=== PATIENT | male | born 1955 | race Caucasian/White ===

== ENCOUNTER 2021-12-20 18:06 | Emergency (ER) | payer MEDICARE, MEDICAID, SELFPAY ==
[2021-12-20 18:20] VITALS: BP 140/93; PULSE 88; RESP 18; TEMP 36.6; O2SAT 94; BMI 23.1
--- NOTE | 2021-12-20 18:34 | ED_ITS ---
HPI - General Adult General Time Seen by Provider: 18:42 Date Seen: 12/20/21 Chief complaint: Unspecified Complaint, Adult Stated complaint: Mental health Time Seen by Provider: 12/20/21 18:21 Source: patient History of Present Illness HPI narrative: Scooby is a 66-year-old male past medical history includes manic depression currently on electroconvulsive therapy since 06/2016, bipolar disorder on Depakote and Seroquel, anxiety on Lexapro and clonazepam, COPD presents emerged department by EMS with behavior concern. Per [facility] where he resides, resident has been decompensating from mental health symptoms. The patient has not been sleeping very irritable raising voices and having delusional thoughts. He was seen by his primary care provider and they decreased his Depakote on 11/29 from 1500 mg to 12 50 mg. The started him on Seroquel from 200 mg yesterday. Due to his behavior, patient's brother brought him to his home and was trying to get him to go to [facility], during that time he sustained abrasions to his right forearm on a brick wall. No other injuries noted. EMS brought patient here for further evaluation, patient is not currently suicidal or homicidal, he denies any visual or auditory hallucinations, no alcohol or drug use, he smokes 7 cigarettes a day. Sees Dr[facility]. Patient has a history of aspiration, had a recent swallowing study done. Patient feels anxious at this time and does not want to return to [place]. Patient has minimal pain at this time. Related Data Home Medications Medication Instructions Recorded Confirmed clonazepam 0.5 mg tablet mg 12/20/21 divalproex 250 mg tablet,extended mg PO 12/20/21 release 24 hr divalproex 500 mg tablet,extended mg PO 12/20/21 release 24 hr escitalopram oxalate 5 mg tablet mg 12/20/21 haloperidol decanoate 50 mg/mL mg IM 12/20/21 intramuscular solution levothyroxine 150 mcg tablet mcg 12/20/21 propranolol 20 mg tablet mg 12/20/21 quetiapine 100 mg tablet mg 12/20/21 tamsulosin 0.4 mg capsule mg PO 12/20/21 Allergies Allergy/AdvReac Type Severity Reaction Status Date / Time haloperidol AdvReac Unknown Verified 12/20/21 18:25 clozapine AdvReac Verified 12/20/21 18:25 Review of Systems Status of ROS: Reports: 10 or more systems reviewed and unremarkable except as noted in History and below Exam Narrative: Exam Narrative: General: Anxious in appearance, upper extremity tremors HEENT: Tympanic membranes within normal limits bilaterally. Poor dentition throughout with dental caries, pupils equal round reactive to light, extraocular muscles intact Neck: Supple, full range of motion Lungs: Diminished breath sounds throughout, mild expiratory wheezes throughout Heart: Normal sinus rhythm, S1-S2 Abdomen: Bowel sounds present, soft, tender Extremities: Superficial abrasions to the right lateral forearm and elbow, full range of motion Neuro: Alert awake and oriented x3 Psych: No suicidal ideations, mood and affect normal, anxious in appearance Const: Vital Signs, click to edit/add: Vital Signs - 24 hr 12/20/21 18:20 Temperature 97.8 F Pulse Rate [Left P ulse Oximeter] 88 Respiratory Rate 18 Blood Pressure [Le ft Upper Arm] 140/93 H Pulse Oximetry 94 Oxygen Delivery Me thod Room Air Course Course Hospital Course: 6:30 PM: AIDET performed. Workup will include oral Klonopin 0.5 mg to be given, will have him see [facility] for further recommendations, will obtain labs including CBC, TSH, CMP, ETOH, acetaminophen salicylate levels, urinalysis and urine drug screen. Patient is cooperative at this time. 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 Reevaluation(s) Reevaluation #1: Spoke with [facility] assessment, her recommendations for discharge, patient does not meet criteria for inpatient admission to a psychiatric hospital at this time. Patient was updated on his lab results, plan would be to discharge back to [place], patient is in agreement. He will follow up with Dr. Connor over the next 5-7 days and his scheduled general surgery placement in 2 weeks time.. Time: 20:14 Vital Signs Vital signs: Initial Vital Signs Temperature 97.8 F 12/20/21 18:20 Temperature Source Temporal Artery Scan 12/20/21 18:20 Pulse Rate 88 12/20/21 18:20 Pulse Rhythm 12/20/21 18:20 Respiratory Rate 18 12/20/21 18:20 Blood Pressure 140/93 H 12/20/21 18:20 Blood Pressure Mean 108 12/20/21 18:20 Blood Pressure Position Supine 12/20/21 18:20 Pulse Oximetry 94 12/20/21 18:20 Oxygen Delivery Method 12/20/21 18:20 Vital Signs Temperature 97.8 F 12/20/21 18:20 Pulse Rate 88 12/20/21 18:20 Respiratory Rate 18 12/20/21 18:20 Blood Pressure 140/93 H 12/20/21 18:20 Pulse Oximetry 94 12/20/21 18:20 Oxygen Delivery Method 12/20/21 18:20 Temperature 97.8 F 12/20/21 18:20 Pulse Rate 88 12/20/21 18:20 Respiratory Rate 18 12/20/21 18:20 Blood Pressure 140/93 H 12/20/21 18:20 Pulse Oximetry 94 12/20/21 18:20 Oxygen Delivery Method 12/20/21 18:20 Medical Decision Making Lab Data Labs: Lab Results 12/20/21 12/20/21 12/20/21 Range/Units 18:55 18:55 18:55 WBC 6.86 (4.50-11.00) K/uL RBC 4.07 L (4.30-5.90) m/uL Hgb 11.6 L (13.5-17.5) gm/dL Hct 35.7 L (37.0-53.0) % MCV 88 (80-100) fL MCH 29 (26-34) pg MCHC 33 (32-36) gm/dL RDW Coeff of Cecil 13.1 (11.5-15.5) % Plt Count 218 (140-440) K/uL Neut % (Auto) 72.1 H (42.0-72.0) % Lymph % (Auto) 17.8 L (20-44) % Woodford % (Auto) 8.2 (0.0-11.0) % Eos % (Auto) 1.5 (0.0-7.0) % Baso % (Auto) 0.3 (0.0-3.0) % Neut # (Auto) 4.90 (1.7-7.0) K/uL Lymph # (Auto) 1.20 (0.90-2.90) K/uL Woodford # (Auto) 0.60 (0.00-0.90) K/UL Eos # (Auto) 0.10 (0.00-0.50) K/uL Baso # (Auto) 0.02 (0.00-0.30) K/uL Abs Immat Gran (auto) 0.01 (0.00-0.30) K/uL Sodium 136 (135-149) mmol/L Potassium 4.3 (3.6-5.1) mmol/L Chloride 105 (96-114) mmol/L Carbon Dioxide 24 (20-32) mmol/L BUN 21 (7-30) mg/dL Creatinine 1.0 (0.5-1.5) mg/dL Estimated Creat Clear 77.28 Estimated GFR 83 ml/min Glucose 102 (60-115) mg/dL Calcium 9.2 (8.4-10.6) mg/dL Total Bilirubin 0.1 (0.1-1.5) mg/dL AST 30 (12-35) U/L ALT 24 (4-50) U/L Alkaline Phosphatase 93 (40-150) U/L Total Protein 6.9 (6.0-8.3) g/dL Albumin 3.9 (3.3-5.0) g/dL TSH 0.653 (0.270-4.20) uIU/mL Urine Color (Yellow) Urine Appearance (Clear) Urine pH (5.0-8.5) Ur Specific Douglas (1.000-1.030) Urine Protein (Negative) Urine Glucose (UA) (Negative) Urine Ketones (Negative) Urine Blood (Negative) Urine Nitrite (Negative) Urine Bilirubin (Negative) Urine Urobilinogen (0.2-1.0) Ur Leukocyte Esterase (Negative) Salicylates < 1.0 L (1.0-10) mg/dL Acetaminophen < 10.0 L (10.0-30.0) ug/mL Ethyl Alcohol < 0.01 L (0.01-0.03) % 12/20/21 Range/Units 20:06 WBC (4.50-11.00) K/uL RBC (4.30-5.90) m/uL Hgb (13.5-17.5) gm/dL Hct (37.0-53.0) % MCV (80-100) fL MCH (26-34) pg MCHC (32-36) gm/dL RDW Coeff of Cecil (11.5-15.5) % Plt Count (140-440) K/uL Neut % (Auto) (42.0-72.0) % Lymph % (Auto) (20-44) % Woodford % (Auto) (0.0-11.0) % Eos % (Auto) (0.0-7.0) % Baso % (Auto) (0.0-3.0) % Neut # (Auto) (1.7-7.0) K/uL Lymph # (Auto) (0.90-2.90) K/uL Woodford # (Auto) (0.00-0.90) K/UL Eos # (Auto) (0.00-0.50) K/uL Baso # (Auto) (0.00-0.30) K/uL Abs Immat Gran (auto) (0.00-0.30) K/uL Sodium (135-149) mmol/L Potassium (3.6-5.1) mmol/L Chloride (96-114) mmol/L Carbon Dioxide (20-32) mmol/L BUN (7-30) mg/dL Creatinine (0.5-1.5) mg/dL Estimated Creat Clear Estimated GFR ml/min Glucose (60-115) mg/dL Calcium (8.4-10.6) mg/dL Total Bilirubin (0.1-1.5) mg/dL AST (12-35) U/L ALT (4-50) U/L Alkaline Phosphatase (40-150) U/L Total Protein (6.0-8.3) g/dL Albumin (3.3-5.0) g/dL TSH (0.270-4.20) uIU/mL Urine Color Yellow (Yellow) Urine Appearance Clear (Clear) Urine pH 6.5 (5.0-8.5) Ur Specific Douglas 1.015 (1.000-1.030) Urine Protein Negative (Negative) Urine Glucose (UA) Negative (Negative) Urine Ketones Negative (Negative) Urine Blood Negative (Negative) Urine Nitrite Negative (Negative) Urine Bilirubin Negative (Negative) Urine Urobilinogen 0.2 (0.2-1.0) Ur Leukocyte Esterase Negative (Negative) Salicylates (1.0-10) mg/dL Acetaminophen (10.0-30.0) ug/mL Ethyl Alcohol (0.01-0.03) % Discharge Plan Discharge Clinical Impression: Behavior concern Patient Disposition: Home, Self-Care Condition: Improved Additional Instructions: To follow up with Dr. Connor in the next 5-7 days for ED follow up and recheck. To follow up with General surgery as scheduled in the next 2 weeks. To return if worsening symptoms. Activity Level: Activity as Tolerated Prescriptions: No Action clonazepam 0.5 mg tablet divalproex 500 mg tablet extended release 24 hr PO divalproex 250 mg tablet extended release 24 hr PO quetiapine 100 mg tablet tamsulosin 0.4 mg capsule PO levothyroxine 150 mcg tablet haloperidol decanoate 50 mg/mL solution IM propranolol 20 mg tablet escitalopram oxalate 5 mg tablet Follow Up/Referrals: Rex Connor MD [Primary Care Provider] - Stand Alone Forms: [employer] Info Instructions
[2021-12-20 19:04] LABS: Basophils Absolute Auto 0.02 K/uL (0.00-0.30); Basophils Percent Auto 0.3 % (0.0-3.0); Eosinophils Percent Auto 1.5 % (0.0-7.0); Hematocrit 35.7 % (37.0-53.0); Hemoglobin* 11.6 gm/dL (13.5-17.5); Immature Granulocytes Abs Auto 0.01 K/uL (0.00-0.30); Lymphocytes Percent Auto 17.8 % (20-44); Mean Corpuscular HGB Conc 33 gm/dL (32-36); Mean Corpuscular Hemoglobin 29 pg (26-34); Mean Corpuscular Volume 88 fL (80-100); Monocytes Percent Auto 8.2 % (0.0-11.0); Neutrophils Percent Auto 72.1 % (42.0-72.0); Platelet Count* 218 K/uL (140-440); RDW Coefficient of Variation % 13.1 % (11.5-15.5); Red Blood Count 4.07 m/uL (4.30-5.90); White Blood Count* 6.86 K/uL (4.50-11.00)
[2021-12-20] MEDS: clonazePAM 0.5 MG TABLET PO (19:15)
[2021-12-20 19:16] LABS: Slide Review Reflex No
[2021-12-20 19:18] LABS: Albumin* 3.9 g/dL (3.3-5.0); Chloride* 105 mmol/L (96-114)
[2021-12-20 19:19] LABS: Potassium* 4.3 mmol/L (3.6-5.1); Sodium* 136 mmol/L (135-149)
[2021-12-20 19:20] LABS: Est. Creatinine Clearance* 77.28; Estimated Glomerular Filt Rate 83 ml/min
[2021-12-20 19:21] LABS: Alanine Aminotransferase* 24 U/L (4-50); Alkaline Phosphatase* 93 U/L (40-150); Aspartate Amino Transferase* 30 U/L (12-35); Bilirubin Total* 0.1 mg/dL (0.1-1.5); Blood Urea Nitrogen* 21 mg/dL (7-30); Carbon Dioxide* 24 mmol/L (20-32); Glucose* 102 mg/dL (60-115); Total Protein* 6.9 g/dL (6.0-8.3)
[2021-12-20 19:22] LABS: Calcium* 9.2 mg/dL (8.4-10.6)
[2021-12-20 19:28] LABS: Acetaminophen* < 10.0 ug/mL (10.0-30.0); Ethanol* < 0.01 % (0.01-0.03); Salicylate* < 1.0 mg/dL (1.0-10)
[2021-12-20 20:03] LABS: Thyroid Stimulating Hormone* 0.653 uIU/mL (0.270-4.20)
[2021-12-20 20:10] LABS: Appearance Urine Clear (Clear); Bilirubin Urine Negative (Negative); Blood Urine Negative (Negative); Color Urine Yellow (Yellow); Glucose Urine Negative (Negative); Ketones Urine Negative (Negative); Leukocyte Esterase Urine Negative (Negative); Nitrite Urine Negative (Negative); Protein Urine Negative (Negative); Specific Gravity Urine 1.015 (1.000-1.030); Urobilinogen Urine 0.2 (0.2-1.0); pH Urine 6.5 (5.0-8.5)
--- NOTE | 2021-12-20 20:35 | ED.NURSE ---
call to [facility], awaiting call back from nurse inhalation therapist.
[2021-12-22 13:26] LABS: Amphetamine Screen Urine Negative (Negative); Barbiturate Screen Urine Negative (Negative); Benzodiazepines Screen Urine Negative (Negative); Cannabinoid Screen Urine Negative (Negative); Cocaine Screen Urine Negative (Negative); Methadone Screen Urine Negative (Negative); Methamphetamines Screen Urine Negative (Negative); Opiate Screen Urine Negative (Negative); Oxycodone Screen Urine Negative (Negative); Phencyclidine Screen Urine Negative (Negative); Tricyclic Antidepressant Urine Negative (Negative)
== END 2021-12-20 21:12 | disposition home or self-care (01) ==
PROVIDERS: Emergency Provider Student in an Organized Health Care Education/Training Program; PCP Family Medicine
DX: F91.8 Other conduct disorders (principal)
CPT/HCPCS: 36415; 80053; 80143; 80179; 80306; 81003; 82077; 84443; 85025; 99283; 99284; A9270

== ENCOUNTER 2021-12-21 18:37 | Outpatient (CLI) | payer MEDICARE, MEDICAID, SELFPAY | END 2021-12-21 18:38 | disposition home or self-care (01) | LOC: AMB 01-02 09:08 | PROVIDERS: PCP Family Medicine; Visit Provider Family Medicine | DX: R19.7 Diarrhea, unspecified (principal); R53.1 Weakness; Z20.822 Contact with and (suspected) exposure to COVID-19 | CPT/HCPCS: A0425; A0428; A0429 ==

== ENCOUNTER 2021-12-21 19:02 | Emergency (ER) | payer MEDICARE, MEDICAID, SELFPAY ==
[2021-12-21 19:07] VITALS: BP 146/85; PULSE 80; RESP 18; TEMP 37.2; O2SAT 98; BMI 23.0
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
--- NOTE | 2021-12-21 22:27 | ED.NURSE ---
While preparing pt's medication, pt asked if he could go outside to smoke, explained that this is a non smoking facility. Pt then proceeded to walk out of the room. SUNNY Holloway followed pt and Dr Rooney was called. Pt walked to entrance and was stopped by security. Pt went outside and smoked a cigarette and was surrounded by staff
[2021-12-21 22:34] LABS: SARS PCR* Negative SARS-CoV-2 (Negative)
[2021-12-21] MEDS: LORazepam 2 MG/ML inj IM (22:39)
[2021-12-21] MEDS: diphenhydrAMINE 50 MG/ML inj 25 MG IM (22:40)
--- NOTE | 2021-12-21 22:50 | ED.NURSE ---
PT refusing to po meds. Meds wasted.
--- NOTE | 2021-12-21 23:15 | ED.NURSE ---
Spoke with Talat at [facility] and update given that pt will be returning back to [facility]. 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 Will attempt to call a taxi
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
== END 2021-12-21 23:50 | disposition other institution (70) ==
PROVIDERS: Emergency Provider Family Medicine; PCP Family Medicine
DX: S50.819A Abrasion of unspecified forearm, initial encounter (principal); Z20.822 Contact with and (suspected) exposure to COVID-19; F98.9 Unspecified behavioral and emotional disorders with onset usually occurring in childhood and adolescence
CPT/HCPCS: 87635; 96372; 99283; A9270; J1200; J2060

== ENCOUNTER 2021-12-21 23:47 | Outpatient (CLI) | payer MEDICARE, MEDICAID, SELFPAY | END 2021-12-21 23:48 | disposition home or self-care (01) | LOC: AMB 01-04 14:46 | PROVIDERS: PCP Family Medicine; Visit Provider Family Medicine | DX: F91.9 Conduct disorder, unspecified (principal) | CPT/HCPCS: A0425; A0428 ==

== ENCOUNTER 2022-08-21 03:44 | Outpatient (CLI) | payer MEDICARE, MEDICAID, SELFPAY | END 2022-08-21 03:45 | disposition home or self-care (01) | LOC: AMB 08-26 04:32 | PROVIDERS: PCP Family Medicine; Visit Provider Family Medicine | DX: S29.9XXA Unspecified injury of thorax, initial encounter (principal); W18.11XA Fall from or off toilet without subsequent striking against object, initial encounter; Y92.031 Bathroom in apartment as the place of occurrence of the external cause | CPT/HCPCS: A0425; A0427 ==

== ENCOUNTER 2022-08-21 04:17 | Emergency (ER) | payer MEDICARE, MEDICAID, SELFPAY ==
[2022-08-21] VITALS (20 sets, daily range): BP systolic 125–168; BP diastolic 76–110; PULSE 88–103; RESP 16; TEMP 36.9; O2SAT 93–105
--- NOTE | 2022-08-21 04:22 | ED_ITS ---
HPI - General Adult General Time Seen by Provider: 04:22 Date Seen: 08/21/22 Chief complaint: Fall/Minor Trauma Stated complaint: fall Time Seen by Provider: 08/21/22 04:24 History of Present Illness HPI narrative: Scooby is a 66-year-old male past medical history includes manic depression currently on electroconvulsive therapy since 06/2016, bipolar disorder on Depakote and Seroquel, anxiety on Lexapro and clonazepam, COPD presents emerged department by EMS with?complaints of right rib pain. Jn Almodovar states that he was going to go outside to smoke but on his way to the bathroom he fell. He initially denied hitting his head and has no complaints of headache or neck pain. However here in the emergency room he thinks he did hit his head. He is also unsure if he had loss of consciousness. At this time his major complaint i s right lower rib pain that is coming and going. It is been present for number of weeks. He does state that he falls frequently. He denies any recent fever chills. He does note that he has been constipated for approximately 6 days. He has not had fever or chills nor any vomiting. He denies fever or chills. While Frank responses are somewhat delayed slow and measured they are appropriate to the question and appears to be baseline for him as I read past notes. Nursing staff at [facility] also notes that he is at baseline mentally. He is requesting Coke and is agreeable to some ibuprofen. Related Data Home Medications Medication Instructions Recorded Confirmed clonazepam 0.5 mg tablet mg 12/20/21 divalproex 250 mg tablet,extended mg PO 12/20/21 release 24 hr divalproex 500 mg tablet,extended mg PO 12/20/21 release 24 hr escitalopram oxalate 5 mg tablet mg 12/20/21 haloperidol decanoate 50 mg/mL mg IM 12/20/21 intramuscular solution levothyroxine 150 mcg tablet mcg 12/20/21 propranolol 20 mg tablet mg 12/20/21 quetiapine 100 mg tablet mg 12/20/21 tamsulosin 0.4 mg capsule mg PO 12/20/21 aspirin 325 mg tablet PO 08/21/22 benztropine 0.5 mg tablet 0.5 mg PO BID 08/21/22 08/21/22 budesonide-formoterol HFA 80 inhalation 08/21/22 mcg-4.5 mcg/actuation aerosol inhaler (Symbicort) carbidopa 25 mg-levodopa 100 mg 1 tab PO 3XD 08/21/22 08/21/22 tablet escitalopram oxalate 10 mg tablet 10 mg PO DAILY 08/21/22 08/21/22 haloperidol 5 mg tablet PO 08/21/22 haloperidol decanoate 100 mg/mL mg IM 08/21/22 intramuscular solution nicotine (polacrilex) 2 mg buccal 0 mg PO 08/21/22 lozenge nicotine 14 mg/24 hr daily 1 patch topical DAILY 08/21/22 08/21/22 transdermal patch polyethylene glycol 3350 17 g PO 08/21/22 gram/dose oral powder (Gavilax) quetiapine 200 mg tablet 200 mg PO QPM 08/21/22 08/21/22 Allergies Allergy/AdvReac Type Severity Reaction Status Date / Time haloperidol AdvReac Unknown Verified 08/21/22 06:52 clozapine AdvReac Verified 08/21/22 06:52 Review of Systems Status of ROS: Reports: 10 or more systems reviewed and unremarkable except as noted in History and below Const: Denies: fever or chills Eyes: Denies: blurry vision ENMT: Denies: neck pain or throat swelling Cardio: Reports: lightheadedness (Chronic when he is walking); Denies: chest pain, palpitations, swelling of feet/ankles or shortness of breath with exertion Resp: Reports: wheezing; Denies: shortness of breath or cough GI: Reports: constipation; Denies: abdominal pain, nausea or vomiting : Denies: painful urination Musculo: Denies: back pain, neck pain or extremity pain Neuro: Reports: lack of coordination; Denies: headache or numbness in extremities Allergy/Immuno: Reports: wheezing; Denies: throat swelling PFSH PFS Medical History CAD (coronary artery disease) ?I25.10 - Atherosclerotic heart disease of [place] coronary artery without angina pectoris (ICD-10) History of alcohol abuse ?F10.11 - Alcohol abuse, in remission (ICD-10) Manic depression ?F31.9 - Bipolar disorder, unspecified (ICD-10) Psychotic disorder ?F29 - Unspecified psychosis not due to a substance or known physiological condition (ICD-10) Schizoaffective disorder, bipolar type ?F25.0 - Schizoaffective disorder, bipolar type (ICD-10) Social History Smoking Status: Current every day smoker What tobacco products do you use: cigarettes Do you use any of these nicotine containing products: None How often do you have a drink containing alcohol: never How many standard drinks containing alcohol do you have on a typical day: 1 or 2 How often do you have six or more drinks on one occasion: Never AUDIT-C Alcohol total score: 0 Non-prescribed substance use: denies use Exam Narrative: Exam Narrative: Scooby is is supine on the gurney in room 5. He is able to answer my questions and has a GCS of 15. Patient has tremors in the upper extremities right greater than left at rest. Tremor extinguishes with movement. Answers to questions somewhat delayed but appropriate. His eyes are clear and EOM is full. Head is atraumatic normocephalic. Dentition very poor. Mucous membranes are somewhat dry. He is a mouth breather. Neck is supple. No midline tenderness. Heart with regular rate and rhythm Lungs show expiratory wheeze very subtle. Otherwise no crackles. Palpation over ribcage shows slight tenderness but this is occasionally not reproducible. There is no ecchymosis or erythema in this area. Abdomen is soft and nontender. Lower extremities without edema. Palpation down thoracic and lumbar spine without pain. No ecchymosis or areas of injury on the back. He is able to sit himself up in bed. Const: Vital Signs, click to edit/add: Vital Signs - 24 hr 08/21/22 04:25 08/21/22 06:54 08/21/22 07:00 Temperature 98.5 F Pulse Rate 103 H 102 H Respiratory Rate 16 Blood Pressure Blood Pressure [Ri ght Upper Arm] 150/110 H Pulse Oximetry 105 H 95 94 Oxygen Delivery Me thod Room Air 08/21/22 07:02 08/21/22 07:03 08/21/22 07:16 Temperature Pulse Rate 98 96 103 H Respiratory Rate Blood Pressure 168/93 H Blood Pressure [Ri ght Upper Arm] Pulse Oximetry 94 93 95 Oxygen Delivery Me thod 08/21/22 07:17 Temperature Pulse Rate 100 Respiratory Rate Blood Pressure 152/96 H Blood Pressure [Ri ght Upper Arm] Pulse Oximetry 95 Oxygen Delivery Me thod Documenting provider has reviewed patient's vital signs: yes Course Course Hospital Course: At this time patient is alert and oriented with no complaints of headache. His main complaint is his rib pain that has been going on for many weeks. I do not see any significant external signs of trauma but Scooby is somewhat frail and perhaps not the best historian. I would want to make sure he has no underlying head injury and therefore will order head CT, rib x-rays and a PA of the chest as well as blood work to include a CBC, comprehensive panel and urinalysis. He is requesting assistance to use the bathroom and so will have nursing collect a urinalysis. Reevaluation(s) Reevaluation #1: Scooby was sleeping soundly. I did wake him up to discuss the results of his chest x-ray which do show a mass in the right lower lung field. Able to a CT for further evaluation of this. He is informed that his head CT and laboratory values are reassuring at this time. Vital Signs Vital signs: Initial Vital Signs Temperature 98.5 F 08/21/22 04:25 Temperature Source Temporal Artery Scan 08/21/22 04:25 Respiratory Rate 16 08/21/22 04:25 Blood Pressure 150/110 H 08/21/22 04:25 Blood Pressure Mean 123 08/21/22 04:25 Pulse Oximetry 105 H 08/21/22 04:25 Oxygen Delivery Method Room Air 08/21/22 04:25 Vital Signs Temperature 98.5 F 08/21/22 04:25 Respiratory Rate 16 08/21/22 04:25 Blood Pressure 150/110 H 08/21/22 04:25 Pulse Oximetry 105 H 08/21/22 04:25 Oxygen Delivery Method Room Air 08/21/22 04:25 Temperature 98.5 F 08/21/22 04:25 Pulse Rate 100 08/21/22 07:17 Respiratory Rate 16 08/21/22 04:25 Blood Pressure 152/96 H 08/21/22 07:17 Pulse Oximetry 95 08/21/22 07:17 Oxygen Delivery Method Room Air 08/21/22 04:25 Medical Decision Making MDM Narrative Medical decision making narrative: 1. Fall-patient has no obvious external signs of trauma. In fact, he states he did not get hurt from the fall but came in because he has been experiencing right rib pain for a few weeks. Note that CT does show possible nondisplaced sternal fracture but this also could be artifact. Patient has no pain at this site. 2. Rib pain -secondary to spiculated middle low mass on the right. While there are some signs which could indicate infection patient has been afebrile, has had this pain for many weeks, and has reassuring lab values. We will start patient on Augmentin 875 mg p.o. b.i.d., his 1st dose given in the ED. we will try to coordinate with [facility] nurses to ensure patient continues this medication. Attempting at this time to coordinate outpatient appointment with Interventional Radiology for tissue sampling of this area. I did speak with our radiologist who feels that patient needs to be seen by IR at [facility] and that this is a procedure that should not be done at [facility]. I was able to speak with Dr. Connor, [facility] who will coordinate follow-up appointm ent for Scooby at the clinic, and IR appointment at [facility] and who will also speak with Frank peters. I did try to call Frank peters and both phone numbers went immediately to voicemail. 3. Disposition-home to [facility] at this time. Continue Augmentin 875 mg p.o. b.i.d. for 7 days. Expect phone call from Jose for follow-up appointment in the next 48 hours. Return to the emergency room for fever, worsening symptoms and as needed. Medical Records Medical records reviewed: Yes I reviewed the patient's medical records Lab Data Lab results reviewed: Yes I reviewed the patient's lab results Labs: Lab Results 08/21/22 08/21/22 Range/Units 04:30 04:45 WBC 9.50 (4.50-11.00) K/uL RBC 3.97 L (4.30-5.90) m/uL Hgb 11.6 L (13.5-17.5) gm/dL Hct 35.8 L (37.0-53.0) % MCV 90 (80-100) fL MCH 29 (26-34) pg MCHC 32 (32-36) gm/dL RDW Coeff of [place] 14.2 (11.5-15.5) % Plt Count 236 (140-440) K/uL Neut % (Auto) 72.7 H (42.0-72.0) % Lymph % (Auto) 10.5 L (20-44) % [place] % (Auto) 12.3 H (0.0-11.0) % Eos % (Auto) 2.6 (0.0-7.0) % Baso % (Auto) 0.1 (0.0-3.0) % Neut # (Auto) 6.90 (1.7-7.0) K/uL Lymph # (Auto) 1.00 (0.90-2.90) K/uL [place] # (Auto) 1.20 H (0.00-0.90) K/UL Eos # (Auto) 0.25 (0.00-0.50) K/uL Baso # (Auto) 0.01 (0.00-0.30) K/uL Sodium 141 (135-149) mmol/L Potassium 3.7 (3.6-5.1) mmol/L Chloride 109 (96-114) mmol/L Carbon Dioxide 25 (20-32) mmol/L BUN 18 (7-30) mg/dL Creatinine 1.0 (0.5-1.5) mg/dL Estimated GFR 83 ml/min Glucose 99 (60-115) mg/dL Calcium 10.0 (8.4-10.6) mg/dL Total Bilirubin 0.4 (0.1-1.5) mg/dL AST 23 (12-35) U/L ALT 12 (4-50) U/L Alkaline Phosphatase 80 (40-150) U/L Total Protein 7.6 (6.0-8.3) g/dL Albumin 3.9 (3.3-5.0) g/dL Lipase 60 (23-300) U/L Urine Color Yellow (Yellow) Urine Appearance Clear (Clear) Urine pH 6.5 (5.0-8.5) Ur Specific [place] 1.010 (1.000-1.030) Urine Protein 1+ A (Negative) Urine Glucose (UA) Negative (Negative) Urine Ketones Negative (Negative) Urine Blood Trace-intact A (Negative) Urine Nitrite Negative (Negative) Urine Bilirubin Negative (Negative) Urine Urobilinogen 0.2 (0.2-1.0) Ur Leukocyte Esterase Negative (Negative) Urine RBC 2-5 A (0-2) Urine WBC 0-2 (0-5) Ur Squamous Epith Cells Few (None-Few) Urine Bacteria None (None) Imaging Data Chest x-ray: Attestation: I have reviewed the pertinent imaging results. My impression: Noted is increased perihilar appearance but a new mass in the right lower lung field. Currently awaiting radiological over-read. Radiologist's impression: ardiovascular and mediastinum:? Heart size and vasculature are normal in caliber and appearance.? Mediastinum is within normal limits.? Lungs and pleural spaces:? The in there is multifocal opacities in the infrahilar right lung, including a rounded masslike opacity measuring 4 centimeters. The left lung is clear. No pleural effusion or pneumothorax is detected. Bones and soft tissues:? Detailed oblique images of the right ribs demonstrate no fractures or bone lesions. ? IMPRESSION: 1. No rib fracture or focal rib abnormality detected. 2. Multifocal opacity at the right lung base, including a rounded 4 centimeter masslike opacity. Recommend further assessment with chest CT. CT scan - head: Attestation: I have reviewed the pertinent imaging results. My impression: No skull fracture or intracranial bleed by my read Radiologist's impression: There is no intracranial hemorrhage. There is no territorial infarction. There are mild microangiopathic changes. There is diffuse parenchymal volume loss. There is no mass effect or midline shift. The calvarium is unremarkable. The orbits are unremarkable. The paranasal sinuses are unremarkable. The mastoid air cells are unremarkable. The soft tissues are unremarkable. IMPRESSION: 1. No intracranial hemorrhage or territorial infarction. 2. Mild microangiopathic changes and diffuse parenchymal volume loss. CT scan - chest: Attestation: I have reviewed the pertinent imaging results. My impression: Large mass right middle lobe. I do not note any mediastinal lymphadenopathy. Radiologist's impression: Lungs and pleura: 4.5 x 3.1 centimeter ovoid but slightly spiculated low-density cavitary masslike consolidation in the right middle lobe. Additional branching tree-in-bud in small consolidative opacities at the inferior aspect of the middle lobe. No pleural effusions, pleural thickening, or pneumothorax. Heart and vasculature: Heart size is normal. Thoracic aorta and pulmonary artery are normal in caliber. Lymph nodes/mediastinum: No mediastinal, hilar, or axillary adenopathy. Chest wall: No masses. Upper abdomen: Normal. Bones: Possible nondisplaced fracture of the lower sternum (versus artifact). IMPRESSION: 1. 4.5 centimeter cavitary masslike consolidation in the middle lobe. There are surrounding finding suggestive of infection and this may reflect an infectious process/developing lung abscess. However neoplastic process cannot be excluded. Please correlate clinically and recommend either tissue sampling or short-term imaging follow-up. 2. Possible nondisplaced fracture of the lower sternum. This may reflect a CT artifact. Please correlate for focal tenderness at this location. Discharge Plan Discharge Prescriptions: No Action clonazepam 0.5 mg tablet divalproex 500 mg tablet extended release 24 hr PO divalproex 250 mg tablet extended release 24 hr PO quetiapine 100 mg tablet tamsulosin 0.4 mg capsule PO levothyroxine 150 mcg tablet haloperidol decanoate 50 mg/mL solution IM propranolol 20 mg tablet escitalopram oxalate 5 mg tablet benztropine 0.5 mg tablet 0.5 mg PO BID nicotine 14 mg/24 hr patch 24 hour 1 patch topical DAILY haloperidol 5 mg tablet PO aspirin 325 mg tablet PO haloperidol decanoate 100 mg/mL solution IM quetiapine 200 mg tablet 200 mg PO QPM polyethylene glycol 3350 [Gavilax] 17 gram/dose powder PO carbidopa-levodopa 25-100 mg tablet 1 tab PO 3XD escitalopram oxalate 10 mg tablet 10 mg PO DAILY nicotine (polacrilex) 2 mg lozenge 0 mg PO budesonide-formoterol [Symbicort] 80-4.5 mcg/actuation HFA aerosol inhaler inhalation Follow Up/Referrals: Rex Connor MD [Primary Care Provider] -
--- NOTE | 2022-08-21 04:34 | CRLHL7_ITS ---
For Patients: As a result of the Century Cures Act, medical imaging exams and procedure reports are released immediately into your electronic medical record. You may view this report before your referring provider. If you have questions, please contact your health care provider. CT HEAD DATE: 08/21/2022 CLINICAL HISTORY: Patient with fall. TECHNIQUE: Standard CT scanning of the head was performed. COMPARISON: 12/29/2019. FINDINGS: There is no intracranial hemorrhage. There is no territorial infarction. There are mild microangiopathic changes. There is diffuse parenchymal volume loss. There is no mass effect or midline shift. The calvarium is unremarkable. The orbits are unremarkable. The paranasal sinuses are unremarkable. The mastoid air cells are unremarkable. The soft tissues are unremarkable. IMPRESSION: 1. No intracranial hemorrhage or territorial infarction. 2. Mild microangiopathic changes and diffuse parenchymal volume loss. Please note that all CT scans at this facility use dose modulation, iterative reconstruction, and/or weight-based dosing when appropriate to reduce radiation dose to as low as reasonably achievable. Dictated by: Patrica Reynolds MD @ 08/21/2022 05:14:01 (Electronically Signed)
--- NOTE | 2022-08-21 04:34 | CRLHL7_ITS ---
For Patients: As a result of the Century Cures Act, medical imaging exams and procedure reports are released immediately into your electronic medical record. You may view this report before your referring provider. If you have questions, please contact your health care provider. INDICATION: Injury and pain. TECHNIQUE: Chest and right ribs 2 views. COMPARISON: None. FINDINGS: Cardiovascular and mediastinum: Heart size and vasculature are normal in caliber and appearance. Mediastinum is within normal limits. Lungs and pleural spaces: The in there is multifocal opacities in the infrahilar right lung, including a rounded masslike opacity measuring 4 centimeters. The left lung is clear. No pleural effusion or pneumothorax is detected. Bones and soft tissues: Detailed oblique images of the right ribs demonstrate no fractures or bone lesions. IMPRESSION: 1. No rib fracture or focal rib abnormality detected. 2. Multifocal opacity at the right lung base, including a rounded 4 centimeter masslike opacity. Recommend further assessment with chest CT. Dictated by Luiz Tiwari MD @ 08/21/2022 5:55:46 AM (Electronically Signed)
[2022-08-21 04:53] LABS: Appearance Urine Clear (Clear); Bilirubin Urine Negative (Negative); Blood Urine Trace-intact (Negative); Color Urine Yellow (Yellow); Glucose Urine Negative (Negative); Ketones Urine Negative (Negative); Leukocyte Esterase Urine Negative (Negative); Nitrite Urine Negative (Negative); Protein Urine 1+ (Negative); Urobilinogen Urine 0.2 (0.2-1.0); pH Urine 6.5 (5.0-8.5)
[2022-08-21 04:55] LABS: Basophils Absolute Auto 0.01 K/uL (0.00-0.30); Basophils Percent Auto 0.1 % (0.0-3.0); Eosinophils Absolute Auto 0.25 K/uL (0.00-0.50); Eosinophils Percent Auto 2.6 % (0.0-7.0); Hematocrit 35.8 % (37.0-53.0); Hemoglobin* 11.6 gm/dL (13.5-17.5); Immature Granulocytes Abs Auto 0.17 K/uL (0.00-0.30); Immature Granulocytes Pct Auto 1.8 %; Lymphocytes Percent Auto 10.5 % (20-44); Mean Corpuscular HGB Conc 32 gm/dL (32-36); Mean Corpuscular Hemoglobin 29 pg (26-34); Mean Corpuscular Volume 90 fL (80-100); Monocytes Percent Auto 12.3 % (0.0-11.0); Neutrophils Percent Auto 72.7 % (42.0-72.0); Platelet Count* 236 K/uL (140-440); RDW Coefficient of Variation % 14.2 % (11.5-15.5); Red Blood Count 3.97 m/uL (4.30-5.90)
[2022-08-21 04:56] LABS: Slide Review Reflex No
[2022-08-21 04:59] LABS: Squamous Epithelial Cell Urine Few (None-Few); WBC Urine 0-2 (0-5)
[2022-08-21 05:05] LABS: Albumin* 3.9 g/dL (3.3-5.0); Chloride* 109 mmol/L (96-114); Potassium* 3.7 mmol/L (3.6-5.1); Sodium* 141 mmol/L (135-149)
[2022-08-21 05:07] LABS: Estimated Glomerular Filt Rate 83 ml/min
[2022-08-21 05:08] LABS: Alanine Aminotransferase* 12 U/L (4-50); Alkaline Phosphatase* 80 U/L (40-150); Aspartate Amino Transferase* 23 U/L (12-35); Bilirubin Total* 0.4 mg/dL (0.1-1.5); Blood Urea Nitrogen* 18 mg/dL (7-30); Carbon Dioxide* 25 mmol/L (20-32); Glucose* 99 mg/dL (60-115); Lipase* 60 U/L (23-300); Total Protein* 7.6 g/dL (6.0-8.3)
[2022-08-21] MEDS: IBUPROFEN 200 MG TABLET 600 MG PO (05:25)
--- NOTE | 2022-08-21 06:01 | CRLHL7_ITS ---
For Patients: As a result of the Century Cures Act, medical imaging exams and procedure reports are released immediately into your electronic medical record. You may view this report before your referring provider. If you have questions, please contact your health care provider. INDICATION: Right lung mass. TECHNIQUE: CT chest was acquired with 100 cc Omnipaque 370 IV contrast. COMPARISON: Rib radiographs 08/21/2022. FINDINGS: Lungs and pleura: 4.5 x 3.1 centimeter ovoid but slightly spiculated low-density cavitary masslike consolidation in the right middle lobe. Additional branching tree-in-bud in small consolidative opacities at the inferior aspect of the middle lobe. No pleural effusions, pleural thickening, or pneumothorax. Heart and vasculature: Heart size is normal. Thoracic aorta and pulmonary artery are normal in caliber. Lymph nodes/mediastinum: No mediastinal, hilar, or axillary adenopathy. Chest wall: No masses. Upper abdomen: Normal. Bones: Possible nondisplaced fracture of the lower sternum (versus artifact). IMPRESSION: 1. 4.5 centimeter cavitary masslike consolidation in the middle lobe. There are surrounding finding suggestive of infection and this may reflect an infectious process/developing lung abscess. However neoplastic process cannot be excluded. Please correlate clinically and recommend either tissue sampling or short-term imaging follow-up. 2. Possible nondisplaced fracture of the lower sternum. This may reflect a CT artifact. Please correlate for focal tenderness at this location. Please note that all CT scans at this facility use dose modulation, iterative reconstruction, and/or weight-based dosing when appropriate to reduce radiation dose to as low as reasonably achievable. Dictated by Luiz Tiwari MD @ 08/21/2022 7:46:38 AM (Electronically Signed)
--- NOTE | 2022-08-21 07:21 | ED.NURSE ---
was able to stand with assistance and urinated 250 ml of straw colored. did have a 1/2 saturated attends. wanted to sleep. is able to converse but is slower to respond.
[2022-08-21] MEDS: AMOXICILLIN/CLAVULANATE 875 mg/125 mg TABLET PO (09:19)
--- NOTE | 2022-08-21 09:49 | ED.NURSE ---
did call ramya aranda rn and aware of discharge planning and need to start augmentin bid. did have initial dose. did stand to void with additional 250 ml of more dilute urine.
== END 2022-08-21 09:56 | disposition home or self-care (01) ==
PROVIDERS: Emergency Provider Family Medicine; PCP Family Medicine
DX: R07.81 Pleurodynia (principal); R91.8 Other nonspecific abnormal finding of lung field
CPT/HCPCS: 36415; 70450; 71101; 71260; 80053; 81001; 83690; 85025; 86308; 99284; 99285; A9270; Q9967

== ENCOUNTER 2022-09-01 17:15 | Outpatient (CLI) | payer MEDICARE, MEDICAID, SELFPAY | END 2022-09-01 17:16 | disposition home or self-care (01) | LOC: AMB 09-03 14:31 | PROVIDERS: PCP Family Medicine; Visit Provider Family Medicine | DX: R41.82 Altered mental status, unspecified (principal); Z91.81 History of falling | CPT/HCPCS: A0425; A0427 ==

== ENCOUNTER 2022-09-01 17:33 | Emergency (ER) | payer MEDICARE, MEDICAID, SELFPAY ==
[2022-09-01] VITALS (23 sets, daily range): BP systolic 101–162; BP diastolic 65–131; PULSE 67–85; TEMP 36.1; O2SAT 93–100; BMI 23.2
--- NOTE | 2022-09-01 17:49 | ED_ITS ---
HPI - General Adult General Date Seen: 09/01/22 Chief complaint: Unspecified Complaint, Adult Stated complaint: Several Falls Time Seen by Provider: 09/01/22 17:37 Source: patient, EMS and RN notes reviewed Mode of arrival: EMS Limitations: other History of Present Illness HPI narrative: Patient is a 66-year-old male brought in by EMS because of concerns of altered mental status. Reportedly, [facility] staff were not able to wake him up. 911 was called, paramedics reported doing a brief sternal rub at which time he woke up and said that he was simply napping. He had no complaints. He is brought in for further evaluation. Staff do report several falls in the past week, also note that falls are normal for him. He reports no trauma. He did have a recent visit here at which time he was found to have a mass in his right lung. This was biopsied last Saturday. He denies any problems since then with breathing or chest pain. No reported fevers. He does smoke cigarettes, denies any alcohol or other drug use. Other medical history is reviewed. Related Data Home Medications Medication Instructions Recorded Confirmed clonazepam 0.5 mg tablet mg 12/20/21 divalproex 250 mg tablet,extended mg PO 12/20/21 release 24 hr divalproex 500 mg tablet,extended mg PO 12/20/21 release 24 hr escitalopram oxalate 5 mg tablet mg 12/20/21 haloperidol decanoate 50 mg/mL mg IM 12/20/21 intramuscular solution levothyroxine 150 mcg tablet mcg 12/20/21 propranolol 20 mg tablet mg 12/20/21 quetiapine 100 mg tablet mg 12/20/21 tamsulosin 0.4 mg capsule mg PO 12/20/21 aspirin 325 mg tablet PO 08/21/22 benztropine 0.5 mg tablet 0.5 mg PO BID 08/21/22 08/21/22 budesonide-formoterol HFA 80 inhalation 08/21/22 mcg-4.5 mcg/actuation aerosol inhaler (Symbicort) carbidopa 25 mg-levodopa 100 mg 1 tab PO 3XD 08/21/22 08/21/22 tablet escitalopram oxalate 10 mg tablet 10 mg PO DAILY 08/21/22 08/21/22 haloperidol 5 mg tablet PO 08/21/22 haloperidol decanoate 100 mg/mL mg IM 08/21/22 intramuscular solution nicotine (polacrilex) 2 mg buccal 0 mg PO 08/21/22 lozenge nicotine 14 mg/24 hr daily 1 patch topical DAILY 08/21/22 08/21/22 transdermal patch polyethylene glycol 3350 17 g PO 08/21/22 gram/dose oral powder (Gavilax) quetiapine 200 mg tablet 200 mg PO QPM 08/21/22 08/21/22 Allergies Allergy/AdvReac Type Severity Reaction Status Date / Time haloperidol AdvReac Unknown Verified 08/21/22 06:52 clozapine AdvReac Verified 08/21/22 06:52 Review of Systems Status of ROS: Reports: 6 or more systems reviewed and unremarkable except as noted in History and below PFSH PFS Medical History CAD (coronary artery disease) ?I25.10 - Atherosclerotic heart disease of [place] coronary artery without angina pectoris (ICD-10) History of alcohol abuse ?F10.11 - Alcohol abuse, in remission (ICD-10) Manic depression ?F31.9 - Bipolar disorder, unspecified (ICD-10) Psychotic disorder ?F29 - Unspecified psychosis not due to a substance or known physiological condition (ICD-10) Schizoaffective disorder, bipolar type ?F25.0 - Schizoaffective disorder, bipolar type (ICD-10) Social History Smoking Status: Current every day smoker What tobacco products do you use: cigarettes Do you use any of these nicotine containing products: None How often do you have a drink containing alcohol: never How many standard drinks containing alcohol do you have on a typical day: 1 or 2 How often do you have six or more drinks on one occasion: Never AUDIT-C Alcohol total score: 0 Non-prescribed substance use: denies use service: No Exam Narrative: Exam Narrative: Vital signs as noted above. In general, an alert, nontoxic male. Somewhat pale-appearing, slightly disheveled. Head: Normocephalic, atraumatic. Eyes: Pupils are equal reactive. Does not cooperate with examination of extraocular movements. Conjunctivae are normal. ENT: Mucous membranes are moist. Throat is normal. Dentition poor. Neck: Supple without lymphadenopathy. Nontender in the midline. Heart: Regular rate and rhythm. No murmur or rub. Lungs: Occasional scattered wheeze, no increased work of breathing, breath sounds equal bilaterally. Abdomen: Soft and nontender. No organomegaly. Extremities: Well perfused. No edema. No calf tenderness. Pulses intact. Neurologic: Patient is alert, seated on the bed. He has a resting tremor, right greater than left. His answers to questions are often delayed, speech is somewhat slow and measured, but is fluent. No dysarthria. He moves all extremities. Generally follows commands, although very detailed requests he seems to struggle with. Answers questions reasonably appropriately albeit slowly. In review of his records, this seems to be in line with previous exams. Face is symmetric. Affect: Normal. Skin: Warm and dry. Const: Vital Signs, click to edit/add: Vital Signs - 24 hr 09/01/22 17:46 Temperature 96.9 F L Pulse Rate [Pulse Oximeter] 85 Blood Pressure [Ri ght Upper Arm] 154/131 H Pulse Oximetry 98 Oxygen Delivery Me thod Room Air Documenting provider has reviewed patient's vital signs: yes Course Course Hospital Course: Initially, I did a fairly basic workup given that he seemed to be at his baseline from a mental status standpoint and did not have specific complaints. He had a CBC which showed a mildly elevated white blood cell count of 14.5, this was up from around 8000 last week. His hemoglobin was down about a g at 10.6. Normal platelets. His metabolic panel was entirely normal, blood sugar was 98, BUN 17, creatinine 1.1 and normal electrolytes. He had a UA which was unremarkable, urine drug screen was negative. I had gone back in to re-evaluate him, recheck vital signs and make a determination about discharge, and at that time he seemed more somnolent. He would wake up if he said his name, but essentially fell back asleep before I could even ask him a question. This is not his baseline according to [facility], they note that he is slow to respond but typically alert. They give him his medications, there have not been any significant changes recently per their report. At this point I expanded his evaluation to rule out a traumatic head injury, infectious process, metabolic derangement, or other ingestion related reason for his altered mental status. He had a CT of his head given recent falls, by my review this was negative for any acute findings. Final radiology read was likewise negative. I added on a venous gas, this was normal, pCO2 was 40. A lactate was normal at 0.6. A blood alcohol was negative. I also did a chest x-ray. He has the previously seen mass in the right lower lung but then also had a new rectangular type density seen in the right lung. Radiology reads this as follows:FINDINGS: Heart, mediastinum, and pulmonary vessels are stable and within normal limits. Stable masslike area in the lower right lung,, about 4-5 cm. With a new indeterminate masslike area projecting just superior to this region over the right chest. Pleural-based mass or fluid collection not excludable, clinical correlation recommended. CT chest would be helpful to further define the apparently new area of density projecting superior to the previously described lung mass. The new area is about 11 cm craniocaudad and 5 cm transverse. He did go on to have a CT scan of the chest which is read as follows:IMPRESSION: Previously seen lung abscess in the anterior-lateral aspect of the right middle lobe has become nearly completely filled with fluid with an overall slight decrease in size. However, multiple new small loculated pleural effusions have developed throughout the right chest, worrisome for multiple small pleural empyemas. He remains somnolent but rousable. I do have concerns about more significant systemic infection given his sleepiness, but he remains afebrile. He had blood cultures done and I gave him Zofran 3.375 g IV. He has been hemodynamically stable. I have talked with the hospitalist at [facility] as I think he will be best served at a larger facility where CT-guided procedures can be done if needed and pulmonary is available for consultation. They fortunately have beds available and are amenable to transfer. Vital Signs Vital signs: Initial Vital Signs Temperature 96.9 F L 09/01/22 17:46 Temperature Source Temporal Artery Scan 09/01/22 17:46 Pulse Rate 85 09/01/22 17:46 Blood Pressure 154/131 H 09/01/22 17:46 Blood Pressure Mean 138 09/01/22 17:46 Blood Pressure Position Sitting 09/01/22 17:46 Pulse Oximetry 98 09/01/22 17:46 Oxygen Delivery Method Room Air 09/01/22 17:46 Vital Signs Temperature 96.9 F L 09/01/22 17:46 Pulse Rate 85 09/01/22 17:46 Blood Pressure 154/131 H 09/01/22 17:46 Pulse Oximetry 98 09/01/22 17:46 Oxygen Delivery Method Room Air 09/01/22 17:46 Temperature 96.9 F L 09/01/22 17:46 Pulse Rate 85 09/01/22 17:46 Blood Pressure 154/131 H 09/01/22 17:46 Pulse Oximetry 98 09/01/22 17:46 Oxygen Delivery Method Room Air 09/01/22 17:46 Medical Decision Making Lab Data Labs: Lab Results 09/01/22 09/01/22 09/01/22 Range/Units 17:40 18:03 19:33 WBC 14.49 H (4.50-11.00) K/uL RBC 3.64 L (4.30-5.90) m/uL Hgb 10.6 L (13.5-17.5) gm/dL Hct 33.3 L (37.0-53.0) % MCV 92 (80-100) fL MCH 29 (26-34) pg MCHC 32 (32-36) gm/dL RDW Coeff of [place] 15.3 (11.5-15.5) % Plt Count 277 (140-440) K/uL Neut % (Auto) 80.1 H (42.0-72.0) % Lymph % (Auto) 8.4 L (20-44) % [place] % (Auto) 9.0 (0.0-11.0) % Eos % (Auto) 2.1 (0.0-7.0) % Baso % (Auto) 0.1 (0.0-3.0) % Neut # (Auto) 11.60 H (1.7-7.0) K/uL Lymph # (Auto) 1.20 (0.90-2.90) K/uL [place] # (Auto) 1.30 H (0.00-0.90) K/UL Eos # (Auto) 0.30 (0.00-0.50) K/uL Baso # (Auto) 0.00 (0.00-0.30) K/uL VBG pH 7.402 (7.32-7.43) VBG pCO2 40 (40-50) mmHG VBG pO2 46.9 (25-47) mmHG VBG HCO3 25 (21-28) mmol/L Sodium 142 (135-149) mmol/L Potassium 4.3 (3.6-5.1) mmol/L Chloride 110 (96-114) mmol/L Carbon Dioxide 24 (20-32) mmol/L BUN 17 (7-30) mg/dL Creatinine 1.1 (0.5-1.5) mg/dL Estimated Creat Clear 70.35 Estimated GFR 74 ml/min Glucose 98 (60-115) mg/dL Lactate 0.6 (0.5-1.9) mmol/L Calcium 10.3 (8.4-10.6) mg/dL Total Bilirubin 0.3 (0.1-1.5) mg/dL Direct Bilirubin 0.2 (0.0-0.5) mg/dL AST 20 (12-35) U/L ALT 11 (4-50) U/L Alkaline Phosphatase 76 (40-150) U/L Total Protein 7.5 (6.0-8.3) g/dL Albumin 3.7 (3.3-5.0) g/dL Urine Color Yellow (Yellow) Urine Appearance Clear (Clear) Urine pH 6.5 (5.0-8.5) Ur Specific [place] 1.015 (1.000-1.030) Urine Protein Negative (Negative) Urine Glucose (UA) Negative (Negative) Urine Ketones Negative (Negative) Urine Blood Negative (Negative) Urine Nitrite Negative (Negative) Urine Bilirubin Negative (Negative) Urine Urobilinogen 0.2 (0.2-1.0) Ur Leukocyte Esterase Negative (Negative) Urine RBC 0-2 (0-2) Urine WBC 0-2 (0-5) Ur Squamous Epith Cells Few (None-Few) Urine Bacteria None (None) Urine Opiates Screen Negative (Negative) Ur Oxycodone Screen Negative (Negative) Urine Methadone Screen Negative (Negative) Ur Propoxyphene Screen Negative (Negative) Ur Barbiturates Screen Negative (Negative) U Tricyclic Antidepress POSITIVE A* (Negative) Ur Phencyclidine Scrn Negative (Negative) Ur Amphetamines Screen Negative (Negative) U Methamphetamines Scrn Negative (Negative) U Benzodiazepines Scrn Negative (Negative) Urine Cocaine Screen Negative (Negative) U Marijuana (THC) Screen Negative (Negative) Ur Drug Screen Comment See Note Ethyl Alcohol < 0.01 L (0.01-0.03) % Discharge Plan Discharge Clinical Impression: Abscess of lung Patient Disposition: [facility] Condition: Stable Prescriptions: No Action clonazepam 0.5 mg tablet divalproex 500 mg tablet extended release 24 hr PO divalproex 250 mg tablet extended release 24 hr PO quetiapine 100 mg tablet tamsulosin 0.4 mg capsule PO levothyroxine 150 mcg tablet haloperidol decanoate 50 mg/mL solution IM propranolol 20 mg tablet escitalopram oxalate 5 mg tablet benztropine 0.5 mg tablet 0.5 mg PO BID nicotine 14 mg/24 hr patch 24 hour 1 patch topical DAILY haloperidol 5 mg tablet PO aspirin 325 mg tablet PO haloperidol decanoate 100 mg/mL solution IM quetiapine 200 mg tablet 200 mg PO QPM polyethylene glycol 3350 [Gavilax] 17 gram/dose powder PO carbidopa-levodopa 25-100 mg tablet 1 tab PO 3XD escitalopram oxalate 10 mg tablet 10 mg PO DAILY nicotine (polacrilex) 2 mg lozenge 0 mg PO budesonide-formoterol [Symbicort] 80-4.5 mcg/actuation HFA aerosol inhaler inhalation Stand Alone Forms: [facility] Info Instructions
[2022-09-01 17:56] LABS: Appearance Urine Clear (Clear); Bilirubin Urine Negative (Negative); Blood Urine Negative (Negative); Color Urine Yellow (Yellow); Glucose Urine Negative (Negative); Ketones Urine Negative (Negative); Leukocyte Esterase Urine Negative (Negative); Nitrite Urine Negative (Negative); Protein Urine Negative (Negative); Specific Gravity Urine 1.015 (1.000-1.030); Urobilinogen Urine 0.2 (0.2-1.0); pH Urine 6.5 (5.0-8.5)
[2022-09-01 17:57] LABS: RBC Urine 0-2 (0-2); WBC Urine 0-2 (0-5)
[2022-09-01 17:58] LABS: Squamous Epithelial Cell Urine Few (None-Few)
[2022-09-01 18:03] LABS: Amphetamine Screen Urine Negative (Negative); Barbiturate Screen Urine Negative (Negative); Benzodiazepines Screen Urine Negative (Negative); Cannabinoid Screen Urine Negative (Negative); Cocaine Screen Urine Negative (Negative); Methadone Screen Urine Negative (Negative); Methamphetamines Screen Urine Negative (Negative); Opiate Screen Urine Negative (Negative); Oxycodone Screen Urine Negative (Negative); Phencyclidine Screen Urine Negative (Negative)
[2022-09-01 18:14] LABS: Tricyclic Antidepressant Urine POSITIVE (Negative)
[2022-09-01 18:31] LABS: Albumin* 3.7 g/dL (3.3-5.0); Chloride* 110 mmol/L (96-114)
[2022-09-01 18:32] LABS: Potassium* 4.3 mmol/L (3.6-5.1); Sodium* 142 mmol/L (135-149)
[2022-09-01 18:34] LABS: Carbon Dioxide* 24 mmol/L (20-32); Creatinine* 1.1 mg/dL (0.5-1.5); Est. Creatinine Clearance* 70.35; Estimated Glomerular Filt Rate 74 ml/min; Total Protein* 7.5 g/dL (6.0-8.3)
[2022-09-01 18:35] LABS: Alanine Aminotransferase* 11 U/L (4-50); Alkaline Phosphatase* 76 U/L (40-150); Aspartate Amino Transferase* 20 U/L (12-35); Bilirubin Direct* 0.2 mg/dL (0.0-0.5); Bilirubin Total* 0.3 mg/dL (0.1-1.5); Blood Urea Nitrogen* 17 mg/dL (7-30); Calcium* 10.3 mg/dL (8.4-10.6); Glucose* 98 mg/dL (60-115)
[2022-09-01 19:03] LABS: Basophils Percent Auto 0.1 % (0.0-3.0); Eosinophils Percent Auto 2.1 % (0.0-7.0); Hematocrit 33.3 % (37.0-53.0); Hemoglobin* 10.6 gm/dL (13.5-17.5); Immature Granulocytes Pct Auto 0.3 %; Lymphocytes Percent Auto 8.4 % (20-44); Mean Corpuscular HGB Conc 32 gm/dL (32-36); Mean Corpuscular Hemoglobin 29 pg (26-34); Mean Corpuscular Volume 92 fL (80-100); Neutrophils Percent Auto 80.1 % (42.0-72.0); Platelet Count* 277 K/uL (140-440); RDW Coefficient of Variation % 15.3 % (11.5-15.5); Red Blood Count 3.64 m/uL (4.30-5.90); White Blood Count* 14.49 K/uL (4.50-11.00)
[2022-09-01 19:05] LABS: Slide Review Reflex No
--- NOTE | 2022-09-01 19:24 | CRLHL7_ITS ---
For Patients: As a result of the Century Cures Act, medical imaging exams and procedure reports are released immediately into your electronic medical record. You may view this report before your referring provider. If you have questions, please contact your health care provider. INDICATION: Decreased level consciousness. COMPARISON: August 2022. TECHNIQUE: Noncontrast CT head. FINDINGS: Stable mild generalized volume loss. Patchy low-attenuation change within the white matter consistent with chronic deep white matter small ischemic changes. No acute intracranial hemorrhage, acute infarct, mass effect, or fracture. No midline shift. No abnormal ventricular dilatation. Stable arachnoid cyst adjacent to the anterior right temporal lobe. Normal calvarium and skull base. Visualized paranasal sinuses and mastoid air cells are clear. Normal orbits bilaterally. IMPRESSION: 1. No interval change. 2. No acute intracranial abnormality. 3. Mild generalized volume loss. Chronic deep white matter small vessel ischemic changes Please note that all CT scans at this facility use dose modulation, iterative reconstruction, and/or weight-based dosing when appropriate to reduce radiation dose to as low as reasonably achievable. Dictated by Yvan Maher MD @ 09/01/2022 8:18:19 PM (Electronically Signed)
--- NOTE | 2022-09-01 19:40 | CRLHL7_ITS ---
For Patients: As a result of the Century Cures Act, medical imaging exams and procedure reports are released immediately into your electronic medical record. You may view this report before your referring provider. If you have questions, please contact your health care provider. INDICATION: Lung mass. Technique: Single-view. COMPARISON: August 21, 2022. FINDINGS: Heart, mediastinum, and pulmonary vessels are stable and within normal limits. Stable masslike area in the lower right lung,, about 4-5 cm. With a new indeterminate masslike area projecting just superior to this region over the right chest. Pleural-based mass or fluid collection not excludable, clinical correlation recommended. CT chest would be helpful to further define the apparently new area of density projecting superior to the previously described lung mass. The new area is about 11 cm craniocaudad and 5 cm transverse. Left lung remains clear. Metallic surgical clips gastroesophageal junction rated a 5. Dictated by Arley Tran MD @ 09/01/2022 9:12:46 PM (Electronically Signed)
[2022-09-01 19:42] LABS: HCO3 VBG 25 mmol/L (21-28); Lactate* 0.6 mmol/L (0.5-1.9); PCO2 VBG 40 mmHG (40-50); PO2 VBG 46.9 mmHG (25-47); pH VBG 7.402 (7.32-7.43)
[2022-09-01 20:19] LABS: Ethanol* < 0.01 % (0.01-0.03)
--- NOTE | 2022-09-01 21:39 | CT_ITS ---
Patient: BRADFORD MERINO Facility:?[facility] Patient ID:?[id number] Site Patient ID:?[id number]. Site :?[id number] Study:?CT-Chest WITH 75CC ISOVUE 370-09/01/2022 10:49:19 PM Ordering Physician:Sasha Agudelo Final Report: INDICATION: Chest mass. Fluid retention. COMPARISON: CT of the chest with contrast from 08/21/2022. TECHNIQUE: : CT examination of the chest was performed with the uneventful intravenous administration of 75 cc of Isovue 370 while 3 mm thick axial sections were obtained from above the apices of the lungs to the lung bases. Please note that all CT scans at this facility use dose modulation, iterative reconstruction, and/or weight-based dosing when appropriate to reduce radiation dose to as low as reasonably achievable. FINDINGS: : In the chest, there is excellent enhancement of the pulmonary arteries with no sign of pulmonary embolism. The previously seen cavitary mass or infiltrate in the anterior-lateral aspect of the right middle lobe has become largely filled with fluid, except for a very tiny droplet of gas. The fluid filled region measures 2.5 x 2.7 x 3.3 centimeters. A soft tissue region anterior to the cystic portion is again seen extending to the pleural surface. I believe the findings are that of accumulation of additional fluid within a lung abscess. There all size of the abscess and surrounding inflammatory reaction is decreased, now measuring 4.0 x 2.6 by 6.1 centimeters, previously 4.4 x 3.3 by 6.6 centimeters. There are multiple new small loculated pleural effusions throughout the right chest. The largest is located posterior to the superior segment of the right lower lobe. The rapid development of multiple loculated pleural effusions with a lung abscess extending to the pleural surface is worrisome for development of multiple small pleural empyemas. The right lung itself is otherwise clear. The left lung in the left pleural space is clear. There is no sign of mediastinal or hilar mass or adenopathy. The heart is normal in appearance for the patient`s age. There is age appropriate appearance of the thoracic aorta and ascending great vessels. There is no sign of supraclavicular or axillary mass or adenopathy. The visualized superior liver, spleen, pancreas, kidneys, and adrenals are normal in appearance. Several surgical clips are again seen in the GE junction region, suggesting previous hiatal hernia surgery. The osseous structures are normal in appearance for the patient`s age. IMPRESSION: Previously seen lung abscess in the anterior-lateral aspect of the right middle lobe has become nearly completely filled with fluid with an overall slight decrease in size. However, multiple new small loculated pleural effusions have developed throughout the right chest, worrisome for multiple small pleural empyemas. Please note that all CT scans at this facility use dose modulation, iterative reconstruction, and/or weight-based dosing when appropriate to reduce radiation dose to as low as reasonably achievable. Dictated by Solitario Henao MD @ 09/01/2022 11:42:36 PM Signed by:?Solitario Henao MD @09/01/2022 11:42:36 PM (Electronic Signature)
[2022-09-02] VITALS (11 sets, daily range): BP systolic 115–152; BP diastolic 66–95; PULSE 71–78; O2SAT 93–96
[2022-09-02] MEDS: PIPERACILLIN/TAZOBACTAM 3.375 GM in 0.9 % SODIUM CHLORIDE Mini-bag 100 ML IVPB (00:56)
--- NOTE | 2022-09-02 02:03 | ED.NURSE ---
Report given to EMS. Patient assisted by specifications writer to the side of the bed to use the urinal. Patient had 375 of urine output. Patient assist of 2. Patient changed into clean gown. Belongings sent with patient to [facility].
--- NOTE | 2022-09-02 11:08 | ED.NURSE ---
Call from [facility]. They inquired about pt dispo. Informed them that pt transferred to [facility] in [place] for further care.
== END 2022-09-02 02:08 | disposition home or self-care (01) ==
PROVIDERS: Emergency Provider Emergency Medicine; PCP Family Medicine
DX: J85.2 Abscess of lung without pneumonia (principal)
CPT/HCPCS: 36415; 70450; 71045; 71260; 80048; 80076; 80306; 81001; 82077; 82803; 83605; 85025; 87040; 96365; 99285; J2543; Q9967

== ENCOUNTER 2022-09-02 02:00 | Outpatient (CLI) | payer MEDICARE, MEDICAID, SELFPAY | END 2022-09-02 02:01 | disposition home or self-care (01) | LOC: AMB 09-03 15:01 | PROVIDERS: PCP Family Medicine; Visit Provider Family Medicine | DX: R41.82 Altered mental status, unspecified (principal); R53.1 Weakness | CPT/HCPCS: A0425; A0428 ==

== ENCOUNTER 2024-09-30 11:15 | Outpatient (RCR) | payer MEDICARE, MEDICAID, SELFPAY | END 2025-01-28 23:59 | disposition home or self-care (01) | PROVIDERS: PCP Family Medicine; Visit Provider Family Medicine | DX: G20.A1 Parkinson's disease without dyskinesia, without mention of fluctuations (principal); Z51.89 Encounter for other specified aftercare | CPT/HCPCS: 97110; 97112; 97116; 97162 ==

== ENCOUNTER 2025-01-04 21:09 | Outpatient (CLI) | payer MEDICARE, MEDICAID, SELFPAY | END 2025-01-04 21:10 | disposition home or self-care (01) | LOC: AMB 01-05 11:59 | PROVIDERS: PCP Family Medicine; Visit Provider Family Medicine | DX: R53.1 Weakness (principal); R07.89 Other chest pain | CPT/HCPCS: A0425; A0429 ==

== ENCOUNTER 2025-01-04 21:39 | Emergency (ER) | payer MEDICARE, MEDICAID, SELFPAY ==
[2025-01-04 21:41] VITALS: BP 147/93; PULSE 88; RESP 18; TEMP 36.6; O2SAT 97; BMI 26.1
--- OUTSIDE RECORDS SUMMARY | 2025-01-04 21:41 | XMS_ITS | Clinical Summary ---
Author Organization [facility] Address [address] , [address] [place] [address] Phone Care Team Providers Care Torpedo Specialist Name Role Phone Sharon Bowman LPN [phone] Conditions or Problems Problem Name Problem Code Onset Date Status Entry Date Provider Comment Standard Description Annotate Parkinsonism , unspecified 08072464 (SNOMED CT) 05/20 Active 05/20 Aleta Restrepo Parkinsonism Schizoaffect dani disorder with depression 92719988 (SNOMED CT) 07/29 Active 07/29 Contreras Vargas MD Schizoaffective disorder Memory deficit 748288005 (SNOMED CT) 07/29 Active 07/29 Contreras Vargas MD Memory impairment Tremor, rest 47818873 (SNOMED CT) 07/29 Active 07/29 Contreras Vargas MD Resting tremor Parkinsonism 26880575 (SNOMED CT) 05/20 Inactive 05/20 Jose Eduardo Corcoran MD Parkinsonism Medications Medication Instructions Start Date Stop Date Generic Name [facility] Provider FAMOTIDINE 20 MG TABS Take 1 tablet by mouth once a day famotidine 59973177717 Contreras Vargas MD MELATONIN 3 MG TABS Take 1 tablet by mouth every night melatonin 59695499834 Contreras Vargas MD QUETIAPINE FUMARATE 200 MG TABS Take 200 mg by mouth every night quetiapine 18828847859 Contreras Vargas MD ESCITALOPRAM OXALATE 10 MG TABS Take 10 mg by mouth once a day escitalopram oxalate 23962618369 Contreras Vargas MD ALBUTEROL SULFATE (2.5 MG/3ML) 0.083% NEBU Inhale 1 ampul by mouth twice a day albuterol sulfate 61053078242 Contreras Vargas MD Multivits,Ca,Cawood als-Iron-FA (High Potency Multivit, w-iron Take 1 tablet by mouth once a day High Potency Multivit, w-iron Contreras Vargas MD IBUPROFEN (IBUPROFEN) 600 MG TABS Take 1 tablet by mouth every eight hours as needed IBUPROFEN Contreras Vargas MD TAMSULOSIN HCL 0.4 MG CAPS Take 1 capsule by mouth once a day tamsulosin 68141002180 Contreras Vargas MD AMLODIPINE BESYLATE 10 MG TABS 07/29 amlodipine 57532783416 Contreras Vargas MD SENNOSIDES-DOCUSAT E SODIUM 8.6-50 MG TABS Take 1 tablet by mouth twice a day 07/29 sennosidepat-docu sate sodium 10909545177 Contreras Vargas MD fluticasone propion-salmeteroL (Advair Diskus) 250-50 mcg/Do Inhale 1 puff by mouth twice a day Advair Diskus Contreras Vargas MD GAVILAX 17 GM/SCOOP POWD 07/29 polyethylene glycol 3350 65757519893 Contreras Vargas MD PEG 3350 17 GM/SCOOP POWD Take 1 by mouth once a day as needed polyethylene glycol 3350 58205774656 Contreras Vargas MD PROPRANOLOL HCL 20 MG TABS Take 1 tablet by mouth three times a day propranolol 75412782200 Contreras Vargas MD HALOPERIDOL 5 MG TABS Take 5 mg by mouth every four hours as needed haloperidol 42356882079 Contreras Vargas MD cholecalciferol (VITAMIN D3) 1,000 unit tablet Take 1 tablet by mouth once a day VITAMIN D3 Contreras Vargas MD Nebulizer Inhale 07/29 Nebulizer Contreras Vargas MD QUETIAPINE FUMARATE 300 MG TABS 07/29 quetiapine 29540435748 Contreras Vargas MD CARBIDOPA-LEVODOPA 25-100 MG TABS Take 1 tablet by mouth three times a day carbidopa-levod opa 39419126484 Contreras Vargas MD NICOTINE POLACRILEX [address] 1 by mouth every hour as needed nicotine (polacrilex) 83250510702 Contreras Vargas MD BENZTROPINE MESYLATE 0.5 MG TABS Take 0.5 mg by mouth twice a day benztropine 47166948219 Contreras Vargas MD DEEP SEA NASAL SPRAY 0.65 % SOLN Administer 2 spray into both nostrils every six hours sodium chloride 65129990560 Contreras Vargas MD NICOTINE 7 MG/24HR PT24 07/29 nicotine 38432724628 Contreras Vargas MD PROPRANOLOL HCL 20 MG TABS 07/29 propranolol 64147720176 Contreras Vargas MD SENEXON-S 8.6-50 MG TABS 07/29 sennosides-docu sate sodium 18767232223 Contreras Vargas MD LEVOTHYROXINE SODIUM 150 MCG TABS Take 1 tablet by mouth every morning levothyroxine 99018877683 Contreras Vargas MD CLONAZEPAM 0.5 MG TABS Take 1 tablet by mouth once a day as needed clonazepam 16054765889 Contreras Vargas MD ASPIRIN LOW DOSE 81 MG TBEC 07/29 aspirin 36823364787 Contreras Vargas MD haloperidol decanoate (HALDOL DECANOATE) 100 mg/mL intramusc Inject 75 mg intramuscularly every two weeks HALDOL DECANOATE Contreras Vargas MD TAMSULOSIN HCL 0.4 MG CAPS TAKE 1 CAPSULE BY MOUTH DAILY 30 MINUTES AFTER THE SAME MEAL EACH DAY *SWALLOW WHOLE* 07/29 tamsulosin 39509556349 QIEUSER QIEUSER DEEP SEA NASAL SPRAY 0.65 % SOLN ADMINISTER 2 SPRAYS IN AFFECTED NOSTRIL(S) EVERY 6 HOURS 07/29 sodium chloride 48211288485 QIEUSER QIEUSER SENNOSIDES-DOCUSAT E SODIUM 8.6-50 MG TABS TAKE 1 TABLET BY MOUTH TWICE DAILY 07/29 sennosides-docu sate sodium 49473026278 QIEUSER QIEUSER QUETIAPINE FUMARATE 200 MG TABS Take 200 mg by mouth at bedtime. 07/29 quetiapine 92139995344 QIEUSER QIEUSER PEG 3350 17 GM/SCOOP POWD Take 1 scoop (17 g) by mouth or nasogastric tube once daily if needed for Constipation. 07/29 polyethylene glycol 3350 16300852995 QIEUSER QIEUSER NICOTINE POLACRILEX [address] 1 Lozenge (2 mg) in mouth, between cheek & gum every hour while awake as needed for Nicotine Craving. 11/27 nicotine (polacrilex) 05453747383 QIEUSER QIEUSER Nebulizer Nebulizer, disposable neb kit x 4, reuseable neb kit x 1, mask x 1, filters x 1. Frequency of use: daily; Medication: albuterol Length of need: 99 months 07/29 Nebulizer QIEUSER QIEUSER Multivits,Ca,Cawood als-Iron-FA (High Potency Multivit, w-iron Take 1 Tablet by mouth once daily. 07/29 High Potency Multivit, w-iron QIEUSER QIEUSER MELATONIN 3 MG TABS Take 1 Tablet (3 mg) by mouth at bedtime. 07/29 melatonin 04384321177 QIEUSER QIEUSER IBUPROFEN (IBUPROFEN) 600 MG TABS TAKE 1 TABLET BY MOUTH EVERY 8 HOURS NEEDED FOR PAIN OR TEMP >101.5F (38.6C) 07/29 IBUPROFEN QIEUSER QIEUSER haloperidol decanoate (HALDOL DECANOATE) 100 mg/mL intramusc Inject 75 mg intramuscular every 2 weeks. 07/29 HALDOL DECANOATE QIEUSER QIEUSER HALOPERIDOL 5 MG TABS Take 5 mg by mouth every 4 hours if needed for Agitation. 07/29 haloperidol 21979430726 QIEUSER QIEUSER fluticasone propion-salmeteroL (Advair Diskus) 250-50 mcg/Do INHALE 1 PUFF BY MOUTH TWICE DAILY --RINSE MOUTH AFTER USE-- 07/29 Advair Diskus QIEUSER QIEUSER FAMOTIDINE 20 MG TABS Take 1 Tablet (20 mg) by mouth once daily. 07/29 famotidine 44831061872 QIEUSER QIEUSER ESCITALOPRAM OXALATE 10 MG TABS Take 10 mg by mouth once daily. 07/29 escitalopram oxalate 79332827211 QIEUSER QIEUSER cholecalciferol (VITAMIN D3) 1,000 unit tablet Take 1 Tablet (1,000 units) by mouth once daily. 07/29 VITAMIN D3 QIEUSER QIEUSER CARBIDOPA-LEVODOPA 25-100 MG TABS Take 1 Tablet by mouth three times daily. 11/27 carbidopa-levod opa 30617836858 QIEUSER QIEUSER BENZTROPINE MESYLATE 0.5 MG TABS Take 0.5 mg by mouth two times daily. 07/29 benztropine 33047412633 QIEUSER QIEUSER ALBUTEROL SULFATE (2.5 MG/3ML) 0.083% NEBU INHALE 1 AMPULE BY MOUTH VIA NEBULIZER TWICE DAILY 07/29 albuterol sulfate 56155974179 QIEUSER QIEUSER ACETAMINOPHEN 500 MG TABS Take 2 Tablets (1,000 mg) by mouth every 6 hours if needed for Pain. Max acetaminophen dose: 4000mg in 24 hrs. acetaminophen 17127836106 QIEUSER QIEUSER PROPRANOLOL HCL 20 MG TABS Take 1 Tablet (20 mg) by mouth 2 times daily. AM and at bedtime. 11/27 propranolol 81000541998 QIEUSER QIEUSER LEVOTHYROXINE SODIUM 150 MCG TABS Take 1 Tablet (150 mcg) by mouth before breakfast. 07/29 levothyroxine 56105248418 QIEUSER QIEUSER DIVALPROEX SODIUM ER 500 MG [id number] Take 2 Tablets (1,000 mg) by mouth at bedtime. divalproex 40126328196 QIEUSER QIEUSER CLONAZEPAM 0.5 MG TABS Take 1 Tablet (0.5 mg) by mouth once daily if needed for Anxiety. 11/27 clonazepam 77387517230 QIEUSER QIEUSER TAMSULOSIN HCL 0.4 MG CAPS tamsulosin 23774724464 Jose Eduardo Corcoran MD NICOTINE 7 MG/24HR PT24 07/29 nicotine 58627639517 Jose Eduardo Corcoran MD ASPIRIN EC 81 MG TBEC 10/23 aspirin 13997487782 Jose Eduardo Corcoran MD PROPRANOLOL HCL 20 MG TABS 11/27 propranolol 68340279484 Jose Eduardo Corcoran MD CLONAZEPAM 0.5 MG TABS clonazepam 44964772013 Jose Eduardo Corcoran MD ACETAMINOPHEN 325 MG TABS acetaminophen 66424023617 Jose Eduardo Corcoran MD ALBUTEROL SULFATE HFA 108 (90 Base) MCG/ACT AERS albuterol sulfate 36960513186 Jose Eduardo Corcoran MD DIVALPROEX SODIUM ER 500 MG [id number] divalproex 33886701348 Jose Eduardo Corcoran MD AMLODIPINE BESYLATE 10 MG TABS 11/27 amlodipine 38249806363 Jose Eduardo Corcoran MD QUETIAPINE FUMARATE 300 MG TABS 07/29 quetiapine 58053689457 Jose Eduardo Corcoran MD SENEXON-S 8.6-50 MG TABS 07/29 sennosides-docu sate sodium 45579720595 Jose Eduardo Corcoran MD GAVILAX 17 GM/SCOOP POWD 07/29 polyethylene glycol 3350 48048350617 Jose Eduardo Corcoran MD SYMBICORT 80-4.5 MCG/ACT AERO budesonide-form oterol 78225753580 Jose Eduardo Corcoran MD HALOPERIDOL DECANOATE 50 MG/ML SOLN haloperidol decanoate 17565353647 Jose Eduardo Corcoran MD MAGNESIUM CITRATE 1.745 GM/30ML SOLN magnesium citrate 29352250407 Jose Eduardo Corcoran MD LEVOTHYROXINE SODIUM 150 MCG TABS levothyroxine 63420489419 Jose Eduardo Corcoran MD Medications Administered No information available. Allergies, Adverse Reactions, Alerts Allergy Name Reaction Description Start Date Severity Statu s Provider CLOZAPINE Moderate Active Jose Eduardo Corcoran MD HALDOL Moderate Active Jose Eduardo Corcoran MD Results Date Name Value Unit Range Flag Description Lab Report: 05/04/20 - EGFR NOT AFA >60 mL/min/1.7 3m2 Glomerular filtration rate/1.73 sq M.predicted among non-blacks [Volume Rate/Area] in Serum, Plasma or Blood by Creatinine-based formula (MDRD) CA 9.3 mg/dL Calcium [Mass/volume] in Serum or Plasma ABSOLUTE BAS normal 10*3/uL Basophil s [#/volume] in Blood GFR >60 mL/min Glomerular filtration rate/1.73 sq M.predicted among non-blacks [Volume Rate/Area] in Serum, Plasma or Blood by Creatinine-based formula (MDRD) NON-HDL CHOL 135 mg/dL choleste rol, non-HDL, total CHOL/HDL 4.38 cholesterol/ HDL ratio, serum CO2 TOTAL 24 mmol/L carbon diox torrie, serum, total GLUCOSE SER 72 mg/dL Glucose [Mass/volume] in Serum or Plasma TRIGLYC TOT 76 mg/dL Triglycer torrie [Mass/volume] in Serum or Plasma - mg/dL BUN/CREAT 13 Urea nitrogen/Creatinine [Mass Ratio] in Serum or Plasma MCV 98 fL MCV [Entitic volume] by Automated count VALPROIC ACD 77.9 ug/mL Valproat e [Mass/volume] in Serum or Plasma ANION GAP 10 Anion gap 4 in Serum or Plasma SODIUM 139 mmol/L Sodium [Moles/volume] in Serum or Plasma HGB 11.4 g/dL Hemoglobin [Mass/volume] in Blood PSA 0.48 ng/mL Prostate spec ific Ag [Mass/volume] in Serum or Plasma POTASSIUM 4.4 mmol/L Potassium [Moles/volume] in Serum or Plasma LDL 120 mg/dL Cholesterol i n LDL [Mass/volume] in Serum or Plasma - mg/dL TSH 1.63 u[iU]/mL Thyrotropin [Units/volume] in Serum or Plasma HGBA1C 5.3 % Hemoglobin A1c/Hemoglobin, total in Blood - % HDL 40 mg/dL Cholesterol i n HDL [Mass/volume] in Serum or Plasma - mg/dL CREATININE 1.05 mg/dL Creatinine [Mass/volume] in Serum or Plasma CHOLESTEROL 175 mg/dL Cholester ol [Mass/volume] in Serum or Plasma - mg/dL CHLORIDE 105 mmol/L Chloride [Moles/volume] in Serum or Plasma BUN 14 mg/dL Urea nitrogen [Mass/volume] in Serum or Plasma Office Visit: [facility] 03/20 13:27- 03/20/21 13:27 REFERRING PHYSICIAN ... SMOK STATUS current every day smoker Tobacco smoking status Internal Other: Verbal Autho rization/Emergency Contact - OBS VERBAL_EMER DONE Verbal authorization and emergency contact Internal Other: Authorizatio n - OBS RAHUL-DAVE-pank Yes GE use only - for [employer] import when terms are not otherwise specified Office Visit: Office Visit Luis medley'pat unsure of imaging recs in.[facility] MEDS REVIEW Done Documenta tion of current medications (procedure) Internal Other: Authorizatio n AUTHBENEFIT Yes Authoriza tion: Assignment of Benefits and Payment Agreement [email or web address] Yes Authorizat ion: Authorization for [facility] to leave messages, voicemail, send text messages, send emails AUTHRELHCARE Yes Authoriz ation: Release/Retrieval of Information to/from Healthcare Facilities, Pharmacy Benefit Payers and Providers ROIAUTHOTHER Yes Authoriz ation: Release of Information - Authorize Others/Insurance - Payment and Healthcare Operations [email or web address] Yes Authoriza tion: Release of Information - Authorize [facility] - Payment and Healthcare Operations AUTHPRIVPRAC Yes Authoriz ation: Notice of privacy practices HIECONSENT Yes Consent To Release information to the Health Information Exchange (HIE) Plan of Care Type Date Detail Appointment 11:30 AM Fauzia thomsonl DNP,CONTROL SYSTEMS ENGINEER,FEATHERER, [address] [place] [address], [place] [address], [place], [phone], Pending order Follow up with N eurologist or RISSA Pending order Follow up with N eurologist or [facility] Pending order SHAWN Scan Pending order SHAWN Scan Pending order Follow up RISSA af ter testing Pending Order exclud ed from report: Pending order Follow up RISSA af ter testing Pending order Follow up RISSA af ter testing Pending order Other Radiology Pending order Other Radiology Pending order Other Radiology Pending Order exclud ed from report: Procedures Code Procedure Name Date Entry Date [facility]-[id number] Documentation of current medicatio ns ORDERS Follow up RISSA after testing [id number] Other Radiology Vital Signs Date Name Value Unit Description Heart Rate 66 /min pulse rate Height 70 [in_us] height E&M BMI (Body Mass Index) 23.76 kg/m2 Bod y Mass Index (Ratio) Weight Measured 75 kg weight in kilograms E&M Weight Measured 165 [lb_av] weight E& M Weight Measured 165 [lb_av] weight E& M BP Diastolic 82 mm[Hg] blood pressu re, diastolic BP Systolic 124 mm[Hg] blood pressur e, systolic Respiratory Rate 20 /min respirat ory rate E&M Immunizations No information available. Advance Directives No information available.
--- OUTSIDE RECORDS SUMMARY | 2025-01-04 21:41 | XMS_ITS | Clinical Summary ---
Author Organization [facility] Address [address] [place] [address] Care Team Providers Care Video Editing Intern Name Role Phone Rex Connor MD Primary Care Provider Allergies Active Allergy Reactions Criticality Noted Date Comments Clozapine Other - Describe In Comment Field MYOCARDITIS Medications haloperidoL (HALDOL) 5 mg tablet Take 5 mg by mouth every 4 hours if needed for Agitation. 0 12/07/19 20 Active QUEtiapine (SEROQUEL) 200 mg tablet Take 200 mg by mouth at bedtime. 0 01/28/20 21 Active propranoloL (INDERAL) 20 mg tabletIndications: Anxiety Take 1 Tablet (20 mg) by mouth 2 times daily. AM and at bedtime. 60 Tablet 01/31/20 21 Active NebulizerIndicatio ns:Bronchiectasis without complication (HC) Nebulizer, disposable neb kit x 4, reuseable neb kit x 1, mask x 1, filters x 1. Frequency of use: daily; Medication: albuterol Length of need: 99 months 1 Each 09/06/19 22 Active benztropine (COGENTIN) 0.5 mg tablet Take 0.5 mg by mouth two times daily. Active escitalopram oxalate (LEXAPRO) 10 mg tablet Take 10 mg by mouth once daily. Active haloperidol decanoate (HALDOL DECANOATE) 100 mg/mL intramuscular injection Inject 75 mg intramuscular every 2 weeks. Active acetaminophen (TYLENOL EXTRA STRGTH) 500 mg tabletIndications: Abscess of middle lobe of right lung without pneumonia (HC) Take 2 Tablets (1,000 mg) by mouth every 6 hours if needed for Pain. Max acetaminophen dose: 4000mg in 24 hrs. 09/13/19 23 Active clonazePAM (KLONOPIN) 0.5 mg tabletIndications: Schizoaffective disorder, bipolar type (HC) Take 1 Tablet (0.5 mg) by mouth once daily if needed for Anxiety. 10 Tablet 09/13/19 23 Active polyethylene glycoL (MIRALAX) 17 gram/scoop powderIndications: Drug-induced constipation Take 1 scoop (17 g) by mouth or nasogastric tube once daily if needed for Constipation. 507 g 06/10/19 24 Active Multivits,Ca,[place] als-Iron-FA (High Potency Multivit, w-iron,) 9 mg iron-400 mcg tabletIndications: Nutritional deficiency Take 1 Tablet by mouth once daily. 28 Tablet 2 06/01/19 25 Active divalproex (DEPAKOTE ER) 500 mg Extended-Release tabletIndications: Schizoaffective disorder, bipolar type (HC) Take 2 Tablets (1,000 mg) by mouth at bedtime. 06/11/19 25 Active carbidopa-levodopa , 25-100 mg, (SINEMET 25-100) 25-100 mg tabletIndications: Parkinson's disease, unspecified whether dyskinesia present, unspecified whether manifestations fluctuate (HC) Take 1 Tablet by mouth three times daily. 84 Tablet 06/11/19 25 Active cholecalciferol (VITAMIN D3) 1,000 unit tabletIndications: Vitamin D deficiency Take 1 Tablet (1,000 units) by mouth once daily. 28 Tablet 06/11/19 25 Active famotidine (PEPCID) 20 mg tabletIndications: Gastroesophageal reflux disease, unspecified whether esophagitis present Take 1 Tablet (20 mg) by mouth once daily. 28 Tablet 06/11/19 25 Active fluticasone propion-salmeteroL (Advair Diskus) 250-50 mcg/Dose diskus inhalerIndications :Mild persistent asthma with exacerbation (HC) INHALE 1 PUFF BY MOUTH TWICE DAILY --RINSE MOUTH AFTER USE-- 60 Each 06/11/19 25 Active levothyroxine (SYNTHROID) 150 mcg tabletIndications: Other specified hypothyroidism Take 1 Tablet (150 mcg) by mouth before breakfast. 28 Tablet 11 06/11/19 25 Active melatonin 3 mg tabletIndications: Insomnia, idiopathic Take 1 Tablet (3 mg) by mouth at bedtime. 90 Tablet 3 06/11/19 25 Active tamsulosin 0.4 mg capsuleIndications :BPH without urinary obstruction TAKE 1 CAPSULE BY MOUTH DAILY 30 MINUTES AFTER THE SAME MEAL EACH DAY *SWALLOW WHOLE* 28 Capsule 06/11/19 25 Active ibuprofen (ADVIL; MOTRIN) 600 mg tabletIndications: Pain TAKE 1 TABLET BY MOUTH EVERY 8 HOURS NEEDED FOR PAIN OR TEMP >101.5F (38.6C) 100 Tablet 07/14/19 25 Active zvhehrjn-qmh-djcp fum-folic ac (Thera-M) 19 mg iron- 400 mcg tabIndications:Nut ritional deficiency TAKE 1 TABLET BY MOUTH DAILY 90 Tablet 2 08/21/19 25 Active albuterol 0.083% (2.5 mg/3 mL) neb solutionIndication s:Bronchiectasis without complication (HC) Inhale 3 mL (2.5 mg) via a nebulizer two times daily. 90 mL 12 08/25/19 25 Active nicotine 2 mg lozengeIndications :Tobacco abuse Place 1 Lozenge (2 mg) in mouth, between cheek & gum every hour while awake as needed for Nicotine Craving. 200 Lozenge 10/07/19 25 Active sennosides-docusat e (Stimulant Laxative Plus) (8.6-50 mg) tabletIndications: Chronic constipation TAKE 1 TABLET BY MOUTH TWICE DAILY 180 Tablet 1 10/15/19 25 Active sodium chloride (Deep Sea Nasal [place]) 0.65 % nasal solutionIndication s:Epistaxis,Nasal crusting ADMINISTER 2 SPRAYS IN AFFECTED NOSTRIL(S) EVERY 6 HOURS 44 mL 10/18/19 25 Active Prevail UnderwearIndicatio ns:Urinary incontinence, unspecified type USE DIRECTED 144 Each 10 10/21/19 25 Active Active Problems Problem Noted Date Diagnosed Date Lung nodules 06/18/2024 Overview (06/19/2024): 06/18/24- Lung CT- Lung RAD 4A with a new 6mm nodule in the MARIFER and a new 4mm nodule in the RLL. Pt was referred to [facility] lung nodule clinic Need for dental care 09/04/2022 Lung abscess 09/02/2022 Infection due to species of Streptococcus [place] i group 09/02/2022 Secondary parkinsonism, unsp ecified secondary Parkinsonism type 06/22/2021 COPD (chronic obstructive pulmonary disease) Myopia of both eyes with astigmatism and presbyo sandra 08/14/2017 Bilateral sensorineural hearing loss 02/19/2014 Esophageal reflux 05/28/2012 Benign essential HTN 02/08/2011 Hypothyroid 11/29/2008 Schizoaffective disorder, bipolar type Overview (05/01/2017): Scooby has had over 15 mental health hospitalizations and was committed to [facility] in 2009. 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 Therapeutic depakote trial not effective. -Doing outpatient ECT @ [facility] -You you seeing Manny Katz in therapy at [facility] . His phone number is [phone]. [facility] at [facility] from 09/10-11/10/11 and received ECT during this hospitalization. Hospitalized at [facility] in May, for worsening depression and suicidal thoughts - feeling hopeless and having abnormal dreams. ECT being done every 6 weeks prior to hospitalization and pt seemed to decompensate from this. At his intake on 08/06/12, pt reported the following med trials: -Risperdal injections were ineffective -Clozaril - caused cardiac myositis -Prolixin injections - ineffective -Briny Breezes - caused kidney function issues. *More details in telephone encounter dated 07/14/2015. Cymbalta - helpful but caused sexual side effects Effexor - helpful but caused sexual side effects - however, effexor was better than cymbalta Pristiq - helpful for mood and much fewer sexual side effects ECT: January 2014 - ECT was decreased to every 5 weeks. Before the change even occurred, pt's therapist called with concerns. Patient had increase paranoia and delusional thinking and was unable to determine what was real and not real. ECT was then increased back to every 4 weeks. October 2014 - ECT was switched from bilateral to unilateral and continued to be every 4 weeks. 2014 - patient had an increase in paranoia about the Germans and was ruminating about things he wished were different. He had a decrease in motivation and energy and was not tending to things. ECT was increased to every 2 weeks and still unilateral. Later in January 2015 - patient's brother & sister in law called with concerns. They reported that patient was lying, and had talked about how he was thinking about drinking, he had an increase in paranoia - he would see a [employer] vehicle and he would think WWIII was going to start, he was not sleeping or going to work. ECT was increased as follows: ECT twice a week for 2 weeks. Weekly x 3. Every 2 weeks x 2 and then back to every 4 weeks. July 2015 - ECT provider called with concerns about patient's increase in paranoia and depression. Pt reported feeling more paranoid and feeling like a lot of conicidences pertained to him. ECT was increased as follows: ECT twice a week for 2 weeks. Weekly x 3 and then every 2 weeks. Patient has done better since this has occurred. Prediabetes Resolved Problems Problem Noted Date Diagnosed Date Resolved Date Need for dental care 10/24/2022 024 Altered mental status 09/02/20222023 CKD (chronic kidney disease) stage 3, GFR 30-59 ml/min 10/14/2018 12/20/2022 Suicidal ideation 05/22/2016 05/15/2017 Personal history of alcoholism 08/06/2012 01/03/2021 Tobacco use disorder 12/10/2008 024 Schizoaffective disorder Schizoaffective disorder 10/2018 Schizoaffective disorder Encounters Date Type Department Care Team Description 12/22/2024 Telephone [facility] [address] [place] [address] Dejah Landa, [place] HEARING AIDS DROPPED OFF 10/26/2024 Telephone [facility] [address] [place] [address] Lalita Heck PA Appointment Reminder 10/19/2024 Refill [facility] [address] [place] [address] Rex Connor MD Refill Request (Prevail Underwear) 10/16/2024 Refill [facility] [address] [place] [address] Rex Connor MD Refill Request (Deep Sea Nasal [place]) 10/13/2024 Refill [facility] [address] [place] [address] Rex Connor MD Refill Request (Stimulant Laxative Plus) 10/13/2024 Telephone [facility] [address] [place] [address] Christopher Clark, Reagan hearing aids dropped off 10/05/2024 Refill [facility] [address] [place] [address] Rex Connor MD Refill Request (Nicotine) from Last 3 Months Immunizations Immunization Administration Dates Next Due AMB Influenza, IIV4 PF (=>6 mos Flulaval,Fluzone Fluarix)(Flu Clinic Only) 02/03/2018,02/22/2017 COVID-19 vaccine (Moderna 100mcg/0.5mL) PF, MDV 06/30/2020,06/02/2020 COVID-19 vaccine (Pfizer-Bio NTech 30mcg/0.3mL) 12YO+ TANYA-SUCROSE PF, MDV 08/30/2021 Influenza A (H1N1), Inactivated 09/09/2009 Influenza A (H1N1), Inactiva nomi (Age >=3 Years) 07/19/2009 Influenza RIV4 (Age 18+ Year s) PRESERV FREE 03/27/2021 Influenza Virus, Unspecified 03/04/2019,03/11/20 09 Influenza, High-dose Inactivated 02/25/2024 Influenza, High-dose Quadriv alent Inactivated 03/04/2023,02/27/2022 Influenza, IIV3 (Age >=3 years) 02/19/20 13,02/15/2012,02/08/2011,03/10,04/04/2006 Influenza, IIV4 02/19/2020, 6,01/26/2015,02/24 Influenza, IIV4 (=>6mos) MDV 03/04/2019 Pneumococcal Conj 20-valent (Prevnar 20) 08/30/2021 Pneumococcal Poly,23-Valent (Pneumovax) 03/10/2009 Pneumococcal conj 13-Valent (Prevnar 13) 05/31/2017 RSV, Recombinant ADJ Reconst ituted (Arexvy 120MCG/0.5mL) 08/06/2023 Tdap 04/20/2011 Zoster (Shingrix-RZV, recombinant) 01/13/2022 Zoster (Zostavax-ZVL, live) 01/26/2015 Family History Medical History Relation Name Comments Heart Disease Brother 2 Rishi Heart Disease Father Psychiatric illness Mother depressi on/ had 3 ECT tx Cancer-colon No Family History Cancer-prostate No Family History Relation Name Status Comments Brother 1 Brother 2 Rishi Father Mother Social History Tobacco Use Types Packs/Day Years Used Date Smoking Tobacco: Former Cigarettes 1 30 Smokeless Tobacco: Never Tobacco Cessation:Counseling Given: Not Answered Comments:TIP 09/04/22 Alcohol Use Standard Drinks/Week Comments Not Currently 0 (1 standard drink = 0.6 oz pur e alcohol) previous history of ETOH PHQ-2 Answer Date Recorded PHQ-2 TOTAL SCORE 2 06/10/2023 Social Connections Answer Date Recorded Do you often feel lonely or isolated from those around you? 0 06/11/2024 Financial Resource Strain Answer Date R ecorded Difficulty of Paying Living Expenses 2 06/11/2024 Difficulty of Paying Living Expenses 1 06/11/2024 Food Insecurity Answer Date Recorded Do you worry your food will run out before you are able to buy more? 1 06/11/2024 Transportation Needs Answer Date Record ed Does lack of transportation keep you from medica l appointments? 2 06/11/2024 Does lack of transportation keep you from work, meetings or getting things that you need? 2 06/11/2024 Housing Stability Answer Date Recorded What is your housing situation today? 1 06/11/2024 Utilities Answer Date Recorded Do you have trouble paying f or utilities (for example, heat, electricity, water, phone)? 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 Gender Identity Male 08/04/2024 11:14 AM CDT Sexual Orientation Not on file Occupation Industry Job Start Date Job End Date PROACT Not on file Not on file Not on file Not on file Not on file Not on file Not on file Obstetrics History Last Filed Vital Signs Vital Sign Reading Time Taken Comments Blood Pressure 150/72 08/04/2024 11:08 AM CDT Pulse 58 08/04/2024 11:08 AM CDT Temperature 36.2 C (97.2 F) 08/04/2024 11:08 AM CDT Respiratory Rate 16 08/04/2024 11:08 AM CDT Oxygen Saturation 95% 08/04/2024 11:08 AM CDT Inhaled Oxygen Concentration - - Weight 86.8 kg (191 lb 6.4 oz) 08/04/2024 11:08 AM CDT Height 180.3 cm (5' 11) 08/04/2024 11:08 AM CDT Body Mass Index 26.69 08/04/2024 11:08 AM CDT Plan of Treatment Health Maintenance Due Date Last Done Comments Depression screening for age 12+ 1967 Tetanus booster 04/20/2021 04/20/2011 Zoster (shingles) series for age 50+ (3 of 3) 03/10/2022 01/13/2022, 01/26/2015 Fecal testing non-DNA (FIT,FOBT,iFOBT) for age 45-75 07/05/2022 07/05/2021 Medicare Wellness for age 65+ 06/10/2024 06/10/2023, 08/27/2018, 05/31/2017 COVID-19 vaccine series ( season) 2024 02/25/2024, 08/29/2023, 03/04/2023, Additional history exists Influenza Vaccine (#1) 2025 , 03/27/2021, 02/19/2020, Additional history exists Low Dose CT (for lung CA) age 50-80 06/18/2025 06/18/2024, 11/19/2022, 06/28/2021 BMI (ht and wt on same day) for age 18+ 08/04/2025 08/04/2024, 06/11/2024, 02/20/2022, Additional history exists Lipids for age 45-75 08/30/2027 08/29/2022, 01/10/2021, 12/09/2019, Additional history exists Hepatitis C screening for age 18-79 Completed 06/25/2019 AAA screening age 65-74 Completed 06/28/2021, 02/13 Pneumococcal series for age 50+ Completed 08/30/2021, 05/31/2017, 03/10/2009 RSV vaccine for adults or Completed 08/06/2023 Hepatitis B series for 19+ Aged Out N o longer eligible based on patient's age to complete this topic Procedures Procedure Name Priority Date/Time Associated Diagnosis Comments CT CHEST SCREENING LOW DOSE WO CONTRAST Routine 06/18/2024 2:03 PM HOBBING PRESS OPERATOR Personal history of nicotine dependence LIPID PANEL W REFLEX MEASURED LDL Routine 08/29/2022 10:05 AM CDT High risk medication use OCCULT BLOOD IFOBT STOOL Routine 07/05/2021 12:00 PM HOBBING PRESS OPERATOR Screening for colon cancer CT CHEST ABDOMEN PELVIS W Routine 06/28/2021 12:22 PM HOBBING PRESS OPERATOR Weight loss ANTI HCV Routine 06/25/2019 8:36 AM HOBBING PRESS OPERATOR Need for hepatitis C screening test from Last 3 Months or Most Recently Relevant to Health Maintenance Results * CT CHEST SCREENING LOW DOSE WO CONTRAST [[id number]] -- Criteria: must meet ALL: Age 50-80, current smoker or quit within the last 15 years, AND 20+ pack-year history (06/18/2024 2:03 PM HOBBING PRESS OPERATOR) Anatomical Region Laterality Modality Computed Tomogra phy Impressions 06/19/2024 12:04 PM HOBBING PRESS OPERATOR New 6 millimeter left upper lobe pulmonary nodule and new 4 millimeter right lower lobe pulmonary nodule. LUNG-RADS CATEGORY 4A: Suspicious. RADIOLOGIST RECOMMENDATION: Low-dose CT chest in 3 months. Please note that all CT scans at this facility use dose modulation, iterative reconstruction and/or weight-based dosing when appropriate to reduce radiation dose to as low as reasonably achievable. Dictated by: Terry Dyer MD @06/18/2024 4:28:09 PM/giovanni Narrative 06/19/2024 12:04 PM HOBBING PRESS OPERATOR For Patients: As a result of the 21st Century Cures Act, medical imaging exams and procedure reports are released immediately into your electronic medical record. You may view this report before your referring provider. If you have questions, please contact your health care provider. CT CHEST SCREENING LOW-DOSE WITHOUT CONTRAST, 06/18/2024 INDICATION: Lung cancer screening. History of smoking. High risk patient with greater than 20 pack-year smoking history. TECHNIQUE: Low-dose lung cancer screening non-contrast CT chest. Dose reduction techniques were used. COMPARISON: 11/19/2022. FINDINGS: NODULES: There is a new nodule within the left upper lobe which measures 6 millimeters, series 5, image 55. Stable 2 millimeter perifissural nodule left upper lobe, 5/38. Continued decreased size of nodular density within the right middle lobe with residual linear scarring present. Stable 2 millimeter nodule right lower lobe, 5/72. Additional new nodule within the right lower lobe measures 4 millimeters, 5/79. LUNGS AND PLEURA: Stable scarring in both lung apices and within the lingula. MEDIASTINUM: Calcified left hilar lymph nodes. Atherosclerotic changes. CORONARY ARTERY CALCIFICATION: None. LIMITED UPPER ABDOMEN: Postop changes to the GE junction. MUSCULOSKELETAL: Normal. us Rex Connor MD CT Final Result * (ABNORMAL) LIPID PANEL W REFLEX MEASURED LDL (08/29/2022 10:05 AM CDT) CHOLESTEROL,TOTAL 176 mg/dL 023 10:49 AM T [facility] Comment: Cholesterol, Total Reference Ranges Desirable <200 mg/dL Borderline 200-239 mg/dL High >=240 mg/dL TRIGLYCERIDES 78 <150 mg/dL 08/29/2022 10:49 AM CDT [facility] HDL CHOLESTEROL 37(L) >40 mg/dL 3 10:49 AM CDT [facility] [employer] NON-HDL CHOLESTEROL 139 <145 mg/dl 08/29/2022 10:49 AM CDT [facility] CHOL/HDL RATIO 4.76(H) <4.50 08/29/2022 10:49 AM CDT [facility] LDL CHOLESTEROL 123 <=130 mg/dL 08/29/2022 10:49 AM CDT [facility] VLDL CHOLESTEROL 16(L) >30 mg/dL 08/30/19 10:49 AM CDT [facility] PROVIDER ORDERED STATUS RANDOM 08/29/2022 10:49 AM CDT [facility] Blood BLOOD SPECIMEN / Unknown Venipuncture / Unknown 08/29/2022 10:05 AM CDT 08/29/2022 10:16 AM CDT us Rex Connor MD CHEMISTRY Final Result [facility] [address] [place] [address], * OCCULT BLOOD IFOBT STOOL (07/05/2021 12:00 PM HOBBING PRESS OPERATOR) STOOL BLOOD ,IFOBT Negative Negative 07/14/2021 9:15 AM HOBBING PRESS OPERATOR [facility] Stool STOOL SPECIMEN / Unknown Non-Blood / Unknown 07/05/2021 12:00 PM HOBBING PRESS OPERATOR 07/12/2021 2:52 PM HOBBING PRESS OPERATOR us Rex Connor MD LABORATORY Final Result [facility] [address] [place] [address], [place] [phone] * CT CHEST ABDOMEN PELVIS W (06/28/2021 12:22 PM HOBBING PRESS OPERATOR) Anatomical Region Laterality Modality Abdomen, Pelvis, AORTA, LIVER, SPLEEN Computed Tomography 06/28/2021 9:38 PM HOBBING PRESS OPERATOR Impressions 06/28/2021 9:38 PM HOBBING PRESS OPERATOR Esophagus appears patulous and there are secretions seen within the trachea and extending into the distal small airways concerning for aspiration risk. There are changes of chronic aspiration or bronchitis or combination of the 2. The lungs show numerous areas of small airway occlusion with distal bronchiectasis and bronchiolitis. Tiny tree-in-bud opacities are seen within the right middle lobe. There is also scattered nodularity as detailed above, some of which is pleural- based some of which are not. Findings likely represent nonspecific infectious or inflammatory process. Consider short-term chest CT follow-up in 6 months to exclude malignancy given nodules. Postsurgical changes of reported bilroth 2 procedure. Apparent circumferential colonic wall thickening near the cecum, this could represent peristalsis but is not completely evaluated on CT. Please ensure patient is up-to-date on colon cancer screening. Possible area soft tissue fullness just posterior to the sternocleidomastoid muscle within the right neck measuring 1.8 centimeters long transverse axis, image 6 of series 2, correlate with physical exam. Please note that all CT scans at this facility use dose modulation, iterative reconstruction, and/or weight-based dosing when appropriate to reduce radiation dose to as low as reasonably achievable. Dictated by Marley Van MD @ Jun 28 2021 9:38PM (Electronically Signed) Narrative 06/28/2021 9:38 PM HOBBING PRESS OPERATOR For Patients: As a result of the Cures Act, medical imaging exams and procedure reports are released immediately into your electronic medical record. You may view this report before your referring provider. If you have questions, please contact your health care provider. INDICATION: Weight loss TECHNIQUE: CT chest, abdomen and pelvis acquired with IV contrast. COMPARISON: CT abdomen and pelvis 02/13/2018 FINDINGS: Chest: Cardiovascular structures: Heart size is normal. Thoracic aorta and main pulmonary artery are normal in caliber. Neck, mediastinum and landy: Possible area soft tissue fullness just posterior to the sternocleidomastoid muscle within the right neck measuring 1.8 centimeters long transverse axis, image 6 of series 2, correlate with physical exam. No mass or adenopathy. Lungs: Secretions are seen within the trachea. Secretions within the bilateral proximal bronchi and distal small airways. Bronchial wall thickening. There are few subcentimeter patchy opacities versus pulmonary nodules within the left upper lobe on image 65 of series 3 with part of this consolidation extending to the pleura and some suggestion of scarring and possible slight traction bronchiectasis. There also numerous other subtle areas of probable small airway occlusion and bronchiolitis. Probable tiny tree-in-bud opacities within the right middle lobe. Scattered areas of mild distal bronchiectasis. Several focal pleural-based consolidations predominantly within the right lung, for example, within the posterior right lung base as seen on image 32 series 401 which measures 1.6 centimeters. Pleura and pericardium: No effusions. Chest wall and axilla: No mass or adenopathy. Bones: Unremarkable for age. Abdomen and Pelvis: Liver: Unremarkable. Spleen: Unremarkable. Pancreas: Atrophic Gallbladder and bile ducts: Gallbladder is unremarkable. There is mild central intrahepatic and extrahepatic biliary dilatation, likely not significantly changed from the prior exam. Kidneys: Bilateral renal cysts. Adrenal glands: Unremarkable. GI tract: Patulous esophagus. Postsurgical changes of reported bilroth 2 procedure. Anastomotic sites appear unremarkable. Apparent colonic wall thickening near the cecum, this could represent peristalsis and is not completely evaluated on CT. Please ensure patient is up-to-date on colon cancer screening. Vascular structures: Mass hair calcifications, atherosclerotic Lymph nodes: Unremarkable. Miscellaneous: Unremarkable. No free air or significant free fluid. Pelvic Organs: Prostatomegaly Bones: Bones are osteopenic. Mild chronic compression deformity of L1 vertebral body Procedure Note Marley Van MD - 06/28/2021 For Patients: As a result of the Century Cures Act, medical imagingexams and procedure reports are released immediately into your electronicmedical record. You may view this report before your referring provider.If you have questions, please contact your health care provider. INDICATION: Weight loss TECHNIQUE: CT chest, abdomen and pelvis acquired with IV contrast. COMPARISON: CT abdomen and pelvis 02/13/2018 FINDINGS: Chest: Cardiovascular structures: Heart size is normal. Thoracic aorta and mainpulmonary artery are normal in caliber. Neck, mediastinum and landy: Possible area soft tissue fullness justposterior to the sternocleidomastoid muscle within the right neckmeasuring 1.8 centimeters long transverse axis, image 6 of series 2,correlate with physical exam. No mass or adenopathy. Lungs: Secretions are seen within the trachea. Secretions within thebilateral proximal bronchi and distal small airways. Bronchial wallthickening. There are few subcentimeter patchy opacities versus pulmonarynodules within the left upper lobe on image 65 of series 3 with part ofthis consolidation extending to the pleura and some suggestion of scarringand possible slight traction bronchiectasis. There also numerous othersubtle areas of probable small airway occlusion and bronchiolitis.Probable tiny tree-in-bud opacities within the right middle lobe.Scattered areas of mild distal bronchiectasis. Several focal pleural-basedconsolidations predominantly within the right lung, for example, withinthe posterior right lung base as seen on image 32 series 401 whichmeasures 1.6 centimeters. Pleura and pericardium: No effusions. Chest wall and axilla: No mass or adenopathy. Bones: Unremarkable for age. Abdomen and Pelvis: Liver: Unremarkable. Spleen: Unremarkable. Pancreas: Atrophic Gallbladder and bile ducts: Gallbladder is unremarkable. There is mildcentral intrahepatic and extrahepatic biliary dilatation, likely notsignificantly changed from the prior exam. Kidneys: Bilateral renal cysts. Adrenal glands: Unremarkable. GI tract: Patulous esophagus. Postsurgical changes of reported bilroth 2procedure. Anastomotic sites appear unremarkable. Apparent colonic wallthickening near the cecum, this could represent peristalsis and is notcompletely evaluated on CT. Please ensure patient is up-to-date on coloncancer screening. Vascular structures: Mass hair calcifications, atherosclerotic Lymph nodes: Unremarkable. Miscellaneous: Unremarkable. No free air or significant free fluid. Pelvic Organs: Prostatomegaly Bones: Bones are osteopenic. Mild chronic compression deformity of [id number] body IMPRESSION: Esophagus appears patulous and there are secretions seen within thetrachea and extending into the distal small airways concerning foraspiration risk. There are changes of chronic aspiration or bronchitis orcombination of the 2. The lungs show numerous areas of small airwayocclusion with distal bronchiectasis and bronchiolitis. Tiny [id number] are seen within the right middle lobe. There is also scatterednodularity as detailed above, some of which is pleural-based some of whichare not. Findings likely represent nonspecific infectious or inflammatoryprocess. Consider short-term chest CT follow-up in 6 months to excludemalignancy given nodules. Postsurgical changes of reported bilroth 2 procedure. Apparent circumferential colonic wall thickening near the cecum, thiscould represent peristalsis but is not completely evaluated on CT. Pleaseensure patient is up-to-date on colon cancer screening. Possible area soft tissue fullness just posterior to thesternocleidomastoid muscle within the right neck measuring 1.8 centimeterslong transverse axis, image 6 of series 2, correlate with physical exam. Please note that all CT scans at this facility use dose modulation,iterative reconstruction, and/or weight-based dosing when appropriate toreduce radiation dose to as low as reasonably achievable. Dictated by Marley Van MD @ Jun 28 2021 9:38PM (Electronically Signed) us Rex Connor MD CT Final Result * ANTI HCV (06/25/2019 8:36 AM HOBBING PRESS OPERATOR) HEPATITIS C ANTIBODY Non-React dani Non-React dani 06/25/2019 2:37 PM HOBBING PRESS OPERATOR [facility] Comment:Antibodies to HCV no t detected; does not exclude the possibility of exposure to HCV. Blood BLOOD SPECIMEN / Unknown Venipuncture / Unknown 06/25/2019 8:36 AM HOBBING PRESS OPERATOR 06/25/2019 8:36 AM HOBBING PRESS OPERATOR us Rex Connor MD SEND OUTS Final Result [facility] [address] [place] [address], [place] from Last 3 Months or Most Recently Relevant to Health Maintenance Insurance MEDICAID MEDICARE [place] ONLY MEDICARE PART B HB ONLY MEDICARE PART A HB ONLY C/O [address] [address] MEDIC CHOICE [facility] MEDICARE PART B HB ONLY MEDICARE PART A HB ONLY * Guarantor: JUSTIN WOLF Account Type Relation to Patient Date of Phone Billing Address [place] [employer]/[place] 1979 [place] [id number] ATTN A/P [address] [address] [place] [address] Advance Directives Documents on File Type Date Recorded Patient Armed Security Guard Expl anation Healthcare Directive 04/27/2016 7:01 AM Healthcare Directive 04/27/2016 12:00 AM Healthcare Directive 07/21/20090 4 * Full Code (Latest Code Status on File) Date Activated Date Inactivated Comments 09/02/2022 3:14 AM 09/13/2022 8:42 AM Question Answer Comments Code Status Discussion: Reviewed Preferences * Full Code Date Activated Date Inactivated Comments 06/26/2019 7:41 AM 06/27/2019 2:20 AM Question Answer Comments Code Status Discussion: Discussed * Full Code Date Activated Date Inactivated Comments 06/05/2019 8:26 AM 06/06/2019 2:24 AM Question Answer Comments Code Status Discussion: Discussed * Full Code Date Activated Date Inactivated Comments 05/01/2019 8:35 AM 05/02/2019 2:27 AM Question Answer Comments Code Status Discussion: Discussed * Full Code Date Activated Date Inactivated Comments 04/17/2019 7:15 AM 04/18/2019 2:20 AM Question Answer Comments Code Status Discussion: Discussed Care Teams Video Editing Intern Relationship Specialty Start Date End Date Rex Connor MD [address] [place] [address] PCP - General Family Practice 10/14/18
--- OUTSIDE RECORDS SUMMARY | 2025-01-04 21:41 | XMS_ITS | Patient Health Record ---
Author Organization [facility] Address [address] [place] [address] Care Team Providers Care Laboratory Inspector Name Role Phone Rex Connor Primary Care Provider Unavailab JOE Mitchell Unavailable [phone] None, None Unavailable Unavailable Allergies Allergen (clinical drug ingredient) Drug/Non Drug Allergy documented on EMR Reaction Allergy Type Onset Date Status clozapine Clozapine Unknown Drug Allergy Active haloperidol Haloperidol Unknown Drug Allergy Act dani Reason For Referral No Information Medications Medication SIG (Take, Route, Frequency, Duration) Notes Start Date End Date Status Propranolol HCl 20 MG Tablet Oral; Duration: 28 Active Levothyroxine Sodium 150 MCG Tablet Oral; Duration: 28 Active Divalproex Sodium ER 500 MG Tablet Extended Release 24 Hour Oral; Duration: 28 Active Symbicort 80-4.5 MCG/ACT Aerosol Inhalation; Duration: 30 Act dani QUEtiapine Fumarate 400 MG Tablet Oral; Duration: 28 Active amLODIPine Besylate 10 MG Tablet Oral; Duration: 28 Active Albuterol Sulfate HFA 108 (90 Base) MCG/ACT Aerosol Solution Inhalation; Duration: 16 Act dani Haloperidol 5 MG Tablet Oral; Duration: 28 Active Pulmicort Flexhaler 180 MCG/ACT Aerosol Powder Breath Activated Inhalation; Duration: 30 Active Aspirin Low Dose 81 MG Tablet Delayed Release Oral; Duration: 10 Active Haloperidol Decanoate 50 MG/ML Solution Intramuscular; Duration: 28 Active Senexon-S 8.6-50 MG Tablet Oral; Duration: 28 Active Tamsulosin HCl 0.4 MG Capsule Oral; Duration: 28 Active ALPRAZolam 0.5 MG Tablet Oral; Duration: 30 Active Social History Tobacco Use: Social History Observation Description Date Details (start date - stop date) Current Smoker NA - NA Social History Alcohol Use: Social Info Question Answer Notes Recreational drugs Recreational Drug Use: No Alcohol Screen Did you have a drink containing alcohol in the past year? No Points 0 Interpretation Negative Tobacco Use: Social Info Question Answer Notes Tobacco use/smoking Are you a current smoker How often do you smoke cigarettes? every day How many cigarettes a day do you smoke? 5 or less Are you interested in quitting? Ready to quit Problems Problem Type SNOMED Code ICD Code Onset Dates Problem Status W/U Status Risk Notes Problem Schizoaffective disorder, bipolar type (45445948) Schizoaffective disorder, bipolar type (F25.0) Active confirmed Problem Epistaxis (322213885) Epistaxis (R04.0) Active confirmed Problem HTN (hypertensio n) (I10) Active confirmed Plan Of Treatment No Information Insurance Providers Payer Name Payer Address Payer Phone Subscriber Number Group Number Insured Name Patient Relationship to Insured Coverage Start Date Coverage End Date MEDICARE [address] [place] [address] [id number] Scooby Greer Self - patient is the insured [employer] [address] [address] [place] [address] [phone] [id number] Scooby Greer Self - patient is the insured Medical (General) History Medical History History ICD Code Heart disease Psychotic disorder Schizoaffective disorder bipolar type CV19 Vaccine 05/2020 Surgical History Surgery Date(Month/Year) Hernia Stomach for ulcers
--- OUTSIDE RECORDS SUMMARY | 2025-01-04 21:42 | XMS_ITS | Clinical Summary ---
Author Organization [facility] Address [address] [place] [address] Care Team Providers Care Computer Systems Software Engineer Name Role Phone Rex Connor Mary Jo Primary Care Provider Allergies Active Allergy Reactions Criticality Noted Date Comments Clozapine Other (See Comments) 05/05/2016 myocarditis Haloperidol Other (See Comments) 05/05/2016 Mouth/jaw spasms Medications budesonide-formo terol (SYMBICORT) 80-4.5 MCG/ACT Inhaler Inhale 1 puff into the lungs 2 times daily 6 Active divalproex (DEPAKOTE ER) 500 MG 24 hr tablet Take 2,000 mg by mouth At Bedtime 7 Active levothyroxine (SYNTHROID/LEVOT HROID) 150 MCG tablet Take 150 mcg by mouth every morning (before breakfast) 6 Active tamsulosin (FLOMAX) 0.4 MG capsule Take 0.4 mg by mouth daily 7 Active albuterol (PROAIR HFA/PROVENTIL HFA/VENTOLIN HFA) 108 (90 BASE) MCG/ACT Inhaler Inhale 1-2 puffs into the lungs every 4 hours as needed 7 Active senna-docusate (SENOKOT-S/PERIC OLACE) 8.6-50 MG tablet Take 1 tablet by mouth 2 times daily Active haloperidol decanoate (HALDOL DECANOATE) 50 MG/ML SOLN injection Inject 50 mg into the muscle every 14 days Active propranolol (INDERAL) 20 MG tablet Take 20 mg by mouth 2 times daily Active QUEtiapine (SEROQUEL) 400 MG tablet Take 400 mg by mouth At Bedtime Active multivitamin, therapeutic (THERA-VIT) TABS tablet Take 1 tablet by mouth daily Active clonazePAM (KLONOPIN) 0.5 MG tabletIndication s:Schizoaffectiv e disorder, bipolar type (H) Take 1 tablet (0.5 mg) by mouth 2 times daily as needed for anxiety 10 tablet 1 Active amLODIPine (NORVASC) 10 MG tabletIndication s:Hypertensive urgency Take 1 tablet (10 mg) by mouth daily 30 tablet 3 1 Active acetaminophen (TYLENOL) 325 MG tabletIndication s:Epistaxis Take 2 tablets (650 mg) by mouth every 4 hours as needed for mild pain or other (and adjunct with moderate or severe pain or per patient request) 0 1 Active Active Problems Problem Noted Date Diagnosed Date Benign essential hypertension 12/30/2020 Acute blood loss anemia 12/30/2020 Chest pain 12/30/2020 Hypertensive urgency 12/30/2020 COPD (chronic obstructive pulmonary disease) Schizoaffective disorder, bipolar type 1 Epistaxis -- S/P Embolization 12/30/20 12/29/2020 Social History Tobacco Use Types Packs/Day Years Used Date Smoking Tobacco: Every Day Smokeless Tobacco: Never Tobacco Cessation:Ready to Q uit: Yes; Counseling Given: Yes Alcohol Use Standard Drinks/Week Comments Not Asked 0 (1 standard drink = 0.6 oz pur e alcohol) Adolescent Education Answer Date Record ed Getting School Help Needed Not on file 02/08 Sex and Gender Information Value Date Recorded Sex Assigned at Not on file Legal Sex Male 12:58 PM AUTHOR'S AGENT Gender Identity Not on file Sexual Orientation Not on file Last Filed Vital Signs Vital Sign Reading Time Taken Comments Blood Pressure 105/57 12/30/2020 11:32 AM CDT Pulse 78 12/30/2020 11:32 AM CDT Temperature 37.3 C (99.1 F) 12/30/2020 11:32 AM CDT Respiratory Rate 16 12/30/2020 11:32 AM CDT Oxygen Saturation 96% 12/30/2020 11:32 AM CDT Inhaled Oxygen Concentration - - Weight 75.8 kg (167 lb) 12/29/2020 12:57 AM CDT Height 180.3 cm (5' 11) 12/28/2020 9:12 PM CDT Body Mass Index 23.29 12/28/2020 9:12 PM CDT Plan of Treatment Not on file Medical Devices Implanted Type Area Forensic Chemist Device Identifier Shelf Expiration Date Model / Serial / Lot Embolic Substance/Device- 12/29/2020 Implanted:Qty: 1 on 12/29/2020 by Elton Pond MD Embolic Substance/D evice Nose [employer] 11/02/2021 / / [id number] Description:Nose bleed emobo lization Embolic Substance/Device- 12/29/2020 Implanted:Qty: 1 on 12/29/2020 by Elton Pond MD Embolic Substance/D evice Nose [employer] 04/07/2024 / / [id number] Description:Nose bleed emobo lization Insurance MEDICARE MEDICAID [place] Advance Directives For more information, please contact: [phone] * Full Code (Latest Code Status on File) Date Activated Date Inactivated Comments 12/29/2020 11:12 AM 12/30/2020 3:08 PM All basic a nd advanced life-sustaining interventions are performed as appropriate Question Answer Comments Code status determined by: Discussion with humberto nt/ legal decision maker Care Teams Computer Systems Software Engineer Relationship Specialty Start Date End Date Rex Connor [address] [facility] [address] PCP - General Family Medicine 12/28/20
--- NOTE | 2025-01-04 22:08 | CRLHL7_ITS ---
For Patients: As a result of the Century Cures Act, medical imaging exams and procedure reports are released immediately into your electronic medical record. You may view this report before your referring provider. If you have questions, please contact your health care provider. INDICATION: Head injury from Fall, Parkinson`s disease TECHNIQUE: CT Head without i.v. contrast. Coronal and sagittal reformats were obtained. COMPARISON: 09/01/2022 FINDINGS: CSF space: Unremarkable for age. Brain: No evidence of mass, acute infarction or hemorrhage is seen. No mass-effect or midline shift is seen. Mild diffuse cortical atrophy is noted. There is a stable arachnoid cyst over the right temporal pole measuring 3 x 1.8 cm. Calvarium: The visualized paranasal sinuses are well aerated. The mastoid air cells are clear. The visualized orbits are grossly unremarkable. The calvarium is unremarkable in appearance with no fractures identified. IMPRESSION: 1. No evidence of acute infarction, intracranial hemorrhage, or mass-effect seen. Dictated by Nolan Cortez MD @ 01/04/2025 10:56:34 PM Please note that all CT scans at this facility use dose modulation, iterative reconstruction, and/or weight-based dosing when appropriate to reduce radiation dose to as low as reasonably achievable. Dictated by: Nolan Cortez MD @ 01/04/2025 22:57:17 (Electronically Signed)
--- NOTE | 2025-01-04 22:08 | CRLHL7_ITS ---
For Patients: As a result of the Century Cures Act, medical imaging exams and procedure reports are released immediately into your electronic medical record. You may view this report before your referring provider. If you have questions, please contact your health care provider. INDICATION: Cervical spine injury from Fall, Parkinson`s TECHNIQUE: CT cervical spine without i.v. contrast. Coronal and sagittal reformats were obtained. COMPARISON: None FINDINGS: Alignment: Unremarkable. Bone: There is a 7 mm sclerotic lesion in the right occipital condyle, likely due to a bone island. No acute fractures or aggressive bone lesions are identified. A small amount of calcified pannus is seen posterior to the dens. Disc: Severe disc narrowing is present at C3-4, C5-6 and C6-7. Scattered facet osteoarthritis is noted bilaterally. Soft tissue: The prevertebral soft tissues are unremarkable in appearance. The visualized lung apices and mediastinum are unremarkable. Bilateral calcified carotid plaques are noted. IMPRESSION: 1. No acute osseous injuries are identified. Dictated by Nolan Cortez MD @ 01/04/2025 11:01:20 PM Please note that all CT scans at this facility use dose modulation, iterative reconstruction, and/or weight-based dosing when appropriate to reduce radiation dose to as low as reasonably achievable. Dictated by: Nolan Cortez MD @ 01/04/2025 23:01:46 (Electronically Signed)
--- OUTSIDE RECORDS SUMMARY | 2025-01-04 22:38 | XMS_ITS | Clinical Summary ---
Author Organization [facility] Address [address] , [address] [place] [address] Phone Care Team Providers Care Platform Beater Name Role Phone Sharon Bowman LPN [phone] Conditions or Problems Problem Name Problem Code Onset Date Status Entry Date Provider Comment Standard Description Annotate Parkinsonism , unspecified 75882948 (SNOMED CT) 05/20 Active 05/20 Aleta Restrepo Parkinsonism Schizoaffect dani disorder with depression 97960484 (SNOMED CT) 07/29 Active 07/29 Contreras Vargas MD Schizoaffective disorder Memory deficit 993444467 (SNOMED CT) 07/29 Active 07/29 Contreras Vargas MD Memory impairment Tremor, rest 95053050 (SNOMED CT) 07/29 Active 07/29 Contreras Vargas MD Resting tremor Parkinsonism 71069370 (SNOMED CT) 05/20 Inactive 05/20 Jose Eduardo Corcoran MD Parkinsonism Medications Medication Instructions Start Date Stop Date Generic Name [facility] Provider FAMOTIDINE 20 MG TABS Take 1 tablet by mouth once a day famotidine 07632947086 Contreras Vargas MD MELATONIN 3 MG TABS Take 1 tablet by mouth every night melatonin 01037574082 Contreras Vargas MD QUETIAPINE FUMARATE 200 MG TABS Take 200 mg by mouth every night quetiapine 72048976074 Contreras Vargas MD ESCITALOPRAM OXALATE 10 MG TABS Take 10 mg by mouth once a day escitalopram oxalate 05677743534 Contreras Vargas MD ALBUTEROL SULFATE (2.5 MG/3ML) 0.083% NEBU Inhale 1 ampul by mouth twice a day albuterol sulfate 58244013578 Contreras Vargas MD Multivits,Ca,[place] als-Iron-FA (High Potency Multivit, w-iron Take 1 tablet by mouth once a day High Potency Multivit, w-iron Contreras Vargas MD IBUPROFEN (IBUPROFEN) 600 MG TABS Take 1 tablet by mouth every eight hours as needed IBUPROFEN Contreras Vargas MD TAMSULOSIN HCL 0.4 MG CAPS Take 1 capsule by mouth once a day tamsulosin 69573074897 Contreras Vargas MD AMLODIPINE BESYLATE 10 MG TABS 07/29 amlodipine 60163022777 Contreras Vargas MD SENNOSIDES-DOCUSAT E SODIUM 8.6-50 MG TABS Take 1 tablet by mouth twice a day 07/29 sennosidepat-docu sate sodium 99091428479 Contreras Vargas MD fluticasone propion-salmeteroL (Advair Diskus) 250-50 mcg/Do Inhale 1 puff by mouth twice a day Advair Diskus Contreras Vargas MD GAVILAX 17 GM/SCOOP POWD 07/29 polyethylene glycol 3350 99598546208 Contreras Vargas MD PEG 3350 17 GM/SCOOP POWD Take 1 by mouth once a day as needed polyethylene glycol 3350 22699001414 Contreras Vargas MD PROPRANOLOL HCL 20 MG TABS Take 1 tablet by mouth three times a day propranolol 44724720684 Contreras Vargas MD HALOPERIDOL 5 MG TABS Take 5 mg by mouth every four hours as needed haloperidol 48590030427 Contreras Vargas MD cholecalciferol (VITAMIN D3) 1,000 unit tablet Take 1 tablet by mouth once a day VITAMIN D3 Contreras Vargas MD Nebulizer Inhale 07/29 Nebulizer Contreras Vargas MD QUETIAPINE FUMARATE 300 MG TABS 07/29 quetiapine 51150298408 Contreras Vargas MD CARBIDOPA-LEVODOPA 25-100 MG TABS Take 1 tablet by mouth three times a day carbidopa-levod opa 55301950944 Contreras Vargas MD NICOTINE POLACRILEX [address] 1 by mouth every hour as needed nicotine (polacrilex) 08850523072 Contreras Vargas MD BENZTROPINE MESYLATE 0.5 MG TABS Take 0.5 mg by mouth twice a day benztropine 61110966932 Contreras Vargas MD DEEP SEA NASAL SPRAY 0.65 % SOLN Administer 2 spray into both nostrils every six hours sodium chloride 99172742402 Contreras Vargas MD NICOTINE 7 MG/24HR PT24 07/29 nicotine 97547088255 Contreras Vargas MD PROPRANOLOL HCL 20 MG TABS 07/29 propranolol 34384934091 Contreras Vargas MD SENEXON-S 8.6-50 MG TABS 07/29 sennosides-docu sate sodium 12586036470 Contreras Vargas MD LEVOTHYROXINE SODIUM 150 MCG TABS Take 1 tablet by mouth every morning levothyroxine 42521561514 Contreras Vargas MD CLONAZEPAM 0.5 MG TABS Take 1 tablet by mouth once a day as needed clonazepam 43187023726 Contreras Vargas MD ASPIRIN LOW DOSE 81 MG TBEC 07/29 aspirin 10254725930 Contreras Vargas MD haloperidol decanoate (HALDOL DECANOATE) 100 mg/mL intramusc Inject 75 mg intramuscularly every two weeks HALDOL DECANOATE Contreras Vargas MD TAMSULOSIN HCL 0.4 MG CAPS TAKE 1 CAPSULE BY MOUTH DAILY 30 MINUTES AFTER THE SAME MEAL EACH DAY *SWALLOW WHOLE* 07/29 tamsulosin 44465900056 QIEUSER QIEUSER DEEP SEA NASAL SPRAY 0.65 % SOLN ADMINISTER 2 SPRAYS IN AFFECTED NOSTRIL(S) EVERY 6 HOURS 07/29 sodium chloride 00080134418 QIEUSER QIEUSER SENNOSIDES-DOCUSAT E SODIUM 8.6-50 MG TABS TAKE 1 TABLET BY MOUTH TWICE DAILY 07/29 sennosides-docu sate sodium 00705894313 QIEUSER QIEUSER QUETIAPINE FUMARATE 200 MG TABS Take 200 mg by mouth at bedtime. 07/29 quetiapine 73648269648 QIEUSER QIEUSER PEG 3350 17 GM/SCOOP POWD Take 1 scoop (17 g) by mouth or nasogastric tube once daily if needed for Constipation. 07/29 polyethylene glycol 3350 06307053369 QIEUSER QIEUSER NICOTINE POLACRILEX [address] 1 Lozenge (2 mg) in mouth, between cheek & gum every hour while awake as needed for Nicotine Craving. 11/27 nicotine (polacrilex) 42274474355 QIEUSER QIEUSER Nebulizer Nebulizer, disposable neb kit x 4, reuseable neb kit x 1, mask x 1, filters x 1. Frequency of use: daily; Medication: albuterol Length of need: 99 months 07/29 Nebulizer QIEUSER QIEUSER Multivits,Ca,[place] als-Iron-FA (High Potency Multivit, w-iron Take 1 Tablet by mouth once daily. 07/29 High Potency Multivit, w-iron QIEUSER QIEUSER MELATONIN 3 MG TABS Take 1 Tablet (3 mg) by mouth at bedtime. 07/29 melatonin 21480139152 QIEUSER QIEUSER IBUPROFEN (IBUPROFEN) 600 MG TABS TAKE 1 TABLET BY MOUTH EVERY 8 HOURS NEEDED FOR PAIN OR TEMP >101.5F (38.6C) 07/29 IBUPROFEN QIEUSER QIEUSER haloperidol decanoate (HALDOL DECANOATE) 100 mg/mL intramusc Inject 75 mg intramuscular every 2 weeks. 07/29 HALDOL DECANOATE QIEUSER QIEUSER HALOPERIDOL 5 MG TABS Take 5 mg by mouth every 4 hours if needed for Agitation. 07/29 haloperidol 33970483738 QIEUSER QIEUSER fluticasone propion-salmeteroL (Advair Diskus) 250-50 mcg/Do INHALE 1 PUFF BY MOUTH TWICE DAILY --RINSE MOUTH AFTER USE-- 07/29 Advair Diskus QIEUSER QIEUSER FAMOTIDINE 20 MG TABS Take 1 Tablet (20 mg) by mouth once daily. 07/29 famotidine 14098730161 QIEUSER QIEUSER ESCITALOPRAM OXALATE 10 MG TABS Take 10 mg by mouth once daily. 07/29 escitalopram oxalate 91617022474 QIEUSER QIEUSER cholecalciferol (VITAMIN D3) 1,000 unit tablet Take 1 Tablet (1,000 units) by mouth once daily. 07/29 VITAMIN D3 QIEUSER QIEUSER CARBIDOPA-LEVODOPA 25-100 MG TABS Take 1 Tablet by mouth three times daily. 11/27 carbidopa-levod opa 06224430150 QIEUSER QIEUSER BENZTROPINE MESYLATE 0.5 MG TABS Take 0.5 mg by mouth two times daily. 07/29 benztropine 47925760635 QIEUSER QIEUSER ALBUTEROL SULFATE (2.5 MG/3ML) 0.083% NEBU INHALE 1 AMPULE BY MOUTH VIA NEBULIZER TWICE DAILY 07/29 albuterol sulfate 87877127861 QIEUSER QIEUSER ACETAMINOPHEN 500 MG TABS Take 2 Tablets (1,000 mg) by mouth every 6 hours if needed for Pain. Max acetaminophen dose: 4000mg in 24 hrs. acetaminophen 42980647352 QIEUSER QIEUSER PROPRANOLOL HCL 20 MG TABS Take 1 Tablet (20 mg) by mouth 2 times daily. AM and at bedtime. 11/27 propranolol 15500335441 QIEUSER QIEUSER LEVOTHYROXINE SODIUM 150 MCG TABS Take 1 Tablet (150 mcg) by mouth before breakfast. 07/29 levothyroxine 01453529859 QIEUSER QIEUSER DIVALPROEX SODIUM ER 500 MG [id number] Take 2 Tablets (1,000 mg) by mouth at bedtime. divalproex 16872265078 QIEUSER QIEUSER CLONAZEPAM 0.5 MG TABS Take 1 Tablet (0.5 mg) by mouth once daily if needed for Anxiety. 11/27 clonazepam 71987052660 QIEUSER QIEUSER TAMSULOSIN HCL 0.4 MG CAPS tamsulosin 70825112517 Jose Eduardo Corcoran MD NICOTINE 7 MG/24HR PT24 07/29 nicotine 72347093235 Jose Eduardo Corcoran MD ASPIRIN EC 81 MG TBEC 10/23 aspirin 82365772931 Jose Eduardo Corcoran MD PROPRANOLOL HCL 20 MG TABS 11/27 propranolol 33080302614 Jose Eduardo Corcoran MD CLONAZEPAM 0.5 MG TABS clonazepam 53410613943 Jose Eduardo Corcoran MD ACETAMINOPHEN 325 MG TABS acetaminophen 79735698668 Jose Eduardo Corcoran MD ALBUTEROL SULFATE HFA 108 (90 Base) MCG/ACT AERS albuterol sulfate 96570432992 Jose Eduardo Corcoran MD DIVALPROEX SODIUM ER 500 MG [id number] divalproex 87441234941 Jose Eduardo Corcoran MD AMLODIPINE BESYLATE 10 MG TABS 11/27 amlodipine 10182759964 Jose Eduardo Corcoran MD QUETIAPINE FUMARATE 300 MG TABS 07/29 quetiapine 18059657403 Jose Eduardo Corcoran MD SENEXON-S 8.6-50 MG TABS 07/29 sennosides-docu sate sodium 88211474337 Jose Eduardo Corcoran MD GAVILAX 17 GM/SCOOP POWD 07/29 polyethylene glycol 3350 83776032949 Jose Eduardo Corcoran MD SYMBICORT 80-4.5 MCG/ACT AERO budesonide-form oterol 77726450243 Jose Eduardo Corcoran MD HALOPERIDOL DECANOATE 50 MG/ML SOLN haloperidol decanoate 10049999257 Jose Eduardo Corcoran MD MAGNESIUM CITRATE 1.745 GM/30ML SOLN magnesium citrate 17993130431 Jose Eduardo Corcoran MD LEVOTHYROXINE SODIUM 150 MCG TABS levothyroxine 24466826540 Jose Eduardo Corcoran MD Medications Administered No [...] Date Detail Appointment 11:30 AM Fauzia thomsonl DNP,NUTRITION MANAGER,[employer], [address] [place] [address], [place] [address], [place], [address], Pending order Follow up with N eurologist [...] Procedures Code Procedure Name Date Entry Date [facility]-[id number] Documentation of current medicatio ns ORDERS Follow up RISSA after testing [id number] Other Radiology Vital Signs Date Name Value [...]
--- NOTE | 2025-01-04 22:57 | ED.WEAKNESS ---
HPI - Weakness General Date Seen: 01/04/25 Chief complaint: Weakness Stated complaint: generalized weakness Time Seen by Provider: 01/04/25 21:43 Source: patient Mode of arrival: EMS Limitations: no limitations History of Present Illness HPI Narrative: Patient is a 69-year-old male with history of Parkinson's and schizophrenia presenting today from his detention via EMS for weakness. States he feels weak compared to his baseline. States he has fallen a few times over the past week ever since they changed his medications. Does state he has been dealing with falls for the past year but was doing pretty well up until the past week or 2. Does states he hit his head today when he fell but he hit his head on grass. Denies any pain anywhere. Has been able to walk around without issues. Occasionally uses his cane. When I do ask him about other complaints he goes off onto tangent and does not answer questions. Eventually I am able to get him to answer questions and he denies chest pain, shortness of breath, headache, neck pain, numbness, vision changes, abdominal pain, diarrhea, constipation, dysuria. No other concerns noted Related Data Home Medications ?Medication ?Instructions ?Recorded ?Confirmed clonazepam 0.5 mg tablet mg 12/20/21 04/24/23 divalproex 250 mg tablet,extended mg PO 12/20/21 04/24/23 release 24 hr divalproex 500 mg tablet,extended mg PO 12/20/21 04/24/23 release 24 hr escitalopram oxalate 5 mg tablet mg 12/20/21 04/24/23 haloperidol decanoate 50 mg/mL mg IM 12/20/21 04/24/23 intramuscular solution levothyroxine 150 mcg tablet mcg 12/20/21 04/24/23 propranolol 20 mg tablet mg 12/20/21 04/24/23 quetiapine 100 mg tablet mg 12/20/21 04/24/23 tamsulosin 0.4 mg capsule mg PO 12/20/21 04/24/23 aspirin 325 mg tablet PO 08/21/22 04/24/23 benztropine 0.5 mg tablet 0.5 mg PO BID 08/21/22 04/24/23 budesonide-formoterol HFA 80 inhalation 08/21/22 04/24/23 mcg-4.5 mcg/actuation aerosol inhaler (Symbicort) carbidopa 25 mg-levodopa 100 mg 1 tab PO 3XD 08/21/22 04/24/23 tablet escitalopram oxalate 10 mg tablet 10 mg PO DAILY 08/21/22 04/24/23 haloperidol decanoate 100 mg/mL mg IM 08/21/22 04/24/23 intramuscular solution nicotine (polacrilex) 2 mg buccal 0 mg PO 08/21/22 04/24/23 lozenge nicotine 14 mg/24 hr daily 1 patch topical DAILY 08/21/22 04/24/23 transdermal patch polyethylene glycol 3350 17 g PO 08/21/22 04/24/23 gram/dose oral powder (Gavilax) quetiapine 200 mg tablet 200 mg PO QPM 08/21/22 04/24/23 Allergies Allergy/AdvReac Type Severity Reaction Status Date / Time haloperidol AdvReac Unknown Verified 01/04/25 21:46 clozapine AdvReac Verified 01/04/25 21:46 Review of Systems Status of ROS: Reports: 10 or more systems reviewed and unremarkable except as noted in History and below PFSH PFS Medical History History of alcohol abuse ?F10.11 - Alcohol abuse, in remission (ICD-10) Schizoaffective disorder, bipolar type ?F25.0 - Schizoaffective disorder, bipolar type (ICD-10) Psychotic disorder ?F29 - Unspecified psychosis not due to a substance or known physiological condition (ICD-10) Manic depression ?F31.9 - Bipolar disorder, unspecified (ICD-10) CAD (coronary artery disease) ?I25.10 - Atherosclerotic heart disease of habematolel coronary artery without angina pectoris (ICD-10) Social History Smoking Status: Current every day smoker What tobacco products do you use: cigarettes Do you use any of these nicotine containing products: None How often do you have a drink containing alcohol: never How many standard drinks containing alcohol do you have on a typical day: 1 or 2 How often do you have six or more drinks on one occasion: Never AUDIT-C Alcohol total score: 0 Non-prescribed substance use: denies use service: No Exam Narrative: Exam Narrative: Const: Well-nourished, Well-developed, in no distress Eyes: PERRL, no conjunctival injection, and symmetrical lids HENT: Atraumatic external nose and ears. Moist mucous membranes. Neck: Symmetric, trachea midline, No thyromegaly. CVS: RRR, No murmurs or gallops. Peripheral pulses 2+ and equal in all extremities RESP: Unlabored respiratory effort. Clear to auscultation bilaterally. GI: Nontender/Nondistended, No rebound or guarding. MSK:Extremities w/o deformity, Normal Active ROM Skin: Warm, Dry. No rashes or lesions. Neuro: Normal Muscle tone, No focal neurological deficits. Psych: Awake, Alert, & Oriented x3. Appropriate mood and affect. Const: Vital Signs, click to edit/add: Vital Signs - 24 hr 01/04/25 21:41 Temperature 98 F Pulse Rate [Right Pulse Oximeter] 88 Respiratory Rate 18 Blood Pressure [Ri ght Upper Arm] 147/93 H Pulse Oximetry 97 Oxygen Delivery Me thod Room Air Course Vital Signs Vital signs: Initial Vital Signs Temperature 98 F 01/04/25 21:41 Temperature Source Temporal Artery Scan 01/04/25 21:41 Pulse Rate 88 01/04/25 21:41 Pulse Rhythm Regular 01/04/25 21:41 Pulse Strength 3+ Normal 01/04/25 21:41 Respiratory Rate 18 01/04/25 21:41 Blood Pressure 147/93 H 01/04/25 21:41 Blood Pressure Mean 111 H 01/04/25 21:41 Blood Pressure Position Sitting 01/04/25 21:41 Pulse Oximetry 97 01/04/25 21:41 Oxygen Delivery Method Room Air 01/04/25 21:41 Vital Signs Temperature 98 F 01/04/25 21:41 Pulse Rate 88 01/04/25 21:41 Respiratory Rate 18 01/04/25 21:41 Blood Pressure 147/93 H 01/04/25 21:41 Pulse Oximetry 97 01/04/25 21:41 Oxygen Delivery Method Room Air 01/04/25 21:41 Temperature 98 F 01/04/25 21:41 Pulse Rate 88 01/04/25 21:41 Respiratory Rate 18 01/04/25 21:41 Blood Pressure 147/93 H 01/04/25 21:41 Pulse Oximetry 97 01/04/25 21:41 Oxygen Delivery Method Room Air 01/04/25 21:41 MDM - Weakness MDM Narrative Medical decision making narrative: Patient is a 69-year-old male presenting to the emergency department for weakness. The differential diagnosis of generalized weakness is broad and includes infection, electrolyte abnormalities, ACS, arrhythmia, hypoglycemia, electrolyte abnormality, respiratory failure, anemia, hypothyroidism, dehydration, medication induced etc. will order some basic lab work including a BMP, CBC, magnesium, urinalysis. Since he has fall and hit his head I will do CT scan of his head and cervical spine. CT scans reviewed by myself and the radiologist showed no acute concerning abnormalities. Lab work returned showing no acute concerning abnormalities. Patient refused to give us a urine sample. Considering he is up in able eating by himself is not appear to be a harm to himself or others I do believe he is safe to return even without the urinalysis. He is agreeable to this plan. He is adamant he wants to head back home as soon as possible Lab Data Labs: Lab Results 01/04/25 Range/Units 22:35 WBC 5.35 (4.50-11.00) K/uL RBC 4.01 L (4.30-5.90) m/uL Hgb 12.3 L (13.5-17.5) gm/dL Hct 37.8 (37.0-53.0) % MCV 94 (80-100) fL MCH 31 (26-34) pg MCHC 33 (32-36) gm/dL RDW Coeff of Cecil 13.4 (11.5-15.5) % Plt Count 185 (140-440) K/uL Neut % (Auto) 65.3 (42.0-72.0) % Lymph % (Auto) 21.7 (20-44) % Braxton % (Auto) 9.0 (0.0-11.0) % Eos % (Auto) 3.6 (0.0-7.0) % Baso % (Auto) 0.2 (0.0-3.0) % Neut # (Auto) 3.50 (1.7-7.0) K/uL Lymph # (Auto) 1.16 (0.90-2.90) K/uL Braxton # (Auto) 0.50 (0.00-0.90) K/UL Eos # (Auto) 0.19 (0.00-0.50) K/uL Baso # (Auto) 0.01 (0.00-0.30) K/uL Abs Immat Gran (auto) 0.01 (0.00-0.30) K/uL Imm/Tot Granulo (auto) 0.2 % Sodium 137 (135-149) mmol/L Potassium 4.4 (3.6-5.1) mmol/L Chloride 104 (96-114) mmol/L Carbon Dioxide 27 (20-32) mmol/L Anion Gap 6 L (7-15) mEq/L BUN 24 (7-30) mg/dL Creatinine 1.1 (0.5-1.5) mg/dL Estimated Creat Clear 63.38 Estimated GFR 73 ml/min Glucose 90 (60-115) mg/dL Calcium 9.7 (8.4-10.6) mg/dL Magnesium 1.8 (1.5-2.6) mg/dL Imaging Data CT scan head: Attestation: I have reviewed the pertinent imaging results. Radiologist's impression: 1. No evidence of acute infarction, intracranial hemorrhage, or mass-effect seen. Dictated by Nolan Cortez MD @ 01/04/2025 10:56:34 PM Please note that all CT scans at this facility use dose modulation, iterative reconstruction, and/or weight-based dosing when appropriate to reduce radiation dose to as low as reasonably achievable. Dictated by: Nolan Cortez MD @ 01/04/2025 22:57:17 CT scan cervical spine: Attestation: I have reviewed the pertinent imaging results. Radiologist's impression: 1. No acute osseous injuries are identified. Dictated by Nolan Cortez MD @ 01/04/2025 11:01:20 PM Please note that all CT scans at this facility use dose modulation, iterative reconstruction, and/or weight-based dosing when appropriate to reduce radiation dose to as low as reasonably achievable. Dictated by: Nolan Cortez MD @ 01/04/2025 23:01:46 Discharge Plan Discharge Clinical Impression: Weakness Patient Disposition: Home, Self-Care Condition: Stable Instructions: Weakness (ED) Additional Instructions: Talk to your doctor about the recent med adjustments. Return to emergency department for new or worsening symptoms. Prescriptions: No Action clonazepam 0.5 mg tablet divalproex 500 mg tablet extended release 24 hr PO divalproex 250 mg tablet extended release 24 hr PO quetiapine 100 mg tablet tamsulosin 0.4 mg capsule PO levothyroxine 150 mcg tablet haloperidol decanoate 50 mg/mL solution IM propranolol 20 mg tablet escitalopram oxalate 5 mg tablet benztropine 0.5 mg tablet 0.5 mg PO BID nicotine 14 mg/24 hr patch 24 hour 1 patch topical DAILY aspirin 325 mg tablet PO haloperidol decanoate 100 mg/mL solution IM quetiapine 200 mg tablet 200 mg PO QPM polyethylene glycol 3350 [Gavilax] 17 gram/dose powder PO carbidopa-levodopa 25-100 mg tablet 1 tab PO 3XD escitalopram oxalate 10 mg tablet 10 mg PO DAILY nicotine (polacrilex) 2 mg lozenge 0 mg PO budesonide-formoterol [Symbicort] 80-4.5 mcg/actuation HFA aerosol inhaler inhalation Follow Up/Referrals: Rex Connor MD [Primary Care Provider, Family Practice] Stand Alone Forms: [facility] Info Instructions
[2025-01-04 23:01] LABS: Hematocrit* 37.8 % (37.0-53.0); Hemoglobin* 12.3 gm/dL (13.5-17.5); Immature Granulocytes Abs Auto 0.01 K/uL (0.00-0.30); Immature Granulocytes Pct Auto 0.2 %; Lymphocytes Absolute Auto 1.16 K/uL (0.90-2.90); Mean Corpuscular HGB Conc 33 gm/dL (32-36); Mean Corpuscular Hemoglobin 31 pg (26-34); Mean Corpuscular Volume 94 fL (80-100); RDW Coefficient of Variation % 13.4 % (11.5-15.5); Red Blood Count* 4.01 m/uL (4.30-5.90); White Blood Count* 5.35 K/uL (4.50-11.00)
[2025-01-04 23:04] LABS: Chloride* 104 mmol/L (96-114); Sodium* 137 mmol/L (135-149)
[2025-01-04 23:05] LABS: Potassium* 4.4 mmol/L (3.6-5.1); Slide Review Reflex No
[2025-01-04 23:07] LABS: Anion Gap 6 mEq/L (7-15); Blood Urea Nitrogen* 24 mg/dL (7-30); Carbon Dioxide* 27 mmol/L (20-32); Creatinine* 1.1 mg/dL (0.5-1.5); Est. Creatinine Clearance* 63.38; Estimated Glomerular Filt Rate 73 ml/min
[2025-01-04 23:08] LABS: Calcium* 9.7 mg/dL (8.4-10.6); Glucose* 90 mg/dL (60-115)
== END 2025-01-04 23:40 | disposition home or self-care (01) ==
PROVIDERS: Emergency Provider Student in an Organized Health Care Education/Training Program; PCP Family Medicine
DX: R53.1 Weakness (principal); G20.A1 Parkinson's disease without dyskinesia, without mention of fluctuations; F20.9 Schizophrenia, unspecified; Z91.81 History of falling
CPT/HCPCS: 36415; 70450; 72125; 80048; 81001; 83735; 85025; 99284; 99285

== ENCOUNTER 2025-01-06 22:14 | Outpatient (CLI) | payer MEDICARE, MEDICAID, SELFPAY | END 2025-01-06 22:15 | disposition home or self-care (01) | LOC: AMB 01-07 10:48 | PROVIDERS: PCP Family Medicine; Visit Provider Emergency Medicine | DX: S09.90XA Unspecified injury of head, initial encounter (principal); R41.82 Altered mental status, unspecified; W18.30XA Fall on same level, unspecified, initial encounter; Y92.038 Other place in apartment as the place of occurrence of the external cause | CPT/HCPCS: A0425; A0427 ==

== ENCOUNTER 2025-01-12 21:15 | Outpatient (CLI) | payer MEDICARE, MEDICAID, SELFPAY | END 2025-01-12 21:16 | disposition home or self-care (01) | LOC: AMB 01-14 14:10 | PROVIDERS: PCP Family Medicine; Visit Provider Family Medicine | DX: R55 Syncope and collapse (principal) | CPT/HCPCS: A0425; A0427 ==

== ENCOUNTER 2025-01-12 21:33 | Emergency (ER) | payer MEDICARE, MEDICAID, SELFPAY ==
[2025-01-12] VITALS (11 sets, daily range): BP systolic 116–145; BP diastolic 66–86; PULSE 75–87; RESP 9–18; TEMP 35.8; O2SAT 98–100
--- OUTSIDE RECORDS SUMMARY | 2025-01-12 21:34 | XMS_ITS | Clinical Summary ---
Author Organization [facility] Address [address] , [address] [place] [address] Phone Care Team Providers Care Recreational Vehicle Repairer Name Role Phone Sharon Bowman LPN [phone] Conditions or Problems Problem Name Problem Code Onset Date Status Entry Date Provider Comment Standard Description Annotate Parkinsonism , unspecified 39550645 (SNOMED CT) 05/20 Active 05/20 Aleta Restrepo Parkinsonism Schizoaffect dani disorder with depression 09165518 (SNOMED CT) 07/29 Active 07/29 Contreras Vargas MD Schizoaffective disorder Memory deficit 233016645 (SNOMED CT) 07/29 Active 07/29 Contreras Vargas MD Memory impairment Tremor, rest 93343246 (SNOMED CT) 07/29 Active 07/29 Contreras Vargas MD Resting tremor Parkinsonism 16756128 (SNOMED CT) 05/20 Inactive 05/20 Jose Eduardo Corcoran MD Parkinsonism Medications Medication Instructions Start Date Stop Date Generic Name [facility] Provider FAMOTIDINE 20 MG TABS Take 1 tablet by mouth once a day famotidine 17617943519 Contreras Vargas MD MELATONIN 3 MG TABS Take 1 tablet by mouth every night melatonin 37521908166 Contreras Vargas MD QUETIAPINE FUMARATE 200 MG TABS Take 200 mg by mouth every night quetiapine 11228215703 Contreras Vargas MD ESCITALOPRAM OXALATE 10 MG TABS Take 10 mg by mouth once a day escitalopram oxalate 37982714447 Contreras Vargas MD ALBUTEROL SULFATE (2.5 MG/3ML) 0.083% NEBU Inhale 1 ampul by mouth twice a day albuterol sulfate 83469330971 Contreras Vargas MD Multivits,Ca,Baird als-Iron-FA (High Potency Multivit, w-iron Take 1 tablet by mouth once a day High Potency Multivit, w-iron Contreras Vargas MD IBUPROFEN (IBUPROFEN) 600 MG TABS Take 1 tablet by mouth every eight hours as needed IBUPROFEN Contreras Vargas MD TAMSULOSIN HCL 0.4 MG CAPS Take 1 capsule by mouth once a day tamsulosin 05454653745 Contreras Vargas MD AMLODIPINE BESYLATE 10 MG TABS 07/29 amlodipine 96284275793 Contreras Vargas MD SENNOSIDES-DOCUSAT E SODIUM 8.6-50 MG TABS Take 1 tablet by mouth twice a day 07/29 sennosidepat-docu sate sodium 52895934660 Contreras Vargas MD fluticasone propion-salmeteroL (Advair Diskus) 250-50 mcg/Do Inhale 1 puff by mouth twice a day Advair Diskus Contreras Vargas MD GAVILAX 17 GM/SCOOP POWD 07/29 polyethylene glycol 3350 36812789104 Contreras Vargas MD PEG 3350 17 GM/SCOOP POWD Take 1 by mouth once a day as needed polyethylene glycol 3350 13493429188 Contreras Vargas MD PROPRANOLOL HCL 20 MG TABS Take 1 tablet by mouth three times a day propranolol 85767717802 Contreras Vargas MD HALOPERIDOL 5 MG TABS Take 5 mg by mouth every four hours as needed haloperidol 38327628309 Contreras Vargas MD cholecalciferol (VITAMIN D3) 1,000 unit tablet Take 1 tablet by mouth once a day VITAMIN D3 Contreras Vargas MD Nebulizer Inhale 07/29 Nebulizer Contreras Vargas MD QUETIAPINE FUMARATE 300 MG TABS 07/29 quetiapine 82067946118 Contreras Vargas MD CARBIDOPA-LEVODOPA 25-100 MG TABS Take 1 tablet by mouth three times a day carbidopa-levod opa 83714186521 Contreras Vargas MD NICOTINE POLACRILEX [address] 1 by mouth every hour as needed nicotine (polacrilex) 49391982761 Contreras Vargas MD BENZTROPINE MESYLATE 0.5 MG TABS Take 0.5 mg by mouth twice a day benztropine 64549082267 Contreras Vargas MD DEEP SEA NASAL SPRAY 0.65 % SOLN Administer 2 spray into both nostrils every six hours sodium chloride 55165736923 Contreras Vargas MD NICOTINE 7 MG/24HR PT24 07/29 nicotine 09538037186 Contreras Vargas MD PROPRANOLOL HCL 20 MG TABS 07/29 propranolol 37618804835 Contreras Vargas MD SENEXON-S 8.6-50 MG TABS 07/29 sennosides-docu sate sodium 24483930947 Contreras Vargas MD LEVOTHYROXINE SODIUM 150 MCG TABS Take 1 tablet by mouth every morning levothyroxine 97028050903 Contreras Vargas MD CLONAZEPAM 0.5 MG TABS Take 1 tablet by mouth once a day as needed clonazepam 66045053645 Contreras Vargas MD ASPIRIN LOW DOSE 81 MG TBEC 07/29 aspirin 15635888781 Contreras Vargas MD haloperidol decanoate (HALDOL DECANOATE) 100 mg/mL intramusc Inject 75 mg intramuscularly every two weeks HALDOL DECANOATE Contreras Vargas MD TAMSULOSIN HCL 0.4 MG CAPS TAKE 1 CAPSULE BY MOUTH DAILY 30 MINUTES AFTER THE SAME MEAL EACH DAY *SWALLOW WHOLE* 07/29 tamsulosin 42912940126 QIEUSER QIEUSER DEEP SEA NASAL SPRAY 0.65 % SOLN ADMINISTER 2 SPRAYS IN AFFECTED NOSTRIL(S) EVERY 6 HOURS 07/29 sodium chloride 29277465398 QIEUSER QIEUSER SENNOSIDES-DOCUSAT E SODIUM 8.6-50 MG TABS TAKE 1 TABLET BY MOUTH TWICE DAILY 07/29 sennosides-docu sate sodium 92625576983 QIEUSER QIEUSER QUETIAPINE FUMARATE 200 MG TABS Take 200 mg by mouth at bedtime. 07/29 quetiapine 53175079597 QIEUSER QIEUSER PEG 3350 17 GM/SCOOP POWD Take 1 scoop (17 g) by mouth or nasogastric tube once daily if needed for Constipation. 07/29 polyethylene glycol 3350 86154153924 QIEUSER QIEUSER NICOTINE POLACRILEX [address] 1 Lozenge (2 mg) in mouth, between cheek & gum every hour while awake as needed for Nicotine Craving. 11/27 nicotine (polacrilex) 53236024722 QIEUSER QIEUSER Nebulizer Nebulizer, disposable neb kit x 4, reuseable neb kit x 1, mask x 1, filters x 1. Frequency of use: daily; Medication: albuterol Length of need: 99 months 07/29 Nebulizer QIEUSER QIEUSER Multivits,Ca,Baird als-Iron-FA (High Potency Multivit, w-iron Take 1 Tablet by mouth once daily. 07/29 High Potency Multivit, w-iron QIEUSER QIEUSER MELATONIN 3 MG TABS Take 1 Tablet (3 mg) by mouth at bedtime. 07/29 melatonin 72988535594 QIEUSER QIEUSER IBUPROFEN (IBUPROFEN) 600 MG TABS TAKE 1 TABLET BY MOUTH EVERY 8 HOURS NEEDED FOR PAIN OR TEMP >101.5F (38.6C) 07/29 IBUPROFEN QIEUSER QIEUSER haloperidol decanoate (HALDOL DECANOATE) 100 mg/mL intramusc Inject 75 mg intramuscular every 2 weeks. 07/29 HALDOL DECANOATE QIEUSER QIEUSER HALOPERIDOL 5 MG TABS Take 5 mg by mouth every 4 hours if needed for Agitation. 07/29 haloperidol 04814020841 QIEUSER QIEUSER fluticasone propion-salmeteroL (Advair Diskus) 250-50 mcg/Do INHALE 1 PUFF BY MOUTH TWICE DAILY --RINSE MOUTH AFTER USE-- 07/29 Advair Diskus QIEUSER QIEUSER FAMOTIDINE 20 MG TABS Take 1 Tablet (20 mg) by mouth once daily. 07/29 famotidine 42186592763 QIEUSER QIEUSER ESCITALOPRAM OXALATE 10 MG TABS Take 10 mg by mouth once daily. 07/29 escitalopram oxalate 75078712140 QIEUSER QIEUSER cholecalciferol (VITAMIN D3) 1,000 unit tablet Take 1 Tablet (1,000 units) by mouth once daily. 07/29 VITAMIN D3 QIEUSER QIEUSER CARBIDOPA-LEVODOPA 25-100 MG TABS Take 1 Tablet by mouth three times daily. 11/27 carbidopa-levod opa 58765638736 QIEUSER QIEUSER BENZTROPINE MESYLATE 0.5 MG TABS Take 0.5 mg by mouth two times daily. 07/29 benztropine 45295476545 QIEUSER QIEUSER ALBUTEROL SULFATE (2.5 MG/3ML) 0.083% NEBU INHALE 1 AMPULE BY MOUTH VIA NEBULIZER TWICE DAILY 07/29 albuterol sulfate 62841238466 QIEUSER QIEUSER ACETAMINOPHEN 500 MG TABS Take 2 Tablets (1,000 mg) by mouth every 6 hours if needed for Pain. Max acetaminophen dose: 4000mg in 24 hrs. acetaminophen 14395707875 QIEUSER QIEUSER PROPRANOLOL HCL 20 MG TABS Take 1 Tablet (20 mg) by mouth 2 times daily. AM and at bedtime. 11/27 propranolol 73968673450 QIEUSER QIEUSER LEVOTHYROXINE SODIUM 150 MCG TABS Take 1 Tablet (150 mcg) by mouth before breakfast. 07/29 levothyroxine 65174388964 QIEUSER QIEUSER DIVALPROEX SODIUM ER 500 MG [id number] Take 2 Tablets (1,000 mg) by mouth at bedtime. divalproex 39961585041 QIEUSER QIEUSER CLONAZEPAM 0.5 MG TABS Take 1 Tablet (0.5 mg) by mouth once daily if needed for Anxiety. 11/27 clonazepam 11873576042 QIEUSER QIEUSER TAMSULOSIN HCL 0.4 MG CAPS tamsulosin 49944965314 Jose Eduardo Corcoran MD NICOTINE 7 MG/24HR PT24 07/29 nicotine 79597176012 Jose Eduardo Corcoran MD ASPIRIN EC 81 MG TBEC 10/23 aspirin 54155545027 Jose Eduardo Corcoran MD PROPRANOLOL HCL 20 MG TABS 11/27 propranolol 82886887379 Jose Eduardo Corcoran MD CLONAZEPAM 0.5 MG TABS clonazepam 02694028183 Jose Eduardo Corcoran MD ACETAMINOPHEN 325 MG TABS acetaminophen 74106396618 Jose Eduardo Corcoran MD ALBUTEROL SULFATE HFA 108 (90 Base) MCG/ACT AERS albuterol sulfate 62157892211 Jose Eduardo Corcoran MD DIVALPROEX SODIUM ER 500 MG [id number] divalproex 99607377629 Jose Eduardo Corcoran MD AMLODIPINE BESYLATE 10 MG TABS 11/27 amlodipine 14067980946 Jose Eduardo Corcoran MD QUETIAPINE FUMARATE 300 MG TABS 07/29 quetiapine 66940658682 Jose Eduardo Corcoran MD SENEXON-S 8.6-50 MG TABS 07/29 sennosides-docu sate sodium 49945771829 Jose Eduardo Corcoran MD GAVILAX 17 GM/SCOOP POWD 07/29 polyethylene glycol 3350 20300542109 Jose Eduardo Corcoran MD SYMBICORT 80-4.5 MCG/ACT AERO budesonide-form oterol 48849760501 Jose Eduardo Corcoran MD HALOPERIDOL DECANOATE 50 MG/ML SOLN haloperidol decanoate 11942562381 Jose Eduardo Corcoran MD MAGNESIUM CITRATE 1.745 GM/30ML SOLN magnesium citrate 33193049455 Jose Eduardo Corcoran MD LEVOTHYROXINE SODIUM 150 MCG TABS levothyroxine 34832246197 Jose Eduardo Corcoran MD Medications Administered No [...] Date Detail Appointment 11:30 AM Fauzia thomsonl DNP,[employer], [address] [place] [address], [place] [address], [place], [address], Pending order Follow up with N eurologist [...] Procedures Code Procedure Name Date Entry Date [facility]-[id number] Documentation of current medicatio ns ORDERS Follow up RISSA after testing [id number] Other Radiology Vital Signs Date Name Value [...]
--- OUTSIDE RECORDS SUMMARY | 2025-01-12 21:35 | XMS_ITS | Clinical Summary ---
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 Gender Identity Not on file Sexual Orientation [...] on file Medical Devices Implanted Type Area Tongue Trimmer Device Identifier Shelf Expiration Date Model / Serial / Lot Embolic Substance/Device- 12/29/2020 Implanted:Qty: 1 on 12/29/2020 by Elton Pond MD Embolic Substance/D evice Nose [employer] 11/02/2021 / / [id number] Description:Nose bleed emobo lization Embolic Substance/Device- 12/29/2020 Implanted:Qty: 1 on 12/29/2020 by Elton Pond MD Embolic Substance/D evice Nose [employer] 04/07/2024 / / [id number] Description:Nose bleed emobo lization Insurance MEDICARE MEDICAID [place] Advance Directives For more information, please contact: [phone] * Full Code (Latest Code Status on File) Date Activated Date Inactivated Comments 12/29/2020 11:12 AM 12/30/2020 3:08 PM All basic a nd advanced life-sustaining interventions are performed as appropriate Question Answer Comments Code status determined by: Discussion with humberto nt/ legal decision maker Care Teams Geology Teacher Relationship Specialty Start Date End Date Rex Connor [address] [facility] [address] PCP - General Family Medicine 12/28/20
--- OUTSIDE RECORDS SUMMARY | 2025-01-12 21:35 | XMS_ITS | Patient Health Record ---
Author Organization [facility] Address [address] [place] [address] Care Team Providers Care Irrigation Equipment Installer Name Role Phone Rex Connor Primary Care Provider Unavailab JOE Mitchell Unavailable [phone] None, None Unavailable Unavailable Allergies Allergen (clinical [...] Risk Notes Problem Schizoaffective disorder, bipolar type (61938922) Schizoaffective disorder, bipolar type (F25.0) Active confirmed Problem Epistaxis (986877828) Epistaxis (R04.0) Active confirmed Problem Hypertension (55764298) HTN (hypertension) (I10) Active confirmed Plan Of Treatment No Information Insurance Providers Payer Name Payer Address Payer Phone Subscriber Number Group Number Insured Name Patient Relationship to Insured Coverage Start Date Coverage End Date MEDICARE [address] [place] [address] [id number] Scooby Greer Self - patient is the insured [place] [employer] [address] [address] [place] [address] [id number] Scooby Greer Self - patient is the insured Medical (General) History Medical History History ICD Code Heart disease Psychotic disorder Schizoaffective disorder bipolar type CV19 Vaccine 05/2020 Surgical History Surgery Date(Month/Year) Hernia Stomach for ulcers
--- OUTSIDE RECORDS SUMMARY | 2025-01-12 21:35 | XMS_ITS | Clinical Summary ---
Author Organization [facility] Address [address] [place] [address] Care Team Providers Care Under Baster Name Role Phone Rex Connor MD Primary [...] for Constipation. 507 g 06/10/19 24 Active Multivits,Ca,[place] als-Iron-FA (High Potency Multivit, w-iron,) 9 mg [...] >101.5F (38.6C) 100 Tablet 07/14/19 25 Active ktsvjifr-glm-edgf fum-folic ac (Thera-M) 19 mg iron- 400 [...] 25 Active sodium chloride (Deep Sea Nasal [place]) 0.65 % nasal solutionIndication s:Epistaxis,Nasal crusting ADMINISTER [...] in the RLL. Pt was referred to [facility] lung nodule clinic Need for dental care [...] mental health hospitalizations and was committed to [facility] in 2009. 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 Therapeutic depakote trial not effective. -Doing outpatient ECT @ [facility] -You you seeing Manny Katz in therapy at [facility] . His phone number is [phone]. Hopspitalized at [facility] from 09/10-11/10/11 and received ECT during this hospitalization. Hospitalized at [facility] in May, for worsening depression and suicidal thoughts - feeling hopeless and having abnormal dreams. ECT being done every 6 weeks prior to hospitalization and pt seemed to decompensate from this. At his intake on 08/06/12, pt reported the following med trials: -Risperdal injections were ineffective -Clozaril - caused cardiac myositis -Prolixin injections - ineffective -Zebulon - caused kidney function issues. *More details [...] in paranoia - he would see a [employer] vehicle and he would think WWIII was [...] Encounters Date Type Department Care Team Description 01/04/2025 Orders Only [facility] Scanner 1 scan: (1-Ord) [facility], CT CERVICAL SPINE WO CON, 01/04/2025 01/04/2025 Orders Only [facility] Scanner 1 scan: (1-Ord) [facility], CT HEAD/BRAIN WO CON, 01/04/2025 12/22/2024 Telephone [facility] [address] [place] [address] Dejah Landa, [place] HEARING AIDS DROPPED OFF 10/26/2024 Telephone [facility] [address] [place] [address] Lalita Heck PA Appointment Reminder 10/19/2024 Refill [facility] [address] [place] [address] Rex Connor MD Refill Request (Prevail Underwear) 10/16/2024 Refill [facility] [address] [place] [address] Rex Connor MD Refill Request (Deep Sea Nasal [place]) 10/13/2024 Refill [facility] [address] [place] [address] Rex Connor MD Refill Request (Stimulant Laxative Plus) 10/13/2024 Telephone [facility] [address] [place] [address] Christopher Clark, [place] hearing aids dropped off from Last 3 Months Immunizations Immunization Administration Dates Next Due AMB Influenza, IIV4 PF (=>6 mos Flulaval,Fluzone Fluarix)(Flu Clinic Only) 02/03/2018,02/22/2017 COVID-19 vaccine (Moderna 100mcg/0.5mL) PF, MDV 06/30/2020,06/02/2020 COVID-19 vaccine (Ticket Cake-Bio NTech 30mcg/0.3mL) 12YO+ TANYA-SUCROSE PF, MDV 08/30/2021 [...] AM CDT Legal Sex Male 7:21 AM BUSINESS RISK 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 Gender Identity Male 08/04/2024 11:14 AM CDT [...] 06/10/2024 06/10/2023, 08/27/2018, 05/31/2017 COVID-19 vaccine series (2023- season) 2024 02/25/2024, 08/29/2023, 03/04/2023, Additional history [...] Procedure Name Priority Date/Time Associated Diagnosis Comments SCAN-CT INTERPRETATION 5 12:00 AM CDT SCAN-CT INTERPRETATION 5 12:[address] CHEST SCREENING LOW DOSE WO CONTRAST Routine 06/18/2024 2:03 PM BUSINESS RISK CONSULTANT Personal history of nicotine dependence LIPID PANEL W REFLEX MEASURED LDL Routine 08/29/2022 10:05 AM CDT High risk medication use OCCULT BLOOD IFOBT STOOL Routine 07/05/2021 12:00 PM BUSINESS RISK CONSULTANT Screening for colon cancer CT CHEST ABDOMEN PELVIS W Routine 06/28/2021 12:22 PM BUSINESS RISK CONSULTANT Weight loss ANTI HCV Routine 06/25/2019 8:36 AM BUSINESS RISK CONSULTANT Need for hepatitis C screening test from Last 3 Months or Most Recently Relevant to Health Maintenance Results * SCAN-CT INTERPRETATION (01/04/2025 12:00 AM CDT) Only the most recent of2 resultswithin the time period is included. Anatomical Region Laterality Modality Other us Scanner OTHER Final Result * CT CHEST SCREENING LOW DOSE WO CONTRAST [[id number]] -- Criteria: must meet ALL: Age 50-80, current smoker or quit within the last 15 years, AND 20+ pack-year history (06/18/2024 2:03 PM BUSINESS RISK CONSULTANT) Anatomical Region Laterality Modality Computed Tomogra phy Impressions 06/19/2024 12:04 PM BUSINESS RISK CONSULTANT New 6 millimeter left upper lobe pulmonary [...] Dictated by: Terry Dyer MD @06/18/2024 4:28:09 PM/jj Narrative 06/19/2024 12:04 PM BUSINESS RISK CONSULTANT For Patients: As a result of the Century Cures Act, medical imaging exams and [...] CDT) CHOLESTEROL,TOTAL 176 mg/dL 023 10:49 AM CDT [facility] Comment: Cholesterol, Total Reference Ranges Desirable <200 mg/dL Borderline 200-239 mg/dL High >=240 mg/dL TRIGLYCERIDES 78 <150 mg/dL 08/29/2022 10:49 AM CDT [facility] HDL CHOLESTEROL 37(L) >40 mg/dL 10:49 AM CDT [facility] NON-HDL CHOLESTEROL 139 <145 mg/dl 08/29/2022 10:49 AM T [facility] CHOL/HDL RATIO 4.76(H) <4.50 08/29/2022 10:49 AM CDT [facility] LDL CHOLESTEROL 123 <=130 mg/dL 08/29/2022 10:49 AM T [facility] VLDL CHOLESTEROL 16(L) >30 mg/dL 08/30/19 10:49 AM T [facility] PROVIDER ORDERED STATUS RANDOM 08/29/2022 10:49 AM T [facility] Blood BLOOD SPECIMEN / Unknown Venipuncture / Unknown 08/29/2022 10:05 AM CDT 08/29/2022 10:16 AM CDT us Rex Connor MD CHEMISTRY Final Result [facility] [address] [place] [address], [place] * OCCULT BLOOD IFOBT STOOL (07/05/2021 12:00 PM BUSINESS RISK CONSULTANT) STOOL BLOOD ,IFOBT Negative Negative 07/14/2021 9:15 AM BUSINESS RISK CONSULTANT [facility] Stool STOOL SPECIMEN / Unknown Non-Blood / Unknown 07/05/2021 12:00 PM BUSINESS RISK CONSULTANT 07/12/2021 2:52 PM BUSINESS RISK CONSULTANT us Rex Connor MD LABORATORY Final Result [facility] [address] [place] [address], [place] [phone] * CT CHEST ABDOMEN PELVIS W (06/28/2021 12:22 PM BUSINESS RISK CONSULTANT) Anatomical Region Laterality Modality Abdomen, Pelvis, AORTA, LIVER, SPLEEN Computed Tomography 06/28/2021 9:38 PM BUSINESS RISK CONSULTANT Impressions 06/28/2021 9:38 PM BUSINESS RISK CONSULTANT Esophagus appears patulous and there are secretions [...] 9:38PM (Electronically Signed) Narrative 06/28/2021 9:38 PM BUSINESS RISK CONSULTANT For Patients: As a result of the [...] of the 21st Century Cures Act, medical imagingexams and procedure [...] are osteopenic. Mild chronic compression deformity of J5krelsyblv body IMPRESSION: Esophagus appears patulous and there are secretions seen within thetrachea and extending into the distal small airways concerning foraspiration risk. There are changes of chronic aspiration or bronchitis orcombination of the 2. The lungs show numerous areas of small airwayocclusion with distal bronchiectasis and bronchiolitis. Tiny kpxa-nk-gzftyqrwmteu are seen within the right middle lobe. [...] Result * ANTI HCV (06/25/2019 8:36 AM BUSINESS RISK CONSULTANT) HEPATITIS C ANTIBODY Non-React dani Non-React dani 06/25/2019 2:37 PM BUSINESS RISK CONSULTANT [facility] Comment:Antibodies to HCV no t detected; does not exclude the possibility of exposure to HCV. Blood BLOOD SPECIMEN / Unknown Venipuncture / Unknown 06/25/2019 8:36 AM BUSINESS RISK CONSULTANT 06/25/2019 8:36 AM BUSINESS RISK CONSULTANT us Rex Connor MD SEND OUTS Final Result [facility] [address] [place] [address], [place] from Last 3 Months or Most Recently Relevant to Health Maintenance Insurance MEDICAID MEDICARE [place] ONLY MEDICARE PART B HB ONLY MEDICARE PART A HB ONLY C/O [address] [address] MEDICA CHOICE CARE MEDICARE PART B HB ONLY MEDICARE PART A HB ONLY * Guarantor: JUSTIN WOLF Account Type Relation to Patient Date of Phone Billing Address [facility] [employer] [facility] 1979 [place] [id number] ATTN A/P [address] [address] [place] [address] Advance Directives Documents on File Type Date Recorded Patient Security Agent Expl anation Healthcare Directive 04/27/2016 7:01 AM [...] Comments Code Status Discussion: Discussed Care Teams Under Baster Relationship Specialty Start Date End Date Rex Connor MD [address] [place] [address] PCP - General Family Practice 10/14/18
--- NOTE | 2025-01-12 21:38 | CT_ITS ---
Patient: BRADFORD MERINO Facility:?[facility] Patient ID:?[id number] Site Patient ID:?[id number]. Site :?[id number] Study:?CT-Neck Angio W/IV CODE STROKE-01/12/2025 9:57:23 PM Ordering Physician:Hilda Conde Final Report: DATE: 01/12/2025 CLINICAL HISTORY: Patient with slurred speech. TECHNIQUE: Standard helical CT image acquisition through the head and neck was performed after intravenous contrast bolus enhancement. 2D and 3D MIP images for post- processing were performed and interpreted on an independent workstation and 3D images were permanently archived. COMPARISON: CT same day. FINDINGS: The origins of the great vessels from the aortic arch are patent. The origin of the right vertebral artery is patent. The origin of the left vertebral artery demonstrates mild narrowing. The common carotid arteries are patent There is plaque without stenosis at the origin of the right internal carotid artery by NASCET criteria. There is a moderate (68%) stenosis at the origin of the left internal carotid artery by NASCET criteria. This is caused by non-calcified plaque with a 1.6mm residual lumen. The rest of the cervical segments of the internal carotid arteries are patent up to their intracranial segments. The intracranial segments of the internal carotid arteries are patent. The left vertebral artery is dominant. The cervical segments of the vertebral arteries are patent. The intracranial segments of the vertebral arteries are patent. 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 The middle cerebral arteries are normal without aneurysm or proximal occlusion identified. The anterior cerebral arteries are normal without aneurysm or proximal occlusion identified. The anterior communicating artery is well visualized and appears normal. The basilar artery is normal without aneurysm or occlusion. The posterior cerebral arteries are normal without aneurysm or proximal occlusion. There is normal opacification of major intracranial venous structures. The visualized lung apices are unremarkable The thyroid gland is unremarkable. The soft tissues of the neck are unremarkable. There are degenerative changes in the cervical spine. IMPRESSION: 1. Moderate (68%) stenosis at the origin of the left internal carotid artery by NASCET criteria. This is caused by non-calcified plaque with a 1.6mm residual lumen. 2. Incidental 5mm left ophthalmic ICA aneurysm. Telehealth consultation with [facility]`s Neurointerventional team for management of this aneurysm is recommended. This can be arranged by calling . Patrica Reynolds M.D. Neurointerventional Radiologist [facility] [place] Pager: Office/Appointments: [facility] Center: [email or web address] Please note that all CT scans at this facility use dose modulation, iterative reconstruction, and/or weight-based dosing when appropriate to reduce radiation dose to as low as reasonably achievable. Dictated by Patrica Reynolds MD @ 01/12/2025 10:37:42 PM Signed by:?Patrica Reynolds MD @01/12/2025 10:37:42 PM (Electronic Signature)
--- NOTE | 2025-01-12 21:39 | CRLHL7_ITS ---
For Patients: As a result of the Century Cures Act, medical imaging exams and procedure reports are released immediately into your electronic medical record. You may view this report before your referring provider. If you have questions, please contact your health care provider. INDICATION: Altered mental status, slurred speech. TECHNIQUE: CT head without contrast. COMPARISON: 01/04/2025. FINDINGS: CSF spaces: Proportionate prominence of the ventricles and sulci, reflecting mild generalized cerebral volume loss. Right middle cranial fossa arachnoid cyst, unchanged. Brain parenchyma: The cristobal-white differentiation is maintained. Patchy white matter low attenuation changes, nonspecific but likely reflecting chronic small vessel ischemic disease. No evidence of intracranial hemorrhage, extra-axial collection, or midline shift. Skull base and calvarium: Mild mucosal thickening in the anterior ethmoid air cells. Mastoid air cells are clear. The visualized orbits are grossly unremarkable. No skull fractures. IMPRESSION: No acute intracranial hemorrhage or mass effect. Findings were discussed with Dr. Mendenhall by Dr. Quezada on 01/12/2025 at 10:12 PM. Please note that all CT scans at this facility use dose modulation, iterative reconstruction, and/or weight-based dosing when appropriate to reduce radiation dose to as low as reasonably achievable. Dictated by Attila Quezada MD @ 01/12/2025 10:17:19 PM (Electronically Signed)
--- NOTE | 2025-01-12 21:39 | CT_ITS ---
Patient: BRADFORD MERINO Facility:?[facility] Patient ID:?[id number] Site Patient ID:?[id number]. Site :?[id number] Study:?CT-Neck Angio W/IV CODE STROKE-01/12/2025 9:57:23 PM Ordering Physician:Hilda Conde Final Report: DATE: 01/12/2025 CLINICAL HISTORY: Patient with slurred speech. TECHNIQUE: Standard helical CT image acquisition through the head and neck was performed after intravenous contrast bolus enhancement. 2D and 3D MIP images for post- processing were performed and interpreted on an independent workstation and 3D images were permanently archived. COMPARISON: CT same day. FINDINGS: The origins of the great vessels from the aortic arch are patent. The origin of the right vertebral artery is patent. The origin of the left vertebral artery demonstrates mild narrowing. The common carotid arteries are patent There is plaque without stenosis at the origin of the right internal carotid artery by NASCET criteria. There is a moderate (68%) stenosis at the origin of the left internal carotid artery by NASCET criteria. This is caused by non-calcified plaque with a 1.6mm residual lumen. The rest of the cervical segments of the internal carotid arteries are patent up to their intracranial segments. The intracranial segments of the internal carotid arteries are patent. The left vertebral artery is dominant. The cervical segments of the vertebral arteries are patent. The intracranial segments of the vertebral arteries are patent. 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 The middle cerebral arteries are normal without aneurysm or proximal occlusion identified. The anterior cerebral arteries are normal without aneurysm or proximal occlusion identified. The anterior communicating artery is well visualized and appears normal. The basilar artery is normal without aneurysm or occlusion. The posterior cerebral arteries are normal without aneurysm or proximal occlusion. There is normal opacification of major intracranial venous structures. The visualized lung apices are unremarkable The thyroid gland is unremarkable. The soft tissues of the neck are unremarkable. There are degenerative changes in the cervical spine. IMPRESSION: 1. Moderate (68%) stenosis at the origin of the left internal carotid artery by NASCET criteria. This is caused by non-calcified plaque with a 1.6mm residual lumen. 2. Incidental 5mm left ophthalmic ICA aneurysm. Telehealth consultation with [facility]`s Neurointerventional team for management of this aneurysm is recommended. This can be arranged by calling . Patrica Reynolds M.D. Neurointerventional Radiologist [facility] [place] Pager: Office/Appointments: [facility] [place] Center: [email or web address] Please note that all CT scans at this facility use dose modulation, iterative reconstruction, and/or weight-based dosing when appropriate to reduce radiation dose to as low as reasonably achievable. Dictated by Patrica Reynolds MD @ 01/12/2025 10:37:42 PM Signed by:?Patrica Reynolds MD @01/12/2025 10:37:42 PM (Electronic Signature)
--- NOTE | 2025-01-12 21:41 | ED.GENADULT ---
HPI - General Adult General Date Seen: 01/12/25 <Elton Mñuiz MD - Last Filed: 01/13/25 00:30> Chief complaint: Altered Mental Status <Elton Muñiz MD - Last Filed: 01/13/25 00:30> Stated complaint: hypertension <Elton Muñiz MD - Last Filed: 01/13/25 00:30> Time Seen by Provider: 01/12/25 22:11 <Elton Muñiz MD - Last Filed: 01/13/25 00:30> History of Present Illness HPI narrative: 69-year-old male brought to the ER today by EMS from his [place] [facility] at [facility]. A code stroke is activated upon arrival. History is limited because the patient is nonverbal. History from EMS is that he does have history of schizophrenia and Parkinson's. He has a history of inappropriate behavior toward women. He is a resident of [place] [facility]. He has been had multiple falls lately but no falls today. He was a apparently evaluated ?at [facility]? last week after a fall and had scans that were normal. He was last known to be normal at about 9:00 p.m. tonight and then staff came and found him unresponsive. When EMS responded his blood sugar was normal. Blood pressure was low at about 80/40. They established an IV and given 500 saline and subsequent blood pressures are improving up to the low normal range. He had no witnessed seizure. No history of seizures. It sounds like he was at his baseline earlier today. In review of his record I see that he was here in the ER on 01/04/2025. Per that record he has a history of Parkinson's and schizophrenia. He had fallen a few times the week prior to presentation apparently related to a medication change. Additional past medical history includes manic depression, coronary disease, history of alcohol abuse. Workup in the ER showed a white count of 5.3, hemoglobin 12.3, platelet count 185. Sodium 137, potassium 4.4, chloride 104, bicarb 27, BUN 24, creatinine 1.1, glucose 90, magnesium 1.8. CT scan of his head was normal. CT scan of his C-spine showed no acute osseous injuries. Patient refused to provide urinalysis. Apparently was back to his baseline and was discharged home. Per Nurse L[facility] from [facility]... has been off for a few weeks, but was back to normal today. took his evening meds and then went to his room and seemed fine. after that he came back to the desk and was talking as his normal self. He started to seem seem unstable, generalized weakness, looked pale. No witnessed seizure. he was slurring his speech, but that can be normal for him. after that he was mumbling, which is not normal. then stopped speaking all together. His guardian is Marion Greer ([facility]) [phone]. At 9:53 a.m. I discussed the case with Dr. Martinez, stroke Neurology at [facility]. She agrees with me that this potentially could be a stroke but is much more likely to be something else such as hypotension superimposed on his baseline Parkinson's causing his altered mental status. She wants us to continue to do our workup, resuscitated his blood pressure normal and see what looks like when he is normotensive. She will follow up on his imaging. For now she does not feel like he would benefit from thrombolytic. <Elton Muñiz MD - Last Filed: 01/13/25 00:30> Related Data Home medications: Home Medications ?Medication ?Instructions ?Recorded ?Confirmed clonazepam 0.5 mg tablet mg 12/20/21 04/24/23 divalproex 250 mg tablet,extended mg PO 12/20/21 04/24/23 release 24 hr divalproex 500 mg tablet,extended mg PO 12/20/21 04/24/23 release 24 hr escitalopram oxalate 5 mg tablet mg 12/20/21 04/24/23 haloperidol decanoate 50 mg/mL mg IM 12/20/21 04/24/23 intramuscular solution levothyroxine 150 mcg tablet mcg 12/20/21 04/24/23 propranolol 20 mg tablet mg 12/20/21 04/24/23 quetiapine 100 mg tablet mg 12/20/21 04/24/23 tamsulosin 0.4 mg capsule mg PO 12/20/21 04/24/23 aspirin 325 mg tablet PO 08/21/22 04/24/23 benztropine 0.5 mg tablet 0.5 mg PO BID 08/21/22 04/24/23 budesonide-formoterol HFA 80 inhalation 08/21/22 04/24/23 mcg-4.5 mcg/actuation aerosol inhaler (Symbicort) carbidopa 25 mg-levodopa 100 mg 1 tab PO 3XD 08/21/22 04/24/23 tablet escitalopram oxalate 10 mg tablet 10 mg PO DAILY 08/21/22 04/24/23 haloperidol decanoate 100 mg/mL mg IM 08/21/22 04/24/23 intramuscular solution nicotine (polacrilex) 2 mg buccal 0 mg PO 08/21/22 04/24/23 lozenge nicotine 14 mg/24 hr daily 1 patch topical DAILY 08/21/22 04/24/23 transdermal patch polyethylene glycol 3350 17 g PO 08/21/22 04/24/23 gram/dose oral powder (Gavilax) quetiapine 200 mg tablet 200 mg PO QPM 08/21/22 04/24/23 <Elton Muñiz MD - Last Filed: 01/13/25 00:30> Allergies/adverse reactions: Allergies Allergy/AdvReac Type Severity Reaction Status Date / Time haloperidol AdvReac Unknown Verified 01/04/25 21:46 clozapine AdvReac Verified 01/04/25 21:46 <Elton Muñiz MD - Last Filed: 01/13/25 00:30> [facility] Medical History: Medical History History of alcohol abuse ?F10.11 - Alcohol abuse, in remission (ICD-10) Schizoaffective disorder, bipolar type ?F25.0 - Schizoaffective disorder, bipolar type (ICD-10) Psychotic disorder ?F29 - Unspecified psychosis not due to a substance or known physiological condition (ICD-10) Manic depression ?F31.9 - Bipolar disorder, unspecified (ICD-10) CAD (coronary artery disease) ?I25.10 - Atherosclerotic heart disease of [place] coronary artery without angina pectoris (ICD-10) <Elton Muñiz MD - Last Filed: 01/13/25 00:30> Social History: Social History Smoking Status: Current every day smoker What tobacco products do you use: cigarettes Do you use any of these nicotine containing products: None How often do you have a drink containing alcohol: never How many standard drinks containing alcohol do you have on a typical day: 1 or 2 How often do you have six or more drinks on one occasion: Never AUDIT-C Alcohol total score: 0 Non-prescribed substance use: denies use service: No <Elton Muñiz MD - Last Filed: 01/13/25 00:30> Exam Narrative: Exam Narrative: Primary survey-arrives by EMS. They were taking immediately to CT scanner. He is drowsy, not really responding to questions. Transferred immediately to CT. I came back to the CT scanner just is a were finishing images and he seems more alert and conversant but does have slurred speech. (after seeking corroborating history from his guardian, it sounds like he does have some intermittent slurred speech even at baseline) He full exam performed in ER stable to Constitutional: Blood pressure has now come up to 131/76. Mental status is alert. He is conversant but does have slurred speech and is hard to understand. Appears well-developed and well-nourished. Alert. Conversant, he is able to tell me events of today, including that [place]. He also says that he had a visit with the [facility] director case last Saturday. He is apparently trying to be is own guardian. He says his brother is his guardian. They only give him 5 dollars per week. He also says that he has not seen his daughter and more than 3 years and has not seen his grandchild in 3 and half years. He has another grandchild who is apparently 2, who he has never seen. His daughter lives in [place]. HENT: Head: Atraumatic. Nose: Nose normal. Mouth/Throat: Oral mucosa is clear but tongue is quite dry. Mucous membranes are desiccated and cracked. He has little bit of dry white material on his tongue which I think is a dry pill. no trismus. Pharynx normal. Tonsils symmetric. No tonsillar enlargement, erythema, or exudate. Eyes: Conjunctivae normal. EOM normal. Pupils equal, round, and reactive to light. No scleral icterus. Neck: Normal range of motion. Neck supple. No tracheal deviation present. Cardiovascular: Normal rate, regular rhythm. No gallop. No friction rub. No murmur heard. Symmetric radial and PT artery pulses Pulmonary/Chest: Effort normal. No stridor. No respiratory distress. No wheezes. No rales. No rhonchi . No tenderness. Abdominal: Soft. Bowel sounds normal. No distension. No mass. No tenderness. No rebound. No guarding. No CVA tenderness. Musculoskeletal: RUE: Normal range of motion. No tenderness. No deformity LUE: Normal range of motion. No tenderness. No deformity RLE: Normal range of motion. No edema. No tenderness. No deformity LLE: Normal range of motion. No edema. No tenderness. No deformity Neurological: He is now alert and able to answer questions and follow commands. Speech is slurred but difficult to note that is his baseline or due to dry mouth. He may have a subtle facial droop but difficult to tell because of his dry mouth and mustache. 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 Attention normal. Alert and oriented x3. GCS 15. Memory normal. . Cognition normal. Cranial Nerves intact other than subtle facial droop I did not formally test gag or visual acuity. EOMI. Palate elevates symmetrically and tongue protrudes in the midline. Strength: 5/5 trapezius on the right and left 5/5 deltoid on the right and left 5/5 biceps on the right and left 5/5 triceps on the right and left 5/5 bread dumper on the right and left 5/5 thumb opposition on the right and left 5/5 finger abduction on the right and left 5/5 hip flexors (L3) on the right and left 5/5 quadriceps (L4) on the right and left 5/5 tibialis anterior on the right and left 5/5 EHL (L5) on the right and left 5/5 gastrocnemius (S1) on the right and left 5/5 hamstring on the right and left Sensation intact to light touch in both upper extremities (C4-T1) Sensation intact to light touch in Both lower extremities (L4-S1). Finger to nose and coordination normal. Skin: Skin is warm and dry. No rash noted. No pallor. Normal capillary refill. Psychiatric: Normal mood. Normal affect. <Elton Muñiz MD - Last Filed: 01/13/25 00:30> Const: Vital Signs, click to edit/add: Vital Signs - 24 hr 01/12/25 21:56 01/12/25 23:01 01/12/25 23:02 Temperature 96.5 F L Pulse Rate Pulse Rate [Pulse Oximeter] 87 Respiratory Rate 18 11 L 11 L Blood Pressure 132/76 Blood Pressure [Ri ght Upper Arm] 134/69 Pulse Oximetry 98 Oxygen Delivery Me od Room Air 01/12/25 23:12 01/12/25 23:15 01/12/25 23:22 Temperature Pulse Rate 87 Pulse Rate [Pulse Oximeter] Respiratory Rate 11 L 12 11 L Blood Pressure 116/66 130/71 Blood Pressure [Ri ght Upper Arm] Pulse Oximetry 98 Oxygen Delivery Me thod 01/12/25 23:30 01/12/25 23:31 01/12/25 23:41 Temperature Pulse Rate 83 83 76 Pulse Rate [Pulse Oximeter] Respiratory Rate 11 L 12 9 L Blood Pressure 140/86 H 145/84 H Blood Pressure [Ri ght Upper Arm] Pulse Oximetry 99 100 [facility] 01/12/25 23:45 01/12/25 23:51 01/13/25 00:00 Temperature Pulse Rate 75 78 74 Pulse Rate [Pulse Oximeter] Respiratory Rate 11 L 11 L 13 Blood Pressure 138/78 Blood Pressure [Ri ght Upper Arm] Pulse Oximetry 100 99 99 Oxygen Delivery Me od 01/13/25 00:01 01/13/25 00:01 01/13/25 00:01 Temperature Pulse Rate 75 75 75 Pulse Rate [Pulse Oximeter] Respiratory Rate 11 L 11 L 11 L Blood Pressure 123/68 123/68 123/68 Blood Pressure [Ri ght Upper Arm] Pulse Oximetry 99 99 99 Oxygen Delivery Me od 01/13/25 00:11 01/13/25 00:15 01/13/25 00:21 Temperature Pulse Rate 78 77 76 Pulse Rate [Pulse Oximeter] Respiratory Rate 10 L 11 L 11 L Blood Pressure 130/76 118/69 Blood Pressure [Ri ght Upper Arm] Pulse Oximetry 99 99 99 Oxygen Delivery Me od 01/13/25 00:30 01/13/25 00:31 01/13/25 00:42 Temperature Pulse Rate 74 73 Pulse Rate [Pulse Oximeter] Respiratory Rate 8 L 9 L 11 L Blood Pressure 114/65 154/96 H Blood Pressure [Ri ght Upper Arm] Pulse Oximetry 98 98 Oxygen Delivery Me thod 01/13/25 00:45 01/13/25 00:51 01/13/25 01:00 Temperature Pulse Rate 73 Pulse Rate [Pulse Oximeter] Respiratory Rate 7 L 14 12 Blood Pressure 153/80 H Blood Pressure [Ri ght Upper Arm] Pulse Oximetry 97 Oxygen Delivery Me thod 01/13/25 01:01 01/13/25 01:01 01/13/25 01:01 Temperature Pulse Rate 73 73 73 Pulse Rate [Pulse Oximeter] Respiratory Rate 12 12 12 Blood Pressure 124/66 124/66 124/66 Blood Pressure [Ri ght Upper Arm] Pulse Oximetry 96 96 96 Oxygen Delivery Me thod 01/13/25 01:11 01/13/25 01:15 01/13/25 01:21 Temperature Pulse Rate 74 73 72 Pulse Rate [Pulse Oximeter] Respiratory Rate 13 12 12 Blood Pressure 115/65 121/72 Blood Pressure [Ri ght Upper Arm] Pulse Oximetry 96 95 95 Oxygen Delivery Me thod 01/13/25 01:30 01/13/25 01:31 01/13/25 01:32 Temperature Pulse Rate 73 73 71 Pulse Rate [Pulse Oximeter] Respiratory Rate 13 12 11 L Blood Pressure 109/62 Blood Pressure [Ri ght Upper Arm] Pulse Oximetry 95 95 95 Oxygen Delivery Me thod 01/13/25 01:41 01/13/25 01:45 01/13/25 01:51 Temperature Pulse Rate 74 74 73 Pulse Rate [Pulse Oximeter] Respiratory Rate 12 12 13 Blood Pressure 107/65 115/62 Blood Pressure [Ri ght Upper Arm] Pulse Oximetry 95 95 95 Oxygen Delivery Me thod 01/13/25 02:00 01/13/25 02:02 01/13/25 02:11 Temperature Pulse Rate 83 82 85 Pulse Rate [Pulse Oximeter] Respiratory Rate 12 13 18 Blood Pressure 136/78 128/80 Blood Pressure [Ri ght Upper Arm] Pulse Oximetry 98 96 98 Oxygen Delivery Me thod 01/13/25 02:15 01/13/25 02:21 01/13/25 02:30 Temperature Pulse Rate 83 82 76 Pulse Rate [Pulse Oximeter] Respiratory Rate 6 L 19 13 Blood Pressure 135/86 Blood Pressure [Ri ght Upper Arm] Pulse Oximetry 97 97 97 Oxygen Delivery Me thod 01/13/25 02:31 01/13/25 02:41 01/13/25 02:45 Temperature Pulse Rate 74 79 81 Pulse Rate [Pulse Oximeter] Respiratory Rate 12 14 8 L Blood Pressure 121/78 119/78 Blood Pressure [Ri ght Upper Arm] Pulse Oximetry 98 98 99 Oxygen Delivery Me thod 01/13/25 02:51 01/13/25 03:00 01/13/25 03:01 Temperature Pulse Rate 74 72 73 Pulse Rate [Pulse Oximeter] Respiratory Rate 6 L 9 L 6 L Blood Pressure 135/75 118/72 Blood Pressure [Ri ght Upper Arm] Pulse Oximetry 98 97 97 Oxygen Delivery Me thod 01/13/25 03:02 01/13/25 03:11 01/13/25 03:15 Temperature Pulse Rate 73 75 76 Pulse Rate [Pulse Oximeter] Respiratory Rate 9 L 11 L 10 L Blood Pressure 107/68 Blood Pressure [Ri ght Upper Arm] Pulse Oximetry 97 96 96 Oxygen Delivery Me thod 01/13/25 03:21 01/13/25 03:30 01/13/25 03:31 Temperature Pulse Rate 77 72 71 Pulse Rate [Pulse Oximeter] Respiratory Rate 9 L 12 6 L Blood Pressure 128/84 106/63 Blood Pressure [Ri ght Upper Arm] Pulse Oximetry 98 96 96 Oxygen Delivery Me thod 01/13/25 03:32 01/13/25 03:41 01/13/25 03:45 Temperature Pulse Rate 73 75 65 Pulse Rate [Pulse Oximeter] Respiratory Rate 11 L 12 13 Blood Pressure 126/74 Blood Pressure [Ri ght Upper Arm] Pulse Oximetry 96 98 97 Oxygen Delivery Me thod 01/13/25 03:51 01/13/25 04:00 01/13/25 04:01 Temperature Pulse Rate 73 68 85 Pulse Rate [Pulse Oximeter] Respiratory Rate 12 12 20 Blood Pressure 105/64 111/64 Blood Pressure [Ri ght Upper Arm] Pulse Oximetry 96 95 96 Oxygen Delivery Me thod 01/13/25 07:29 Temperature 97.3 F L Pulse Rate Pulse Rate [Pulse Oximeter] 92 Respiratory Rate 16 Blood Pressure Blood Pressure [Ri ght Upper Arm] 152/105 H Pulse Oximetry 98 Oxygen Delivery Me thod Room Air <Elton Muñiz MD - Last Filed: 01/13/25 00:30> Vital Signs, click to edit/add: Vital Signs - 24 hr 01/12/25 21:56 01/12/25 23:01 01/12/25 23:02 Temperature 96.5 F L Pulse Rate Pulse Rate [Pulse Oximeter] 87 Respiratory Rate 18 11 L 11 L Blood Pressure 132/76 Blood Pressure [Ri ght Upper Arm] 134/69 Pulse Oximetry 98 Oxygen Delivery Me thod Room Air 01/12/25 23:12 01/12/25 23:15 01/12/25 23:22 Temperature Pulse Rate 87 Pulse Rate [Pulse Oximeter] Respiratory Rate 11 L 12 11 L Blood Pressure 116/66 130/71 Blood Pressure [Ri ght Upper Arm] Pulse Oximetry 98 Oxygen Delivery Me thod 01/12/25 23:30 01/12/25 23:31 01/12/25 23:41 Temperature Pulse Rate 83 83 76 Pulse Rate [Pulse Oximeter] Respiratory Rate 11 L 12 9 L Blood Pressure 140/86 H 145/84 H Blood Pressure [Ri ght Upper Arm] Pulse Oximetry 99 100 100 Oxygen Delivery Me thod 01/12/25 23:45 01/12/25 23:51 01/13/25 00:00 Temperature Pulse Rate 75 78 74 Pulse Rate [Pulse Oximeter] Respiratory Rate 11 L 11 L 13 Blood Pressure 138/78 Blood Pressure [Ri ght Upper Arm] Pulse Oximetry 100 99 99 Oxygen Delivery Me od 01/13/25 00:01 01/13/25 00:01 01/13/25 00:01 Temperature Pulse Rate 75 75 75 Pulse Rate [Pulse Oximeter] Respiratory Rate 11 L 11 L 11 L Blood Pressure 123/68 123/68 123/68 Blood Pressure [Ri ght Upper Arm] Pulse Oximetry 99 99 99 Oxygen Delivery Me thod 01/13/25 00:11 01/13/25 00:15 01/13/25 00:21 Temperature Pulse Rate 78 77 76 Pulse Rate [Pulse Oximeter] Respiratory Rate 10 L 11 L 11 L Blood Pressure 130/76 118/69 Blood Pressure [Ri ght Upper Arm] Pulse Oximetry 99 99 99 Oxygen Delivery Me thod 01/13/25 00:30 01/13/25 00:31 01/13/25 00:42 Temperature Pulse Rate 74 73 Pulse Rate [Pulse Oximeter] Respiratory Rate 8 L 9 L 11 L Blood Pressure 114/65 154/96 H Blood Pressure [Ri ght Upper Arm] Pulse Oximetry 98 98 Oxygen Delivery Me thod 01/13/25 00:45 01/13/25 00:51 01/13/25 01:00 Temperature Pulse Rate 73 Pulse Rate [Pulse Oximeter] Respiratory Rate 7 L 14 12 Blood Pressure 153/80 H Blood Pressure [Ri ght Upper Arm] Pulse Oximetry 97 Oxygen Delivery Me thod 01/13/25 01:01 01/13/25 01:01 01/13/25 01:01 Temperature Pulse Rate 73 73 73 Pulse Rate [Pulse Oximeter] Respiratory Rate 12 12 12 Blood Pressure 124/66 124/66 124/66 Blood Pressure [Ri ght Upper Arm] Pulse Oximetry 96 96 96 Oxygen Delivery Me thod 01/13/25 01:11 01/13/25 01:15 01/13/25 01:21 Temperature Pulse Rate 74 73 72 Pulse Rate [Pulse Oximeter] Respiratory Rate 13 12 12 Blood Pressure 115/65 121/72 Blood Pressure [Ri ght Upper Arm] Pulse Oximetry 96 95 95 Oxygen Delivery Me thod 01/13/25 01:30 01/13/25 01:31 01/13/25 01:32 Temperature Pulse Rate 73 73 71 Pulse Rate [Pulse Oximeter] Respiratory Rate 13 12 11 L Blood Pressure 109/62 Blood Pressure [Ri ght Upper Arm] Pulse Oximetry 95 95 95 Oxygen Delivery Me thod 01/13/25 01:41 01/13/25 01:45 01/13/25 01:51 Temperature Pulse Rate 74 74 73 Pulse Rate [Pulse Oximeter] Respiratory Rate 12 12 13 Blood Pressure 107/65 115/62 Blood Pressure [Ri ght Upper Arm] Pulse Oximetry 95 95 95 Oxygen Delivery Me thod 01/13/25 02:00 01/13/25 02:02 01/13/25 02:11 Temperature Pulse Rate 83 82 85 Pulse Rate [Pulse Oximeter] Respiratory Rate 12 13 18 Blood Pressure 136/78 128/80 Blood Pressure [Ri ght Upper Arm] Pulse Oximetry 98 96 98 Oxygen Delivery Me thod 01/13/25 02:15 01/13/25 02:21 01/13/25 02:30 Temperature Pulse Rate 83 82 76 Pulse Rate [Pulse Oximeter] Respiratory Rate 6 L 19 13 Blood Pressure 135/86 Blood Pressure [Ri ght Upper Arm] Pulse Oximetry 97 97 97 Oxygen Delivery Me thod 01/13/25 02:31 01/13/25 02:41 01/13/25 02:45 Temperature Pulse Rate 74 79 81 Pulse Rate [Pulse Oximeter] Respiratory Rate 12 14 8 L Blood Pressure 121/78 119/78 Blood Pressure [Ri ght Upper Arm] Pulse Oximetry 98 98 99 Oxygen Delivery Me thod 01/13/25 02:51 01/13/25 03:00 01/13/25 03:01 Temperature Pulse Rate 74 72 73 Pulse Rate [Pulse Oximeter] Respiratory Rate 6 L 9 L 6 L Blood Pressure 135/75 118/72 Blood Pressure [Ri ght Upper Arm] Pulse Oximetry 98 97 97 Oxygen Delivery Me thod 01/13/25 03:02 01/13/25 03:11 01/13/25 03:15 Temperature Pulse Rate 73 75 76 Pulse Rate [Pulse Oximeter] Respiratory Rate 9 L 11 L 10 L Blood Pressure 107/68 Blood Pressure [Ri ght Upper Arm] Pulse Oximetry 97 96 96 Oxygen Delivery Me thod 01/13/25 03:21 01/13/25 03:30 01/13/25 03:31 Temperature Pulse Rate 77 72 71 Pulse Rate [Pulse Oximeter] Respiratory Rate 9 L 12 6 L Blood Pressure 128/84 106/63 Blood Pressure [Ri ght Upper Arm] Pulse Oximetry 98 96 96 Oxygen Delivery Me thod 01/13/25 03:32 01/13/25 03:41 01/13/25 03:45 Temperature Pulse Rate 73 75 65 Pulse Rate [Pulse Oximeter] Respiratory Rate 11 L 12 13 Blood Pressure 126/74 Blood Pressure [Ri ght Upper Arm] Pulse Oximetry 96 98 97 Oxygen Delivery Me thod 01/13/25 03:51 01/13/25 04:00 01/13/25 04:01 Temperature Pulse Rate 73 68 85 Pulse Rate [Pulse Oximeter] Respiratory Rate 12 12 20 Blood Pressure 105/64 111/64 Blood Pressure [Ri ght Upper Arm] Pulse Oximetry 96 95 96 Oxygen Delivery Me thod 01/13/25 07:29 Temperature 97.3 F L Pulse Rate Pulse Rate [Pulse Oximeter] 92 Respiratory Rate 16 Blood Pressure Blood Pressure [Ri ght Upper Arm] 152/105 H Pulse Oximetry 98 Oxygen Delivery Me thod Room Air <Catia Rangel MD - Last Filed: 01/13/25 07:45> Course Course ED Course: Back from CT scan patient's blood pressure is up and mental status is now much improved. He is GCS is 15. He is following commands. He has no arm or leg weakness or drift. He does have possible right facial droop and does have slurred speech. Unclear if this is an new or chronic facial droop. 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 We do not have any friends or family who know him better to see if this is a new droop or not. His speech is slightly slurred but his tongue protrudes in the midline. Tongue is very dry and is desiccated and cracked. We were able to contact his power of environmental attorney, his [id number] Marion. She says that he does have waxing and waning slurred speech so some slurred speech is not unusual for him. She also notes that he has very labile mental status and mental health. He has been at sometimes belligerent lately, including this morning. He refused dizzy CT T today. Discussed with Dr. Martinez again from Stroke Neurology. She reviewed his imaging. Head CT is negative for bleed. She does note that the CT angiogram of his head neck does not show any large vessel occlusion that would be amenable to IR intervention. However his CTA of his neck does show a very tight left carotid stenosis with an 80% blockage. It is certainly possible that during his episode of hypotension this evening he was hypo perfusing his left brain which would have caused him to become aphasic and slump over. Now that his blood pressure is normalized he is probably getting better flow through that tight carotid. This may have caused a TIA type picture. Discussed that he still has a little bit of slurred speech but unclear if this is at his baseline or not. Also subtle facial droop but also unclear if it is baseline or not. Overall, in the setting of his carotid stenosis, with an episode of hypotension that could explain his symptoms, which are now improved, she and I agree that the risk associated with IV thrombolytic would outweigh the benefit. However we do think he needs evaluation by vascular surgery to consider intervention for his carotid artery because he is at high risk for more strokes and TIAs with this tight stenosis. Dr. Martinez recommends that we do initiate dual anti-platelet therapy. Plavix loaded with 300 mg, full-dose aspirin today. After that , continue Plavix 75 mg daily and aspirin 81 mg daily. Other laboratory workup is reassuring. Normal white count and afebrile. No clear evidence for sepsis as a cause for his temporary hypotension. He denied having any chest pain and the EKG is nonischemic and troponin is undetectable. No evidence for ACS. Hemoglobin is near baseline at 10.3. He denies any recent bloody or black stools. No evidence for any active external or internal bleeding to cause his transient hypotension. Urinalysis normal. COVID negative. Venous blood gas shows a normal pH and normal pCO2 arguing against hypercarbia to explain his altered mental status. We did contact the patient's power of environmental attorney, Marion. We discussed the situation. She agrees wholeheartedly that and want him to transfer to [place] for vascular surgery consultation. She would agree that surgery to prevent future strokes would be definitely beneficial. She does not have any advanced directives for his goals of care. She would certainly agree with surgery if it causes an improvement in his quality of life. However if his heart were to stop, she would not want you him to have CPR. He would want him to peacefully rather than life-prolonging episodes. On the other hand, she certainly would want interventions and treatments to prevent a debilitating stroke. Therefore she agrees with plan to transfer to [place]. He is accepted by hospitalist, Dr. Vinson. Once at [place] he will be consult by St[facility] Neurology and by vascular surgery. <Elton Muñiz MD - Last Filed: 01/13/25 00:30> Back from CT scan patient's blood pressure is up and mental status is now much improved. He is GCS is 15. He is following commands. He has no arm or leg weakness or drift. He does have possible right facial droop and does have slurred speech. Unclear if this is an new or chronic facial droop. 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 We do not have any friends or family who know him better to see if this is a new droop or not. His speech is slightly slurred but his tongue protrudes in the midline. Tongue is very dry and is desiccated and cracked. We were able to contact his power of environmental attorney, his oqotin-ey-ijd Marion. She says that he does have waxing and waning slurred speech so some slurred speech is not unusual for him. She also notes that he has very labile mental status and mental health. He has been at sometimes belligerent lately, including this morning. He refused dizzy CT T today. Discussed with Dr. Martinez again from Stroke Neurology. She reviewed his imaging. Head CT is negative for bleed. She does note that the CT angiogram of his head neck does not show any large vessel occlusion that would be amenable to IR intervention. However his CTA of his neck does show a very tight left carotid stenosis with an 80% blockage. It is certainly possible that during his episode of hypotension this evening he was hypo perfusing his left brain which would have caused him to become aphasic and slump over. Now that his blood pressure is normalized he is probably getting better flow through that tight carotid. This may have caused a TIA type picture. Discussed that he still has a little bit of slurred speech but unclear if this is at his baseline or not. Also subtle facial droop but also unclear if it is baseline or not. Overall, in the setting of his carotid stenosis, with an episode of hypotension that could explain his symptoms, which are now improved, she and I agree that the risk associated with IV thrombolytic would outweigh the benefit. However we do think he needs evaluation by vascular surgery to consider intervention for his carotid artery because he is at high risk for more strokes and TIAs with this tight stenosis. Dr. Martinez recommends that we do initiate dual anti-platelet therapy. Plavix loaded with 300 mg, full-dose aspirin today. After that , continue Plavix 75 mg daily and aspirin 81 mg daily. Other laboratory workup is reassuring. Normal white count and afebrile. No clear evidence for sepsis as a cause for his temporary hypotension. He denied having any chest pain and the EKG is nonischemic and troponin is undetectable. No evidence for ACS. Hemoglobin is near baseline at 10.3. He denies any recent bloody or black stools. No evidence for any active external or internal bleeding to cause his transient hypotension. Urinalysis normal. COVID negative. Venous blood gas shows a normal pH and normal pCO2 arguing against hypercarbia to explain his altered mental status. We did contact the patient's power of environmental attorney, Marion. We discussed the situation. She agrees wholeheartedly that and want him to transfer to [place] for vascular surgery consultation. She would agree that surgery to prevent future strokes would be definitely beneficial. She does not have any advanced directives for his goals of care. She would certainly agree with surgery if it causes an improvement in his quality of life. However if his heart were to stop, she would not want you him to have CPR. He would want him to peacefully rather than life-prolonging episodes. On the other hand, she certainly would want interventions and treatments to prevent a debilitating stroke. Therefore she agrees with plan to transfer to [facility]. He is accepted by hospitalist, Dr. Vinson. Once at [facility] he will be consult by Stroke Neurology and by vascular surgery. <Catia Rangel MD - Last Filed: 01/13/25 07:45> Reevaluation(s) Time of Reevaluation #1: 07:44 <Catia Rangel MD - Last Filed: 01/13/25 07:45> Reevaluation #1: Dr. Rangel- I assumed care from outgoing evening provider. no major issues or worsening neurological changes overnight. Patient requested nicotine gum which was given he also requested a dose of Ativan which is given. He was allowed to eat breakfast which he did without difficulty. Anticipating ambulance transfer any minute at the time of my shift ending. No other major concerns overnight. <Catia Rangel MD - Last Filed: 01/13/25 07:45> Vital Signs Vital signs: Initial Vital Signs Temperature 96.5 F L 01/12/25 21:56 Temperature Source Temporal Artery Scan 01/12/25 21:56 Pulse Rate 87 01/12/25 21:56 Pulse Rhythm Regular 01/12/25 21:56 Respiratory Rate 18 01/12/25 21:56 Blood Pressure 134/69 01/12/25 21:56 Blood Pressure Mean 90 01/12/25 21:56 Blood Pressure Position Sitting 01/12/25 21:56 Pulse Oximetry 98 01/12/25 21:56 Oxygen Delivery Method Room Air 01/12/25 21:56 Vital Signs Temperature 96.5 F L 01/12/25 21:56 Pulse Rate 87 01/12/25 21:56 Respiratory Rate 18 01/12/25 21:56 Blood Pressure 134/69 01/12/25 21:56 Pulse Oximetry 98 01/12/25 21:56 Oxygen Delivery Method Room Air 01/12/25 21:56 Temperature 97.3 F L 01/13/25 07:29 Pulse Rate 92 01/13/25 07:29 Respiratory Rate 16 01/13/25 07:29 Blood Pressure 152/105 H 01/13/25 07:29 Pulse Oximetry 98 01/13/25 07:29 Oxygen Delivery Method Room Air 01/13/25 07:29 <Elton Muñiz MD - Last Filed: 01/13/25 00:30> Initial Vital Signs Temperature 96.5 F L 01/12/25 21:56 Temperature Source Temporal Artery Scan 01/12/25 21:56 Pulse Rate 87 01/12/25 21:56 Pulse Rhythm Regular 01/12/25 21:56 Respiratory Rate 18 01/12/25 21:56 Blood Pressure 134/69 01/12/25 21:56 Blood Pressure Mean 90 01/12/25 21:56 Blood Pressure Position Sitting 01/12/25 21:56 Pulse Oximetry 98 01/12/25 21:56 Oxygen Delivery Method Room Air 01/12/25 21:56 Vital Signs Temperature 96.5 F L 01/12/25 21:56 Pulse Rate 87 01/12/25 21:56 Respiratory Rate 18 01/12/25 21:56 Blood Pressure 134/69 01/12/25 21:56 Pulse Oximetry 98 01/12/25 21:56 Oxygen Delivery Method Room Air 01/12/25 21:56 Temperature 97.3 F L 01/13/25 07:29 Pulse Rate 92 01/13/25 07:29 Respiratory Rate 16 01/13/25 07:29 Blood Pressure 152/105 H 01/13/25 07:29 Pulse Oximetry 98 01/13/25 07:29 Oxygen Delivery Method Room Air 01/13/25 07:29 <Catia Rangel MD - Last Filed: 01/13/25 07:45> Medications Administered Medications: Generic Name Dose Route Start Last Admin Trade Name Freq PRN Reason Stop Dose Admin Nicotine Polacrilex 4 mg 01/13/25 03:24 01/13/25 03:35 Nicotine 4 Mg Gum BUCCAL 4 mg Q1H PRN Administration Discontinued Medications Generic Name Dose Route Start Last Admin Trade Name Freq PRN Reason Stop Dose Admin Aspirin 325 mg 01/12/25 22:18 01/12/25 23:32 Aspirin Ec 325 Mg Tablet PO 01/12/25 22:19 325 mg DAILY ONE Administration Clopidogrel Bisulfate 300 mg 01/12/25 22:18 01/12/25 23:24 Clopidogrel 300 Mg Tablet PO 01/12/25 22:19 300 mg ONCE ONE Administration Sodium Chloride 1,000 mls @ 1,000 mls/hr 01/12/25 21:45 01/13/25 00:20 0.9 % Sodium Chloride 1000 Ml IV 01/12/25 22:44 Infused .Q1H KVNG Infusion Lorazepam 0.5 mg 01/13/25 04:38 01/13/25 04:47 Lorazepam 0.5 Mg Tablet PO 01/13/25 04:39 0.5 mg ONCE ONE Administration <Elton Muñiz MD - Last Filed: 01/13/25 00:30> Generic Name Dose Route Start Last Admin Trade Name Freq PRN Reason Stop Dose Admin Nicotine Polacrilex 4 mg 01/13/25 03:24 01/13/25 03:35 Nicotine 4 Mg Gum BUCCAL 4 mg Q1H PRN Administration Discontinued Medications Generic Name Dose Route Start Last Admin Trade Name Freq PRN Reason Stop Dose Admin Aspirin 325 mg 01/12/25 22:18 01/12/25 23:32 Aspirin Ec 325 Mg Tablet PO 01/12/25 22:19 325 mg DAILY ONE Administration Clopidogrel Bisulfate 300 mg 01/12/25 22:18 01/12/25 23:24 Clopidogrel 300 Mg Tablet PO 01/12/25 22:19 300 mg ONCE ONE Administration Sodium Chloride 1,000 mls @ 1,000 mls/hr 01/12/25 21:45 01/13/25 00:20 0.9 % Sodium Chloride 1000 Ml IV 01/12/25 22:44 Infused .Q1H KVNG Infusion Lorazepam 0.5 mg 01/13/25 04:38 01/13/25 04:47 Lorazepam 0.5 Mg Tablet PO 01/13/25 04:39 0.5 mg ONCE ONE Administration <Catia Rangel MD - Last Filed: 01/13/25 07:45> Medical Decision Making Lab Data Labs: Lab Results 01/12/25 01/12/25 Range/Units 22:23 22:30 WBC 4.84 (4.50-11.00) K/uL RBC 3.39 L (4.30-5.90) m/uL Hgb 10.3 L (13.5-17.5) gm/dL Hct 32.3 L (37.0-53.0) % MCV 95 (80-100) fL MCH 30 (26-34) pg MCHC 32 (32-36) gm/dL RDW Coeff of Cecil 13.5 (11.5-15.5) % Plt Count 158 (140-440) K/uL Neut % (Auto) 67.1 (42.0-72.0) % Lymph % (Auto) 18.8 L (20-44) % [place] % (Auto) 11.2 H (0.0-11.0) % Eos % (Auto) 2.7 (0.0-7.0) % Baso % (Auto) 0.2 (0.0-3.0) % Neut # (Auto) 3.25 (1.7-7.0) K/uL Lymph # (Auto) 0.90 (0.90-2.90) K/uL [place] # (Auto) 0.50 (0.00-0.90) K/UL Eos # (Auto) 0.13 (0.00-0.50) K/uL Baso # (Auto) 0.01 (0.00-0.30) K/uL Abs Immat Gran (auto) 0.00 (0.00-0.30) K/uL Imm/Tot Granulo (auto) 0.0 % INR 1.06 (0.91-1.10) VBG pH 7.373 (7.32-7.43) VBG pCO2 42 (40-50) mmHG VBG pO2 66.7 H (25-47) mmHG VBG HCO3 24 (21-28) mmol/L Sodium 138 (135-149) mmol/L Potassium 4.2 (3.6-5.1) mmol/L Chloride 110 (96-114) mmol/L Carbon Dioxide 24 (20-32) mmol/L Anion Gap 4 L (7-15) mEq/L BUN 23 (7-30) mg/dL Creatinine 1.1 (0.5-1.5) mg/dL Estimated GFR 73 ml/min Glucose 78 (60-115) mg/dL Lactate 1.3 (0.5-1.9) mmol/L Calcium 8.9 (8.4-10.6) mg/dL Troponin I < 0.01 (0.01-0.04) ng/mL NT-Pro-B Natriuret Pep 142 (See Note) pg/mL Urine Color Yellow (Yellow) Urine Appearance Clear (Clear) Urine pH 7.0 (5.0-8.5) Ur Specific [place] 1.010 (1.000-1.030) Urine Protein Negative (Negative) Urine Glucose (UA) Negative (Negative) Urine Ketones Negative (Negative) Urine Blood Negative (Negative) Urine Nitrite Negative (Negative) Urine Bilirubin Negative (Negative) Urine Urobilinogen 0.2 (0.2-1.0) Ur Leukocyte Esterase Negative (Negative) Urine RBC 0-2 (0-2) Urine WBC 0-2 (0-5) Ur Squamous Epith Cells None (None-Few) Urine Bacteria None (None) SARS-CoV-2 (PCR) Negative SARS-CoV-2 (Negative) Influenza Type A (PCR) Negative PCR FLU A (Negative) Influenza Type B (PCR) Negative PCR FLU B (Negative) <Elton Muñiz MD - Last Filed: 01/13/25 00:30> Lab Results 01/12/25 01/12/25 Range/Units 22:23 22:30 WBC 4.84 (4.50-11.00) K/uL RBC 3.39 L (4.30-5.90) m/uL Hgb 10.3 L (13.5-17.5) gm/dL Hct 32.3 L (37.0-53.0) % MCV 95 (80-100) fL MCH 30 (26-34) pg MCHC 32 (32-36) gm/dL RDW Coeff of Cecil 13.5 (11.5-15.5) % Plt Count 158 (140-440) K/uL Neut % (Auto) 67.1 (42.0-72.0) % Lymph % (Auto) 18.8 L (20-44) % [place] % (Auto) 11.2 H (0.0-11.0) % Eos % (Auto) 2.7 (0.0-7.0) % Baso % (Auto) 0.2 (0.0-3.0) % Neut # (Auto) 3.25 (1.7-7.0) K/uL Lymph # (Auto) 0.90 (0.90-2.90) K/uL [place] # (Auto) 0.50 (0.00-0.90) K/UL Eos # (Auto) 0.13 (0.00-0.50) K/uL Baso # (Auto) 0.01 (0.00-0.30) K/uL Abs Immat Gran (auto) 0.00 (0.00-0.30) K/uL Imm/Tot Granulo (auto) 0.0 % INR 1.06 (0.91-1.10) VBG pH 7.373 (7.32-7.43) VBG pCO2 42 (40-50) mmHG VBG pO2 66.7 H (25-47) mmHG VBG HCO3 24 (21-28) mmol/L Sodium 138 (135-149) mmol/L Potassium 4.2 (3.6-5.1) mmol/L Chloride 110 (96-114) mmol/L Carbon Dioxide 24 (20-32) mmol/L Anion Gap 4 L (7-15) mEq/L BUN 23 (7-30) mg/dL Creatinine 1.1 (0.5-1.5) mg/dL Estimated GFR 73 ml/min Glucose 78 (60-115) mg/dL Lactate 1.3 (0.5-1.9) mmol/L Calcium 8.9 (8.4-10.6) mg/dL Troponin I < 0.01 (0.01-0.04) ng/mL NT-Pro-B Natriuret Pep 142 (See Note) pg/mL Urine Color Yellow (Yellow) Urine Appearance Clear (Clear) Urine pH 7.0 (5.0-8.5) Ur Specific [place] 1.010 (1.000-1.030) Urine Protein Negative (Negative) Urine Glucose (UA) Negative (Negative) Urine Ketones Negative (Negative) Urine Blood Negative (Negative) Urine Nitrite Negative (Negative) Urine Bilirubin Negative (Negative) Urine Urobilinogen 0.2 (0.2-1.0) Ur Leukocyte Esterase Negative (Negative) Urine RBC 0-2 (0-2) Urine WBC 0-2 (0-5) Ur Squamous Epith Cells None (None-Few) Urine Bacteria None (None) SARS-CoV-2 (PCR) Negative SARS-CoV-2 (Negative) Influenza Type A (PCR) Negative PCR FLU A (Negative) Influenza Type B (PCR) Negative PCR FLU B (Negative) <Catia Rangel MD - Last Filed: 01/13/25 07:45> ECG Data Attestation: I personally reviewed and interpreted this ECG as follows: <Elton Muñiz MD - Last Filed: 01/13/25 00:30> Interpretation: Normal sinus rhythm Rate 83 UT interval 160 Normal QRS axis. No pathologic Q-waves. No ST segment elevation or depression. Nonspecific T-wave flattening lead 3, V1, V2, lead 1 QT 370/QTC 434 <Elton Muñiz MD - Last Filed: 01/13/25 00:30> Discharge Plan Discharge Clinical Impression: Acute hypotension, Carotid artery stenosis, Slurred speech, Brain TIA <Elton Muñiz MD - Last Filed: 01/13/25 00:30> Patient Disposition: Xfer Other <Elton Muñiz MD - Last Filed: 01/13/25 00:30> Discharge Location: [facility] <Elton Muñiz MD - Last Filed: 01/13/25 00:30> Instructions: Carotid Endarterectomy (DC) <Elton Muñiz MD - Last Filed: 01/13/25 00:30> Prescriptions: No Action clonazepam 0.5 mg tablet divalproex 500 mg tablet extended release 24 hr PO divalproex 250 mg tablet extended release 24 hr PO quetiapine 100 mg tablet tamsulosin 0.4 mg capsule PO levothyroxine 150 mcg tablet haloperidol decanoate 50 mg/mL solution IM propranolol 20 mg tablet escitalopram oxalate 5 mg tablet benztropine 0.5 mg tablet 0.5 mg PO BID nicotine 14 mg/24 hr patch 24 hour 1 patch topical DAILY aspirin 325 mg tablet PO haloperidol decanoate 100 mg/mL solution IM quetiapine 200 mg tablet 200 mg PO QPM polyethylene glycol 3350 [Gavilax] 17 gram/dose powder PO carbidopa-levodopa 25-100 mg tablet 1 tab PO 3XD escitalopram oxalate 10 mg tablet 10 mg PO DAILY nicotine (polacrilex) 2 mg lozenge 0 mg PO budesonide-formoterol [Symbicort] 80-4.5 mcg/actuation HFA aerosol inhaler inhalation <Elton Muñiz MD - Last Filed: 01/13/25 00:30> Stand Alone Forms: [facility] Info Instructions <Elton Muñiz MD - Last Filed: 01/13/25 00:30> Procedures ABG Interpretation ABG Results: 01/12/25 22:30 VBG pH 7.373 VBG pCO2 42 VBG pO2 66.7 H VBG HCO3 24 <Elton Muñiz MD - Last Filed: 01/13/25 00:30> 01/12/25 22:30 VBG pH 7.373 VBG pCO2 42 VBG pO2 66.7 H VBG HCO3 24 <Catia Rangel MD - Last Filed: 01/13/25 07:45>
[2025-01-12 22:29] LABS: Appearance Urine Clear (Clear)
[2025-01-12 22:42] LABS: HCO3 VBG 24 mmol/L (21-28); Lactate* 1.3 mmol/L (0.5-1.9); PCO2 VBG 42 mmHG (40-50); PO2 VBG 66.7 mmHG (25-47); pH VBG 7.373 (7.32-7.43)
[2025-01-12 22:53] LABS: Hematocrit 32.3 % (37.0-53.0); Hemoglobin* 10.3 gm/dL (13.5-17.5); Immature Granulocytes Abs Auto 0.00 K/uL (0.00-0.30); Immature Granulocytes Pct Auto 0.0 %; Mean Corpuscular HGB Conc 32 gm/dL (32-36); Mean Corpuscular Hemoglobin 30 pg (26-34); Mean Corpuscular Volume 95 fL (80-100); RDW Coefficient of Variation % 13.5 % (11.5-15.5); Red Blood Count 3.39 m/uL (4.30-5.90); White Blood Count* 4.84 K/uL (4.50-11.00)
[2025-01-12 22:55] LABS: Lymphocytes Absolute Auto 0.90 K/uL (0.90-2.90); Slide Review Reflex No
[2025-01-12 23:02] LABS: Chloride* 110 mmol/L (96-114); Potassium* 4.2 mmol/L (3.6-5.1); Sodium* 138 mmol/L (135-149)
[2025-01-12 23:04] LABS: Blood Urea Nitrogen* 23 mg/dL (7-30); Creatinine* 1.1 mg/dL (0.5-1.5); Estimated Glomerular Filt Rate 73 ml/min
[2025-01-12 23:05] LABS: Anion Gap 4 mEq/L (7-15); Calcium* 8.9 mg/dL (8.4-10.6); Carbon Dioxide* 24 mmol/L (20-32); Glucose* 78 mg/dL (60-115)
[2025-01-12 23:07] LABS: INR 1.06 (0.91-1.10); Prothrombin Time 14.6 Seconds
[2025-01-12 23:19] LABS: NT Pro B Type NatriureticPept* 142 pg/mL (See Note)
[2025-01-12] MEDS: CLOPIDOGREL 300 MG TABLET PO (23:24)
[2025-01-12] MEDS: ASPIRIN EC 325 MG TABLET PO (23:32)
[2025-01-12 23:35] LABS: PCR FLU A Negative PCR FLU A (Negative); PCR FLU B Negative PCR FLU B (Negative); SARS PCR* Negative SARS-CoV-2 (Negative)
[2025-01-13] VITALS (46 sets, daily range): BP systolic 105–154; BP diastolic 62–105; PULSE 65–92; RESP 6–20; TEMP 36.3; O2SAT 95–99
[2025-01-13] MEDS: NICOTINE 4 MG GUM BUCCAL (03:35)
--- NOTE | 2025-01-13 07:12 | PC.NURSE ---
Per MD, patient can have a regular diet for breakfast.
--- NOTE | 2025-01-13 08:05 | PC.NURSE ---
Report given to EMS. Patient transferred to [id number]. All belongings sent. Updated patients guardian as well.
== END 2025-01-13 08:05 | disposition other institution (70) ==
PROVIDERS: Emergency Provider Emergency Medicine; PCP Family Medicine
DX: I65.22 Occlusion and stenosis of left carotid artery (principal); I95.9 Hypotension, unspecified; R47.81 Slurred speech
CPT/HCPCS: 36415; 70450; 70496; 70498; 80048; 81001; 82803; 83605; 83880; 84484; 85025; 85610; 87040; 87631; 99285; A9270; J7030; Q9967

== ENCOUNTER 2025-01-13 07:59 | Outpatient (CLI) | payer MEDICARE, MEDICAID, SELFPAY | END 2025-01-13 08:00 | disposition home or self-care (01) | LOC: AMB 01-14 15:15 | PROVIDERS: PCP Family Medicine; Visit Provider Family Medicine | DX: G54.9 Nerve root and plexus disorder, unspecified (principal); I95.9 Hypotension, unspecified; I65.29 Occlusion and stenosis of unspecified carotid artery | CPT/HCPCS: A0425; A0427 ==

== ENCOUNTER 2025-02-15 21:36 | Outpatient (CLI) | payer MEDICARE, MEDICAID, SELFPAY | END 2025-02-15 21:37 | disposition home or self-care (01) | LOC: AMB 02-22 08:42 | PROVIDERS: PCP Family Medicine; Visit Provider Family Medicine | DX: S19.9XXA Unspecified injury of neck, initial encounter (principal); W07.XXXA Fall from chair, initial encounter; Y92.039 Unspecified place in apartment as the place of occurrence of the external cause | CPT/HCPCS: A0425; A0429 ==

== ENCOUNTER 2025-02-15 22:00 | Emergency (ER) | payer MEDICARE, MEDICAID, SELFPAY ==
--- OUTSIDE RECORDS SUMMARY | 2025-02-02 11:20 | XMS_ITS ---
Author Organization [facility] Address [address] , [address] [place] [address] Phone Care Team Providers Care Siderographer Name Role Phone Itzel GOMEZ APRN,JALEN, Fauzia Mariano Unavailable + Conditions or Problems No information available. Medications Medication Instructions Start Date Stop Date Generic Name [facility] Provider TAMSULOSIN HCL 0.4 MG CAPS 02/02 tamsulosin [id number] Fauzia Robbnis DNP, APRN,JALEN MAGNESIUM CITRATE 1.745 GM/30ML SOLN 02/02 magnesium citrate [id number] Fauzia Robbins DNP, APRN,JALEN DEEP SEA NASAL SPRAY 0.65 % SOLN Administer 2 spray into both nostrils every six hours 02/02 sodium chloride [id number] Fauzia Robbins DNP, APRN,JALEN LEVOTHYROXINE SODIUM 150 MCG TABS 02/02 levothyroxine [id number] Fauzia Robbins DNP, APRN,RESTAURANT KITCHEN MANAGER QUETIAPINE FUMARATE 200 MG TABS Take 200 mg by mouth every night 02/02 quetiapine [id number] Fauzia Robbins DNP, APRN,RESTAURANT KITCHEN MANAGER NICOTINE POLACRILEX [address] 1 by mouth every hour as needed 02/02 nicotine (polacrilex) [id number] Fauzia Robbins DNP,SUYAPA,RESTAURANT KITCHEN MANAGER haloperidol decanoate (HALDOL DECANOATE) 100 mg/mL intramusc Inject 75 mg intramuscularly every two weeks 02/02 HALDOL DECANOATE Fauzia Robbins DNP, APRN,RESTAURANT KITCHEN MANAGER DIVALPROEX SODIUM ER 500 MG [id number] Take 2 Tablets (1,000 mg) by mouth at bedtime. 02/02 divalproex [id number] Fauzia Robbins DNP,SUYAPA,RESTAURANT KITCHEN MANAGER HALOPERIDOL DECANOATE 50 MG/ML SOLN 02/02 haloperidol decanoate [id number] Fauzia Robbins DNPJUNIOR PROGRAMMER,RESTAURANT KITCHEN MANAGER BENZTROPINE MESYLATE 0.5 MG TABS Take 0.5 mg by mouth twice a day 02/02 benztropine [id number] Fauzia Robbins DNPJUNIOR PROGRAMMER,RESTAURANT KITCHEN MANAGER HALOPERIDOL 5 MG TABS Take 5 mg by mouth every four hours as needed 02/02 haloperidol [id number] Fauzia Robbins DNP,JUNIOR PROGRAMMER,RESTAURANT KITCHEN MANAGER IBUPROFEN (IBUPROFEN) 600 MG TABS Take 1 tablet by mouth every eight hours as needed 02/02 IBUPROFEN Fauzia Robbins DNPJUNIOR PROGRAMMER,RESTAURANT KITCHEN MANAGER CLONAZEPAM 0.5 MG TABS Take 1 tablet by mouth once a day as needed 02/02 clonazepam [id number] Fauzia Robbins DNP, APRN,RESTAURANT KITCHEN MANAGER CLONAZEPAM 0.5 MG TABS 02/02 clonazepam [id number] Fauzia Robbins DNP,JUNIOR PROGRAMMER,RESTAURANT KITCHEN MANAGER SYMBICORT 80-4.5 MCG/ACT AERO 02/02 budesonide-form oterol [id number] Fauzia Robbins DNP,JUNIOR PROGRAMMER,RESTAURANT KITCHEN MANAGER ACETAMINOPHEN 500 MG TABS Take 2 Tablets (1,000 mg) by mouth every 6 hours if needed for Pain. Max acetaminophen dose: 4000mg in 24 hrs. 02/02 acetaminophen [id number] Fauzia Robbins DNP,JUNIOR PROGRAMMER,RESTAURANT KITCHEN MANAGER ASPIRIN LOW DOSE 81 MG [facility] aspirin [id number] Fauzia Robbins DNP,JUNIOR PROGRAMMER,RESTAURANT KITCHEN MANAGER DEEP SEA NASAL SPRAY 0.65 % SOLN sodium chloride 52369922346 Fauzia Robbins DNP,JUNIOR PROGRAMMER,RESTAURANT KITCHEN MANAGER CLONAZEPAM 1 MG TABS clonazepam [id number] Fauzia Robbins DNP,JUNIOR PROGRAMMER,RESTAURANT KITCHEN MANAGER CLOPIDOGREL BISULFATE 75 MG TABS clopidogrel [id number] Fauzia Mariano [facility] DNP,JUNIOR PROGRAMMER,RESTAURANT KITCHEN MANAGER DIVALPROEX SODIUM ER 250 MG [id number] divalproex [id number] Fauzia Mariano [facility] DNP,JUNIOR PROGRAMMER,RESTAURANT KITCHEN MANAGER QUETIAPINE FUMARATE 150 MG TABS quetiapine [id number] Fauzia Mariano [facility],JUNIOR PROGRAMMER,RESTAURANT KITCHEN MANAGER OLANZAPINE 5 MG TABS olanzapine [id number] Fauzia Mariano [facility],JUNIOR PROGRAMMER,RESTAURANT KITCHEN MANAGER SENNA 8.6 MG TABS sennosides [id number] Fauzia Mariano [facility],JUNIOR PROGRAMMER,RESTAURANT KITCHEN MANAGER ROSUVASTATIN CALCIUM 40 MG TABS rosuvastatin [id number] Fauzia Mariano [facility],JUNIOR PROGRAMMER,RESTAURANT KITCHEN MANAGER Medications Administered No information available. Allergies, [...]
--- OUTSIDE RECORDS SUMMARY | 2025-02-15 22:02 | XMS_ITS | Clinical Summary ---
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 Gender Identity Not on file Sexual Orientation [...] on file Medical Devices Implanted Type Area Countersinker Device Identifier Shelf Expiration Date Model / Serial / Lot Embolic Substance/Device- 12/29/2020 Implanted:Qty: 1 on 12/29/2020 by Elton Pond MD Embolic Substance/D evice Nose [employer] 11/02/2021 / / [id number] Description:Nose bleed emobo lization Embolic Substance/Device- 12/29/2020 Implanted:Qty: 1 on 12/29/2020 by Elton Pond MD Embolic Substance/D evice Nose [employer] 04/07/2024 / / [id number] Description:Nose bleed emobo lization Insurance MEDICARE MEDICAID [place] Advance Directives For more information, please contact: [phone] * Full Code (Latest Code Status on File) Date Activated Date Inactivated Comments 12/29/2020 11:12 AM 12/30/2020 3:08 PM All basic a nd advanced life-sustaining interventions are performed as appropriate Question Answer Comments Code status determined by: Discussion with humberto nt/ legal decision maker Care Teams Investment Professional Relationship Specialty Start Date End Date Rex Connor [address] [facility] [address] PCP - General Family Medicine 12/28/20
--- OUTSIDE RECORDS SUMMARY | 2025-02-15 22:02 | XMS_ITS | Patient Health Record ---
Author Organization [facility] Address [address] [place] [address] Care Team Providers Care Real Estate Director Name Role Phone Rex Connor Primary Care Provider Unavailab JOE Mitchell Unavailable [phone] None, None Unavailable Unavailable Allergies Allergen (clinical [...] Risk Notes Problem Schizoaffective disorder, bipolar type (80211575) Schizoaffective disorder, bipolar type (F25.0) Active confirmed Problem Epistaxis (065594072) Epistaxis (R04.0) Active confirmed Problem Hypertension (15804377) HTN (hypertension) (I10) Active confirmed Plan Of Treatment No Information Insurance Providers Payer Name Payer Address Payer Phone Subscriber Number Group Number Insured Name Patient Relationship to Insured Coverage Start Date Coverage End Date MEDICARE [address] [place] [address] [id number] Scooby Greer Self - patient is the insured [employer] [address] [address] [place] [address] [phone] [id number] Scooby Greer Self - patient is the insured Medical (General) History Medical History History ICD Code Heart disease Psychotic disorder Schizoaffective disorder bipolar type CV19 Vaccine 05/2020 Surgical History Surgery Date(Month/Year) Hernia Stomach for ulcers
--- OUTSIDE RECORDS SUMMARY | 2025-02-15 22:02 | XMS_ITS | Clinical Summary ---
Author Organization [employer] [facility] Address [address] [place] [address] Care Team Providers Care Front Desk Assistant Name Role Phone Rex Connor MD [facility] [phone] Allergies Active Allergy Reactions Criticality Noted Date Comments Clozapine Other - Describe In Comment Field MYOCARDITIS Medications haloperidoL (HALDOL) 5 mg tablet Take 5 mg by mouth 2 times daily if needed (psychosis or agitation). 0 12/07/19 20 Active QUEtiapine 150 mg tab Take 450 mg by mouth at bedtime. 0 01/28/20 21 Active propranoloL (INDERAL) 20 mg tabletIndications :Anxiety Take 1 Tablet (20 mg) by mouth 2 times daily. AM and at bedtime. 60 Tablet 01/31/20 21 Active NebulizerIndicati ons:Bronchiectasi s without complication (HC) Nebulizer, disposable neb kit x 4, reuseable neb kit x 1, mask x 1, filters x 1. Frequency of use: daily; Medication: albuterol Length of need: 99 months 1 Each 09/06/19 22 Active escitalopram oxalate (LEXAPRO) 10 mg tablet Take 10 mg by mouth once daily. Active divalproex (DEPAKOTE ER) 500 mg Extended-Release tabletIndications :Schizoaffective disorder, bipolar type (HC) Take 1,000 mg by mouth at bedtime. Take with 250 mg for a total dose of 1,250 mg hs 23/20 25 Active carbidopa-levodop a, 25-100 mg, (SINEMET 25-100) 25-100 mg tabletIndications :Parkinson's disease, unspecified whether dyskinesia present, unspecified whether manifestations fluctuate (HC) Take 1 Tablet by mouth three times daily. 84 Tablet 06/11/19 25 Active cholecalciferol (VITAMIN D3) 1,000 unit tabletIndications :Vitamin D deficiency Take 1 Tablet (1,000 units) by mouth once daily. 28 Tablet 06/11/19 25 Active famotidine (PEPCID) 20 mg tabletIndications :Gastroesophageal reflux disease, unspecified whether esophagitis present Take 1 Tablet (20 mg) by mouth once daily. 28 Tablet 06/11/19 25 Active fluticasone propion-salmetero L (Advair Diskus) 250-50 mcg/Dose diskus inhalerIndication s:Mild persistent asthma with exacerbation (HC) INHALE 1 PUFF BY MOUTH TWICE DAILY --RINSE MOUTH AFTER USE-- 60 Each 06/11/19 25 Active levothyroxine (SYNTHROID) 150 mcg tabletIndications :Other specified hypothyroidism Take 1 Tablet (150 mcg) by mouth before breakfast. 28 Tablet 06/11/19 25 Active melatonin 3 mg tabletIndications :Insomnia, idiopathic Take 1 Tablet (3 mg) by mouth at bedtime. 90 Tablet 3 06/11/19 25 Active tamsulosin 0.4 mg capsuleIndication s:BPH without urinary obstruction TAKE 1 CAPSULE BY MOUTH DAILY 30 MINUTES AFTER THE SAME MEAL EACH DAY *SWALLOW WHOLE* 28 Capsule 06/11/19 25 Active ibuprofen (ADVIL; MOTRIN) 600 mg tabletIndications :Pain TAKE 1 TABLET BY MOUTH EVERY 8 HOURS NEEDED FOR PAIN OR TEMP >101.5F (38.6C) 100 Tablet 07/14/19 25 Active zulvqeno-lge-hpjb fum-folic ac (Thera-M) 19 mg iron- 400 mcg tabIndications:Nu tritional deficiency TAKE 1 TABLET BY MOUTH DAILY 90 Tablet 2 08/21/19 25 Active albuterol 0.083% (2.5 mg/3 mL) neb solutionIndicatio ns:Bronchiectasis without complication (HC) Inhale 3 mL (2.5 mg) via a nebulizer two times daily. 90 mL 12 08/25/19 25 Active nicotine 2 mg lozengeIndication s:Tobacco abuse Place 1 Lozenge (2 mg) in mouth, between cheek & gum every hour while awake as needed for Nicotine Craving. 200 Lozenge 10/07/19 25 Active sodium chloride (Deep Sea Nasal [place]) 0.65 % nasal solutionIndicatio ns:Epistaxis,Nasa l crusting ADMINISTER 2 SPRAYS IN AFFECTED NOSTRIL(S) EVERY 6 HOURS 44 mL 10/18/19 25 Active Prevail UnderwearIndicati ons:Urinary incontinence, unspecified type USE DIRECTED 144 Each 10/21/19 25 Active divalproex (DEPAKOTE) 250 mg Delayed-Release tablet Take 250 mg by mouth at bedtime. Take with 1,000 mg for a total dose of 1,250 mg hs Active OLANzapine (ZYPREXA) 5 mg tablet Take 5 mg by mouth at bedtime. Active acetaminophen (TYLENOL) 325 mg tablet Take 325-650 mg by mouth every 4 hours if needed for Pain. 01/20/20 25 Active clonazePAM (KLONOPIN) 1 mg tablet Take 1 mg by mouth at bedtime. 01/02/20 25 Active polyethylene glycol (Miralax) 17 g per packet packet Mix 1 Packet in liquid then take by mouth two times daily. Active clonazePAM (KLONOPIN) 0.5 mg tablet Take 0.5 mg by mouth at bedtime if needed for Sleep. Active sennosides (Senna) 8.6 mg tablet Take 8.6 mg by mouth two times daily. Active oxyCODONE (ROXICODONE) 5 mg immediate release tabletIndications :Carotid artery stenosis, symptomatic, left Take 1 Tablet (5 mg) by mouth every 6 hours if needed for Pain. 10 Tablet 5 1:49 PM CDT 01/31/20 25 Active clopidogreL (PLAVIX) 75 mg tabletIndications :Carotid artery stenosis, symptomatic, left Take 1 Tablet (75 mg) by mouth once daily in the morning. 90 Tablet 02/05/20 25 Active rosuvastatin (CRESTOR) 40 mg tabletIndications :Carotid artery stenosis, symptomatic, left Take 1 Tablet (40 mg) by mouth at bedtime. 90 Tablet 3 02/05/20 25 Active aspirin chewable 81 mg tabletIndications :Carotid artery stenosis, symptomatic, left Chew 1 Tablet (81 mg) by mouth once daily with a meal. 90 Tablet 3 02/05/20 25 Active acetaminophen (TYLENOL EXTRA STRGTH) 500 mg tabletIndications :Abscess of middle lobe of right lung without pneumonia (HC) [The details of the medication are not available because there are pending changes by a home health clinician.] 09/13/19 23 2024 Discontinued (*Medication adjustment) clonazePAM (KLONOPIN) 0.5 mg tabletIndications :Schizoaffective disorder, bipolar type (HC) Take 1 Tablet (0.5 mg) by mouth once daily if needed for Anxiety. 10 Tablet 09/13/19 23 2024 Discontinued (Pharmacist change per medication history (E-cancel not sent)) polyethylene glycoL (MIRALAX) 17 gram/scoop powderIndications :Drug-induced constipation Take 1 scoop (17 g) by mouth or nasogastric tube once daily if needed for Constipation. 507 g 11 06/10/19 24 2024 Discontinued (Pharmacist change per medication history (E-cancel not sent)) sennosides-docusa te (Stimulant Laxative Plus) (8.6-50 mg) tabletIndications :Chronic constipation TAKE 1 TABLET BY MOUTH TWICE DAILY 180 Tablet 1 10/15/19 25 2024 Discontinued (Pharmacist change per medication history (E-cancel not sent)) clonazePAM (KLONOPIN) 0.5 mg tablet Take 0.5 mg by mouth at bedtime if needed for Sleep. 2024 Discontinued (Pharmacist change per medication history (E-cancel not sent)) aspirin chewable 81 mg tabletIndications :Carotid artery stenosis, symptomatic, left Chew 1 Tablet (81 mg) by mouth once daily with a meal. 30 Tablet 01/15/20 25 2024 Discontinued (Reorder (E-cancel not sent)) clopidogreL (PLAVIX) 75 mg tabletIndications :Carotid artery stenosis, symptomatic, left Take 1 Tablet (75 mg) by mouth once daily in the morning. 30 Tablet 01/15/20 25 2024 Discontinued (Reorder (E-cancel not sent)) rosuvastatin (CRESTOR) 40 mg tabletIndications :Carotid artery stenosis, symptomatic, left Take 1 Tablet (40 mg) by mouth at bedtime. 30 Tablet 01/15/20 25 2024 Discontinued (Reorder (E-cancel not sent)) acetaminophen (TYLENOL) 325 mg tablet Take 325 mg by mouth every 6 hours if needed for Pain. Take 1 to 2 tabs every 4 to 6 hours as needed for pain. Do no exceed 4000 MG in 24 hours. 01/20/20 25 2024 Discontinued (*Patient states no longer taking) Active Problems Problem Noted Date Diagnosed Date Iron deficiency anemia 02/03/2025 TIA involving left internal carotid artery 01/29 Carotid artery stenosis, symptomatic, left: Sten t 01/30/25 01/13/2025 Lung nodules 06/18/2024 Overview (06/19/2024): 06/18/24- Lung CT- Lung RAD 4A with a new 6mm nodule in the MARIFER and a new 4mm nodule in the RLL. Pt was referred to [facility] lung nodule clinic Need for dental care 09/04/2022 Lung abscess 09/02/2022 Infection due to species of Streptococcus pickering i group 09/02/2022 Secondary parkinsonism, unsp ecified secondary Parkinsonism type 06/22/2021 COPD (chronic obstructive pulmonary disease) Myopia of both eyes with astigmatism and presbyo sandra 08/14/2017 Bilateral sensorineural hearing loss 02/19/2014 Esophageal reflux 05/28/2012 Benign essential HTN 02/08/2011 Hypothyroid 11/29/2008 Schizoaffective disorder, bipolar type Overview (05/01/2017): Scooby has had over 15 mental health hospitalizations and was committed to [facility] in 2009. 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 Therapeutic depakote trial not effective. -Doing outpatient ECT @ [facility] -You you seeing Manny Katz in therapy at [facility] . His phone number is [phone]. [facility]spitalized at [facility] from 09/10-11/10/11 and received ECT during this hospitalization. Hospitalized at [facility] in May, for worsening depression and suicidal thoughts - feeling hopeless and having abnormal dreams. ECT being done every 6 weeks prior to hospitalization and pt seemed to decompensate from this. At his intake on 08/06/12, pt reported the following med trials: -Risperdal injections were ineffective -Clozaril - caused cardiac myositis -Prolixin injections - ineffective -Kennan - caused kidney function issues. *More details [...] in paranoia - he would see a [employer] 1 vehicle and he would think WWIII was [...] Problem Noted Date Diagnosed Date Resolved Date TIA (transient ischemic attack) 01/13/2025 02/03/2025 Stenosis of left carotid artery 01/13/2025 02/03/2025 Need for dental care 10/24/2022 024 Altered mental status 09/02/20222023 CKD (chronic kidney disease) stage 3, GFR 30-59 ml/min 10/14/2018 12/20/2022 Suicidal ideation 05/22/2016 05/15/2017 Personal history of alcoholism 08/06/2012 01/03/2021 Tobacco use disorder 12/10/2008 024 Schizoaffective disorder Schizoaffective disorder 10/2018 Schizoaffective disorder Encounters Date Type Department Care Team Description 02/15/2025 Telephone [facility] [address] [place] [address] Tony Hawkins MD Colonoscopy Scheduled / Needs Meds 02/15/2025 Telephone [facility] [address] [place] [address] Rex Connor MD Colorectal Cancer Screening (Positive Cologuard) 02/12/2025 Orders Only [facility] [address] [place] [address] Rex Connor MD Lab 02/10/2025 3:15 PM CDT Home Care Visit [facility] [address] [place] [phone] Terry Cary, PT PT - HOME VISIT 02/03/2025 8:50 AM CDT Office Visit [facility] [address] [place] [address] Rex Connor MD Hospital F/U (ANW, 01/29/2025 - 01/30/2025, stent placement); Wrist Pain/problem (Left wrist pain and bruising); Constipation (2 to 3 days); Derm Problem (Irritation about left ear/Mark on bilateral ankle) 02/03/2025 Travel 02/02/2025 Refill [facility] [address] [place] [address] Rex Connor MD Refill Request (ROSUVASTATIN, CLOPIDOGREL, ASPIRIN LOW) 02/01/2025 12:30 PM CDT Home Care Visit [facility] [address] [place] [phone] Jessica Armstrong, PT PT - [facility] RESUMPTION OF CARE 02/01/2025 Telephone [facility] [address] [place] [address] Rex Connor MD Home Care (Orders/Severe Medication interactions) 02/01/2025 Patient Outreach [facility] [address] [place] [address] Hannah Roque, SUNNY Primary RN Care Management; Hospital F/U (Lace=51) 01/30/2025 Home Care Visit [facility] [address] [place] [phone] Jessica Armstrong, PT PT - OASIS TRANSFER 01/29/2025 11:19 AM CDT Anesthesia Event [facility] [address], [place] [address] Coby Frazier MD Busker, Carly J, TILE DESIGNER Student 01/29/2025 10:35 AM CDT - 01/29/2025 1:02 PM CDT Surgery [facility] [address] [place] [address] Donny Mcgee MD LEFT REVASCULARIZATION TRANS CAROTID ARTERY 01/29/2025 9:11 AM CDT - 01/30/2025 2:19 PM CDT Hospital Encounter [facility] [address] [place] [address] Donny Mcgee MD Carotid artery stenosis, symptomatic, left (Primary Dx) Discharge Disposition: Home Health 01/29/2025 Orders Only [facility] [address] [place] [address] Lexie Holguin NP <No scans attached> 01/29/2025 Travel 01/27/2025 12:00 PM CDT Home Care Visit [facility] [address] [place] [phone] Yessi Diaz, COUNSELING DIRECTOR PT - HOME VISIT 01/21/2025 2:15 PM CDT Home Care Visit [facility] [address] [place] [phone] Terry Cary, PT PT - HOME VISIT 01/19/2025 12:45 PM CDT Office Visit [facility] [address] [place] [address] Maine Abdi MD Hospital F/U (DOD 01/14/2025, [facility]) 01/19/2025 10:00 AM CDT Home Care Visit [facility] [address] [place] [address] Terry Cary, PT PT - OASIS START OF CARE 01/19/2025 Home Care Visit [facility] [address] [place] [address] Terry Cary, PT CARE COORDINATION 01/19/2025 Telephone [facility] [address] [place] [address] Terry Cary, PT Home Care 01/19/2025 Orders Only [facility] [address] [place] [address] Leyla Domingo PA <No scans attached> 01/19/2025 Travel 01/19/2025 Plan of Care Documentation [facility] [address] [place] [address] 01/19/2025 Telephone [facility] [address] [place] [address] Terry Cary, PT Home Care 01/15/2025 Telephone [facility] [address] [place] [address] Donny Mcgee MD Surgery Scheduled 01/15/2025 Patient Outreach [facility] [address] [place] [address] Christel Jean Baptiste RN Primary RN Care Management; Hospital F/U (LACE 45) 01/14/2025 Travel 01/13/2025 9:16 AM CDT - 01/14/2025 6:02 PM CDT Hospital Encounter [facility] [address] [place] [address] [facility] Of Ramon Gutierrez MD Residents, C1 Carotid artery stenosis, symptomatic, left (Primary Dx); Stenosis of left carotid artery; TIA (transient ischemic attack) Discharge Disposition: Home Health 01/12/2025 Orders Only [facility] Scanner 1 scan: (1-Ord) [facility], CT ANGIO NECK, 01/12/2025 01/12/2025 Orders Only [facility] Scanner 1 scan: (1-Ord) [facility], HEAD/BRAIN WO CON, 01/12/2025 01/12/2025 Office Visit [facility] [address] [place] [address] Ericka Mendenhall MD Telehealth ([facility] - Phone consult only / no video) 01/04/2025 Orders Only [facility] Scanner 1 scan: (1-Ord) [facility], CT CERVICAL SPINE WO CON, 01/04/2025 01/04/2025 Orders Only [facility] Scanner 1 scan: (1-Ord) [facility], CT HEAD/BRAIN WO CON, 01/04/2025 12/22/2024 Telephone [facility] [address] [place] [address] [facility] from Last 3 Months Immunizations Immunization Administration Dates Next Due AMB Influenza, IIV4 PF (=>6 mos Flulaval,Fluzone Fluarix)(Flu Clinic Only) 02/03/2018,02/22/2017 COVID-19 vaccine (Moderna 100mcg/0.5mL) PF, [facility] 06/30/2020,06/02/2020 COVID-19 vaccine (General Assembly-Bio NTech 30mcg/0.3mL) 12YO+ TANYA-SUCROSE PF, MDV 08/30/2021 [...] 30 Smokeless Tobacco: Never Tobacco Cessation:Counseling Given: No Comments:TIP 09/04/22 Alcohol Use Standard Drinks/Week Comments Not Currently 0 (1 standard drink = 0.6 oz pur e alcohol) previous history of ETOH PHQ-2 Answer Date Recorded PHQ-2 TOTAL SCORE 2 06/10/2023 Social Connections Answer Date Recorded Do you often feel lonely or isolated from those around you? 0 01/14/2025 Alcohol Use Answer Date Recorded How often do you have a drink containing alcohol ? 0 02/03/2025 Average Number of Drinks Not on file 025 Frequency of Binge Drinking Not on file 01/18 Financial Resource Strain Answer Date R ecorded Difficulty of Paying Living Expenses 2 06/11/2024 Difficulty of Paying Living Expenses 1 06/11/2024 Food Insecurity Answer Date Recorded Do you worry your food will run out before you are able to buy more? 1 01/14/2025 Transportation Needs Answer Date Record ed Does lack of transportation keep you from medica l appointments? 2 01/14/2025 Does lack of transportation keep you from work, meetings or getting things that you need? 2 01/14/2025 Housing Stability Answer Date Recorded What is your housing situation today? 1 01/14/2025 Interpersonal Safety Answer Date Record ed Are you being hit, kicked, p ushed or yelled at (see row info)? No 01/14/2025 Interpersonal Safety Abuse 12 - 18 Not on file 01/14/2025 Interpersonal Safety Ambulatory Vulnerability No t on file 01/14/2025 Utilities Answer Date Recorded Do you have trouble paying f or utilities (for example, heat, electricity, water, phone)? 1 01/14/2025 Sex and Gender Information Value Date Recorded Sex Assigned at Male 08/04/2024 11:14 AM CDT Legal Sex Male 7:21 AM SWIMMER Gender Identity Male 08/04/2024 11:14 AM CDT Sexual Orientation Not on file Occupation Industry Job Start Date Job End Date PROACT Not on file Not on file Not on file Not on file Not on file Not on file Not on file Obstetrics History Last Filed Vital Signs Vital Sign Reading Time Taken Comments Blood Pressure 120/86 02/10/2025 3:41 PM CDT Pulse 100 02/10/2025 3:41 PM CDT Temperature 36.1 C (97 F) 02/10/2025 3:41 PM CDT Respiratory Rate 18 02/10/2025 3:41 PM CDT Oxygen Saturation 96% 02/10/2025 3:41 PM CDT Inhaled Oxygen Concentration - - Weight 81.7 kg (180 lb 3.2 oz) 02/03/2025 8:54 A M CDT Height 174 cm (5' 8.5) 02/03/2025 8:54 AM CDT Body Mass Index 27 02/03/2025 8:54 AM CDT Plan of Treatment Upcoming Encounters Date Type Department Care Team (Late st Contact Info) Description 02/17/2025 3:00 AM CDT Appointment [facility] [address] [place] [address] Terry Cary, PT [address] [place] [address] 02/17/2025 9:45 AM CDT Orders Only [facility] [address] [place] [address] Lab, Farm 02/24/2025 1:10 PM CDT Hospital Encounter [facility] [address] [place] [address] Tony Hawkins MD [address] [place] [address] 02/24/2025 1:10 PM CDT - 02/24/2025 1:50 PM CDT Surgery [facility] [address] [place] [address] Tony Hawkins MD [address] [place] [address] COLONOSCOPY 03/09/2025 2:00 PM CDT Appointment [facility] [address] [place] [address] 03/09/2025 3:00 PM CDT Office Visit [facility] [address] [place] [address] Donny Mcgee MD [address] [facility] [address] [place] [address] Scheduled Procedures Name Priority Associated Diagnoses Date/Ti me COLONOSCOPY Positive colorectal cancer screening using DNA-based stool test 02/24/2025 1:10 PM CDT Health Maintenance Due Date Last Done Comments Depression screening for age 12+ 1967 Colonoscopy through age 75 07/17/201301/15 (Completed outside of [facility]) Tetanus booster 04/20/2021 04/20/2011 Zoster (shingles) series for age 50+ (3 of 3) 03/10/2022 01/13/2022, 01/26/2015 Medicare Wellness for age 65+ 06/10/2024 06/10/2023, 08/27/2018, 05/31/2017 COVID-19 vaccine series (2023- season) 2025 02/25/2024, 08/29/2023, 03/04/2023, Additional history exists Influenza Vaccine (#1) 2025 , 03/27/2021, 02/19/2020, Additional history exists Low Dose CT (for lung CA) age 50-80 06/18/2025 06/18/2024, 11/19/2022, 06/28/2021 BMI (ht and wt on same day) for age 18+ 02/03/2026 02/03/2025, 08/04/2024, 06/11/2024, Additional history exists Lipids for age 45-75 01/13/2030 01/13/2025, 08/29/2022, 01/10/2021, Additional history exists Hepatitis C screening for age 18-79 Completed 06/25/2019 AAA screening age 65-74 Completed 06/28/2021, 02/13 Pneumococcal series for age 50+ Completed 08/30/2021, 05/31/2017, 03/10/2009 RSV vaccine for adults or Completed 08/06/2023 Hepatitis B series for 19+ Aged Out N o longer eligible based on patient's age to complete this topic Goals Goal Patient Goal Type Associated Problems Recent Progress Patient-Stated? Author Autogenerat ed Goal Care Plan Autogenerated Problem No Marie Chapman Procedures Procedure Name Priority Date/Time Associated Diagnosis Comments SDNA-FIT EXTERNAL (COLOGUARD) Routine 02/08/2025 2:30 PM CDT Screening for colorectal cancer OCCULT BLOOD IFOBT STOOL Routine 02/08/2025 12:00 PM CDT Screening for colon cancer BASIC METABOLIC PANEL Early AM 01/30/2025 6:57 AM CDT CBC W PLT NO DIFF Early AM 01/30/2025 6:57 AM CDT SCAN-CARDIAC STRIP 01/30/2025 3:27 AM CDT HCHG ACTIVATED CLOTTING TM CV Timed 01/29/2025 12:20 PM CDT HCHG KIT PR5 Routine 01/29/2025 12:11 PM CDT HCHG DRSG PR5 Routine 01/29/2025 12:11 PM CDT HCHG DRSG PR1 Routine 01/29/2025 12:11 PM CDT HCHG TUBING PR20 Routine 01/29/2025 12:11 PM CDT HCHG TUBING PR1 Routine 01/29/2025 12:11 PM CDT [facility] ANES ARTERIAL CATH FOR SAMPLE MONITOR TRANS Routine 01/29/2025 12:11 PM CDT H[facility]G ANES US GUIDE FOR VASC ACCESS Routine 01/29/2025 12:11 PM CDT HCHG CATH PR5 Routine 01/29/2025 12:11 PM CDT ENDOTRACHEAL TUBE Routine 01/29/2025 11:57 AM CDT ENDOTRACHEAL TUBE Routine 01/29/2025 11:57 AM CDT REVASCULARIZATION TRANS CAROTID ARTERY (TCAR) 01/29/2025 11:03 AM CDT symptomatic left carotid artery stenosis Case Notes LEFT REVASCULARIZATION TRANS CAROTID ARTERY *YASHIRA W/[facility]* EKG 12 LEAD Preop 01/29/2025 10:34 AM CDT TYPE & SCREEN Preop 01/29/2025 10:08 AM CDT P2Y12 INHIBITION Today 01/29/2025 10:08 AM CDT CBC W PLT NO DIFF Preop 01/29/2025 10:08 AM CDT EXTRA TUBE GOLD/SST Today 01/29/2025 10:07 AM CDT BASIC METABOLIC PANEL Preop 01/29/2025 10:07 AM CDT SCAN-CARDIAC STRIP 01/29/2025 12:00 AM CDT SCAN CORRESP-EKG RESULTS 01/14/2025 12:59 PM CDT SCAN CORRESP-LABORATORY RESULTS 01/14/2025 12:59 PM CDT BEDSIDE US STUDY ARCHIVE Routine 01/14/2025 11:13 AM CDT GLUCOSE METER Timed 01/14/2025 11:07 AM CDT ECHO TTE COMPLETE W CONTRAST Routine 01/14/2025 10:41 AM CDT GLUCOSE METER Timed 01/14/2025 6:26 AM CDT SCAN-CARDIAC STRIP 01/14/2025 12:35 AM CDT MR HEAD BRAIN WO Routine 01/13/2025 9:18 PM CDT GLUCOSE METER Timed 01/13/2025 9:17 PM CDT GLUCOSE METER Timed 01/13/2025 5:02 PM CDT GLUCOSE METER Timed 01/13/2025 1:15 PM CDT SCAN-CARDIAC STRIP 01/13/2025 11:25 AM CDT BASIC METABOLIC PANEL VERONICA 01/13/2025 11:09 AM CDT HEMOGLOBIN Today 01/13/2025 11:09 AM CDT PLATELET COUNT Today 01/13/2025 11:09 AM CDT HEMOGLOBIN A1C Today 01/13/2025 11:09 AM CDT LIPID PANEL Today 01/13/2025 11:09 AM CDT SCAN-CT INTERPRETATION 5 12:00 AM CDT SCAN-CT INTERPRETATION 5 12:00 AM CDT SCAN-CT INTERPRETATION 5 12:00 AM CDT SCAN-CT INTERPRETATION 5 12:[address] CHEST SCREENING LOW DOSE WO CONTRAST Routine 06/18/2024 2:03 PM SWIMMER Personal history of nicotine dependence CT CHEST ABDOMEN PELVIS W Routine 06/28/2021 12:22 PM SWIMMER Weight loss ANTI HCV Routine 06/25/2019 8:36 AM SWIMMER Need for hepatitis C screening test from Last 3 Months or Most Recently Relevant to Health Maintenance Results * (ABNORMAL) SDNA-FIT EXTERNAL (COLOGUARD) [[id number]] (02/08/2025 2:30 PM CDT) NONINV COLON CA DNA+OCC BLD SCRN STL-IMP Positive( A) Negative 02/13/2025 4:12 AM CDT [facility] (CLIA #:[id number]) Comment: The Cologuard Plus (TM) test was performed on this specimen. POSITIVE TEST RESULT. A positive (abnormal) Cologuard Plus result means the patient has a [id number] chance of having colorectal cancer (CRC) or precancer (polyps or lesions that could become cancer). The normal value (reference range) for this assay is negative. A positive result should be followed by a colonoscopy to locate and confirm the presence of cancer or precancer. A positive Cologuard Plus result is not a cancer diagnosis. The federal government now considers the colonoscopy following a positive Cologuard Plus test result a covered preventive service. Call for more information. A clinical validation study measured the effectiveness of the Cologuard Plus test. Out of 100 patients testing positive: approximately 3 patients will have CRC; 34 patients will have advanced precancer; 33 will have a non-advanced precancer; and 30 will have no cancer or precancer. TEST DESCRIPTION: The Cologuard Plus test is a multi-target stool DNA (mt-sDNA) test that analyzes DNA and hemoglobin biomarkers in stool. It uses a proprietary algorithm to qualitatively detect CRC and advanced precancer. It is FDA-approved and indicated for use in adults 45 years or older at average risk for CRC. A positive (abnormal) result should be followed by a colonoscopy. Patients with a negative (normal) result should screen again in 3 years. False positive and false negative results may occur. The USPSTF recommends the Cologuard test as a CRC screening option. Their modeling estimates that screening with the test every 3 years from ages 45-85 could prevent up to 73% of CRC and avoid up to 85% of CRC deaths. A 18,911-patient clinical trial found the Cologuard Plus test effectively detects CRC and precancer. The study found the test was 95% sensitive for CRC, 43% sensitive for advanced precancer, and had a 91% specificity (Cologuard Plus Clinician Brochure. [employer]. [place], [place].). Visit [email or web address] for more test information, references, warnings, and precautions. Stool specimen (specimen) (Rectum) 02/08/2025 2:30 PM CDT 02/10/2025 9:51 AM CDT Rex Connor MD URINE Final Result [facility] (CLIA #:[id number]) [address] [place] [address], * OCCULT BLOOD IFOBT STOOL (02/08/2025 12:00 PM CDT) STOOL BLOOD ,IFOBT Negative Negative 02/15/2025 3:10 PM CDT [facility] Stool STOOL SPECIMEN / Unknown Non-Blood / Unknown 02/08/2025 12:00 PM CDT 02/12/2025 9:19 PM CDT us Rex Connor MD LABORATORY Final Result [facility] [address] [place] [address], * (ABNORMAL) CBC W PLT No DIFF (01/30/2025 6:57 AM CDT) Only the most recent of2 resultswithin the time period is included. WHITE BLOOD COUNT 7.0 4.5 - 11.0 thou/cu mm 01/30/2025 7:34 AM CDT [facility] RED BLOOD COUNT 3.06(L) 4.30 - 5.90 mil/cu mm 01/30/2025 7:34 AM CDT [facility] HEMOGLOBIN 9.3(L) 13.5 - 17.5 g/dL 01/30/2025 7:34 AM CDT [facility] HEMATOCRIT 29.6(L) 37.0 - 53.0 % 01/30/2025 7:34 AM CDT [facility] MCV 97 80 - 100 fL 01/30/2025 7:34 AM CDT [facility] MCH 30.4 26.0 - 34.0 pg 01/30/2025 7:34 AM CDT [facility] MCHC 31.4(L) 32.0 - 36.0 g/dL 01/30/2025 7:34 AM CDT [facility] RDW 14.1 11.5 - 15.5 % 01/30/2025 7:34 AM CDT [facility] PLATELET COUNT 160 140 - 440 thou/cu mm 01/30/2025 7:34 AM CDT [facility] MPV 9.9 6.5 - 11.0 fL 01/30/2025 7:34 AM CDT [facility] NRBC 0.0 % 01/30/2025 7:34 AM CDT [facility] ABS NRBC 0.0 thou /cu mm 01/30/2025 7:34 AM CDT [facility] Blood BLOOD SPECIMEN / Unknown Venipuncture / Unknown 01/30/2025 6:57 AM CDT 01/30/2025 7:23 AM CDT us Michael Kang MD HEMATOLOGY Final Result [facility] [address] [place] [address], * (ABNORMAL) Basic Metabolic Panel (01/30/2025 6:57 AM CDT) Only the most recent of3 resultswithin the time period is included. SODIUM 139 136 - 145 mmol/L 01/30/2025 7:50 AM CDT [facility] POTASSIUM 4.5 3.5 - 5.1 mmol/L 01/30/2025 7:50 AM CDT [facility] CHLORIDE 105 98 - 107 mmol/L 01/30/2025 7:50 AM CDT [facility] CO2,TOTAL 24 22 - 29 mmol/L 01/30/2025 7:50 AM CDT [facility] ANION GAP 10 5 - 18 01/30/2025 7:50 AM CDT [facility] GLUCOSE 96 70 - 99 mg/dL 01/30/2025 7:50 AM CDT [facility] CALCIUM 9.1 8.8 - 10.4 mg/dL 01/30/2025 7:50 AM T [facility] Comment: Reference ranges for this test were updated on 03/24/2024 to reflect our healthy population more accurately. Reference range changes are not retroactively applied to results, but previous results using the same methodology can be interpreted in the context of the new reference range. BUN 21 8 - 23 mg/dL 01/30/2025 7:50 AM CDT [facility] CREATININE 1.22(H) 0.70 - 1.20 mg/dL 01/30/2025 7:50 AM CDT [facility] BUN/CREAT RATIO 17 10 - 20 7:50 AM CDT [facility] eGFR 64(L) >90 mL/min/1. 73m2 01/30/2025 7:50 AM CDT [facility] Comment:As of 2021, eG FR is calculated by the CKD-EPI creatinine equation without race adjustment. eGFR can be influenced by muscle mass, exercise, and diet. The reported eGFR is an estimation only and is only applicable if the renal function is stable. Blood BLOOD SPECIMEN / Unknown Venipuncture / Unknown 01/30/2025 6:57 AM CDT 01/30/2025 7:22 AM CDT us Michael Kang MD CHEMISTRY Final Result Performing Organization Address [facility]/ZIP Co de Phone Number [facility] [address] [place] [id number], [place] * SCAN-CARDIAC STRIP (01/30/2025 3:27 AM CDT) us Scanner OTHER Final Result * (ABNORMAL) ACTIVATED CLOTTING TIME [id number] ACT (01/29/2025 12:20 PM CDT) [employer] Signature ACTIVATED CLOTTING TIME, POCT 292(H) 74 - 125 sec 01/29/2025 1:39 PM CDT [facility] Blood BLOOD SPECIMEN / Unknown 01/29/2025 12:20 PM CDT 01/29/2025 1:39 PM CDT us Donny Mcgee MD HEMATOLOGY Final Result [facility] [address] [place] [address], [place] * HCHG CATH PR5, HCHG ANES US GUIDE FOR VASC ACCESS, HCHG ANES ARTERIAL CATH FOR SAMPLE MONITOR TRANS, HCHG TUBING PR1, HCHG TUBING PR20, HCHG DRSG PR1, HCHG DRSG PR5, HCHG KIT PR5 (01/29/2025 12:11 PMCDT) Narrative Coby Frazier MD - 01/29/2025 12:11 PM CDT Coby Frazier MD 01/29/2025 12:12 PM Arterial Line Patient location during procedure: pre-op Indications: lab sampling and monitoring Staffing Preanesthetic Checklist Completed: patient identified, risks and benefits discussed, consent obtained and timeout performed Arterial Line Patient position: supine. Comment:. Laterality: left Site: radial Local Anesthetic: lidocaine 1%. Ultrasound guidance: ultrasound permanent image saved. Needle localization (ultrasound): no pathologic findings, selected vessel patent, anatomically normal, potential access sites evaluated and needle visualized entering selected vessel. Securement/dressing: Biopatch applied, dressing applied. Comment: Needle Catheter size: 20 G. Comment:. Catheter length: 4.5 cm. Comment: Events: no complications. Coby Frazier MD ANESTHESIA PX NOTE ORDMikel DE LA PAZ Final Result * HCHG TUBE PR1, HCHG STYLET PR1 (01/29/2025 11:57 AM CDT) Keshawn Meyer CRNA - 01/29/2025 11:57 AM CDKeshawn Beck CRNA 01/29/2025 11:57 AM Procedure: ETT Patient location during procedure: OR ETT Properties Mask Ventilation: oral airway Final Technique: direct laryngoscopy Type: straight Location: oral Tube Size: 7.5 mm Stylet: yes Laryngoscope Blade: Pickering Blade Size: 2 Cormack-Lehane Grade View: 1 Insertion Attempts: 1 Placement Verification: auscultation, end tidal CO2 and symmetrical chest wall movement Assessment: pharynx clear, atraumatic and dentition unchanged Secured at: 22 Measured From: gums Difficulty: 0 (not difficult) us Coby Frazier MD ANESTHESIA PX NOTE ZACHARY DE LA PAZ Final Result * EKG (01/29/2025 10:34 AM CDT) Interpretation Normal sinus rhythm Normal ECG When compared with ECG of 13-Sep-2018 10:47, No significant change was found BEYOND NOW Ventricular Rate 75 BPM BEYOND NOW Atrial Rate 75 BPM BEYOND NOW P-R Interval 150 ms BEYOND NOW QRS Duration 92 ms BEYOND NOW QT 374 ms BEYOND NOW QTc 417 ms BEYOND NOW P Chandler 67 degrees BEYOND NOW R Chandler 10 degrees BEYOND NOW T Chandler 55 degrees BEYOND NOW 01/29/2025 10:3 4 AM CDT 01/29/2025 8:49 PM CDT Narrative BEYOND NOW - 01/29/2025 8:49 PM CDT Test Indication: preop Vannesataylor Ferrer Patricia PA EKG ORD Fin al Result BEYOND NOW [place], [place] * (ABNORMAL) P2Y12 INHIBITION (01/29/2025 10:08 AM CDT) Pathologist [facility] PLATELET COUNT 188 140 - 440 thou/cu mm 01/29/2025 10:54 AM CDT [facility] P2Y12 REACTION UNITS 59 01/29/2025 10:54 AM CDT [facility] Comment: Reference Range: Individuals on P2Y12 inhibition therapy: <208 PRU PRU response seen in patients not on P2Y12 inhibitor medications (mean +/- 2SD): 180-376 PRU It is important to note that the reference range among cardiac patients not exposed to P2Y12 inhibitors is quite broad (180-376 PRU). Published studies suggest that achieving a value of <208 PRU for cardiology patients receiving anti-platelet therapy is associated with a lower risk of thrombotic events. There is currently no known optimal therapeutic target PRU values. PRU targets to assess drug withdrawal in pre-surgical patients have not been established. References: 1. García Burk, Leonor Mccloud, Teedward P, et al. Platelet Reactivity and Cardiovascular Outcomes after Percutaneous Coronary Intervention. Circulation. 2011;124:1132- 1137. 2. Reginald Mccloud, Tia Fraser, Clayton L, et al. Bleeding and stent thrombosis on [id number]: collaborative analysis on the role of platelet reactivity for risk stratification after percutaneous coronary intervention. Heart Journal. 2015; 36:4871-1020. 3. Reginald Mccloud, Salazar RF, Cosmo brasher A, et al. Expert position paper on the role of platelet function testing in patients undergoing percutaneous coronary intervention. Heart Journal. 2014;35(4):209-215. HEMATOCRIT 35.0(L) 37.0 - 53.0 % 01/29/2025 10:54 AM CDT [facility] Blood BLOOD SPECIMEN / Unknown Venipuncture / Unknown 01/29/2025 10:08 AM CDT 01/29/2025 10:43 AM CDT Narrative [facility] - 01/29/2025 10:54 AM CDT OBTAIN BLOOD COLLECTION TUBES FROM THE LABORATORY. Vannesa HEART SEND OUTS Fin al Result [facility] [address] [place] [address], * Type and Screen (01/29/2025 10:08 AM CDT) Pathologist [facility] ABORH B Rh Positive 01/29/2025 11:09 AM CDT [facility] ANTIBODY SCREEN Negative Negative 01/29/2025 11:09 AM CDT [facility] SPECIMEN EXPIRATION DATE/TIME 02/01/25 23:59 01/29/2025 11:09 AM CDT [facility] Blood BLOOD SPECIMEN / Unknown Non-Lab Venipuncture / Unknown 01/29/2025 10:08 AM CDT 01/29/2025 10:23 AM CDT Vannesa HEART BLOOD BANK Fin al Result [facility] [address] [place] [address], [place] [phone] * EXTRA TUBE GOLD/SST (01/29/2025 10:07 AM CDT) Blood BLOOD SPECIMEN / Unknown Non-Lab Venipuncture / Unknown 01/29/2025 10:07 AM CDT 01/29/2025 10:24 AM CDT Donny Mcgee MD LABORATORY Final Result [facility] [address] [place] [id number], [place] * SCAN-CARDIAC STRIP (01/29/2025 12:00 AM CDT) Narrative 01/29/2025 12:00 AM CDT Ordered by an unspecified provider. us Other Clinical Staff OTHER Final Resul t * SCAN CORRESP-LABORATORY RESULTS (01/14/2025 12:59 PM CDT) Narrative 01/14/2025 12:59 PM CDT Ordered by an unspecified provider. us Other Clinical Staff OTHER Final Resul t * SCAN CORRESP-EKG RESULTS (01/14/2025 12:59 PM CDT) Narrative 01/14/2025 12:59 PM CDT Ordered by an unspecified provider. us Other Clinical Staff OTHER Final Resul t * GLUCOSE METER (01/14/2025 11:07 AM CDT) Only the most recent of5 resultswithin the time period is included. [facility] GLUCOSE METER 97 65 - 100 mg/dL 01/14/2025 11:13 AM CDT [facility] Blood BLOOD SPECIMEN / Unknown 01/14/2025 11:07 AM CDT 01/14/2025 11:12 AM CDT Ramon Gutierrez MD CHEMISTRY Final R esult [facility] [address] [place] [id number], [place] * ECHO TTE COMPLETE W CONTRAST (01/14/2025 10:41 AM CDT) AORTIC VALVE MEAN PG 6 mmHg EJECTION FRACTION 64 % PEAK TR VELOCITY 2.5 m/s LVEDD 4.1 cm Anatomical Region Laterality Modality Ultrasound 01/14/2025 9:27 AM CDT Narrative 01/14/2025 1:14 PM CDT ECHOCARDIOGRAM SCOOBY MERINO : 1955 69 years Study Date: 01/14/2025 9:27:18 AM Gender: M BP: 147/82 mmHg Height: 180.00 cm BSA: 2.07 m Weight: 87.00 kg Tech: Referring MD: GODFREY FINCH Site: [facility] [place] Location: ANW IP Patient Location: Inpatient. Procedure: 2D w/ Contrast, Color Doppler and Spectral Doppler. Indication for study: Cerebral Thrombosis Cardiac Rhythm: Normal sinus.Study quality: Fair. Final Impressions: 1. Normal left ventricular size, normal wall thickness, normal global systolic function, calculated EF of 64 %. 2. Right ventricular cavity size is normal, global systolic RV function is normal. 3. No significant valve disease detected. 4. The inferior vena cava is normal sized, respiratory size variation less than 50%. 5. No pericardial effusion. 6. Echo contrast was administered to enhance visualization of all left ventricular segments. Chamber Sizes and Function Normal left ventricular size, normal wall thickness, normal global systolic function, calculated EF of 64 %. No resting regional wall motion abnormality visualized. Left atrial size is normal. Right ventricular cavity size is normal, global systolic RV function is normal. RV wall thickness is normal. The right atrium is normal. Right atrial volume index is 22 ml/m . The pulmonary artery is of normal size and origin. The sinus of Valsalva is normal sized. The ascending aorta is normal sized. Valves, RV Pressures and Diastolic Function The aortic valve is normal in structure and trileaflet, no stenosis and no regurgitation. The mitral valve is normal in structure, no mitral regurgitation. Spectral Doppler shows Grade 1 pattern of LV diastolic filling. The tricuspid valve is normal in structure, mild tricuspid regurgitation. The tricuspid regurgitant velocity is 2.5 m/s, the estimated right ventricular systolic pressure is 24 mmHg plus right atrial pressure. The pulmonic valve is normal. No pulmonary regurgitation. Masses, Effusion, Shunts There is no pericardial effusion. The inferior vena cava is normal sized, respiratory size variation less than 50%. No left to right shunting was detected by limited color flow Doppler interrogation of the interatrial septum. MEASUREMENTS AND CALCULATIONS 2-D Measurements and LV Function: LVID (d) 4.1 cm Planimetered EF 64 % LVID (s) 2.1 cm LV FS% (2D) 48 % IVS (d) 1.0 cm LVOT diameter 2.0 cm LVPW (d) 1.2 cm HR 99 bpm Ao Sinus 3.6 cm RA Vol index 22 ml/m2 Ao Sinus ULN 4.2 cm RV Basal Diam 3.1 cm Asc Ao 3.3 cm Asc Ao ULN 4.2 cm Diastology: Mitral Tissue Doppler E Peak 0.6 m/s e', Septum 0.11 m/s A Peak 0.9 m/s e', Lateral 0.13 m/s E/A 0.7 E/e' Average 5.33 DT 128 msec Aortic Valve: Vmax 1.6 m/s NABOR (V) 2.79 cm VTI 0.28 m NABOR (I) 3.07 cm LVOT V max 1.4 m/s Max PG 10 mmHg LVOT VTI 0.27 m Mean PG 6 mmHg SV 86 ml Dim Index 0.98 SV index 42 ml/m CO 8.5 l/min CI 4.1 l/min/m Mitral Valve: MVA 5.9 cm MV P 1/2 37 msec Tricuspid Valve and estimated PA pressures: TR Vmax 2.5 m/s TR maxG 24 mmHg Contrast documentation: 2 ml diluted Definity, lot #[id number], [facility]# [id number] was administered peripherally to enhance visualization of all left ventricular segments. . This study was interpreted by an [facility] accredited facility. Final Procedure Note Bryce Pierce MD - 01/14/2025 ECHOCARDIOGRAM SCOOBY MERINO : 1955 69 years Study Date: 01/14/2025 9:27:18 AM Gender: M BP: 147/82 mmHg Height: 180.00 cm BSA: 2.07 m Weight: 87.00 kg Tech: Referring MD: GODFREY FINCH Site: [facility] [place] Location: W Patient Location: Inpatient. Procedure: 2D w/ Contrast, Color Doppler and Spectral Doppler. Indication for study: Cerebral Thrombosis Cardiac Rhythm: Normal sinus.Study quality: Fair. Final Impressions: 1. Normal left ventricular size, normal wall thickness, normal globalsystolic function, calculated EF of 64 %. 2. Right ventricular cavity size is normal, global systolic RV functionis normal. 3. No significant valve disease detected. 4. The inferior vena cava is normal sized, respiratory size variationless than 50%. 5. No pericardial effusion. 6. Echo contrast was administered to enhance visualization of all leftventricular segments. Chamber Sizes and Function Normal left ventricular size, normal wall thickness, normal globalsystolic function, calculated EF of 64 %. No resting regional wall motionabnormality visualized. Left atrial size is normal. Right ventricularcavity size is normal, global systolic RV function is normal. RV wallthickness is normal. The right atrium is normal. Right atrial volume indexis 22 ml/m . The pulmonary artery is of normal size and origin. The sinusof Valsalva is normal sized. The ascending aorta is normal sized. Valves, RV Pressures and Diastolic Function The aortic valve is normal in structure and trileaflet, no stenosis and noregurgitation. The mitral valve is normal in structure, no mitralregurgitation. Spectral Doppler shows Grade 1 pattern of LV diastolicfilling. The tricuspid valve is normal in structure, mild tricuspidregurgitation. The tricuspid regurgitant velocity is 2.5 m/s, theestimated right ventricular systolic pressure is 24 mmHg plus right atrialpressure. The pulmonic valve is normal. No pulmonary regurgitation. Masses, Effusion, Shunts There is no pericardial effusion. The inferior vena cava is normal sized,respiratory size variation less than 50%. No left to right shunting wasdetected by limited color flow Doppler interrogation of the interatrialseptum. MEASUREMENTS AND CALCULATIONS 2-D Measurements and LV Function: LVID (d) 4.1 cm Planimetered EF 64 % LVID (s) 2.1 cm LV FS% (2D) 48 % IVS (d) 1.0 cm LVOT diameter 2.0 cm LVPW (d) 1.2 cm HR 99 bpm Ao Sinus 3.6 cm RA Vol index 22 ml/m2 Ao Sinus ULN 4.2 cm RV Basal Diam 3.1 cm Asc Ao 3.3 cm Asc Ao ULN 4.2 cm Diastology: Mitral Tissue Doppler E Peak 0.6 m/s e', Septum 0.11 m/s A Peak 0.9 m/s e', Lateral 0.13 m/s E/A 0.7 E/e' Average 5.33 DT 128 msec Aortic Valve: Vmax 1.6 m/s NABOR (V) 2.79 cm VTI 0.28 m NABOR (I) 3.07 cm LVOT V max 1.4 m/s Max PG 10 mmHg LVOT VTI 0.27 m Mean PG 6 mmHg SV 86 ml Dim Index 0.98 SV index 42 ml/m CO 8.5 l/min CI 4.1 l/min/m Mitral Valve: MVA 5.9 cm MV P 1/2 37 msec Tricuspid Valve and estimated PA pressures: TR Vmax 2.5 m/s TR maxG 24 mmHg Contrast documentation: 2 ml diluted Definity, lot #[id number], [facility]#[id number] was administered peripherally to enhance visualization of allleft ventricular segments. . This study was interpreted by an [facility] accredited facility. Final us Godfery Finch MD ECHO ORD Final Resul t * SCAN-CARDIAC STRIP (01/14/2025 12:35 AM CDT) us Scanner OTHER Final Result * MR BRAIN WO CONTRAST (01/13/2025 9:18 PM CDT) Anatomical Region Laterality Modality BRAIN, HEAD Magnetic Resonan ce 01/13/2025 9:51 PM CDT Impressions 01/13/2025 9:51 PM CDT 1. No acute intracranial abnormality. Specifically, no evidence of acute ischemia. 2. Mild diffuse parenchymal volume loss and chronic small vessel ischemic changes. 3. Two punctate foci of susceptibility artifact in the left frontal lobe consistent with sequela of remote microhemorrhages. 4. Small CSF intensity arachnoid cyst at the anterior right middle cranial fossa. 5. Mild diffuse paranasal sinus mucosal thickening. Dictated by Kt Maher MD @ 01/13/2025 9:51:54 PM (Electronically Signed) Narrative 01/13/2025 9:51 PM CDT For Patients: As a result of the Cures Act, medical imaging exams and procedure reports are released immediately into your electronic medical record. You may view this report before your referring provider. If you have questions, please contact your health care provider. INDICATION: Stroke, follow-up. TECHNIQUE: Multisequence multiplanar MRI of the brain without the use of intravenous contrast. COMPARISON: None available. FINDINGS: No evidence of acute ischemia. Scattered foci of T2 prolongation within the supratentorial white matter, nonspecific, but typical of mild chronic small vessel ischemic changes. Two punctate foci susceptibility artifact in the frontal lobe (series 7 images 23-24). Mild diffuse parenchymal volume loss. Small CSF intensity arachnoid cyst at the right anterior middle cranial fossa. The ventricles are proportional to the sulci. Flow voids of the larger intracranial arteries are preserved. Normal calvarial bone marrow signal intensity. Symmetric globes. Mild diffuse paranasal sinus mucosal thickening. Procedure Note Gordon Maher MD - 01/13/2025 For Patients: As a result of the Cures Act, medical imagingexams and procedure reports are released immediately into your electronicmedical record. You may view this report before your referring provider.If you have questions, please contact your health care provider. INDICATION: Stroke, follow-up. TECHNIQUE: Multisequence multiplanar MRI of the brain without the use of intravenouscontrast. COMPARISON: None available. FINDINGS: No evidence of acute ischemia. Scattered foci of T2 prolongation withinthe supratentorial white matter, nonspecific, but typical of mild chronicsmall vessel ischemic changes. Two punctate foci susceptibility artifactin the frontal lobe (series 7 images 23-24). Mild diffuse parenchymal volume loss. Small CSF intensity arachnoid cystat the right anterior middle cranial fossa. The ventricles areproportional to the sulci. Flow voids of the larger intracranial arteriesare preserved. Normal calvarial bone marrow signal intensity. Symmetric globes. Milddiffuse paranasal sinus mucosal thickening. IMPRESSION: 1. No acute intracranial abnormality. Specifically, no evidence of acuteischemia. 2. Mild diffuse parenchymal volume loss and chronic small vessel ischemicchanges. 3. Two punctate foci of susceptibility artifact in the left frontal lobeconsistent with sequela of remote microhemorrhages. 4. Small CSF intensity arachnoid cyst at the anterior right middle cranialfossa. 5. Mild diffuse paranasal sinus mucosal thickening. Dictated by Kt Maher MD @ 01/13/2025 9:51:54 PM (Electronically Signed) Result [facility] Godfrey Finch MD MR Final Resul t * SCAN-CARDIAC STRIP (01/13/2025 11:25 AM CDT) Scanner OTHER Final Result * Hemoglobin A1C Screening (01/13/2025 11:09 AM CDT) HEMOGLOBIN A1C SCREENING 5.5 <=6.4 % 01/13/2025 3:23 PM CDT [facility] Blood BLOOD SPECIMEN / Unknown Butterfly / Unknown 01/13/2025 11:09 AM CDT 01/13/2025 11:19 AM CDT Narrative [facility] - 01/13/2025 3:23 PM CDT (<5.7%) Normal (5.7% to 6.4%) Indicates prediabetes (>=6.5%) Confirms diabetes Falsely low levels may be seen with: Recent Transfusion, Recent Significant Blood Loss, Hemolytic Diseases, or Falsely elevated levels may be seen with: Untreated Anemias, Splenectomy Result [facility] Godfrey Finch MD CHEMISTRY Final Resul t [facility] [address] [place] [address], [place] * PLATELET COUNT (01/13/2025 11:09 AM CDT) PLATELET COUNT 177 140 - 440 thou/cu mm 01/13/2025 11:55 AM CDT [facility] MPV 9.5 6.5 - 11.0 fL 01/13/2025 11:55 AM CDT [facility] Blood BLOOD SPECIMEN / Unknown Butterfly / Unknown 01/13/2025 11:09 AM CDT 01/13/2025 11:19 AM CDT Ramon Gutierrez MD HEMATOLOGY Final R esult Performing Organization Address City/[facility]/ZIP Co de Phone Number [facility] [address] [place] [address], * (ABNORMAL) HEMOGLOBIN (01/13/2025 11:09 AM CDT) HEMOGLOBIN 11.4(L) 13.5 - 17.5 g/dL 01/13/2025 11:55 AM CDT [facility] MCV 95 80 - 100 fL 01/13/2025 11:55 AM CDT [facility] Blood BLOOD SPECIMEN / Unknown Butterfly / Unknown 01/13/2025 11:09 AM CDT 01/13/2025 11:19 AM CDT Ramon Gutierrez MD HEMATOLOGY Final R esult Performing Organization Address City/[facility] Co de Phone Number [facility] [address] [place] [address], * Lipid Panel (01/13/2025 11:09 AM CDT) CHOLESTEROL,TOTAL 178 100 - 199 mg/dL 01/13/2025 12:11 PM T [facility] Comment: Cholesterol, Total Reference Ranges Desirable <200 mg/dL Borderline 200-239 mg/dL High >=240 mg/dL TRIGLYCERIDES 110 <150 mg/dL 01/13/2025 12:11 PM CDT [facility] HDL CHOLESTEROL 47 >40 mg/dL 12:11 PM CDT [facility] NON-HDL CHOLESTEROL 131 <145 mg/dl 01/13/2025 12:11 PM T [facility] CHOL/HDL RATIO 3.79 <4.50 01/13/2025 12:11 PM T [facility] LDL CHOLESTEROL 109 <=130 mg/dL 01/13/2025 12:11 PM T [facility] VLDL CHOLESTEROL 22 <=30 mg/dL 01/13/2025 12:11 PM CDT [facility] PROVIDER ORDERED STATUS RANDOM 01/13/2025 12:11 PM CDT [facility] Blood BLOOD SPECIMEN / Unknown Butterfly / Unknown 01/13/2025 11:09 AM CDT 01/13/2025 11:19 AM CDT us Godfrey Finch MD CHEMISTRY Final Resul t [facility] [address] [place] [address], [place] * SCAN-CT INTERPRETATION (01/12/2025 12:00 AM CDT) Only the most recent of4 resultswithin the time period is included. Anatomical Region Laterality Modality Other us Scanner OTHER Final Result * CT CHEST SCREENING LOW DOSE WO CONTRAST [[id number]] -- Criteria: must meet ALL: Age 50-80, current smoker or quit within the last 15 years, AND 20+ pack-year history (06/18/2024 2:03 PM SWIMMER) Anatomical Region Laterality Modality Computed Tomogra phy Impressions 06/19/2024 12:04 PM SWIMMER New 6 millimeter left upper lobe pulmonary [...] Dictated by: Terry Dyer MD @06/18/2024 4:28:09 PM/jradha Narrative 06/19/2024 12:04 PM SWIMMER For Patients: As a result of the [...] Rex Connor MD CT Final Result * CT CHEST ABDOMEN PELVIS W (06/28/2021 12:22 PM SWIMMER) Anatomical Region Laterality Modality Abdomen, Pelvis, AORTA, LIVER, SPLEEN Computed Tomography 06/28/2021 9:38 PM SWIMMER Impressions 06/28/2021 9:38 PM SWIMMER Esophagus appears patulous and there are secretions [...] 9:38PM (Electronically Signed) Narrative 06/28/2021 9:38 PM SWIMMER For Patients: As a result of the [...] a result of the Cures Act, medical imagingexams and procedure reports [...] are osteopenic. Mild chronic compression deformity of [id number] body IMPRESSION: Esophagus appears patulous and there are secretions seen within thetrachea and extending into the distal small airways concerning foraspiration risk. There are changes of chronic aspiration or bronchitis orcombination of the 2. The lungs show numerous areas of small airwayocclusion with distal bronchiectasis and bronchiolitis. Tiny dwgt-hf-epscesljogbu are seen within the right middle lobe. [...] Result * ANTI HCV (06/25/2019 8:36 AM SWIMMER) HEPATITIS C ANTIBODY Non-React dani Non-React dani 06/25/2019 2:37 PM SWIMMER [facility] Comment:Antibodies to HCV no t detected; does not exclude the possibility of exposure to HCV. Blood BLOOD SPECIMEN / Unknown Venipuncture / Unknown 06/25/2019 8:36 AM SWIMMER 06/25/2019 8:36 AM SWIMMER us Rex Connor MD SEND OUTS Final Result [facility] [address] [place] [address], [place] from Last 3 Months or Most Recently Relevant to Health Maintenance Additional Health Concerns Active Problems Noted Date Diagnosed Date Autogenerated Problem 02/15/2025 Insurance MEDICAID MEDICARE PB ONLY MEDICARE PART B HB ONLY MEDICARE PART A HB ONLY C/O [address] [address] MEDICA CHOICE CARE MEDICARE PART B HB ONLY MEDICARE PART A HB ONLY MEDICAID HC MEDICARE PPS * Guarantor: JUSTIN WOLF Account Type Relation to Patient Date of Phone Billing Address [facility] [address] [facility] 05/20/1979 [place] [id number] ATTN A/P [address] [address] [place] [address] Advance Directives Documents on File Type Date Recorded Patient Fitness Studies Teacher Expl anation Healthcare Directive 04/27/2016 7:01 AM Healthcare Directive 04/27/2016 12:00 AM Healthcare Directive 07/21/20090 4 * Full Code (Latest Code Status on File) Date Activated Date Inactivated Comments 01/29/2025 9:30 AM 01/30/2025 4:30 PM Question Answer Comments Code Status Discussion: Unable to Assess Preferences, Provider to review later * Full Code Date Activated Date Inactivated Comments 01/13/2025 11:53 AM 01/14/2025 8:13 PM Question Answer Comments Code Status Discussion: Reviewed Preferences * Full Code Date Activated Date Inactivated Comments 01/13/2025 9:41 AM 01/13/2025 11:53 AM Question Answer Comments Code Status Discussion: Unable to Assess Preferences, Provider to review later * Full Code Date Activated Date Inactivated Comments 09/02/2022 3:14 AM 09/13/2022 8:42 AM Question Answer Comments Code Status Discussion: Reviewed Preferences * Full Code Date Activated Date Inactivated Comments 06/26/2019 7:41 AM 06/27/2019 2:20 AM Question Answer Comments Code Status Discussion: Discussed Care Teams Front Desk Assistant Relationship Specialty Start Date End Date Rex Connor MD [address] [place] [address] PCP - General Family Practice 10/14/18 [place] Virgie Villaseñor [address] [place] [address] 01/14/25
--- OUTSIDE RECORDS SUMMARY | 2025-02-15 22:02 | XMS_ITS | Clinical Summary ---
Author Organization [facility] Address [address] , [address] [place] [address] Phone Care Team Providers Care Efficiency Expert Name Role Phone Contreras Vargas MD Unavailable Conditions or Problems Problem Name Problem Code Onset Date Status Entry Date Provider Comment Standard Description Annotate Parkinsonism , unspecified 82204381 (SNOMED CT) 05/20 Active 05/20 Aleta Restrepo Parkinsonism Schizoaffect dani disorder with depression 26578432 (SNOMED CT) 07/29 Active 07/29 Contreras Vargas MD Schizoaffective disorder Memory deficit 981196880 (SNOMED CT) 07/29 Active 07/29 Contreras Vargas MD Memory impairment Tremor, rest 78460781 (SNOMED CT) 07/29 Active 07/29 Contreras Vargas MD Resting tremor Parkinsonism 51983801 (SNOMED CT) 05/20 Inactive 05/20 Jose Eduardo Corcoran MD Parkinsonism Medications Medication Instructions Start Date Stop Date Generic Name [facility] Provider TAMSULOSIN HCL 0.4 MG CAPS 02/02 tamsulosin [id number] Fauzia Robbins DNP,MOLDING LINE OPERATOR,CN P MAGNESIUM CITRATE 1.745 GM/30ML SOLN 02/02 magnesium citrate 99587436649 Fauzia Robbins DNP,MOLDING LINE OPERATOR,CN P DEEP SEA NASAL SPRAY 0.65 % SOLN Administer 2 spray into both nostrils every six hours 02/02 sodium chloride 60321856747 Fauzia Robbins DNP,MOLDING LINE OPERATOR,CN P LEVOTHYROXINE SODIUM 150 MCG TABS 02/02 levothyroxine 05628105190 Fauzia Robbins DNP,MOLDING LINE OPERATOR,CN P QUETIAPINE FUMARATE 200 MG TABS Take 200 mg by mouth every night 02/02 quetiapine 58903436576 Fauzia Robbins DNP,MOLDING LINE OPERATOR,CN P NICOTINE POLACRILEX [address] 1 by mouth every hour as needed 02/02 nicotine (polacrilex) 87394916254 Fauzia Robbins DNP,MOLDING LINE OPERATOR,CN P haloperidol decanoate (HALDOL DECANOATE) 100 mg/mL intramusc Inject 75 mg intramuscularly every two weeks 02/02 HALDOL DECANOATE Fauzia Robbins DNP,MOLDING LINE OPERATOR,CN P DIVALPROEX SODIUM ER 500 MG [id number] Take 2 Tablets (1,000 mg) by mouth at bedtime. 02/02 divalproex 84661829333 [facility],MOLDING LINE OPERATOR,CN P HALOPERIDOL DECANOATE 50 MG/ML SOLN 02/02 haloperidol decanoate 79575703221 Fauzia Robbins DNP,MOLDING LINE OPERATOR,CN P BENZTROPINE MESYLATE 0.5 MG TABS Take 0.5 mg by mouth twice a day 02/02 benztropine 38127039308 [facility] PATRICIA,MOLDING LINE OPERATOR,CN P HALOPERIDOL 5 MG TABS Take 5 mg by mouth every four hours as needed 02/02 haloperidol 41831313727 [facility] PATRICIA,MOLDING LINE OPERATOR,CN P IBUPROFEN (IBUPROFEN) 600 MG TABS Take 1 tablet by mouth every eight hours as needed 02/02 IBUPROFEN [facility] PATRICIA,MOLDING LINE OPERATOR,CN P CLONAZEPAM 0.5 MG TABS Take 1 tablet by mouth once a day as needed 02/02 clonazepam 61333540427 Fauzia Robbins DNP,MOLDING LINE OPERATOR,CN P CLONAZEPAM 0.5 MG TABS 02/02 clonazepam 33475657973 Fauzia Robbins DNP,MOLDING LINE OPERATOR,CN P SYMBICORT 80-4.5 MCG/ACT AERO 02/02 budesonide-form oterol 55875772164 Fauzia Rechtzigel DNP,MOLDING LINE OPERATOR,CN P ACETAMINOPHEN 500 MG TABS Take 2 Tablets (1,000 mg) by mouth every 6 hours if needed for Pain. Max acetaminophen dose: 4000mg in 24 hrs. 02/02 acetaminophen 89005956220 Fauzia Rechtzigel DNP,MOLDING LINE OPERATOR,CN P ASPIRIN LOW DOSE 81 MG [facility] aspirin 11416861651 Fauzia Rechigel DNP,MOLDING LINE OPERATOR,CN P DEEP SEA NASAL SPRAY 0.65 % SOLN sodium chloride 89975853700 A keisha Rechtzigel DNP,MOLDING LINE OPERATOR,CN P CLONAZEPAM 1 MG TABS clonazepam 10096915608 [facility],MOLDING LINE OPERATOR,CN P CLOPIDOGREL BISULFATE 75 MG TABS clopidogrel 60769031613 [facility],MOLDING LINE OPERATOR,CN P DIVALPROEX SODIUM ER 250 MG [id number] divalproex 79518596595 [facility],MOLDING LINE OPERATOR,CN P QUETIAPINE FUMARATE 150 MG TABS quetiapine 90943767638 [facility],MOLDING LINE OPERATOR,CN P OLANZAPINE 5 MG TABS olanzapine 49436032361 [facility],MOLDING LINE OPERATOR,CN P SENNA 8.6 MG TABS sennosides 81957296037 [facility],MOLDING LINE OPERATOR,CN P ROSUVASTATIN CALCIUM 40 MG TABS rosuvastatin 77565334921 [facility],MOLDING LINE OPERATOR,CN P FAMOTIDINE 20 MG TABS Take 1 tablet by mouth once a day famotidine 22301461900 Contreras Vargas MD MELATONIN 3 MG TABS Take 1 tablet by mouth every night melatonin 32363666616 Contreras Vargas MD QUETIAPINE FUMARATE 200 MG TABS Take 200 mg by mouth every night 02/02 quetiapine 77264965885 Contreras Vargas MD ESCITALOPRAM OXALATE 10 MG TABS Take 10 mg by mouth once a day escitalopram oxalate 61717851744 Contreras Vargas MD ALBUTEROL SULFATE (2.5 MG/3ML) 0.083% NEBU Inhale 1 ampul by mouth twice a day albuterol sulfate 53556634039 Contreras Vargas MD Multivits,Ca,Mine [id number] (High Potency Multivit, w-iron Take 1 tablet by mouth once a day High Potency Multivit, w-iron Contreras Vargas MD IBUPROFEN (IBUPROFEN) 600 MG TABS Take 1 tablet by mouth every eight hours as needed 02/02 IBUPROFEN Contreras Vargas MD TAMSULOSIN HCL 0.4 MG CAPS Take 1 capsule by mouth once a day tamsulosin 57815588818 Contreras Vargas MD AMLODIPINE BESYLATE 10 MG TABS 07/29 amlodipine 05818928857 Contreras Vargas MD SENNOSIDES-DOCUSA TE SODIUM 8.6-50 MG TABS Take 1 tablet by mouth twice a day 07/29 sennosides-docu sate sodium 29693075200 Contreras Vargas MD fluticasone propion-salmetero L (Advair Diskus) 250-50 mcg/Do Inhale 1 puff by mouth twice a day Advair Diskus Contreras Vargas MD GAVILAX 17 GM/SCOOP POWD 07/29 polyethylene glycol 3350 81967688265 Contreras Vargas MD PEG 3350 17 GM/SCOOP POWD Take 1 by mouth once a day as needed polyethylene glycol 3350 25896257235 Contreras Vargas MD PROPRANOLOL HCL 20 MG TABS Take 1 tablet by mouth three times a day propranolol 41879054741 Contreras Vargas MD HALOPERIDOL 5 MG TABS Take 5 mg by mouth every four hours as needed 02/02 haloperidol 68634950841 Contreras Vargas MD cholecalciferol (VITAMIN D3) 1,000 unit tablet Take 1 tablet by mouth once a day VITAMIN D3 Contreras Vargas MD Nebulizer Inhale 07/29 Nebulizer Contreras Vargas MD QUETIAPINE FUMARATE 300 MG TABS 07/29 quetiapine 39258313537 Contreras Vargas MD CARBIDOPA-LEVODOP A 25-100 MG TABS Take 1 tablet by mouth three times a day carbidopa-levod opa 33762963711 Contreras Vargas MD NICOTINE POLACRILEX [address] 1 by mouth every hour as needed 02/02 nicotine (polacrilex) 19531417242 Contreras Vargas MD BENZTROPINE MESYLATE 0.5 MG TABS Take 0.5 mg by mouth twice a day 02/02 benztropine 94069941399 Contreras Vargas MD DEEP SEA NASAL SPRAY 0.65 % SOLN Administer 2 spray into both nostrils every six hours 02/02 sodium chloride 21680919918 Contreras Vargas MD NICOTINE 7 MG/24HR PT24 07/29 nicotine 63071033239 Contreras Vargas MD PROPRANOLOL HCL 20 MG TABS 07/29 propranolol 43217452769 Contreras Vargas MD SENEXON-S 8.6-50 MG TABS 07/29 sennosides-docu sate sodium 89713877782 Contreras Vargas MD LEVOTHYROXINE SODIUM 150 MCG TABS Take 1 tablet by mouth every morning levothyroxine 06143348589 Contreras Vargas MD CLONAZEPAM 0.5 MG TABS Take 1 tablet by mouth once a day as needed 02/02 clonazepam 67280232266 Contreras Vargas MD ASPIRIN LOW DOSE 81 MG TBEC 07/29 aspirin 02709317608 Contreras Vargas MD haloperidol decanoate (HALDOL DECANOATE) 100 mg/mL intramusc Inject 75 mg intramuscularly every two weeks 02/02 HALDOL DECANOATE Contreras Vargas MD TAMSULOSIN HCL 0.4 MG CAPS TAKE 1 CAPSULE BY MOUTH DAILY 30 MINUTES AFTER THE SAME MEAL EACH DAY *SWALLOW WHOLE* 07/29 tamsulosin 97001914608 QIEUSER QIEUSER DEEP SEA NASAL SPRAY 0.65 % SOLN ADMINISTER 2 SPRAYS IN AFFECTED NOSTRIL(S) EVERY 6 HOURS 07/29 sodium chloride 68207929583 QIEUSER QIEUSER SENNOSIDES-DOCUSA TE SODIUM 8.6-50 MG TABS TAKE 1 TABLET BY MOUTH TWICE DAILY 07/29 sennosides-docu sate sodium 47623623473 QIEUSER QIEUSER QUETIAPINE FUMARATE 200 MG TABS Take 200 mg by mouth at bedtime. 07/29 quetiapine 79730788468 QIEUSER QIEUSER PEG 3350 17 GM/SCOOP POWD Take 1 scoop (17 g) by mouth or nasogastric tube once daily if needed for Constipation. 07/29 polyethylene glycol 3350 59651208070 QIEUSER QIEUSER NICOTINE POLACRILEX [address] 1 Lozenge (2 mg) in mouth, between cheek & gum every hour while awake as needed for Nicotine Craving. 11/27 nicotine (polacrilex) 91352360566 QIEUSER QIEUSER Nebulizer Nebulizer, disposable neb kit x 4, reuseable neb kit x 1, mask x 1, filters x 1. Frequency of use: daily; Medication: albuterol Length of need: 99 months 07/29 Nebulizer QIEUSER QIEUSER Multivits,Ca,Mine hige-Hnys-YF (High Potency Multivit, w-iron Take 1 Tablet by mouth once daily. 07/29 High Potency Multivit, w-iron QIEUSER QIEUSER MELATONIN 3 MG TABS Take 1 Tablet (3 mg) by mouth at bedtime. 07/29 melatonin 80559402352 QIEUSER QIEUSER IBUPROFEN (IBUPROFEN) 600 MG TABS TAKE 1 TABLET BY MOUTH EVERY 8 HOURS NEEDED FOR PAIN OR TEMP >101.5F (38.6C) 07/29 IBUPROFEN QIEUSER QIEUSER haloperidol decanoate (HALDOL DECANOATE) 100 mg/mL intramusc Inject 75 mg intramuscular every 2 weeks. 07/29 HALDOL DECANOATE QIEUSER QIEUSER HALOPERIDOL 5 MG TABS Take 5 mg by mouth every 4 hours if needed for Agitation. 07/29 haloperidol 75029881923 QIEUSER QIEUSER fluticasone propion-salmetero L (Advair Diskus) 250-50 mcg/Do INHALE 1 PUFF BY MOUTH TWICE DAILY --RINSE MOUTH AFTER USE-- 07/29 Advair Diskus QIEUSER QIEUSER FAMOTIDINE 20 MG TABS Take 1 Tablet (20 mg) by mouth once daily. 07/29 famotidine 14396057324 QIEUSER QIEUSER ESCITALOPRAM OXALATE 10 MG TABS Take 10 mg by mouth once daily. 07/29 escitalopram oxalate 35931456072 QIEUSER QIEUSER cholecalciferol (VITAMIN D3) 1,000 unit tablet Take 1 Tablet (1,000 units) by mouth once daily. 07/29 VITAMIN D3 QIEUSER QIEUSER CARBIDOPA-LEVODOP A 25-100 MG TABS Take 1 Tablet by mouth three times daily. 11/27 carbidopa-levod opa 25512787102 QIEUSER QIEUSER BENZTROPINE MESYLATE 0.5 MG TABS Take 0.5 mg by mouth two times daily. 07/29 benztropine 37889559025 QIEUSER QIEUSER ALBUTEROL SULFATE (2.5 MG/3ML) 0.083% NEBU INHALE 1 AMPULE BY MOUTH VIA NEBULIZER TWICE DAILY 07/29 albuterol sulfate 49829538235 QIEUSER QIEUSER ACETAMINOPHEN 500 MG TABS Take 2 Tablets (1,000 mg) by mouth every 6 hours if needed for Pain. Max acetaminophen dose: 4000mg in 24 hrs. 02/02 acetaminophen 61113541080 QIEUSER QIEUSER PROPRANOLOL HCL 20 MG TABS Take 1 Tablet (20 mg) by mouth 2 times daily. AM and at bedtime. 11/27 propranolol 02669633627 QIEUSER QIEUSER LEVOTHYROXINE SODIUM 150 MCG TABS Take 1 Tablet (150 mcg) by mouth before breakfast. 07/29 levothyroxine 07604006398 QIEUSER QIEUSER DIVALPROEX SODIUM ER 500 MG [id number] Take 2 Tablets (1,000 mg) by mouth at bedtime. 02/02 divalproex 89622420991 QIEUSER QIEUSER CLONAZEPAM 0.5 MG TABS Take 1 Tablet (0.5 mg) by mouth once daily if needed for Anxiety. 11/27 clonazepam 99818367837 QIEUSER QIEUSER TAMSULOSIN HCL 0.4 MG CAPS 02/02 tamsulosin 06897826530 Jose Eduardo Corcoran MD NICOTINE 7 MG/24HR PT24 07/29 nicotine 00526137846 Jose Eduardo Corcoran MD ASPIRIN EC 81 MG TBEC 10/23 aspirin 64765508717 Jose Eduardo Corcoran MD PROPRANOLOL HCL 20 MG TABS 11/27 propranolol 50835758570 Jose Eduardo Corcoran MD CLONAZEPAM 0.5 MG TABS 02/02 clonazepam 16633947172 Jose Eduardo Corcoran MD ACETAMINOPHEN 325 MG TABS acetaminophen 95889998998 Jose Eduardo Corcoran MD ALBUTEROL SULFATE HFA 108 (90 Base) MCG/ACT AERS albuterol sulfate 24638372299 Jose Eduardo Corcoran MD DIVALPROEX SODIUM ER 500 MG [id number] divalproex 60767605689 Jose Eduardo Corcoran MD AMLODIPINE BESYLATE 10 MG TABS 11/27 amlodipine 36070949515 Jose Eduardo Corcoran MD QUETIAPINE FUMARATE 300 MG TABS 07/29 quetiapine 65897503249 Jose Eduardo Corcoran MD SENEXON-S 8.6-50 MG TABS 07/29 sennosides-docu sate sodium 78297412750 Jose Eduardo Corcoran MD GAVILAX 17 GM/SCOOP POWD 07/29 polyethylene glycol 3350 04547439270 Jose Eduardo Corcoran MD SYMBICORT 80-4.5 MCG/ACT AERO 02/02 budesonide-form oterol 17625726517 Jose Eduardo Corcoran MD HALOPERIDOL DECANOATE 50 MG/ML SOLN 02/02 haloperidol decanoate 21946852489 Jose Eduardo Corcoran MD MAGNESIUM CITRATE 1.745 GM/30ML SOLN 02/02 magnesium citrate 42482756477 Jose Eduardo Corcoran MD LEVOTHYROXINE SODIUM 150 MCG TABS 02/02 levothyroxine 23849932695 Jose Eduardo Corcoran MD Medications Administered No [...] contact Internal Other: Authorizatio n - OBS [id number] Yes GE use only - for [employer] import when terms are not otherwise specified Internal Other: Authorizatio n AUTHBENEFIT Yes Authoriza [...] Yes Consent To Release information to the [employer] ([email or web address]) Office Visit: Office Visit f ax MEDS REVIEW Done Documenta tion of current medications (procedure) Plan of Care Type Date Detail Pending order Follow up Pending order Obtain outside r ecords Pending order Obtain outside r ecords Pending order Follow up Pending order Follow up with N eurologist or RISSA Pending order SHAWN Scan Pending order Follow up RISSA af ter testing Pending Order exclud ed from report: Pending order Follow up RISSA af ter testing Pending order Follow up RISSA af ter testing Pending order Other Radiology Pending order Other Radiology Pending order Other Radiology Pending Order exclud ed from report: Procedures Code Procedure Name Date Entry Date ORDERS Follow up with Neurologist or RISSA ORDERS SHAWN Scan [facility]-[id number] Documentation of current medicatio ns ORDERS Follow up RISSA after testing [id number] Other Radiology Vital Signs Date Name Value Unit Description Height 70 [in_us] height E&M Heart Rate 66 /min pulse rate BMI (Body Mass Index) 23.76 kg/m2 Bod [...]
[2025-02-15 22:11] VITALS: BP 122/84; PULSE 78; RESP 20; TEMP 36; O2SAT 95
--- NOTE | 2025-02-15 22:19 | ED.FALL ---
HPI - Fall General Time Seen by Provider: 22:19 Date Seen: 02/15/25 Chief Complaint: Fall/Minor Trauma Stated Complaint: fall Time Seen by Provider: 02/15/25 22:19 Source: patient, EMS and RN notes reviewed Mode of arrival: EMS Limitations: no limitations History of Present Illness HPI Narrative: Scooby is a 69-year-old [facility] resident with a history of schizophrenia and Parkinson's, history of inappropriate behavior toward women with multiple falls who is brought to the emergency room by EMS after a fall this evening. Patient notes that he was trying to get up to pull cord in his room and fell. He is really not giving me many details as he is frustrated about the many things from not being able to clean up his apartment at [facility] to the fact that he only his 5 dollars a week for the purchase of soda pop. I am able to redirect him and he notes that his head hurts he and his left hip hurts. Additional past medical history includes manic depression, coronary disease, history of alcohol abuse. No loss of consciousness, vomiting, recent fever. Denies chest pain shortness of breath. [facility] notes that Scooby is much more interactive over the past few months. He in the past he had been rather quiet and reserved. Staff notes he is now being cracking jokes which is unusual for him. This is been going on for the past few months and I know from previous notes here they behavior I am noting tonight was present previously. Related Data Home Medications ?Medication ?Instructions ?Recorded ?Confirmed clonazepam 0.5 mg tablet mg 12/20/21 04/24/23 divalproex 250 mg tablet,extended mg PO 12/20/21 04/24/23 release 24 hr divalproex 500 mg tablet,extended mg PO 12/20/21 04/24/23 release 24 hr escitalopram oxalate 5 mg tablet mg 12/20/21 04/24/23 haloperidol decanoate 50 mg/mL mg IM 12/20/21 04/24/23 intramuscular solution levothyroxine 150 mcg tablet mcg 12/20/21 04/24/23 propranolol 20 mg tablet mg 12/20/21 04/24/23 quetiapine 100 mg tablet mg 12/20/21 04/24/23 tamsulosin 0.4 mg capsule mg PO 12/20/21 04/24/23 aspirin 325 mg tablet PO 08/21/22 04/24/23 benztropine 0.5 mg tablet 0.5 mg PO BID 08/21/22 04/24/23 budesonide-formoterol HFA 80 inhalation 08/21/22 04/24/23 mcg-4.5 mcg/actuation aerosol inhaler (Symbicort) carbidopa 25 mg-levodopa 100 mg 1 tab PO 3XD 08/21/22 04/24/23 tablet escitalopram oxalate 10 mg tablet 10 mg PO DAILY 08/21/22 04/24/23 haloperidol decanoate 100 mg/mL mg IM 08/21/22 04/24/23 intramuscular solution nicotine (polacrilex) 2 mg buccal 0 mg PO 08/21/22 04/24/23 lozenge nicotine 14 mg/24 hr daily 1 patch topical DAILY 08/21/22 04/24/23 transdermal patch polyethylene glycol 3350 17 g PO 08/21/22 04/24/23 gram/dose oral powder (Gavilax) quetiapine 200 mg tablet 200 mg PO QPM 08/21/22 04/24/23 Allergies Allergy/AdvReac Type Severity Reaction Status Date / Time haloperidol AdvReac Unknown Verified 01/04/25 21:46 clozapine AdvReac Verified 01/04/25 21:46 Review of Systems Status of ROS: Reports: 10 or more systems reviewed and unremarkable except as noted in History and below Const: Denies: fever or chills Eyes: Denies: change in vision ENMT: Reports: neck pain; Denies: throat pain or vertigo Cardio: Denies: chest pain or shortness of breath with exertion Resp: Denies: shortness of breath or cough GI: Denies: abdominal pain or vomiting : Denies: painful urination Musculo: Reports: neck pain; Denies: back pain Neuro: Reports: headache; Denies: vertigo [facility] History History of alcohol abuse ?F10.11 - Alcohol abuse, in remission (ICD-10) Schizoaffective disorder, bipolar type ?F25.0 - Schizoaffective disorder, bipolar type (ICD-10) Psychotic disorder ?F29 - Unspecified psychosis not due to a substance or known physiological condition (ICD-10) Manic depression ?F31.9 - Bipolar disorder, unspecified (ICD-10) CAD (coronary artery disease) ?I25.10 - Atherosclerotic heart disease of [place] coronary artery without angina pectoris (ICD-10) Social History Smoking Status: Current every day smoker What tobacco products do you use: cigarettes Do you use any of these nicotine containing products: None Second hand tobacco smoke exposure: No How often do you have a drink containing alcohol: never How many standard drinks containing alcohol do you have on a typical day: 1 or 2 How often do you have six or more drinks on one occasion: Never AUDIT-C Alcohol total score: 0 Non-prescribed substance use: denies use service: No Exam Narrative: Exam Narrative: Scooby is alert and oriented. No acute distress. Very tangential in discussion but I am able to redirect him. EOM is full. Pupils equal round. Tenderness noted over right parietal scalp. No compromise of skin. Neck is supple. Complain of neck pain with movement. Heart with regular rate and rhythm and lungs are clear. He has a healing surgical wound on his left neck over the medial clavicle. There is resolving ecchymosis on his left side of his chest. Abdomen is soft nontender. Pelvis is stable. Moving all extremities. Const: Vital Signs, click to edit/add: Vital Signs - 24 hr 02/15/25 22:11 Temperature 96.8 F L Pulse Rate [Pulse Oximeter] 78 Respiratory Rate 20 Blood Pressure [Ri ght Upper Arm] 122/84 Pulse Oximetry 95 Oxygen Delivery Me thod Room Air Documenting provider has reviewed patient's vital signs: yes Course Course ED Course: Differential diagnosis includes but is not limited to closed head injury, intracranial bleed, cervical spine injury, arrhythmia, electrolyte abnormality, UTI. Patient is excepting of a blood drawn we will do a CBC, comprehensive,. Urinalysis, drug screen, EtOH. Will also check EKG, head and cervical spine CTs. Reevaluation(s) Reevaluation #1: Patient interactive and cooperative while in the ED. I do go into his room to talk to him about his results in his now sleeping soundly. Fortunately lab values, EKG and imaging studies all reassuring. Vital Signs Vital signs: Initial Vital Signs Temperature 96.8 F L 02/15/25 22:11 Temperature Source Temporal Artery Scan 02/15/25 22:11 Pulse Rate 78 02/15/25 22:11 Respiratory Rate 20 02/15/25 22:11 Blood Pressure 122/84 02/15/25 22:11 Blood Pressure Mean 96 02/15/25 22:11 Blood Pressure Position Sitting 02/15/25 22:11 Pulse Oximetry 95 02/15/25 22:11 Oxygen Delivery Method Room Air 02/15/25 22:11 Vital Signs Temperature 96.8 F L 02/15/25 22:11 Pulse Rate 78 02/15/25 22:11 Respiratory Rate 20 02/15/25 22:11 Blood Pressure 122/84 02/15/25 22:11 Pulse Oximetry 95 02/15/25 22:11 Oxygen Delivery Method Room Air 02/15/25 22:11 Temperature 96.8 F L 02/15/25 22:11 Pulse Rate 78 02/15/25 22:11 Respiratory Rate 20 02/15/25 22:11 Blood Pressure 122/84 02/15/25 22:11 Pulse Oximetry 95 02/15/25 22:11 Oxygen Delivery Method Room Air 02/15/25 22:11 MDM - Fall MDM Narrative Medical decision making narrative: 1. Fall-she patient unfortunately has frequent falls likely a consequence of his Parkinson's. Encouraged use of walker. 2. Head injury-no significant injury. No evidence of skull fracture or intracranial bleed. Tylenol as needed for discomfort. 3. Left hip pain-arthritic changes but no evidence of fracture. Patient has not required any pain medication while in the emergency room. 4. History of schizophrenia-staff has noticed increased behaviors that are unusual over the past few months including laughing at jokes. Making jokes himself. I would encourage follow-up with Psychiatry for possible medication management. Patient certainly tangential in speech in the ER but is redirectable. This behavior has been ongoing for the past few months. 5. Disposition-back to [facility]. Return for worsening symptoms and as needed. Note patient does have a hemoglobin of 10.1. This seems consistent with previous values. No evidence of bleeding. LFTs and urinalysis with normal limits. ETOH negative. Medical Records Attestation: I reviewed the patient's medical records. Lab Data Attestation: I reviewed the patient's lab results. Labs: Lab Results 02/15/25 02/15/25 Range/Units 22:45 23:00 WBC 4.73 (4.50-11.00) K/uL RBC 3.31 L (4.30-5.90) m/uL Hgb 10.1 L (13.5-17.5) gm/dL Hct 31.1 L (37.0-53.0) % MCV 94 (80-100) fL MCH 31 (26-34) pg MCHC 33 (32-36) gm/dL RDW Coeff of Cecil 13.7 (11.5-15.5) % Plt Count 198 (140-440) K/uL Neut % (Auto) 64.1 (42.0-72.0) % Lymph % (Auto) 19.0 L (20-44) % Butts % (Auto) 10.8 (0.0-11.0) % Eos % (Auto) 5.3 (0.0-7.0) % Baso % (Auto) 0.2 (0.0-3.0) % Neut # (Auto) 3.03 (1.7-7.0) K/uL Lymph # (Auto) 0.90 (0.90-2.90) K/uL Butts # (Auto) 0.50 (0.00-0.90) K/UL Eos # (Auto) 0.25 (0.00-0.50) K/uL Baso # (Auto) 0.01 (0.00-0.30) K/uL Abs Immat Gran (auto) 0.03 (0.00-0.30) K/uL Imm/Tot Granulo (auto) 0.6 % Sodium 137 (135-149) mmol/L Potassium 4.4 (3.6-5.1) mmol/L Chloride 107 (96-114) mmol/L Carbon Dioxide 24 (20-32) mmol/L Anion Gap 6 L (7-15) mEq/L BUN 22 (7-30) mg/dL Creatinine 1.1 (0.5-1.5) mg/dL Estimated GFR 73 ml/min Glucose 97 (60-115) mg/dL Calcium 9.5 (8.4-10.6) mg/dL Total Bilirubin 0.3 (0.1-1.5) mg/dL AST 31 (12-35) U/L ALT 6 (4-50) U/L Alkaline Phosphatase 84 (40-150) U/L Total Protein 6.4 (6.0-8.3) g/dL Albumin 3.5 (3.3-5.0) g/dL Urine Color Yellow (Yellow) Urine Appearance Clear (Clear) Urine pH 7.0 (5.0-8.5) Ur Specific [place] 1.010 (1.000-1.030) Urine Protein Negative (Negative) Urine Glucose (UA) Negative (Negative) Urine Ketones Negative (Negative) Urine Blood Negative (Negative) Urine Nitrite Negative (Negative) Urine Bilirubin Negative (Negative) Urine Urobilinogen 0.2 (0.2-1.0) Ur Leukocyte Esterase Negative (Negative) Urine RBC 0-2 (0-2) Urine WBC 0-2 (0-5) Ur Squamous Epith Cells Few (None-Few) Urine Bacteria None (None) Urine Opiates Screen Negative (Negative) Ur Oxycodone Screen Negative (Negative) Urine Methadone Screen Negative (Negative) Ur Barbiturates Screen Negative (Negative) U Tricyclic Antidepress POSITIVE A (Negative) Ur Phencyclidine Scrn Negative (Negative) Ur Amphetamines Screen Negative (Negative) U Methamphetamines Scrn Negative (Negative) U Benzodiazepines Scrn Negative (Negative) Urine Cocaine Screen Negative (Negative) U Marijuana (THC) Screen Negative (Negative) Ur Drug Screen Comment See Note Ethyl Alcohol < 0.01 (0.01-0.03) % Imaging Data CT scan - head: Attestation: I have reviewed the pertinent imaging results. My impression: No evidence of skull fracture intracranial bleed. Radiologist's impression: No acute intracranial hemorrhage. No CT evidence of acute territorial infarct. No hydrocephalus or midline shift. There are chronic microvascular ischemic changes. Paranasal sinuses are ventilated. Mild opacification of left mastoid air cells inferiorly with adjacent osseous sclerosis, similar to prior examinations dating back to at least 2019. IMPRESSION: No acute intracranial abnormality. No significant change compared to prior CT of the head. Cervical spine CT: Attestation: I have reviewed the pertinent imaging results. My impression: By my read no acute injury Radiologist's impression: No acute fracture or suspicious osseous lesion. Atlantoaxial and atlantooccipital alignment are preserved. Multilevel spondylosis and degenerative disc disease with multilevel disc space height loss and multilevel facet arthropathy. Paraspinal soft tissues are grossly within normal limits. Left carotid vascular stent. Visualized portions of the lungs are clear. IMPRESSION: No acute abnormality of the cervical spine. Left hip x-ray: Attestation: I have reviewed the pertinent imaging results. My impression: By my read no acute fracture Radiologist's impression: Findings/Impression: No acute fracture, dislocation, or suspicious osseous lesion. There are degenerative changes of the bilateral hips without advanced joint space narrowing. 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 No suspicious soft tissue abnormality. ECG Data Attestation: I personally reviewed and interpreted this ECG as follows: ECG interpretation date: 02/15/25 Interpretation: EKG by my read shows sinus rhythm at a rate of 73. No acute ST or T-wave changes. Normal QT and AR intervals. Discharge Plan Discharge Clinical Impression: Fall Patient Disposition: Home, Self-Care Condition: Improved Additional Instructions: Tylenol as needed for discomfort. Recommend follow-up with psychiatry for medication management with your increased falls. Return to the emergency room as needed. Prescriptions: No Action clonazepam 0.5 mg tablet divalproex 500 mg tablet extended release 24 hr PO divalproex 250 mg tablet extended release 24 hr PO quetiapine 100 mg tablet tamsulosin 0.4 mg capsule PO levothyroxine 150 mcg tablet haloperidol decanoate 50 mg/mL solution IM propranolol 20 mg tablet escitalopram oxalate 5 mg tablet benztropine 0.5 mg tablet 0.5 mg PO BID nicotine 14 mg/24 hr patch 24 hour 1 patch topical DAILY aspirin 325 mg tablet PO haloperidol decanoate 100 mg/mL solution IM quetiapine 200 mg tablet 200 mg PO QPM polyethylene glycol 3350 [Gavilax] 17 gram/dose powder PO carbidopa-levodopa 25-100 mg tablet 1 tab PO 3XD escitalopram oxalate 10 mg tablet 10 mg PO DAILY nicotine (polacrilex) 2 mg lozenge 0 mg PO budesonide-formoterol [Symbicort] 80-4.5 mcg/actuation HFA aerosol inhaler inhalation Follow Up/Referrals: Rex Connor MD [Primary Care Provider, Family Practice] Stand Alone Forms: [employer] Info Instructions
--- NOTE | 2025-02-15 22:26 | CRLHL7_ITS ---
For Patients: As a result of the Cures Act, medical imaging exams and procedure reports are released immediately into your electronic medical record. You may view this report before your referring provider. If you have questions, please contact your health care provider. Indication: Trauma. Technique: AP view of the pelvis with AP and lateral views of the left hip. Comparison: None. Findings/Impression: No acute fracture, dislocation, or suspicious osseous lesion. There are degenerative changes of the bilateral hips without advanced joint space narrowing. 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 No suspicious soft tissue abnormality. Dictated by Kt Hensley MD @ 02/15/2025 11:58:48 PM (Electronically Signed)
--- NOTE | 2025-02-15 22:26 | CRLHL7_ITS ---
For Patients: As a result of the Century Cures Act, medical imaging exams and procedure reports are released immediately into your electronic medical record. You may view this report before your referring provider. If you have questions, please contact your health care provider. INDICATION: Trauma. TECHNIQUE: CT cervical spine without contrast. COMPARISON: CT cervical spine 01/04/2025. FINDINGS: No acute fracture or suspicious osseous lesion. Atlantoaxial and atlantooccipital alignment are preserved. Multilevel spondylosis and degenerative disc disease with multilevel disc space height loss and multilevel facet arthropathy. Paraspinal soft tissues are grossly within normal limits. Left carotid vascular stent. Visualized portions of the lungs are clear. IMPRESSION: No acute abnormality of the cervical spine. Please note that all CT scans at this facility use dose modulation, iterative reconstruction, and/or weight-based dosing when appropriate to reduce radiation dose to as low as reasonably achievable. Dictated by Kt Hensley MD @ 02/16/2025 12:05:41 AM (Electronically Signed)
--- NOTE | 2025-02-15 22:26 | CRLHL7_ITS ---
For Patients: As a result of the Century Cures Act, medical imaging exams and procedure reports are released immediately into your electronic medical record. You may view this report before your referring provider. If you have questions, please contact your health care provider. INDICATION: Trauma. TECHNIQUE: CT head without contrast. COMPARISON: CT head 01/12/2025. FINDINGS: No acute intracranial hemorrhage. No CT evidence of acute territorial infarct. No hydrocephalus or midline shift. There are chronic microvascular ischemic changes. Paranasal sinuses are ventilated. Mild opacification of left mastoid air cells inferiorly with adjacent osseous sclerosis, similar to prior examinations dating back to at least 2019. IMPRESSION: No acute intracranial abnormality. No significant change compared to prior CT of the head. Please note that all CT scans at this facility use dose modulation, iterative reconstruction, and/or weight-based dosing when appropriate to reduce radiation dose to as low as reasonably achievable. Dictated by Kt Hensley MD @ 02/16/2025 12:02:33 AM (Electronically Signed)
[2025-02-15 22:53] LABS: Hematocrit* 31.1 % (37.0-53.0); Hemoglobin* 10.1 gm/dL (13.5-17.5); Immature Granulocytes Abs Auto 0.03 K/uL (0.00-0.30); Immature Granulocytes Pct Auto 0.6 %; Lymphocytes Absolute Auto 0.90 K/uL (0.90-2.90); Mean Corpuscular HGB Conc 33 gm/dL (32-36); Mean Corpuscular Hemoglobin 31 pg (26-34); Mean Corpuscular Volume 94 fL (80-100); RDW Coefficient of Variation % 13.7 % (11.5-15.5); Red Blood Count* 3.31 m/uL (4.30-5.90); White Blood Count* 4.73 K/uL (4.50-11.00)
[2025-02-15 23:05] LABS: Albumin* 3.5 g/dL (3.3-5.0); Chloride* 107 mmol/L (96-114); Sodium* 137 mmol/L (135-149)
[2025-02-15 23:06] LABS: Potassium* 4.4 mmol/L (3.6-5.1)
[2025-02-15 23:08] LABS: Alanine Aminotransferase* 6 U/L (4-50); Alkaline Phosphatase* 84 U/L (40-150); Anion Gap 6 mEq/L (7-15); Aspartate Amino Transferase* 31 U/L (12-35); Bilirubin Total* 0.3 mg/dL (0.1-1.5); Blood Urea Nitrogen* 22 mg/dL (7-30); Carbon Dioxide* 24 mmol/L (20-32); Creatinine* 1.1 mg/dL (0.5-1.5); Estimated Glomerular Filt Rate 73 ml/min; Total Protein* 6.4 g/dL (6.0-8.3)
[2025-02-15 23:09] LABS: Appearance Urine Clear (Clear)
[2025-02-15 23:09] LABS: Calcium* 9.5 mg/dL (8.4-10.6); Glucose* 97 mg/dL (60-115)
[2025-02-15 23:16] LABS: Cannabinoid Screen Urine Negative (Negative); Methamphetamines Screen Urine Negative (Negative); Tricyclic Antidepressant Urine POSITIVE (Negative)
[2025-02-15 23:21] LABS: Slide Review Reflex No
[2025-02-15 23:33] LABS: Ethanol* < 0.01 % (0.01-0.03)
[2025-02-16 00:56] VITALS: BP 123/78; PULSE 82; RESP 18
== END 2025-02-16 00:59 | disposition home or self-care (01) ==
PROVIDERS: Emergency Provider Family Medicine; PCP Family Medicine
DX: S09.90XA Unspecified injury of head, initial encounter (principal); M25.552 Pain in left hip; W19.XXXA Unspecified fall, initial encounter
CPT/HCPCS: 36415; 70450; 72125; 73502; 80053; 80306; 81001; 82077; 85025; 93005; 99284; 99285

== ENCOUNTER 2025-03-01 11:23 | Emergency (ER) | payer MEDICARE, MEDICAID, SELFPAY ==
--- OUTSIDE RECORDS SUMMARY | 2025-02-02 11:20 | XMS_ITS ---
Author Organization [facility] Address [address] , [address] [place] [address] Phone Care Team Providers Care Program Officer Name Role Phone Itzel GOMEZ APRN,JALEN, Fauzia Mariano Unavailable + Conditions or Problems No information available. Medications Medication Instructions Start Date Stop Date Generic Name [facility] Provider TAMSULOSIN HCL 0.4 MG CAPS 02/02 tamsulosin [id number] Fauzia Robbins DNP, APRN,JALEN MAGNESIUM CITRATE 1.745 GM/30ML SOLN 02/02 magnesium citrate [id number] Fauzia Robbins DNP, APRN,JALEN DEEP SEA NASAL SPRAY 0.65 % SOLN Administer 2 spray into both nostrils every six hours 02/02 sodium chloride [id number] Fauzia Robbins DNP, APRN,JALEN LEVOTHYROXINE SODIUM 150 MCG TABS 02/02 levothyroxine [id number] Fauzia Robbins DNP, APRN,COMBINATION MACHINE TOOL OPERATOR QUETIAPINE FUMARATE 200 MG TABS Take 200 mg by mouth every night 02/02 quetiapine [id number] Fauzia Robbins DNP, APRN,COMBINATION MACHINE TOOL OPERATOR NICOTINE POLACRILEX [address] 1 by mouth every hour as needed 02/02 nicotine (polacrilex) [id number] Fauzia Robbins DNP,SUYAPA,COMBINATION MACHINE TOOL OPERATOR haloperidol decanoate (HALDOL DECANOATE) 100 mg/mL intramusc Inject 75 mg intramuscularly every two weeks 02/02 HALDOL DECANOATE Fauzia Robbins DNP, APRN,COMBINATION MACHINE TOOL OPERATOR DIVALPROEX SODIUM ER 500 MG [id number] Take 2 Tablets (1,000 mg) by mouth at bedtime. 02/02 divalproex [id number] Fauzia Robbins DNP,SUYAPA,COMBINATION MACHINE TOOL OPERATOR HALOPERIDOL DECANOATE 50 MG/ML SOLN 02/02 haloperidol decanoate [id number] Fauzia Robbins DNPRESIDENTIAL COORDINATOR,COMBINATION MACHINE TOOL OPERATOR BENZTROPINE MESYLATE 0.5 MG TABS Take 0.5 mg by mouth twice a day 02/02 benztropine [id number] Fauzia Robbins DNPRESIDENTIAL COORDINATOR,COMBINATION MACHINE TOOL OPERATOR HALOPERIDOL 5 MG TABS Take 5 mg by mouth every four hours as needed 02/02 haloperidol [id number] Fauzia Robbins DNP,RESIDENTIAL COORDINATOR,COMBINATION MACHINE TOOL OPERATOR IBUPROFEN (IBUPROFEN) 600 MG TABS Take 1 tablet by mouth every eight hours as needed 02/02 IBUPROFEN Fauzia Robbins DNPRESIDENTIAL COORDINATOR,COMBINATION MACHINE TOOL OPERATOR CLONAZEPAM 0.5 MG TABS Take 1 tablet by mouth once a day as needed 02/02 clonazepam [id number] Fauzia Robbins DNP, APRN,COMBINATION MACHINE TOOL OPERATOR CLONAZEPAM 0.5 MG TABS 02/02 clonazepam [id number] Fauzia Robbins DNP,RESIDENTIAL COORDINATOR,COMBINATION MACHINE TOOL OPERATOR SYMBICORT 80-4.5 MCG/ACT AERO 02/02 budesonide-form oterol [id number] Fauzia Robbins DNP,RESIDENTIAL COORDINATOR,COMBINATION MACHINE TOOL OPERATOR ACETAMINOPHEN 500 MG TABS Take 2 Tablets (1,000 mg) by mouth every 6 hours if needed for Pain. Max acetaminophen dose: 4000mg in 24 hrs. 02/02 acetaminophen 85941902927 Fauzia Robbins DNP,RESIDENTIAL COORDINATOR,COMBINATION MACHINE TOOL OPERATOR ASPIRIN LOW DOSE 81 MG [facility] aspirin [id number] Fauzia Robbins DNP,RESIDENTIAL COORDINATOR,COMBINATION MACHINE TOOL OPERATOR DEEP SEA NASAL SPRAY 0.65 % SOLN sodium chloride 40123323637 Fauzia Robbins DNP,RESIDENTIAL COORDINATOR,COMBINATION MACHINE TOOL OPERATOR CLONAZEPAM 1 MG TABS clonazepam [id number] Fauzia Robbins DNP,RESIDENTIAL COORDINATOR,COMBINATION MACHINE TOOL OPERATOR CLOPIDOGREL BISULFATE 75 MG TABS clopidogrel [id number] Fauzia Mariano [facility] DNP,RESIDENTIAL COORDINATOR,COMBINATION MACHINE TOOL OPERATOR DIVALPROEX SODIUM ER 250 MG [id number] divalproex [id number] Fauzia Mariano [facility] DNP,RESIDENTIAL COORDINATOR,COMBINATION MACHINE TOOL OPERATOR QUETIAPINE FUMARATE 150 MG TABS quetiapine [id number] Fauzia Mariano [facility],RESIDENTIAL COORDINATOR,COMBINATION MACHINE TOOL OPERATOR OLANZAPINE 5 MG TABS olanzapine 26163182961 Fauzia Mariano [facility],RESIDENTIAL COORDINATOR,COMBINATION MACHINE TOOL OPERATOR SENNA 8.6 MG TABS sennosides [id number] Fauzia Mariano [facility],RESIDENTIAL COORDINATOR,COMBINATION MACHINE TOOL OPERATOR ROSUVASTATIN CALCIUM 40 MG TABS rosuvastatin [id number] Fauzia Mariano [facility],RESIDENTIAL COORDINATOR,COMBINATION MACHINE TOOL OPERATOR Medications Administered No information available. Allergies, Adverse [...]
--- OUTSIDE RECORDS SUMMARY | 2025-03-01 11:27 | XMS_ITS | Clinical Summary ---
Author Organization [facility] Address [address] , [address] [place] [address] Phone Care Team Providers Care Food And Beverage Service Manager Name Role Phone Contreras Vargas MD Unavailable Conditions or Problems Problem Name Problem Code Onset Date Status Entry Date Provider Comment Standard Description Annotate Parkinsonism , unspecified 11109666 (SNOMED CT) 05/20 Active 05/20 Aleta Restrepo Parkinsonism Schizoaffect dani disorder with depression 57867478 (SNOMED CT) 07/29 Active 07/29 Contreras Vargas MD Schizoaffective disorder Memory deficit 334619619 (SNOMED CT) 07/29 Active 07/29 Contreras Vargas MD Memory impairment Tremor, rest 78191895 (SNOMED CT) 07/29 Active 07/29 Contreras Vargas MD Resting tremor Parkinsonism 20773486 (SNOMED CT) 05/20 Inactive 05/20 Jose Eduardo Corcoran MD Parkinsonism Medications Medication Instructions Start Date Stop Date Generic Name [facility] Provider TAMSULOSIN HCL 0.4 MG CAPS 02/02 tamsulosin [id number] Fauzia Robbins DNP,PAPER PRODUCTION ENGINEER,CN P MAGNESIUM CITRATE 1.745 GM/30ML SOLN 02/02 magnesium citrate 34560702717 Fauzia Robbins DNP,PAPER PRODUCTION ENGINEER,CN P DEEP SEA NASAL SPRAY 0.65 % SOLN Administer 2 spray into both nostrils every six hours 02/02 sodium chloride 56290440653 Fauzia Robbins DNP,PAPER PRODUCTION ENGINEER,CN P LEVOTHYROXINE SODIUM 150 MCG TABS 02/02 levothyroxine 77719180794 Fauzia Robbins DNP,PAPER PRODUCTION ENGINEER,CN P QUETIAPINE FUMARATE 200 MG TABS Take 200 mg by mouth every night 02/02 quetiapine 82072189715 Fauzia Robbins DNP,PAPER PRODUCTION ENGINEER,CN P NICOTINE POLACRILEX [address] 1 by mouth every hour as needed 02/02 nicotine (polacrilex) 66169878072 Fauzia Robbins DNP,PAPER PRODUCTION ENGINEER,CN P haloperidol decanoate (HALDOL DECANOATE) 100 mg/mL intramusc Inject 75 mg intramuscularly every two weeks 02/02 HALDOL DECANOATE Fauzia Robbins DNP,PAPER PRODUCTION ENGINEER,CN P DIVALPROEX SODIUM ER 500 MG [id number] Take 2 Tablets (1,000 mg) by mouth at bedtime. 02/02 divalproex [id number] [facility],PAPER PRODUCTION ENGINEER,CN P HALOPERIDOL DECANOATE 50 MG/ML SOLN 02/02 haloperidol decanoate 28480603544 Fauzia Robbins DNP,PAPER PRODUCTION ENGINEER,CN P BENZTROPINE MESYLATE 0.5 MG TABS Take 0.5 mg by mouth twice a day 02/02 benztropine 89070168936 [facility],PAPER PRODUCTION ENGINEER,CN P HALOPERIDOL 5 MG TABS Take 5 mg by mouth every four hours as needed 02/02 haloperidol 57210025366 [facility],PAPER PRODUCTION ENGINEER,CN P IBUPROFEN (IBUPROFEN) 600 MG TABS Take 1 tablet by mouth every eight hours as needed 02/02 IBUPROFEN [facility],PAPER PRODUCTION ENGINEER,CN P CLONAZEPAM 0.5 MG TABS Take 1 tablet by mouth once a day as needed 02/02 clonazepam 84868936978 Fauzia Robbins DNP,PAPER PRODUCTION ENGINEER,CN P CLONAZEPAM 0.5 MG TABS 02/02 clonazepam 89998933294 Fauzia Robbins DNP,PAPER PRODUCTION ENGINEER,CN P SYMBICORT 80-4.5 MCG/ACT AERO 02/02 budesonide-form oterol 10579855658 Fauzia Rechtzigel DNP,PAPER PRODUCTION ENGINEER,CN P ACETAMINOPHEN 500 MG TABS Take 2 Tablets (1,000 mg) by mouth every 6 hours if needed for Pain. Max acetaminophen dose: 4000mg in 24 hrs. 02/02 acetaminophen 45978042696 Fauzia Rechtzigel DNP,PAPER PRODUCTION ENGINEER,CN P ASPIRIN LOW DOSE 81 MG [facility] aspirin 61768991272 Fauzia Rechigel DNP,PAPER PRODUCTION ENGINEER,CN P DEEP SEA NASAL SPRAY 0.65 % SOLN sodium chloride 08054276201 A keisha Rechtzigel DNP,PAPER PRODUCTION ENGINEER,CN P CLONAZEPAM 1 MG TABS clonazepam 67525417648 [facility],PAPER PRODUCTION ENGINEER,CN P CLOPIDOGREL BISULFATE 75 MG TABS clopidogrel 12090897907 [facility],PAPER PRODUCTION ENGINEER,CN P DIVALPROEX SODIUM ER 250 MG [id number] divalproex 82611742833 [facility],PAPER PRODUCTION ENGINEER,CN P QUETIAPINE FUMARATE 150 MG TABS quetiapine 95114761359 [facility],PAPER PRODUCTION ENGINEER,CN P OLANZAPINE 5 MG TABS olanzapine 79396623164 [facility],PAPER PRODUCTION ENGINEER,CN P SENNA 8.6 MG TABS sennosides 96206367968 [facility],PAPER PRODUCTION ENGINEER,CN P ROSUVASTATIN CALCIUM 40 MG TABS rosuvastatin 27135758224 [facility],PAPER PRODUCTION ENGINEER,CN P FAMOTIDINE 20 MG TABS Take 1 tablet by mouth once a day famotidine 61740508050 Contreras Vargas MD MELATONIN 3 MG TABS Take 1 tablet by mouth every night melatonin 14714459891 Contreras Vargas MD QUETIAPINE FUMARATE 200 MG TABS Take 200 mg by mouth every night 02/02 quetiapine 42354523466 Contreras Vargas MD ESCITALOPRAM OXALATE 10 MG TABS Take 10 mg by mouth once a day escitalopram oxalate 28036068055 Contreras Vargas MD ALBUTEROL SULFATE (2.5 MG/3ML) 0.083% NEBU Inhale 1 ampul by mouth twice a day albuterol sulfate 76675065529 Contreras Vargas MD Multivits,Ca,Mine [id number] (High Potency Multivit, w-iron Take 1 tablet by mouth once a day High Potency Multivit, w-iron Contreras Vargas MD IBUPROFEN (IBUPROFEN) 600 MG TABS Take 1 tablet by mouth every eight hours as needed 02/02 IBUPROFEN Contreras Vargas MD TAMSULOSIN HCL 0.4 MG CAPS Take 1 capsule by mouth once a day tamsulosin 94963222548 Contreras Vargas MD AMLODIPINE BESYLATE 10 MG TABS 07/29 amlodipine 88437404917 Contreras Vargas MD SENNOSIDES-DOCUSA TE SODIUM 8.6-50 MG TABS Take 1 tablet by mouth twice a day 07/29 sennosides-docu sate sodium 69717961885 Contreras Vargas MD fluticasone propion-salmetero L (Advair Diskus) 250-50 mcg/Do Inhale 1 puff by mouth twice a day Advair Diskus Contreras Vargas MD GAVILAX 17 GM/SCOOP POWD 07/29 polyethylene glycol 3350 35741127934 Contreras Vargas MD PEG 3350 17 GM/SCOOP POWD Take 1 by mouth once a day as needed polyethylene glycol 3350 65176833113 Contreras Vargas MD PROPRANOLOL HCL 20 MG TABS Take 1 tablet by mouth three times a day propranolol 88350766018 Contreras Vargas MD HALOPERIDOL 5 MG TABS Take 5 mg by mouth every four hours as needed 02/02 haloperidol 38983459952 Contreras Vargas MD cholecalciferol (VITAMIN D3) 1,000 unit tablet Take 1 tablet by mouth once a day VITAMIN D3 Contreras Vargas MD Nebulizer Inhale 07/29 Nebulizer Contreras Vargas MD QUETIAPINE FUMARATE 300 MG TABS 07/29 quetiapine 95498197135 Contreras Vargas MD CARBIDOPA-LEVODOP A 25-100 MG TABS Take 1 tablet by mouth three times a day carbidopa-levod opa 20593849503 Contreras Vargas MD NICOTINE POLACRILEX [address] 1 by mouth every hour as needed 02/02 nicotine (polacrilex) 90690488899 Contreras Vargas MD BENZTROPINE MESYLATE 0.5 MG TABS Take 0.5 mg by mouth twice a day 02/02 benztropine 06350727931 Contreras Vargas MD DEEP SEA NASAL SPRAY 0.65 % SOLN Administer 2 spray into both nostrils every six hours 02/02 sodium chloride 02398660372 Contreras Vargas MD NICOTINE 7 MG/24HR PT24 07/29 nicotine 15365853025 Contreras Vargas MD PROPRANOLOL HCL 20 MG TABS 07/29 propranolol 18013084605 Contreras Vargas MD SENEXON-S 8.6-50 MG TABS 07/29 sennosides-docu sate sodium 44789133774 Contreras Vargas MD LEVOTHYROXINE SODIUM 150 MCG TABS Take 1 tablet by mouth every morning levothyroxine 55163848676 Contreras Vargas MD CLONAZEPAM 0.5 MG TABS Take 1 tablet by mouth once a day as needed 02/02 clonazepam 97236843251 Contreras Vargas MD ASPIRIN LOW DOSE 81 MG TBEC 07/29 aspirin 69713685674 Contreras Vargas MD haloperidol decanoate (HALDOL DECANOATE) 100 mg/mL intramusc Inject 75 mg intramuscularly every two weeks 02/02 HALDOL DECANOATE Contreras Vargas MD TAMSULOSIN HCL 0.4 MG CAPS TAKE 1 CAPSULE BY MOUTH DAILY 30 MINUTES AFTER THE SAME MEAL EACH DAY *SWALLOW WHOLE* 07/29 tamsulosin 26632736576 [facility] DEEP SEA NASAL SPRAY 0.65 % SOLN ADMINISTER 2 SPRAYS IN AFFECTED NOSTRIL(S) EVERY 6 HOURS 07/29 sodium chloride 27624396958 [facility] SENNOSIDES-DOCUSA TE SODIUM 8.6-50 MG TABS TAKE 1 TABLET BY MOUTH TWICE DAILY 07/29 sennosides-docu sate sodium 93849089811 [facility] QUETIAPINE FUMARATE 200 MG TABS Take 200 mg by mouth at bedtime. 07/29 quetiapine 11246396965 [facility]IE[facility] PEG 3350 17 GM/SCOOP POWD Take 1 scoop (17 g) by mouth or nasogastric tube once daily if needed for Constipation. 07/29 polyethylene glycol 3350 37355653984 [facility] NICOTINE POLACRILEX [address] 1 Lozenge (2 mg) in mouth, between cheek & gum every hour while awake as needed for Nicotine Craving. 11/27 nicotine (polacrilex) 11809937561 [facility] Nebulizer Nebulizer, disposable neb kit x 4, reuseable neb kit x 1, mask x 1, filters x 1. Frequency of use: daily; Medication: albuterol Length of need: 99 months 07/29 Nebulizer [facility]IE[facility] QIEUSER Multivits,Ca,Mine [id number] (High Potency Multivit, w-iron Take 1 Tablet by mouth once daily. 07/29 High Potency Multivit, w-iron [facility]IE[facility] Q[facility] MELATONIN 3 MG TABS Take 1 Tablet (3 mg) by mouth at bedtime. 07/29 melatonin 57493691551 [facility] IBUPROFEN (IBUPROFEN) 600 MG TABS TAKE 1 TABLET BY MOUTH EVERY 8 HOURS NEEDED FOR PAIN OR TEMP >101.5F (38.6C) 07/29 IBUPROFEN [facility]IEUSER Q[facility] haloperidol decanoate (HALDOL DECANOATE) 100 mg/mL intramusc Inject 75 mg intramuscular every 2 weeks. 07/29 HALDOL DECANOATE QIEUSER QIEUSER HALOPERIDOL 5 MG TABS Take 5 mg by mouth every 4 hours if needed for Agitation. 07/29 haloperidol 52985035870 QIEUSER Q[facility] fluticasone propion-salmetero L (Advair Diskus) 250-50 mcg/Do INHALE 1 PUFF BY MOUTH TWICE DAILY --RINSE MOUTH AFTER USE-- 07/29 Advair Diskus QIEUSER QIEUSER FAMOTIDINE 20 MG TABS Take 1 Tablet (20 mg) by mouth once daily. 07/29 famotidine 66452324098 [facility]IEUSER [facility] ESCITALOPRAM OXALATE 10 MG TABS Take 10 mg by mouth once daily. 07/29 escitalopram oxalate 09830114999 QIEUSER QIEUSER cholecalciferol (VITAMIN D3) 1,000 unit tablet Take 1 Tablet (1,000 units) by mouth once daily. 07/29 VITAMIN D3 QIEUSER Q[facility]USER CARBIDOPA-LEVODOP A 25-100 MG TABS Take 1 Tablet by mouth three times daily. 11/27 carbidopa-levod opa 92332648977 [facility] BENZTROPINE MESYLATE 0.5 MG TABS Take 0.5 mg by mouth two times daily. 07/29 benztropine 10040762268 QIEUSER [facility] ALBUTEROL SULFATE (2.5 MG/3ML) 0.083% NEBU INHALE 1 AMPULE BY MOUTH VIA NEBULIZER TWICE DAILY 07/29 albuterol sulfate 06141311142 QIEUSER [facility] ACETAMINOPHEN 500 MG TABS Take 2 Tablets (1,000 mg) by mouth every 6 hours if needed for Pain. Max acetaminophen dose: 4000mg in 24 hrs. 02/02 acetaminophen 23830284461 QIEUSER [facility]USER PROPRANOLOL HCL 20 MG TABS Take 1 Tablet (20 mg) by mouth 2 times daily. AM and at bedtime. 11/27 propranolol 37911402260 QIEUSER [facility]USER LEVOTHYROXINE SODIUM 150 MCG TABS Take 1 Tablet (150 mcg) by mouth before breakfast. 07/29 levothyroxine 29251069043 QIEUSER QIEUSER DIVALPROEX SODIUM ER 500 MG [id number] Take 2 Tablets (1,000 mg) by mouth at bedtime. 02/02 divalproex 80067428807 QIEUSER QIEUSER CLONAZEPAM 0.5 MG TABS Take 1 Tablet (0.5 mg) by mouth once daily if needed for Anxiety. 11/27 clonazepam 81630094734 QIEUSER Q[facility]USER TAMSULOSIN HCL 0.4 MG CAPS 02/02 tamsulosin 84330801108 Jose Eduardo Corcoran MD NICOTINE 7 MG/24HR PT24 07/29 nicotine 45074110081 Jose Eduardo Corcoran MD ASPIRIN EC 81 MG TBEC 10/23 aspirin 68680166016 Jose Eduardo Corcoran MD PROPRANOLOL HCL 20 MG TABS 11/27 propranolol 05513985073 Jose Eduardo Corcoran MD CLONAZEPAM 0.5 MG TABS 02/02 clonazepam 62810043285 Jose Eduardo Corcoran MD ACETAMINOPHEN 325 MG TABS acetaminophen 68220323445 Jose Eduardo Corcoran MD ALBUTEROL SULFATE HFA 108 (90 Base) MCG/ACT AERS albuterol sulfate 10107986721 Jose Eduardo Corcoran MD DIVALPROEX SODIUM ER 500 MG [id number] divalproex 74242087635 Jose Eduardo Corcoran MD AMLODIPINE BESYLATE 10 MG TABS 11/27 amlodipine 48435774800 Jose Eduardo Corcoran MD QUETIAPINE FUMARATE 300 MG TABS 07/29 quetiapine 04649721391 Jose Eduardo Corcoran MD SENEXON-S 8.6-50 MG TABS 07/29 sennosides-docu sate sodium 28464985666 Jose Eduardo Corcoran MD GAVILAX 17 GM/SCOOP POWD 07/29 polyethylene glycol 3350 68234487971 Jose Eduardo Corcoran MD SYMBICORT 80-4.5 MCG/ACT AERO 02/02 budesonide-form oterol 80437395087 Jose Eduardo Corcoran MD HALOPERIDOL DECANOATE 50 MG/ML SOLN 02/02 haloperidol decanoate 96809175898 Jose Eduardo Corcoran MD MAGNESIUM CITRATE 1.745 GM/30ML SOLN 02/02 magnesium citrate 40032460054 Jose Eduardo Corcoran MD LEVOTHYROXINE SODIUM 150 MCG TABS 02/02 levothyroxine 13335473253 Jose Eduardo Corcoran MD Medications Administered No [...] Yes Consent To Release information to the [email or web address] ([employer]) Office Visit: Office Visit f ax MEDS [...] with Neurologist or RISSA ORDERS [facility] Scan [id number] Documentation of current medicatio ns ORDERS Follow up RISSA after testing [id number] Other Radiology Vital Signs Date Name Value [...]
--- OUTSIDE RECORDS SUMMARY | 2025-03-01 11:28 | XMS_ITS | Clinical Summary ---
Author Organization [facility] Address [address] [place] [address] Care Team Providers Care Population Health Manager Name Role Phone Rex Connor MD Primary Care Provider [facility], [place] Unavailable [phone] Allergies Active Allergy Reactions Criticality Noted Date [...] tabletIndications: Schizoaffective disorder, bipolar type (HC) Take 1,000 mg by mouth at bedtime. Take with 250 mg for a total dose of 1,250 mg 06/11/19 25 Active carbidopa-levodopa , 25-100 mg, [...] Tablet 06/11/19 25 Active melatonin 3 mg tabletIndications: [...] >101.5F (38.6C) 100 Tablet 07/14/19 25 Active cwxhxsst-gia-qxhl fum-folic ac (Thera-M) 19 mg iron- 400 [...] needed for Nicotine Craving. 200 Lozenge 10/07/19 Active sodium chloride (Deep Sea Nasal [place]) 0.65 % nasal solutionIndication s:Epistaxis,Nasal crusting ADMINISTER 2 SPRAYS IN AFFECTED NOSTRIL(S) EVERY 6 HOURS 44 mL 10/18/19 Active Prevail UnderwearIndicatio ns:Urinary incontinence, unspecified type USE DIRECTED 144 Each 10/21/19 Active divalproex (DEPAKOTE) 250 mg Delayed-Release tablet Take 250 mg by mouth at bedtime. Take with 1,000 mg for a total dose of 1,250 mg hs Active OLANzapine (ZYPREXA) 5 mg tablet Take 5 mg by mouth at bedtime. Active acetaminophen (TYLENOL) 325 mg tablet Take 325-650 mg by mouth every 4 hours if needed for Pain. 01/20/20 Active clonazePAM (KLONOPIN) 1 mg tablet Take 1 mg by mouth at bedtime. 01/02/20 Active polyethylene glycol (Miralax) 17 g per packet packet Mix 1 Packet in liquid then take by mouth two times daily. Active clonazePAM (KLONOPIN) 0.5 mg tablet Take 0.5 mg by mouth at bedtime if needed for Sleep. Active sennosides (Senna) 8.6 mg tablet Take 8.6 mg by mouth two times daily. Active oxyCODONE (ROXICODONE) 5 mg immediate release tabletIndications: Carotid artery stenosis, symptomatic, left Take 1 Tablet (5 mg) by mouth every 6 hours if needed for Pain. 10 Tablet 5 1:49 PM CDT 01/31/20 25 Active clopidogreL (PLAVIX) 75 mg tabletIndications: Carotid artery stenosis, symptomatic, left Take 1 Tablet (75 mg) by mouth once daily in the morning. 90 Tablet 02/05/20 25 Active rosuvastatin (CRESTOR) 40 mg tabletIndications: Carotid artery stenosis, symptomatic, left Take 1 Tablet (40 mg) by mouth at bedtime. 90 Tablet 3 02/05/20 25 Active aspirin chewable 81 mg tabletIndications: Carotid artery stenosis, symptomatic, left Chew 1 Tablet (81 mg) by mouth once daily with a meal. 90 Tablet 3 02/05/20 25 Active ferrous sulfate 325 mg (65 mg iron) tabletIndications: Iron deficiency anemia, unspecified iron deficiency anemia type Take 1 Tablet (325 mg) by mouth once every other day. 45 Tablet 3 02/20/20 25 Active aspirin chewable 81 mg tabletIndications: Carotid artery stenosis, symptomatic, left Chew 1 Tablet (81 mg) by mouth once daily with a meal. 30 Tablet 01/15/20 25 025 Discontin ued(Reord er (E-cancel not sent)) clopidogreL (PLAVIX) 75 mg tabletIndications: Carotid artery stenosis, symptomatic, left Take 1 Tablet (75 mg) by mouth once daily in the morning. 30 Tablet 01/15/20 25 025 Discontin ued(Reord er (E-cancel not sent)) rosuvastatin (CRESTOR) 40 mg tabletIndications: Carotid artery stenosis, symptomatic, left Take 1 Tablet (40 mg) by mouth at bedtime. 30 Tablet 01/15/20 25 025 Discontin ued(Reord er (E-cancel not sent)) ferrous sulfate 325 mg (65 mg iron) tabletIndications: Iron deficiency anemia, unspecified iron deficiency anemia type Take 1 Tablet (325 mg) by mouth once every other day. 45 Tablet 3 02/20/20 25 025 Discontin ued(Reord er (E-cancel not sent)) Active Problems Problem Noted Date Diagnosed Date Iron deficiency anemia 02/03/2025 TIA involving left internal carotid artery 01/29 Carotid artery stenosis, symptomatic, left: Sten t 01/30/25 01/13/2025 Lung nodules 06/18/2024 Overview (06/19/2024): 06/18/24- Lung CT- Lung RAD 4A with a new 6mm nodule in the MARIFER and a new 4mm nodule in the RLL. Pt was referred to [facility] lung nodule clinic Need for dental [...] mental health hospitalizations and was committed to [facility] in 2009. 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 Therapeutic depakote trial not effective. -Doing outpatient ECT @ [facility] -You you seeing Manny Kazt in therapy at [facility] . His phone number is [phone]. [facility]spitalized at [facility] from 09/10-11/10/11 and received ECT during this hospitalization. Hospitalized at [facility] in May, for worsening depression and suicidal thoughts - feeling hopeless and having abnormal dreams. ECT being done every 6 weeks prior to hospitalization and pt seemed to decompensate from this. At his intake on 08/06/12, pt reported the following med trials: -Risperdal injections were ineffective -Clozaril - caused cardiac myositis -Prolixin injections - ineffective -Pinnacle - caused kidney function issues. *More details [...] in paranoia - he would see a [employer] vehicle and he would think WWIII was [...] Encounters Date Type Department Care Team Description 02/24/2025 10:00 AM CDT Home Care Visit [facility] [address] [place] [address] Justen Fan, PT PT - HOME VISIT 02/19/[address] [facility] [address] [place] [address] Rex Connor MD <No scans attached> 02/18/[address] [facility] [address] [place] [address] Rex Connor MD 02/17/2025 1:15 PM CDT Home Care Visit [facility] [address] [place] [address] Terry Cary, PT PT - HOME VISIT 02/17/2025 9:45 AM CDT Orders Only [facility] [address] [place] [address] Lab, Farm Lab 02/17/2025 Travel 02/15/2025 Orders Only [facility] Scanner 1 scan: (1-Ord) [facility], HEAD/BRAIN W/O CONTRAST, 02/15/2025 02/15/2025 Orders Only [facility] Scanner 1 scan: (1-Ord) [place] , CERVICAL SPINE WO CON, 02/15/2025 02/15/2025 Orders Only [facility] Scanner 1 scan: (1-Ord) [place] H+C, HIP LT, 02/15/2025 02/15/2025 Telephone [facility] [address] [place] [address] Tony Hawkins MD Colonoscopy Scheduled / Needs Meds 02/15/[address] [facility] [address] [place] [address] Rex Connor MD Colorectal Cancer Screening (Positive Cologuard) 02/12/2025 Orders Only [facility] [address] [place] [address] Rex Connor MD Lab 02/10/2025 3:15 PM CDT Home Care Visit [facility] [address] [place] [address] Terry Cary, PT PT - HOME VISIT 02/03/2025 8:50 AM CDT Office Visit [facility] [address] [place] [address] Rex Connor MD Hospital F/U (ANW, 01/29/2025 - 01/30/2025, stent placement); Wrist Pain/problem (Left wrist pain and bruising); Constipation (2 to 3 days); Derm Problem (Irritation about left ear/Mark on bilateral ankle) 02/03/2025 Travel 02/02/[address] [facility] [address] [place] [address] Rex Connor MD Refill Request (ROSUVASTATIN, CLOPIDOGREL, ASPIRIN LOW) 02/01/2025 12:30 PM CDT Home Care Visit [facility] [address] [place] [address] Jessica Armstrong, PT PT - [facility] RESUMPTION OF CARE 02/01/[address] [facility] [address] [place] [address] Rex Connor MD Home Care (Orders/Severe Medication interactions) 02/01/[address] [facility] [address] [place] [address] Hannah Roque, SUNNY Primary RN Care Management; Hospital F/U (Lace=51) 01/30/2025 Home Care Visit [facility] [address] [place] [address] Jessica Armstrong, PT PT - OASIS TRANSFER 01/29/2025 11:19 AM CDT Anesthesia Event [facility] [address] [place] [address] Coby Frazier MD Busker, Carly J, HL[employer] DEVELOPER Student 01/29/2025 10:35 AM CDT - 01/29/2025 1:02 PM CDT Surgery [facility] [address] [place] [address] Donny Mcgee MD LEFT REVASCULARIZATION TRANS CAROTID ARTERY 01/29/2025 9:11 AM CDT - 01/30/2025 2:19 PM CDT Hospital Encounter [facility] [address] [place] [address] Donny Mcgee MD Carotid artery stenosis, symptomatic, left (Primary Dx) Discharge Disposition: Home Health 01/29/2025 Orders Only [facility] [address] [place] [address] Lexie Holguin NP <No scans attached> 01/29/2025 Travel 01/27/2025 12:00 PM CDT Home Care Visit [facility] [address] [place] [address] Yessi Diaz, WEBSPHERE COMMERCE ARCHITECT PT - HOME VISIT 01/21/2025 2:15 PM CDT Home Care Visit [facility] [address] [place] [address] Terry Cary, PT PT - HOME VISIT 01/19/2025 12:45 PM CDT Office Visit [facility] [address] [place] [address] Maine Abdi MD Hospital F/U (DOD 01/14/2025, [place]) 01/19/2025 10:00 AM CDT Home Care Visit [facility] [address] [place] [address] Terry Cary, PT PT - OASIS START OF CARE 01/19/2025 Home Care Visit [facility] [address] [place] [address] Terry Cary, PT CARE COORDINATION 01/19/2025 Telephone [facility] [address] [place] [phone] Terry Cary, PT Home Care 01/19/2025 Orders Only [address] [address] Leyla Domingo PA <No scans attached> 01/19/2025 Travel 01/19/2025 Plan of Care Documentation [facility] [address] [place] [address] 01/19/2025 Telephone [facility] [address] [place] [phone] Terry Cary, PT Home Care 01/15/2025 Telephone [facility] [address] [place] [address] Donny Mcgee MD Surgery Scheduled 01/15/[address] [facility] [address] [facility] [place] [address] Christel Jean Baptiste, RN Primary RN Care Management; Hospital F/U (LACE 45) 01/14/2025 Travel 01/13/2025 9:16 AM CDT - 01/14/2025 6:02 PM CDT Hospital Encounter [facility] [address] [place] [address] [facility] Hospitalists Of Ramon Gutierrez MD Residents, C1 Carotid artery stenosis, symptomatic, left (Primary Dx); Stenosis of left carotid artery; TIA (transient ischemic attack) Discharge Disposition: Home Health 01/12/2025 Orders Only [facility] Scanner 1 scan: (1-Ord) [facility], CT ANGIO NECK, 01/12/2025 01/12/2025 Orders Only [facility] Scanner 1 scan: (1-Ord) [place], HEAD/BRAIN WO CON, 01/12/2025 01/12/2025 Office Visit [facility] [address] [place] [address] Ericka Mendenhall MD Telehealth ([facility] - Phone consult only / no video) 01/04/2025 Orders Only [facility] Scanner 1 scan: (1-Ord) [facility], CT CERVICAL SPINE WO CON, 01/04/2025 01/04/2025 Orders Only [facility] Scanner 1 scan: (1-Ord) [facility], CT HEAD/BRAIN WO CON, 01/04/2025 12/22/[address] [facility] [address] [facility] 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 Gender Identity Male 08/04/2024 11:14 AM CDT Sexual Orientation Not on file Occupation Industry Job Start Date Job End Date PROACT Not on file Not on file Not on file Not on file Not on file Not on file Not on file Obstetrics History Last Filed Vital Signs Vital Sign Reading Time Taken Comments Blood Pressure 142/84 02/24/2025 10:30 AM CDT Pulse 82 02/24/2025 10:30 AM CDT Temperature 36.8 C (98.2 F) 02/24/2025 10:30 AM CDT Respiratory Rate 16 02/24/2025 10:30 AM CDT Oxygen Saturation 99% 02/24/2025 10:30 AM CDT Inhaled Oxygen Concentration - - Weight 81.7 kg (180 lb 3.2 oz) 02/03/2025 8:54 A M CDT Height 174 cm (5' 8.5) 02/03/2025 8:54 AM CDT Body Mass Index 27 02/03/2025 8:54 AM CDT Plan of Treatment Upcoming Encounters Date Type Department Care Team (Late st Contact Info) Description 03/03/2025 11:00 AM CDT Home Care Visit [facility] [address] [place] [phone] Justen Fan, PT [address] [place] [address] 03/09/2025 2:00 PM CDT Appointment [facility] [address] [place] [address] 03/09/2025 3:00 PM CDT Office Visit [facility] [address] [place] [address] Donny Mcgee MD [address] [place] [address] Health Maintenance Due Date Last Done Comments Depression screening for age 12+ 1967 Colonoscopy through age 75 07/17/201301/15 (Completed outside of [facility]) Tetanus booster 04/20/2021 04/20/2011 Zoster (shingles) series for age 50+ (3 of 3) 03/10/2022 01/13/2022, 01/26/2015 Medicare Wellness for age 65+ 06/10/2024 06/10/2023, 08/27/2018, 05/31/2017 COVID-19 vaccine series ( season) 2025 02/25/2024, 08/29/2023, 03/04/2023, Additional history [...] Procedure Name Priority Date/Time Associated Diagnosis Comments FERRITIN Routine 02/17/2025 9:32 AM CDT Iron deficiency anemia, unspecified iron deficiency anemia type HEMOGLOBIN Routine 02/17/2025 9:32 AM CDT Iron deficiency anemia, unspecified iron deficiency anemia type IRON PLUS IRON BINDING CAP Routine 02/17/2025 9:32 AM CDT Iron deficiency anemia, unspecified iron deficiency anemia type SCAN-CT INTERPRETATION 5 12:00 AM CDT SCAN-CT INTERPRETATION 5 12:00 AM CDT SCAN-RADIOLOGY REPORT 02/15/2025 12:00 AM CDT SDNA-FIT EXTERNAL (COLOGUARD) Routine 02/08/2025 2:30 PM CDT Screening for colorectal cancer OCCULT BLOOD IFOBT STOOL Routine 02/08/2025 12:00 PM CDT Screening for colon cancer BASIC METABOLIC PANEL Early AM 01/30/2025 6:57 AM CDT CBC W PLT NO DIFF Early AM 01/30/2025 6:57 AM CDT SCAN-CARDIAC STRIP 01/30/2025 3:27 AM CDT [facility] ACTIVATED CLOTTING TM CV Timed 01/29/2025 12:20 PM CDT HG KIT PR5 Routine 01/29/2025 12:11 PM CDT HG DRSG PR5 Routine 01/29/2025 12:11 PM CDT [facility] DRSG PR1 Routine 01/29/2025 12:11 PM CDT [facility] TUBING PR20 Routine 01/29/2025 12:11 PM CDT [facility] TUBING PR1 Routine 01/29/2025 12:11 PM CDT [facility] ANES ARTERIAL CATH FOR SAMPLE MONITOR TRANS Routine 01/29/2025 12:11 PM CDT [facility] ANES US GUIDE FOR VASC ACCESS Routine 01/29/2025 12:11 PM CDT [facility] CATH PR5 Routine 01/29/2025 12:11 PM CDT [...] DOSE WO CONTRAST Routine 06/18/2024 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 Personal history of nicotine dependence CT CHEST ABDOMEN PELVIS W Routine 06/28/2021 12:22 PM 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 Weight loss ANTI HCV Routine 06/25/2019 8:36 AM 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 Need for hepatitis C screening test from Last 3 Months or Most Recently Relevant to Health Maintenance Results * (ABNORMAL) IRON PLUS IRON BINDING CAP (02/17/2025 9:32 AM CDT) IRON, TOTAL 60 50 - 180 mcg/dL 02/18/2025 4:19 AM CDT [facility] IRON BINDING CAPACITY 315 250 - 425 mcg/dL (calc) 02/18/2025 4:19 AM CDT [facility] % SATURATION 19(L) 20 - 48 % (calc) 02/18/2025 4:19 AM CDT [facility] Blood BLOOD SPECIMEN / Unknown [facility] / Unknown 02/17/2025 9:32 AM CDT 02/17/2025 9:32 AM CDT Rex Connor MD CHEMISTRY Final Result [facility] [address] [place] [address], * (ABNORMAL) HEMOGLOBIN (02/17/2025 9:32 AM CDT) Only the most recent of2 resultswithin the time period is included. HEMOGLOBIN 11.4(L) 13.2 - 17.1 g/dL 02/18/2025 3:51 AM CDT [facility] MCV 96.0 80.0 - 100.0 fL 02/18/2025 3:51 AM CDT [facility] Blood BLOOD SPECIMEN / Unknown [facility] / Unknown 02/17/2025 9:32 AM CDT 02/17/2025 9:32 AM CDT Rex Connor MD HEMATOLOGY Final Result Performing Organization Address [facility]/ZIP Co de Phone Number [facility] [address] [address], [place] [phone] * FERRITIN (02/17/2025 9:32 AM CDT) Pathologist [facility] FERRITIN 69 24 - 380 ng/mL 02/18/2025 5:30 AM CDT [facility] Blood BLOOD SPECIMEN / Unknown [facility] / Unknown 02/17/2025 9:32 AM CDT 02/17/2025 9:32 AM CDT Rex Connor MD CHEMISTRY Final Result Performing Organization Address [facility] Co de Phone Number [facility] [address] [address], [place] [phone] * SCAN-RADIOLOGY REPORT (02/15/2025 12:00 AM CDT) Anatomical Region Laterality Modality Other us Scanner OTHER Final Result * SCAN-CT INTERPRETATION (02/15/2025 12:00 AM CDT) Only the most recent of6 resultswithin the time period is included. Anatomical Region Laterality Modality Other us Scanner OTHER Final Result * (ABNORMAL) SDNA-FIT EXTERNAL (COLOGUARD) [[id number]] (02/08/2025 2:30 PM CDT) NONINV COLON CA DNA+OCC BLD SCRN STL-IMP Positive( A) Negative 02/13/2025 4:12 AM CDT [facility] (CLIA #:[id number]) Comment: The Cologuard Plus (TM) test was performed on this specimen. POSITIVE TEST RESULT. A positive (abnormal) Cologuard Plus result means the patient has a psdhte-nwuk-ylojmui chance of having colorectal cancer (CRC) or [...] a 91% specificity (Cologuard Plus Clinician Brochure. [employer]. [place], [place] Visit [email or web address]/about/dksrvbku-[email or web address] for more test information, references, warnings, and precautions. Stool specimen (specimen) (Rectum) 02/08/2025 2:30 PM CDT 02/10/2025 9:51 AM CDT us Rex Connor MD URINE Final Result [facility] (CLIA #:[id number]) [address] [place] [address], * OCCULT BLOOD IFOBT STOOL (02/08/2025 12:00 PM CDT) STOOL BLOOD ,IFOBT Negative Negative 02/15/2025 3:10 PM CDT [facility] Stool STOOL SPECIMEN / Unknown Non-Blood / Unknown 02/08/2025 12:00 PM CDT 02/12/2025 9:19 PM CDT us Rex Connor MD LABORATORY Final Result Performing Organization Address City/[facility]/ZIP Co de Phone Number [facility] [address] [place] [phone], * (ABNORMAL) CBC W PLT No DIFF (01/30/2025 6:57 AM CDT) Only the most recent of2 resultswithin the time period is included. WHITE BLOOD COUNT 7.0 4.5 - 11.0 thou/cu mm 01/30/2025 7:34 AM CDT [facility] RED BLOOD COUNT 3.06(L) 4.30 - 5.90 mil/cu mm 01/30/2025 7:34 AM CDT [facility] HEMOGLOBIN 9.3(L) 13.5 - 17.5 g/dL 01/30/2025 7:34 AM CDT [facility] HEMATOCRIT 29.6(L) 37.0 - 53.0 % 01/30/2025 7:34 AM CDT [facility] MCV 97 80 - 100 fL 01/30/2025 7:34 AM CDT [facility] MCH 30.4 26.0 - 34.0 pg 01/30/2025 7:34 AM CDT [facility] MCHC 31.4(L) 32.0 - 36.0 g/dL 01/30/2025 7:34 AM CDT [facility] RDW 14.1 11.5 - 15.5 % 01/30/2025 7:34 AM CDT [facility] PLATELET COUNT 160 140 - 440 thou/cu mm 01/30/2025 7:34 AM CDT [facility] MPV 9.9 6.5 - 11.0 fL 01/30/2025 7:34 AM CDT [facility] NRBC 0.0 % 01/30/2025 7:34 AM CDT [facility] ABS NRBC 0.0 thou /cu mm 01/30/2025 7:34 AM CDT [facility] Blood BLOOD SPECIMEN / Unknown Venipuncture / Unknown 01/30/2025 6:57 AM CDT 01/30/2025 7:23 AM CDT us Michael Kang MD HEMATOLOGY Final Result [facility] [address] [place] [address], * (ABNORMAL) Basic Metabolic Panel (01/30/2025 6:57 AM CDT) Only the most recent of3 resultswithin the time period is included. SODIUM 139 136 - 145 mmol/L 01/30/2025 7:50 AM CDT [facility] POTASSIUM 4.5 3.5 - 5.1 mmol/L 01/30/2025 7:50 AM CDT [facility] CHLORIDE 105 98 - 107 mmol/L 01/30/2025 7:50 AM CDT [facility] CO2,TOTAL 24 22 - 29 mmol/L 01/30/2025 7:50 AM CDT [facility] ANION GAP 10 5 - 18 01/30/2025 7:50 AM CDT [facility] GLUCOSE 96 70 - 99 mg/dL 01/30/2025 7:50 AM CDT [facility] CALCIUM 9.1 8.8 - 10.4 mg/dL 01/30/2025 7:50 AM CDT [facility] Comment: Reference ranges for this test were updated on 03/24/2024 to reflect our healthy population more accurately. Reference range changes are not retroactively applied to results, but previous results using the same methodology can be interpreted in the context of the new reference range. BUN 21 8 - 23 mg/dL 01/30/2025 7:50 AM CDT [facility] CREATININE 1.22(H) 0.70 - 1.20 mg/dL 01/30/2025 7:50 AM CDT [facility] BUN/CREAT RATIO 17 10 - 20 7:50 AM CDT [facility] eGFR 64(L) >90 mL/min/1. 73m2 01/30/2025 7:50 AM CDT [facility] Comment:As of 2021, eG FR [...] us Michael Kang MD CHEMISTRY Final Result [facility] [address] [place] [address], * SCAN-CARDIAC STRIP (01/30/2025 3:27 AM CDT) us Scanner OTHER Final Result * (ABNORMAL) ACTIVATED CLOTTING TIME [id number] ACT (01/29/2025 12:20 PM CDT) [facility] Signature ACTIVATED CLOTTING TIME, POCT 292(H) 74 - 125 sec 01/29/2025 1:39 PM CDT [facility] Blood BLOOD SPECIMEN / Unknown 01/29/2025 12:20 PM CDT 01/29/2025 1:39 PM CDT us Donny Mcgee MD HEMATOLOGY Final Result [facility] [address] [place] [phone], * [facility] CATH PR5, [facility] ANES US GUIDE FOR VASC ACCESS, [facility] ANES ARTERIAL CATH FOR SAMPLE MONITOR TRANS, [facility] TUBING PR1, [facility] TUBING PR20, [facility] DRSG PR1, [facility] DRSG PR5, [facility] KIT PR5 (01/29/2025 12:11 PMCDT) Coby Kay MD - 01/29/2025 12:11 PM CDT Coby [...] length: 4.5 cm. Comment: Events: no complications. us Coby Frazier MD ANESTHESIA PX NOTE ORDE RABLES Final Result * [facility] TUBE PR1, [facility] STYLET PR1 (01/29/2025 11:57 AM CDT) Keshawn Meyer CRNA - 01/29/2025 11:57 AM CDT Keshawn Sullivan CRNA 01/29/2025 11:57 AM Procedure: ETT Patient [...] us Coby Frazier MD ANESTHESIA PX NOTE SOUMYAE BRAIN Final Result * EKG (01/29/2025 10:34 AM CDT) Pathologist [facility] Interpretation Normal sinus rhythm Normal ECG When compared with ECG of 13-Sep-2018 10:47, No significant change was found BEYOND NOW Ventricular Rate 75 BPM BEYOND NOW Atrial Rate 75 BPM BEYOND NOW P-R Interval 150 ms BEYOND NOW QRS Duration 92 ms BEYOND NOW QT 374 ms BEYOND NOW QTc 417 ms BEYOND NOW P [place] 67 degrees BEYOND NOW R [place] 10 degrees BEYOND NOW T [place] 55 degrees BEYOND NOW 01/29/2025 10:3 4 AM CDT 01/29/2025 8:49 PM CDT Narrative BEYOND NOW - 01/29/2025 8:49 PM CDT Test Indication: preop us Vannesa Gomez PA EKG ORD Fin al Result BEYOND NOW [place] * (ABNORMAL) P2Y12 INHIBITION (01/29/2025 10:08 AM CDT) Pathologist [facility] PLATELET COUNT 188 140 - 440 thou/cu mm 01/29/2025 10:54 AM CDT [facility] P2Y12 REACTION UNITS 59 01/29/2025 10:54 AM CDT [facility] Comment: Reference Range: Individuals [...] patients have not been established. References: 1. Wm M, Angiokiersten D, Henna P, et al. Platelet Reactivity and Cardiovascular Outcomes after Percutaneous Coronary Intervention. Circulation. 2011;124:1132- 1137. 2. Reginald Mccloud, Tia Fraser, Clayton Camargo, et al. Bleeding and stent thrombosis on [id number]: collaborative analysis on the role of platelet reactivity for risk stratification after percutaneous coronary intervention. Heart Journal. 2015; 36:6805-2985. 3. Reginald Mccloud, Salazar RF, Cosmo csi A, et al. Expert position paper on the role of platelet function testing in patients undergoing percutaneous coronary intervention. Heart Journal. 2014;35(4):209-215. HEMATOCRIT 35.0(L) 37.0 - 53.0 % 01/29/2025 10:54 AM CDT [facility] TRAL LABORATORY Blood BLOOD SPECIMEN / Unknown Venipuncture / Unknown 01/29/2025 10:08 AM CDT 01/29/2025 10:43 AM CDT [facility] [employer] LABORATORY-CENTRAL LABORATORY - 01/29/2025 10:54 AM CDT OBTAIN BLOOD COLLECTION TUBES FROM THE LABORATORY. [facility] SEND OUTS Fin al Result [facility] [employer] LABORATORY-CENTRAL LABORATORY [address] [place] [address], * Type and Screen (01/29/2025 10:08 AM CDT) ABORH B Rh Positive 01/29/2025 11:09 AM CDT [facility] LAB-CENTRAL LAB BLOOD BANK ANTIBODY SCREEN Negative Negative 01/29/2025 11:09 AM CDT [facility] LAB-CENTRAL LAB BLOOD BANK SPECIMEN EXPIRATION DATE/TIME 02/01/25 23:59 01/29/2025 11:09 AM CDT [facility] [employer] LAB-CENTRAL LAB BLOOD BANK Blood BLOOD SPECIMEN / Unknown Non-Lab Venipuncture / Unknown 01/29/2025 10:08 AM CDT 01/29/2025 10:23 AM CDT [facility] BLOOD BANK Fin al Result [facility] LAB BLOOD BANK [address] [place] [address], [place] [phone] * EXTRA TUBE GOLD/SST (01/29/2025 10:07 AM CDT) Blood BLOOD SPECIMEN / Unknown Non-Lab Venipuncture / Unknown 01/29/2025 10:07 AM CDT 01/29/2025 10:24 AM CDT Donny Mcgee MD LABORATORY Final Result [facility] [address] [place] [address], [place] * SCAN-CARDIAC STRIP (01/29/2025 12:00 AM [...] of5 resultswithin the time period is included. [facility] Signature GLUCOSE METER 97 65 - 100 mg/dL 01/14/2025 11:13 AM CDT [facility] LABORATORY Blood BLOOD SPECIMEN / Unknown 01/14/2025 11:07 AM CDT 01/14/2025 11:12 AM CDT us Ramon Gutierrez MD CHEMISTRY Final R esult [facility] LABORATORY-CENTRAL LABORATORY [address] [place] [address], [place] * ECHO TTE COMPLETE W CONTRAST [...] kg Tech: Referring MD: GODFREY FINCH Site: [facility] Reading Location: ANW IP Patient Location: [...] documentation: 2 ml diluted Definity, lot #[id number], [facility] [place]# [id number] was administered peripherally to enhance visualization of all left ventricular segments. . This study was interpreted by an [facility] accredited facility. Final Procedure Note Bryce Pierce MD - 01/14/2025 ECHOCARDIOGRAM SCOOBY MERINO : 1955 69 years Study Date: 01/14/2025 9:27:18 AM Gender: M BP: 147/82 mmHg Height: 180.00 cm BSA: 2.07 m Weight: 87.00 kg Tech: Referring MD: GODFREY FINCH Site: [facility] Reading Location: ANW IP Patient Location: [...] documentation: 2 ml diluted Definity, lot #[id number], [facility]#[id number] was administered peripherally to enhance visualization of allleft ventricular segments. . This study was interpreted by an [facility] accredited facility. Final us Godfrey Finch MD ECHO ORD Final Resul t [...] MD @ 01/13/2025 9:51:54 PM (Electronically Signed) us Godfrey Finch MD MR Final Resul t * SCAN-CARDIAC STRIP (01/13/2025 11:25 AM CDT) us Scanner OTHER Final Result * Hemoglobin A1C Screening (01/13/2025 11:09 AM CDT) HEMOGLOBIN A1C SCREENING 5.5 <=6.4 % 01/13/2025 3:23 PM CDT [facility] LABORATORY Blood BLOOD SPECIMEN / Unknown Butterfly / Unknown 01/13/2025 11:09 AM CDT 01/13/2025 11:19 AM CDT Narrative [facility]CENTRAL LABORATORY - 01/13/2025 3:23 PM CDT (<5.7%) Normal (5.7% to 6.4%) Indicates prediabetes (>=6.5%) Confirms diabetes Falsely low levels may be seen with: Recent Transfusion, Recent Significant Blood Loss, Hemolytic Diseases, or Falsely elevated levels may be seen with: Untreated Anemias, Splenectomy us Godfrey Finch MD CHEMISTRY Final Resul t [facility] [address] [place] [id number], * PLATELET COUNT (01/13/2025 11:09 AM CDT) PLATELET COUNT 177 140 - 440 thou/cu mm 01/13/2025 11:55 AM CDT [facility] LABORATORY MPV 9.5 6.5 - 11.0 fL 01/13/2025 11:55 AM CDT [facility] LABORATORY Blood BLOOD SPECIMEN / Unknown Butterfly / Unknown 01/13/2025 11:09 AM CDT 01/13/2025 11:19 AM CDT Ramon Gutierrez MD HEMATOLOGY Final R esult Performing Organization Address City/[facility]/ZIP Co de Phone Number [facility] [address] [place] [address], * Lipid Panel (01/13/2025 11:09 AM CDT) CHOLESTEROL,TOTAL 178 100 - 199 mg/dL 01/13/2025 12:11 PM CDT [facility] TRAL LABORATORY Comment: Cholesterol, Total Reference Ranges Desirable <200 mg/dL Borderline 200-239 mg/dL High >=240 mg/dL TRIGLYCERIDES 110 <150 mg/dL 01/13/2025 12:11 PM CDT [facility] LABORATORY-[facility] TRAL LABORATORY HDL CHOLESTEROL 47 >40 mg/dL 12:11 PM CDT [facility] TRAL LABORATORY NON-HDL CHOLESTEROL 131 <145 mg/dl 01/13/2025 12:11 PM CDT [facility] TRAL LABORATORY CHOL/HDL RATIO 3.79 <4.50 01/13/2025 12:11 PM CDT [facility] TRAL LABORATORY LDL CHOLESTEROL 109 <=130 mg/dL 01/13/2025 12:11 PM CDT [facility] TRAL LABORATORY VLDL CHOLESTEROL 22 <=30 mg/dL 01/13/2025 12:11 PM CDT [facility] TRAL LABORATORY PROVIDER ORDERED STATUS RANDOM 01/13/2025 12:11 PM CDT [facility]-[place] TRAL LABORATORY Blood BLOOD SPECIMEN / Unknown Butterfly / Unknown 01/13/2025 11:09 AM CDT 01/13/2025 11:19 AM CDT us Godfrey Finch MD CHEMISTRY Final Resul t [facility] LABORATORY-CENTRAL LABORATORY [address] [place] [address], [place] * CT CHEST SCREENING LOW DOSE WO CONTRAST [[id number]] -- Criteria: must meet ALL: Age 50-80, current smoker or quit within the last 15 years, AND 20+ pack-year history (06/18/2024 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) Anatomical Region Laterality Modality Computed Tomogra phy Impressions 06/19/2024 12:04 PM 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 New 6 millimeter left upper lobe pulmonary [...] @06/18/2024 4:28:09 PM/giovanni Narrative 06/19/2024 12:04 PM 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 For Patients: As a result of the [...] 2 millimeter perifissural nodule left upper lobe, 5/. Continued decreased size of nodular density within the right middle lobe with residual linear scarring present. Stable 2 millimeter nodule right lower lobe, . Additional new nodule within the right lower lobe measures 4 millimeters, . LUNGS AND PLEURA: Stable scarring in both lung apices and within the lingula. MEDIASTINUM: Calcified left hilar lymph nodes. Atherosclerotic changes. CORONARY ARTERY CALCIFICATION: None. LIMITED UPPER ABDOMEN: Postop changes to the GE junction. MUSCULOSKELETAL: Normal. us Rex Connor MD CT Final Result * CT CHEST ABDOMEN PELVIS W (06/28/2021 12:22 PM 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) Anatomical Region Laterality Modality Abdomen, Pelvis, AORTA, LIVER, SPLEEN Computed Tomography 06/28/2021 9:38 PM 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 Impressions 06/28/2021 9:38 PM 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 Esophagus appears patulous and there are secretions [...] 9:38PM (Electronically Signed) Narrative 06/28/2021 9:38 PM 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 For Patients: As a result of the [...] are osteopenic. Mild chronic compression deformity of [id number] body IMPRESSION: Esophagus appears patulous and there are secretions seen within thetrachea and extending into the distal small airways concerning foraspiration risk. There are changes of chronic aspiration or bronchitis orcombination of the 2. The lungs show numerous areas of small airwayocclusion with distal bronchiectasis and bronchiolitis. Tiny [id number]-mr-[id number] are seen within the right middle lobe. [...] @ Jun 28 2021 9:38PM (Electronically Signed) Rex Connor MD CT Final Result * ANTI HCV (06/25/2019 8:36 AM 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) HEPATITIS C ANTIBODY Non-React dani Non-React dani 06/25/2019 2:37 PM 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 [facility] LABORATORY-[facility] TRAL LABORATORY Comment:Antibodies to HCV no t detected; does not exclude the possibility of exposure to HCV. Blood BLOOD SPECIMEN / Unknown Venipuncture / Unknown 06/25/2019 8:36 AM 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 06/25/2019 8:36 AM 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 us Rex Connor MD SEND OUTS Final Result [facility] LABORATORY-CENTRAL LABORATORY [address] [place] [address], from Last 3 Months or Most Recently Relevant to Health Maintenance Insurance [facility] [address] [address] MEDICAID MEDICARE PB ONLY MEDICARE PART B HB ONLY MEDICARE PART A HB ONLY [employer] MEDICARE PART B HB ONLY MEDICARE PART A HB ONLY MEDICAID MEDICARE PPS * Guarantor: JUSTIN WOLF Account Type Relation to Patient Date of Phone Billing Address Occ Health/[employer] 1979 [place] [id number] ATTN A/P [address] [address] [place] [address] Advance Directives Documents on File Type Date Recorded Patient Account Executive Healthcare Expl anation Healthcare Directive 04/27/2016 7:01 AM Healthcare Directive 04/27/2016 12:00 AM Healthcare Directive 07/21/200916-0 4 * Full Code (Latest Code Status [...] Comments Code Status Discussion: Discussed Care Teams Population Health Manager Relationship Specialty Start Date End Date Rex Connor MD [address] [place] [address] PCP - General Family Practice 10/14/18 [facility] [address] [place] [place] [id number] 01/14/25
--- OUTSIDE RECORDS SUMMARY | 2025-03-01 11:28 | XMS_ITS | Clinical Summary ---
Author Organization [facility] Address [address] [place] [address] Care Team Providers Care Weather Anchor Name Role Phone Rex Connor Mary Jo Primary Care Provider [phone] Allergies Active Allergy Reactions Criticality Noted Date [...] on file Legal Sex Male 12:58 PM DIRECTOR TRUST Gender Identity Not on file Sexual Orientation [...] on file Medical Devices Implanted Type Area Gang Worker Device Identifier Shelf Expiration Date Model / Serial / Lot Embolic Substance/Device- 12/29/2020 Implanted:Qty: 1 on 12/29/2020 by Elton Pond MD Embolic Substance/D evice Nose [employer] 11/02/2021 / / [id number] Description:Nose bleed emobo lization Embolic Substance/Device- 12/29/2020 Implanted:Qty: 1 on 12/29/2020 by Elton Pond MD Embolic Substance/D evice Nose [employer] 04/07/2024 / / [id number] Description:Nose bleed emobo lization Insurance MEDICARE MEDICAID [place] Advance Directives For more information, please contact: [phone] * Full Code (Latest Code Status on File) Date Activated Date Inactivated Comments 12/29/2020 11:12 AM 12/30/2020 3:08 PM All basic a nd advanced life-sustaining interventions are performed as appropriate Question Answer Comments Code status determined by: Discussion with humberto nt/ legal decision maker Care Teams Weather Anchor Relationship Specialty Start Date End Date Rex Connor [address] [facility] [address] PCP - General Family Medicine 12/28/20
[2025-03-01 12:03] VITALS: BP 157/96; PULSE 83; RESP 16; TEMP 36.2; O2SAT 99; BMI 35.0
--- NOTE | 2025-03-01 12:38 | CRLHL7_ITS ---
For Patients: As a result of the Cures Act, medical imaging exams and procedure reports are released immediately into your electronic medical record. You may view this report before your referring provider. If you have questions, please contact your health care provider. Indication: Fall. Technique: Left wrist 3 views. Comparison: None. Findings: Bones: No fracture or dislocation. No worrisome osseous lesion. Joint spaces: Mild thumb metacarpophalangeal joint osteoarthrosis. Soft tissues: Unremarkable. Impression: No fracture or dislocation. No radiographically evident soft tissue swelling. Dictated by Elton Lorenz MD @ 03/01/2025 1:20:09 PM (Electronically Signed)
--- NOTE | 2025-03-01 13:38 | ED.GENADULT ---
HPI - General Adult General Chief complaint: Extremity Pain/Injury, Upper Stated complaint: Fall; L wrist injury Time Seen by Provider: 03/01/25 11:26 Source: patient Mode of arrival: ambulatory Limitations: no limitations History of Present Illness HPI narrative: 69-year-old male presenting with left wrist pain. Patient states that he was getting up from his easy chair in the middle of the night and fell. He tells me this happen last night but told nursing that have been a few days ago. He is unsure how he landed. He states that he his wrist has been hurting since. He has been able to do his activities of daily living. He does tell me that he falls frequently. He also states that his pinky feels sore. He uses a walker and has been able to use his walker since falling. Patient is a [place] resident. He denies pain in the lower extremities, no chest pain or shortness of breath. No pain in his back or neck. Related Data Home Medications ?Medication ?Instructions ?Recorded ?Confirmed clonazepam 0.5 mg tablet 1 mg PO HS 12/20/21 03/01/25 divalproex 250 mg tablet,extended 250 mg PO HS 12/20/21 03/01/25 release 24 hr divalproex 500 mg tablet,extended 1,000 mg PO HS 12/20/21 03/01/25 release 24 hr escitalopram oxalate 5 mg tablet mg 12/20/21 04/24/23 haloperidol decanoate 50 mg/mL mg IM 12/20/21 04/24/23 intramuscular solution levothyroxine 150 mcg tablet 150 mcg PO DAILY 12/20/21 03/01/25 propranolol 20 mg tablet 20 mg PO BID 12/20/21 03/01/25 quetiapine 100 mg tablet 150 mg PO HS 12/20/21 03/01/25 tamsulosin 0.4 mg capsule 0.4 mg PO DAILY 12/20/21 03/01/25 aspirin 325 mg tablet 81 mg PO DAILY 08/21/22 03/01/25 benztropine 0.5 mg tablet 0.5 mg PO BID 08/21/22 04/24/23 budesonide-formoterol HFA 80 inhalation 08/21/22 04/24/23 mcg-4.5 mcg/actuation aerosol inhaler (Symbicort) carbidopa 25 mg-levodopa 100 mg 1 tab PO 3XD 08/21/22 03/01/25 tablet escitalopram oxalate 10 mg tablet 10 mg PO DAILY 08/21/22 03/01/25 haloperidol decanoate 100 mg/mL mg IM 08/21/22 04/24/23 intramuscular solution nicotine (polacrilex) 2 mg buccal 0 mg PO 08/21/22 04/24/23 lozenge nicotine 14 mg/24 hr daily 1 patch topical DAILY 08/21/22 04/24/23 transdermal patch polyethylene glycol 3350 17 g PO 08/21/22 04/24/23 gram/dose oral powder (Gavilax) quetiapine 200 mg tablet 200 mg PO QPM 08/21/22 04/24/23 clopidogrel 75 mg tablet 75 mg PO DAILY 03/01/25 03/01/25 famotidine 20 mg tablet 20 mg PO DAILY 03/01/25 03/01/25 ferrous sulfate 325 mg (65 mg mg PO 03/01/25 iron) tablet (FeroSul) fluticasone 250 mcg-salmeterol 50 1 ea inhalation BID 03/01/25 03/01/25 mcg/dose blistr powdr for inhalation melatonin 3 mg capsule 3 mg PO QHS 03/01/25 03/01/25 olanzapine 5 mg tablet 5 mg PO QPM 03/01/25 03/01/25 rosuvastatin 40 mg tablet 40 mg PO DAILY 03/01/25 03/01/25 sennosides 8.6 mg tablet (senna) 17.2 mg PO DAILY 03/01/25 03/01/25 Allergies Allergy/AdvReac Type Severity Reaction Status Date / Time haloperidol AdvReac Unknown Verified 03/01/25 12:25 clozapine AdvReac Verified 03/01/25 12:25 Review of Systems Status of ROS: Reports: 6 or more systems reviewed and unremarkable except as noted in History and below [facility] Medical History History of alcohol abuse ?F10.11 - Alcohol abuse, in remission (ICD-10) Schizoaffective disorder, bipolar type ?F25.0 - Schizoaffective disorder, bipolar type (ICD-10) Psychotic disorder ?F29 - Unspecified psychosis not due to a substance or known physiological condition (ICD-10) Manic depression ?F31.9 - Bipolar disorder, unspecified (ICD-10) CAD (coronary artery disease) ?I25.10 - Atherosclerotic heart disease of [place] coronary artery without angina pectoris (ICD-10) Social History Smoking Status: Current every day smoker What tobacco products do you use: cigarettes Do you use any of these nicotine containing products: None Second hand tobacco smoke exposure: No How often do you have a drink containing alcohol: never How many standard drinks containing alcohol do you have on a typical day: 1 or 2 How often do you have six or more drinks on one occasion: Never AUDIT-C Alcohol total score: 0 Non-prescribed substance use: denies use service: No Exam Narrative: Exam Narrative: Well-nourished well-developed patient in no acute distress. Alert and oriented. Answers questions appropriately. Thoughts are goal oriented and rational. No tangential or magical thinking noted. Patient speaks in full sentences without needing to catch his breath. HEENT: Normocephalic atraumatic. Pupils are equally round reactive to light. Extraocular muscles are intact. Conjunctivae are moist without any icterus noted. Moist mucous membranes. No trauma to the inside of the mouth. Cardiovascular: Heart is regular rate and rhythm. Lungs: Clear to auscultation bilaterally. Abdomen: Soft and nontender nondistended with normal bowel sounds. Extremities: Scattered bruising of the upper extremities. Wrist has very minimal soft tissue swelling. He has full range of motion. He has mild discomfort in the dorsal surface of the center of the wrist. No pain in the snuffbox. No pain over radius or ulna. Normal radial pulse. And he has normal appearance. Full range of motion without deficits. No swelling or tenderness to palpation of the fingers. Skin: Well perfused. Const: Vital Signs, click to edit/add: Vital Signs - 24 hr 03/01/25 12:03 Temperature 97.2 F L Pulse Rate [Pulse Oximeter] 83 Respiratory Rate 16 Blood Pressure [Ri ght Upper Arm] 157/96 H Pulse Oximetry 99 Oxygen Delivery Me thod Room Air Course Course ED Course: X-ray of the wrist was obtained and was unremarkable. Vital Signs Vital signs: Initial Vital Signs Temperature 97.2 F L 03/01/25 12:03 Temperature Source Temporal Artery Scan 03/01/25 12:03 Pulse Rate 83 03/01/25 12:03 Respiratory Rate 16 03/01/25 12:03 Blood Pressure 157/96 H 03/01/25 12:03 Blood Pressure Mean 116 H 03/01/25 12:03 Blood Pressure Position Sitting 03/01/25 12:03 Pulse Oximetry 99 03/01/25 12:03 Oxygen Delivery Method Room Air 03/01/25 12:03 Vital Signs Temperature 97.2 F L 03/01/25 12:03 Pulse Rate 83 03/01/25 12:03 Respiratory Rate 16 03/01/25 12:03 Blood Pressure 157/96 H 03/01/25 12:03 Pulse Oximetry 99 03/01/25 12:03 Oxygen Delivery Method Room Air 03/01/25 12:03 Temperature 97.2 F L 03/01/25 12:03 Pulse Rate 83 03/01/25 12:03 Respiratory Rate 16 03/01/25 12:03 Blood Pressure 157/96 H 03/01/25 12:03 Pulse Oximetry 99 03/01/25 12:03 Oxygen Delivery Method Room Air 03/01/25 12:03 Medical Decision Making MDM Narrative Medical decision making narrative: 69-year-old male status post fall, no evidence of fracture of the wrist. Symptomatic treatment discussed. Imaging Data X-ray wrist: Attestation: I have reviewed the pertinent imaging results. Radiologist's impression: Technique: Left wrist 3 views. Comparison: None. Findings: Bones: No fracture or dislocation. No worrisome osseous lesion. Joint spaces: Mild thumb metacarpophalangeal joint osteoarthrosis. Soft tissues: Unremarkable. Impression: No fracture or dislocation. No radiographically evident soft tissue swelling. Discharge Plan Discharge Clinical Impression: Pain in wrist Patient Disposition: Home, Self-Care Condition: Stable Additional Instructions: There was no fracture visualized on today's x-ray. You likely have a sprain of the wrist. Recommend wearing Farshad wrap for extra support in long as you need it. Activity as tolerated. Prescriptions: No Action clonazepam 0.5 mg tablet 1 mg PO HS divalproex 500 mg tablet extended release 24 hr 1,000 mg PO HS divalproex 250 mg tablet extended release 24 hr 250 mg PO HS quetiapine 100 mg tablet 150 mg PO HS tamsulosin 0.4 mg capsule 0.4 mg PO DAILY levothyroxine 150 mcg tablet 150 mcg PO DAILY haloperidol decanoate 50 mg/mL solution IM propranolol 20 mg tablet 20 mg PO BID escitalopram oxalate 5 mg tablet clopidogrel 75 mg tablet 75 mg PO DAILY fluticasone propion-salmeterol 250-50 mcg/dose blister with device 1 ea inhalation BID famotidine 20 mg tablet 20 mg PO DAILY ferrous sulfate [FeroSul] 325 mg (65 mg iron) tablet PO melatonin 3 mg capsule 3 mg PO QHS olanzapine 5 mg tablet 5 mg PO QPM sennosides [senna] 8.6 mg tablet 17.2 mg PO DAILY rosuvastatin 40 mg tablet 40 mg PO DAILY benztropine 0.5 mg tablet 0.5 mg PO BID nicotine 14 mg/24 hr patch 24 hour 1 patch topical DAILY aspirin 325 mg tablet 81 mg PO DAILY haloperidol decanoate 100 mg/mL solution IM quetiapine 200 mg tablet 200 mg PO QPM polyethylene glycol 3350 [Gavilax] 17 gram/dose powder PO carbidopa-levodopa 25-100 mg tablet 1 tab PO 3XD escitalopram oxalate 10 mg tablet 10 mg PO DAILY nicotine (polacrilex) 2 mg lozenge 0 mg PO budesonide-formoterol [Symbicort] 80-4.5 mcg/actuation HFA aerosol inhaler inhalation Follow Up/Referrals: Rex Connor MD [Primary Care Provider, Family Practice] Stand Alone Forms: [facility] Info Instructions
[2025-03-01 13:51] VITALS: BP 167/93; PULSE 84; RESP 16; O2SAT 99
== END 2025-03-01 14:15 | disposition home or self-care (01) ==
PROVIDERS: Emergency Provider Family Medicine; PCP Family Medicine
DX: M25.532 Pain in left wrist (principal); W18.00XA Striking against unspecified object with subsequent fall, initial encounter
CPT/HCPCS: 73110; 99283; 99284

== ENCOUNTER 2025-03-05 20:51 | Outpatient (CLI) | payer MEDICARE, MEDICAID, SELFPAY | END 2025-03-05 20:52 | disposition home or self-care (01) | LOC: AMB 03-11 13:43 | PROVIDERS: PCP Family Medicine; Visit Provider Internal Medicine | DX: R41.82 Altered mental status, unspecified (principal) | CPT/HCPCS: A0425; A0427 ==

== ENCOUNTER 2025-03-05 21:12 | Observation (INO) | payer MEDICARE, MEDICAID, SELFPAY ==
--- OUTSIDE RECORDS SUMMARY | 2025-02-02 11:20 | XMS_ITS ---
Author Organization [facility] Address [address] , [address] [place] [address] Phone Care Team Providers Care Evs Attendant Name Role Phone Itzel GOMEZ APRN,JALEN, Fauzia Mariano Unavailable + Conditions or Problems No information available. Medications Medication Instructions Start Date Stop Date Generic Name [facility] Provider TAMSULOSIN HCL 0.4 MG CAPS 02/02 tamsulosin [id number] Fauzia Robbins DNP, APRN,JALEN MAGNESIUM CITRATE 1.745 GM/30ML SOLN 02/02 magnesium citrate [id number] Fauzia Robbins DNP, APRN,JALEN DEEP SEA NASAL SPRAY 0.65 % SOLN Administer 2 spray into both nostrils every six hours 02/02 sodium chloride [id number] Fauzia Robbins DNP, APRN,JALEN LEVOTHYROXINE SODIUM 150 MCG TABS 02/02 levothyroxine [id number] Fauzia Robbins DNP, APRN,CORPORATE SALES MANAGER QUETIAPINE FUMARATE 200 MG TABS Take 200 mg by mouth every night 02/02 quetiapine [id number] Fauzia Robbins DNP, APRN,CORPORATE SALES MANAGER NICOTINE POLACRILEX [address] 1 by mouth every hour as needed 02/02 nicotine (polacrilex) [id number] Fauzia Robbins DNP,SUYAPA,CORPORATE SALES MANAGER haloperidol decanoate (HALDOL DECANOATE) 100 mg/mL intramusc Inject 75 mg intramuscularly every two weeks 02/02 HALDOL DECANOATE Fauzia Robbins DNP, APRN,CORPORATE SALES MANAGER DIVALPROEX SODIUM ER 500 MG [id number] Take 2 Tablets (1,000 mg) by mouth at bedtime. 02/02 divalproex [id number] Fauzia Robbins DNP,SUYAPA,CORPORATE SALES MANAGER HALOPERIDOL DECANOATE 50 MG/ML SOLN 02/02 haloperidol decanoate [id number] Fauzia Robbins DNPSUPERVISOR BOTTLE HOUSE CLEANERS,CORPORATE SALES MANAGER BENZTROPINE MESYLATE 0.5 MG TABS Take 0.5 mg by mouth twice a day 02/02 benztropine [id number] Fauzia Robbins DNPSUPERVISOR BOTTLE HOUSE CLEANERS,CORPORATE SALES MANAGER HALOPERIDOL 5 MG TABS Take 5 mg by mouth every four hours as needed 02/02 haloperidol [id number] Fauzia Robbins DNP,SUPERVISOR [employer],CORPORATE SALES MANAGER IBUPROFEN (IBUPROFEN) 600 MG TABS Take 1 tablet by mouth every eight hours as needed 02/02 IBUPROFEN Fauzia Robbins DNPSUPERVISOR BOTTLE HOUSE CLEANERS,CORPORATE SALES MANAGER CLONAZEPAM 0.5 MG TABS Take 1 tablet by mouth once a day as needed 02/02 clonazepam [id number] Fauzia Robbins DNP, APRN,CORPORATE SALES MANAGER CLONAZEPAM 0.5 MG TABS 02/02 clonazepam [id number] Fauzia Robbins DNP,SUPERVISOR [employer],CORPORATE SALES MANAGER SYMBICORT 80-4.5 MCG/ACT AERO 02/02 budesonide-form oterol [id number] Fauzia Robbins DNP,SUPERVISOR [employer],CORPORATE SALES MANAGER ACETAMINOPHEN 500 MG TABS Take 2 Tablets (1,000 mg) by mouth every 6 hours if needed for Pain. Max acetaminophen dose: 4000mg in 24 hrs. 02/02 acetaminophen 58302633892 Fauzia Robbins DNP,SUPERVISOR [employer],CORPORATE SALES MANAGER ASPIRIN LOW DOSE 81 MG [facility] aspirin [id number] Fauzia Robbins DNP,SUPERVISOR [employer],CORPORATE SALES MANAGER DEEP SEA NASAL SPRAY 0.65 % SOLN sodium chloride 78053019564 Fauzia Robbins DNP,SUPERVISOR [employer],CORPORATE SALES MANAGER CLONAZEPAM 1 MG TABS clonazepam [id number] Fauzia Robbins DNP,SUPERVISOR [employer],CORPORATE SALES MANAGER CLOPIDOGREL BISULFATE 75 MG TABS clopidogrel [id number] Fauzia Mariano [facility] DNP,SUPERVISOR [employer],CORPORATE SALES MANAGER DIVALPROEX SODIUM ER 250 MG [id number] divalproex [id number] Fauzia Mariano [facility] DNP,SUPERVISOR [employer],CORPORATE SALES MANAGER QUETIAPINE FUMARATE 150 MG TABS quetiapine [id number] Fauzia Mariano [facility],SUPERVISOR B[employer] CLEAN[employer],CORPORATE SALES MANAGER OLANZAPINE 5 MG TABS olanzapine [id number] Fauzia Mariano [facility],SUPERVISOR B[employer] CLEAN[employer],CORPORATE SALES MANAGER SENNA 8.6 MG TABS sennosides [id number] Fauzia Mariano [facility],SUPERVISOR B[employer]SE [employer]AN[employer],CORPORATE SALES MANAGER ROSUVASTATIN CALCIUM 40 MG TABS rosuvastatin [id number] Fauzia Mariano [facility],SUPERVISOR B[employer]AN[employer],CORPORATE SALES MANAGER Medications Administered No information available. Allergies, Adverse [...]
--- OUTSIDE RECORDS SUMMARY | 2025-02-02 11:20 | XMS_ITS ---
Author Organization [facility] Address [address] , [address] [place] [address] Phone Care Team Providers Care Ice Cutter Name Role Phone Itzel GOMEZ APRN,JALEN, Fauzia Mariano Unavailable + Conditions or Problems No information available. Medications Medication Instructions Start Date Stop Date Generic Name [facility] Provider TAMSULOSIN HCL 0.4 MG CAPS 02/02 tamsulosin [id number] Fauzia Robbins DNP, APRN,JALEN MAGNESIUM CITRATE 1.745 GM/30ML SOLN 02/02 magnesium citrate [id number] Fauzia Robbins DNP, APRN,JALEN DEEP SEA NASAL SPRAY 0.65 % SOLN Administer 2 spray into both nostrils every six hours 02/02 sodium chloride [id number] Fauzia Robbins DNP, APRN,JALEN LEVOTHYROXINE SODIUM 150 MCG TABS 02/02 levothyroxine 75765839968 Fauzia Robbins DNP, APRN,STREETCAR REPAIRER HELPER QUETIAPINE FUMARATE 200 MG TABS Take 200 mg by mouth every night 02/02 quetiapine [id number] Fauzia Robbins DNP, APRN,STREETCAR REPAIRER HELPER NICOTINE POLACRILEX [address] 1 by mouth every hour as needed 02/02 nicotine (polacrilex) [id number] Fauzia Robbins DNP,SUYAPA,STREETCAR REPAIRER HELPER haloperidol decanoate (HALDOL DECANOATE) 100 mg/mL intramusc Inject 75 mg intramuscularly every two weeks 02/02 HALDOL DECANOATE Fauzia Robbins DNP, APRN,STREETCAR REPAIRER HELPER DIVALPROEX SODIUM ER 500 MG [id number] Take 2 Tablets (1,000 mg) by mouth at bedtime. 02/02 divalproex [id number] Fauzia Robbins DNP,SUYAPA,STREETCAR REPAIRER HELPER HALOPERIDOL DECANOATE 50 MG/ML SOLN 02/02 haloperidol decanoate [id number] Fauzia Robbins DNPNURSE EXAMINER,STREETCAR REPAIRER HELPER BENZTROPINE MESYLATE 0.5 MG TABS Take 0.5 mg by mouth twice a day 02/02 benztropine [id number] Fauzia Robbins DNPNURSE EXAMINER,STREETCAR REPAIRER HELPER HALOPERIDOL 5 MG TABS Take 5 mg by mouth every four hours as needed 02/02 haloperidol [id number] Fauzia Robbins DNP,NURSE EXAMINER,STREETCAR REPAIRER HELPER IBUPROFEN (IBUPROFEN) 600 MG TABS Take 1 tablet by mouth every eight hours as needed 02/02 IBUPROFEN Fauzia Robbins DNPNURSE EXAMINER,STREETCAR REPAIRER HELPER CLONAZEPAM 0.5 MG TABS Take 1 tablet by mouth once a day as needed 02/02 clonazepam [id number] Fauzia Robbins DNP, APRN,STREETCAR REPAIRER HELPER CLONAZEPAM 0.5 MG TABS 02/02 clonazepam [id number] Fauzia Robbins DNP,NURSE EXAMINER,STREETCAR REPAIRER HELPER SYMBICORT 80-4.5 MCG/ACT AERO 02/02 budesonide-form oterol [id number] Fauzia Robbins DNP,NURSE EXAMINER,STREETCAR REPAIRER HELPER ACETAMINOPHEN 500 MG TABS Take 2 Tablets (1,000 mg) by mouth every 6 hours if needed for Pain. Max acetaminophen dose: 4000mg in 24 hrs. 02/02 acetaminophen 81983054730 Fauzia Robbins DNP,NURSE EXAMINER,STREETCAR REPAIRER HELPER ASPIRIN LOW DOSE 81 MG [facility] aspirin 78664923822 Fauzia Robbins DNP,NURSE EXAMINER,STREETCAR REPAIRER HELPER DEEP SEA NASAL SPRAY 0.65 % SOLN sodium chloride [id number] Fauzia Robbins DNP,NURSE EXAMINER,STREETCAR REPAIRER HELPER CLONAZEPAM 1 MG TABS clonazepam [id number] Fauzia Robbins DNP,NURSE EXAMINER,STREETCAR REPAIRER HELPER CLOPIDOGREL BISULFATE 75 MG TABS clopidogrel [id number] Fauzia Mariano [facility] DNP,NURSE EXAMINER,STREETCAR REPAIRER HELPER DIVALPROEX SODIUM ER 250 MG [id number] divalproex [id number] Fauzia Mariano [facility] DNP,NURSE EXAMINER,STREETCAR REPAIRER HELPER QUETIAPINE FUMARATE 150 MG TABS quetiapine [id number] Fauzia Mariano [facility],NURSE EXAMINER,STREETCAR REPAIRER HELPER OLANZAPINE 5 MG TABS olanzapine [id number] Fauzia Mariano [facility],NURSE EXAMINER,STREETCAR REPAIRER HELPER SENNA 8.6 MG TABS sennosides [id number] Fauzia Mariano [facility],NURSE EXAMINER,STREETCAR REPAIRER HELPER ROSUVASTATIN CALCIUM 40 MG TABS rosuvastatin [id number] Fauzia Mariano [facility],NURSE EXAMINER,STREETCAR REPAIRER HELPER Medications Administered No information available. Allergies, Adverse [...]
[2025-03-05] VITALS (15 sets, daily range): BP systolic 97–138; BP diastolic 50–79; PULSE 83–93; RESP 13–17; TEMP 35.6; O2SAT 93–99; BMI 27.4
--- OUTSIDE RECORDS SUMMARY | 2025-03-05 21:14 | XMS_ITS | Clinical Summary ---
Author Organization [facility] Address [address] , [address] [place] [address] Phone Care Team Providers Care Wire Twister Name Role Phone Contreras Vargas MD Unavailable Conditions or Problems Problem Name Problem Code Onset Date Status Entry Date Provider Comment Standard Description Annotate Parkinsonism , unspecified 72234862 (SNOMED CT) 05/20 Active 05/20 Aleta Restrepo Parkinsonism Schizoaffect dani disorder with depression 82055975 (SNOMED CT) 07/29 Active 07/29 Contreras Vargas MD Schizoaffective disorder Memory deficit 013416026 (SNOMED CT) 07/29 Active 07/29 Contreras Vargas MD Memory impairment Tremor, rest 14761260 (SNOMED CT) 07/29 Active 07/29 Contreras Vargas MD Resting tremor Parkinsonism 74337364 (SNOMED CT) 05/20 Inactive 05/20 Jose Eduardo Corcoran MD Parkinsonism Medications Medication Instructions Start Date Stop Date Generic Name [facility] Provider TAMSULOSIN HCL 0.4 MG CAPS 02/02 tamsulosin [id number] Fauzia Robbins DNP,CIRCUITRY NEGATIVE INSPECTOR,CN P MAGNESIUM CITRATE 1.745 GM/30ML SOLN 02/02 magnesium citrate 55989177374 Fauzia Robbins DNP,CIRCUITRY NEGATIVE INSPECTOR,CN P DEEP SEA NASAL SPRAY 0.65 % SOLN Administer 2 spray into both nostrils every six hours 02/02 sodium chloride 73659246860 Fauzia Robbins DNP,CIRCUITRY NEGATIVE INSPECTOR,CN P LEVOTHYROXINE SODIUM 150 MCG TABS 02/02 levothyroxine 44106289065 Fauzia Robbins DNP,CIRCUITRY NEGATIVE INSPECTOR,CN P QUETIAPINE FUMARATE 200 MG TABS Take 200 mg by mouth every night 02/02 quetiapine 67109374519 Fauzia Robbins DNP,CIRCUITRY NEGATIVE INSPECTOR,CN P NICOTINE POLACRILEX [address] 1 by mouth every hour as needed 02/02 nicotine (polacrilex) 27340019722 Fauzia Robbins DNP,CIRCUITRY NEGATIVE INSPECTOR,CN P haloperidol decanoate (HALDOL DECANOATE) 100 mg/mL intramusc Inject 75 mg intramuscularly every two weeks 02/02 HALDOL DECANOATE Fauzia Robbins DNP,CIRCUITRY NEGATIVE INSPECTOR,CN P DIVALPROEX SODIUM ER 500 MG [id number] Take 2 Tablets (1,000 mg) by mouth at bedtime. 02/02 divalproex [id number] F[facility]zia [facility],CIRCUITRY NEGATIVE INSPECTOR,CN P HALOPERIDOL DECANOATE 50 MG/ML SOLN 02/02 haloperidol decanoate 68486539761 Fauzia Robbins DNP,CIRCUITRY NEGATIVE INSPECTOR,CN P BENZTROPINE MESYLATE 0.5 MG TABS Take 0.5 mg by mouth twice a day 02/02 benztropine 75102652972 [facility],CIRCUITRY NEGATIVE INSPECTOR,CN P HALOPERIDOL 5 MG TABS Take 5 mg by mouth every four hours as needed 02/02 haloperidol 80007704122 [facility],CIRCUITRY NEGATIVE INSPECTOR,CN P IBUPROFEN (IBUPROFEN) 600 MG TABS Take 1 tablet by mouth every eight hours as needed 02/02 IBUPROFEN F[facility],CIRCUITRY NEGATIVE INSPECTOR,CN P CLONAZEPAM 0.5 MG TABS Take 1 tablet by mouth once a day as needed 02/02 clonazepam 42797864103 Fauzia Robbins DNP,CIRCUITRY NEGATIVE INSPECTOR,CN P CLONAZEPAM 0.5 MG TABS 02/02 clonazepam 34333819706 Fauzia Robbins DNP,CIRCUITRY NEGATIVE INSPECTOR,CN P SYMBICORT 80-4.5 MCG/ACT AERO 02/02 budesonide-form oterol 03489850033 Fauzia Rechtzigel DNP,CIRCUITRY NEGATIVE INSPECTOR,CN P ACETAMINOPHEN 500 MG TABS Take 2 Tablets (1,000 mg) by mouth every 6 hours if needed for Pain. Max acetaminophen dose: 4000mg in 24 hrs. 02/02 acetaminophen 72750370586 Fauzia Rechtzigel DNP,CIRCUITRY NEGATIVE INSPECTOR,CN P ASPIRIN LOW DOSE 81 MG [facility] aspirin 10101943266 Fauzia Rechigel DNP,CIRCUITRY NEGATIVE INSPECTOR,CN P DEEP SEA NASAL SPRAY 0.65 % SOLN sodium chloride 89491996504 A keisha Rechtzigel DNP,CIRCUITRY NEGATIVE INSPECTOR,CN P CLONAZEPAM 1 MG TABS clonazepam 24221346851 [facility],CIRCUITRY NEGATIVE INSPECTOR,CN P CLOPIDOGREL BISULFATE 75 MG TABS clopidogrel 21932156643 [facility],CIRCUITRY NEGATIVE INSPECTOR,CN P DIVALPROEX SODIUM ER 250 MG [id number] divalproex 55379943761 [facility],CIRCUITRY NEGATIVE INSPECTOR,CN P QUETIAPINE FUMARATE 150 MG TABS quetiapine 68480884498 [facility],CIRCUITRY NEGATIVE INSPECTOR,CN P OLANZAPINE 5 MG TABS olanzapine 54983177136 [facility],CIRCUITRY NEGATIVE INSPECTOR,CN P SENNA 8.6 MG TABS sennosides 81244737261 [facility],CIRCUITRY NEGATIVE INSPECTOR,CN P ROSUVASTATIN CALCIUM 40 MG TABS rosuvastatin 15900587540 [facility],CIRCUITRY NEGATIVE INSPECTOR,CN P FAMOTIDINE 20 MG TABS Take 1 tablet by mouth once a day famotidine 91116898600 Contreras Vargas MD MELATONIN 3 MG TABS Take 1 tablet by mouth every night melatonin 59259430693 Contreras Vargas MD QUETIAPINE FUMARATE 200 MG TABS Take 200 mg by mouth every night 02/02 quetiapine 52142604312 Contreras Vargas MD ESCITALOPRAM OXALATE 10 MG TABS Take 10 mg by mouth once a day escitalopram oxalate 34462687695 Contreras Vargas MD ALBUTEROL SULFATE (2.5 MG/3ML) 0.083% NEBU Inhale 1 ampul by mouth twice a day albuterol sulfate 24011314856 Contreras Vargas MD Multivits,Ca,Mine [id number] (High Potency Multivit, w-iron Take 1 tablet by mouth once a day High Potency Multivit, w-iron Contreras Vargas MD IBUPROFEN (IBUPROFEN) 600 MG TABS Take 1 tablet by mouth every eight hours as needed 02/02 IBUPROFEN Contreras Vargas MD TAMSULOSIN HCL 0.4 MG CAPS Take 1 capsule by mouth once a day tamsulosin 01906716489 Contreras Vargas MD AMLODIPINE BESYLATE 10 MG TABS 07/29 amlodipine 93128757272 Contreras Vargas MD SENNOSIDES-DOCUSA TE SODIUM 8.6-50 MG TABS Take 1 tablet by mouth twice a day 07/29 sennosides-docu sate sodium 76317046506 Contreras Vargas MD fluticasone propion-salmetero L (Advair Diskus) 250-50 mcg/Do Inhale 1 puff by mouth twice a day Advair Diskus Contreras Vargas MD GAVILAX 17 GM/SCOOP POWD 07/29 polyethylene glycol 3350 49537709789 Contreras Vargas MD PEG 3350 17 GM/SCOOP POWD Take 1 by mouth once a day as needed polyethylene glycol 3350 82239597277 Contreras Vargas MD PROPRANOLOL HCL 20 MG TABS Take 1 tablet by mouth three times a day propranolol 69119231156 Contreras Vargas MD HALOPERIDOL 5 MG TABS Take 5 mg by mouth every four hours as needed 02/02 haloperidol 78955104340 Contreras Vargas MD cholecalciferol (VITAMIN D3) 1,000 unit tablet Take 1 tablet by mouth once a day VITAMIN D3 Contrersa Vargas MD Nebulizer Inhale 07/29 Nebulizer Contreras Vargas MD QUETIAPINE FUMARATE 300 MG TABS 07/29 quetiapine 95080191920 Contreras Vargas MD CARBIDOPA-LEVODOP A 25-100 MG TABS Take 1 tablet by mouth three times a day carbidopa-levod opa 24082537036 Contreras Vargas MD NICOTINE POLACRILEX [address] 1 by mouth every hour as needed 02/02 nicotine (polacrilex) 30939828770 Contreras Vargas MD BENZTROPINE MESYLATE 0.5 MG TABS Take 0.5 mg by mouth twice a day 02/02 benztropine 04238766960 Contreras Vargas MD DEEP SEA NASAL SPRAY 0.65 % SOLN Administer 2 spray into both nostrils every six hours 02/02 sodium chloride 74460758158 Contreras Vargas MD NICOTINE 7 MG/24HR PT24 07/29 nicotine 42615861001 Contreras Vargas MD PROPRANOLOL HCL 20 MG TABS 07/29 propranolol 10425395619 Contreras Vargas MD SENEXON-S 8.6-50 MG TABS 07/29 sennosides-docu sate sodium 28871708623 Contreras Vargas MD LEVOTHYROXINE SODIUM 150 MCG TABS Take 1 tablet by mouth every morning levothyroxine 17295629592 Contreras Vargas MD CLONAZEPAM 0.5 MG TABS Take 1 tablet by mouth once a day as needed 02/02 clonazepam 76547475550 Contreras Vargas MD ASPIRIN LOW DOSE 81 MG TBEC 07/29 aspirin 82871663964 Contreras Vargas MD haloperidol decanoate (HALDOL DECANOATE) 100 mg/mL intramusc Inject 75 mg intramuscularly every two weeks 02/02 HALDOL DECANOATE Contreras Vargas MD TAMSULOSIN HCL 0.4 MG CAPS TAKE 1 CAPSULE BY MOUTH DAILY 30 MINUTES AFTER THE SAME MEAL EACH DAY *SWALLOW WHOLE* 07/29 tamsulosin 05202346511 QIEUSER QIEUSER DEEP SEA NASAL SPRAY 0.65 % SOLN ADMINISTER 2 SPRAYS IN AFFECTED NOSTRIL(S) EVERY 6 HOURS 07/29 sodium chloride 58883121023 QIEUSER QIEUSER SENNOSIDES-DOCUSA TE SODIUM 8.6-50 MG TABS TAKE 1 TABLET BY MOUTH TWICE DAILY 07/29 sennosides-docu sate sodium 37356439359 QIEUSER QIEUSER QUETIAPINE FUMARATE 200 MG TABS Take 200 mg by mouth at bedtime. 07/29 quetiapine 52416595643 QIEUSER QIEUSER PEG 3350 17 GM/SCOOP POWD Take 1 scoop (17 g) by mouth or nasogastric tube once daily if needed for Constipation. 07/29 polyethylene glycol 3350 39760960622 QIEUSER QIEUSER NICOTINE POLACRILEX [address] 1 Lozenge (2 mg) in mouth, between cheek & gum every hour while awake as needed for Nicotine Craving. 11/27 nicotine (polacrilex) 81201674803 QIEUSER QIEUSER Nebulizer Nebulizer, disposable neb kit x 4, reuseable neb kit x 1, mask x 1, filters x 1. Frequency of use: daily; Medication: albuterol Length of need: 99 months 07/29 Nebulizer QIEUSER QIEUSER Multivits,Ca,Mine [id number] (High Potency Multivit, w-iron Take 1 Tablet by mouth once daily. 07/29 High Potency Multivit, w-iron QIEUSER QIEUSER MELATONIN 3 MG TABS Take 1 Tablet (3 mg) by mouth at bedtime. 07/29 melatonin 67590773566 QIEUSER QIEUSER IBUPROFEN (IBUPROFEN) 600 MG TABS TAKE 1 TABLET BY MOUTH EVERY 8 HOURS NEEDED FOR PAIN OR TEMP >101.5F (38.6C) 07/29 IBUPROFEN QIEUSER QIEUSER haloperidol decanoate (HALDOL DECANOATE) 100 mg/mL intramusc Inject 75 mg intramuscular every 2 weeks. 07/29 HALDOL DECANOATE QIEUSER QIEUSER HALOPERIDOL 5 MG TABS Take 5 mg by mouth every 4 hours if needed for Agitation. 07/29 haloperidol 80027901315 QIEUSER QIEUSER fluticasone propion-salmetero L (Advair Diskus) 250-50 mcg/Do INHALE 1 PUFF BY MOUTH TWICE DAILY --RINSE MOUTH AFTER USE-- 07/29 Advair Diskus QIEUSER QIEUSER FAMOTIDINE 20 MG TABS Take 1 Tablet (20 mg) by mouth once daily. 07/29 famotidine 90403647111 QIEUSER QIEUSER ESCITALOPRAM OXALATE 10 MG TABS Take 10 mg by mouth once daily. 07/29 escitalopram oxalate 48260007130 QIEUSER QIEUSER cholecalciferol (VITAMIN D3) 1,000 unit tablet Take 1 Tablet (1,000 units) by mouth once daily. 07/29 VITAMIN D3 QIEUSER QIEUSER CARBIDOPA-LEVODOP A 25-100 MG TABS Take 1 Tablet by mouth three times daily. 11/27 carbidopa-levod opa 20356727221 QIEUSER QIEUSER BENZTROPINE MESYLATE 0.5 MG TABS Take 0.5 mg by mouth two times daily. 07/29 benztropine 31457069135 QIEUSER QIEUSER ALBUTEROL SULFATE (2.5 MG/3ML) 0.083% NEBU INHALE 1 AMPULE BY MOUTH VIA NEBULIZER TWICE DAILY 07/29 albuterol sulfate 85101847879 QIEUSER QIEUSER ACETAMINOPHEN 500 MG TABS Take 2 Tablets (1,000 mg) by mouth every 6 hours if needed for Pain. Max acetaminophen dose: 4000mg in 24 hrs. 02/02 acetaminophen 57702013017 QIEUSER QIEUSER PROPRANOLOL HCL 20 MG TABS Take 1 Tablet (20 mg) by mouth 2 times daily. AM and at bedtime. 11/27 propranolol 16827335518 QIEUSER QIEUSER LEVOTHYROXINE SODIUM 150 MCG TABS Take 1 Tablet (150 mcg) by mouth before breakfast. 07/29 levothyroxine 39157900610 QIEUSER QIEUSER DIVALPROEX SODIUM ER 500 MG [id number] Take 2 Tablets (1,000 mg) by mouth at bedtime. 02/02 divalproex 33331013447 QIEUSER QIEUSER CLONAZEPAM 0.5 MG TABS Take 1 Tablet (0.5 mg) by mouth once daily if needed for Anxiety. 11/27 clonazepam 06540007497 QIEUSER QIEUSER TAMSULOSIN HCL 0.4 MG CAPS 02/02 tamsulosin 19169503547 Jose Eduardo Corcoran MD NICOTINE 7 MG/24HR PT24 07/29 nicotine 64978424402 Jose Eduardo Corcoran MD ASPIRIN EC 81 MG TBEC 10/23 aspirin 12722302211 Jose Eduardo Corcoran MD PROPRANOLOL HCL 20 MG TABS 11/27 propranolol 43761716270 Jose Eduardo Corcoran MD CLONAZEPAM 0.5 MG TABS 02/02 clonazepam 38315259562 Jose Eduardo Corcoran MD ACETAMINOPHEN 325 MG TABS acetaminophen 43892713979 Jose Eduardo Corcoran MD ALBUTEROL SULFATE HFA 108 (90 Base) MCG/ACT AERS albuterol sulfate 34656941830 Jose Eduardo Corcoran MD DIVALPROEX SODIUM ER 500 MG [id number] divalproex 29332741684 Jose Eduardo Corcoran MD AMLODIPINE BESYLATE 10 MG TABS 11/27 amlodipine 99306081771 Jose Eduardo Corcoran MD QUETIAPINE FUMARATE 300 MG TABS 07/29 quetiapine 21234898835 Jose Eduardo Corcoran MD SENEXON-S 8.6-50 MG TABS 07/29 sennosides-docu sate sodium 94733693927 Jose Eduardo Corcoran MD GAVILAX 17 GM/SCOOP POWD 07/29 polyethylene glycol 3350 31133460014 Jose Eduardo Corcoran MD SYMBICORT 80-4.5 MCG/ACT AERO 02/02 budesonide-form oterol 81260478016 Jose Eduardo Corcoran MD HALOPERIDOL DECANOATE 50 MG/ML SOLN 02/02 haloperidol decanoate 59650547521 Jose Eduardo Corcoran MD MAGNESIUM CITRATE 1.745 GM/30ML SOLN 02/02 magnesium citrate 93955284010 Jose Eduardo Corcoran MD LEVOTHYROXINE SODIUM 150 MCG TABS 02/02 levothyroxine 74058764944 Jose Eduardo Crocoran MD Medications Administered No information available. Allergies, [...] Yes Consent To Release information to the [employer] Information Exchange ([employer]) Office Visit: Office Visit f ax MEDS [...] with Neurologist or RISSA ORDERS [facility] Scan [facility]-[id number] Documentation of current medicatio ns ORDERS Follow up RISSA after testing [id number] Other Radiology Vital Signs Date Name Value [...]
--- OUTSIDE RECORDS SUMMARY | 2025-03-05 21:14 | XMS_ITS | Clinical Summary ---
Author Organization [facility] Address [address] [place] [address] Care Team Providers Care Mergers And Acquisitions Associate Name Role Phone Rex Connor Mary Jo Primary Care Provider [phone] Allergies Active Allergy Reactions Criticality Noted Date [...] on file Legal Sex Male 12:58 PM STONER OUT Gender Identity Not on file Sexual Orientation [...] on file Medical Devices Implanted Type Area Reactor Kettle Operator Device Identifier Shelf Expiration Date Model / Serial / Lot Embolic Substance/Device- 12/29/2020 Implanted:Qty: 1 on 12/29/2020 by Elton Pond MD Embolic Substance/D evice Nose [employer] 11/02/2021 / / [id number] Description:Nose bleed emobo lization Embolic Substance/Device- 12/29/2020 Implanted:Qty: 1 on 12/29/2020 by Elton Pond MD Embolic Substance/D evice Nose [employer] 04/07/2024 / / [id number] Description:Nose bleed emobo lization Insurance MEDICARE MEDICAID [place] Advance Directives For more information, please contact: [phone] * Full Code (Latest Code Status on File) Date Activated Date Inactivated Comments 12/29/2020 11:12 AM 12/30/2020 3:08 PM All basic a nd advanced life-sustaining interventions are performed as appropriate Question Answer Comments Code status determined by: Discussion with humberto nt/ legal decision maker Care Teams Mergers And Acquisitions Associate Relationship Specialty Start Date End Date Rex Connor [address] [facility] [address] PCP - General Family Medicine 12/28/20
--- OUTSIDE RECORDS SUMMARY | 2025-03-05 21:14 | XMS_ITS | Patient Health Record ---
Author Organization [facility] Address [address] [place] [address] Care Team Providers Care Blueprint Machine Operator Name Role Phone Rex Connor Primary Care Provider Unavailab JOE Mitchell Unavailable [phone] None, None Unavailable Unavailable Allergies Allergen (clinical [...] Risk Notes Problem Schizoaffective disorder, bipolar type (74159169) Schizoaffective disorder, bipolar type (F25.0) Active confirmed Problem Epistaxis (463324121) Epistaxis (R04.0) Active confirmed Problem Hypertension (60495335) HTN (hypertension) (I10) Active confirmed Plan Of Treatment No Information Insurance Providers Payer Name Payer Address Payer Phone Subscriber Number Group Number Insured Name Patient Relationship to Insured Coverage Start Date Coverage End Date MEDICARE [address] [place] [address] [id number] Scooby Greer Self - patient is the insured [place] [employer] [address] [address] [place] [address] [id number] Scooby Greer Self - patient is the insured Medical (General) History Medical History History ICD Code Heart disease Psychotic disorder Schizoaffective disorder bipolar type CV19 Vaccine 05/2020 Surgical History Surgery Date(Month/Year) Hernia Stomach for ulcers
--- OUTSIDE RECORDS SUMMARY | 2025-03-05 21:14 | XMS_ITS | Clinical Summary ---
Author Organization [facility] Address [address] [place] [address] Care Team Providers Care Ethylene Plant Helper Name Role Phone Rex Connor MD Primary Care Provider [facility] Care, Branch Unavailable [phone] Allergies Active Allergy Reactions Criticality Noted Date [...] >101.5F (38.6C) 100 Tablet 07/14/19 25 Active agufjqsy-umn-kvca fum-folic ac (Thera-M) 19 mg iron- 400 [...] 10/07/19 Active sodium chloride (Deep Sea Nasal [place]) 0.65 % nasal solutionIndication s:Epistaxis,Nasal crusting ADMINISTER [...] once daily in the morning. 90 Tablet 3 02/05/20 25 Active rosuvastatin (CRESTOR) 40 mg [...] day. 45 Tablet 3 02/20/20 25 Active ferrous sulfate 325 mg (65 [...] in the RLL. Pt was referred to [facility] lung nodule clinic Need for dental [...] mental health hospitalizations and was committed to [facility] in 2009. 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 Therapeutic depakote trial not effective. -Doing outpatient ECT @ [facility] -You you seeing Manny Katz in therapy at [facility] . His phone number is [phone]. Hopspitalized at [facility] from 09/10-11/10/11 and received ECT during this hospitalization. Hospitalized at [facility] in May, for worsening depression and suicidal thoughts - feeling hopeless and having abnormal dreams. ECT being done every 6 weeks prior to hospitalization and pt seemed to decompensate from this. At his intake on 08/06/12, pt reported the following med trials: -Risperdal injections were ineffective -Clozaril - caused cardiac myositis -Prolixin injections - ineffective -[place] - caused kidney function issues. *More details [...] in paranoia - he would see a [address] vehicle and he would think WWIII was [...] Encounters Date Type Department Care Team Description 03/03/2025 11:00 AM CDT Home Care Visit [facility] [address] [place] [address] Justen Fan, PT PT - OASIS DISCHARGE 02/24/2025 10:00 AM CDT Home Care Visit [facility] [address] [place] [address] Justen Fan, PT PT - HOME VISIT 02/19/2025 Orders Only [facility] [address] [place] [address] Rex Connor MD <No scans attached> 02/18/2025 Telephone [facility] [address] [place] [address] Rex Connor MD 02/17/2025 1:15 PM CDT Home Care Visit [facility] [address] [place] [address] Terry Cary, PT PT - HOME VISIT 02/17/2025 9:45 AM CDT Orders Only [facility] [address] [place] [address] Lab, Farm [facility] 02/17/2025 Travel 02/15/2025 Orders Only [facility] Scanner 1 scan: (1-Ord) [facility], HEAD/BRAIN W/O CONTRAST, 02/15/2025 02/15/2025 Orders Only [facility] Scanner 1 scan: (1-Ord) DE PERE , CERVICAL SPINE WO CON, 02/15/2025 02/15/2025 Orders Only [facility] Scanner 1 scan: (1-Ord) DE PERE H+C, HIP LT, 02/15/2025 02/15/2025 Telephone [facility] [address] [place] [phone] Tony Hawkins MD Colonoscopy Scheduled / Needs Meds 02/15/2025 Telephone [facility] [address] [place] [address] Rxe Connor MD Colorectal Cancer Screening (Positive Cologuard) 02/12/2025 Orders Only [facility] [address] [place] [address] Rex Connor MD Lab 02/10/2025 3:15 PM CDT Home Care Visit [facility] [address] [place] [phone] Terry Cary, PT PT - HOME VISIT 02/03/2025 8:50 AM CDT Office Visit [facility] [address] [place] [address] Rex Connor MD Hospital F/U (ANW, 01/29/2025 - 01/30/2025, stent placement); Wrist Pain/problem (Left wrist pain and bruising); Constipation (2 to 3 days); Derm Problem (Irritation about left ear/Mark on bilateral ankle) 02/03/2025 Travel 02/02/2025 Refill [facility] [address] [place] [address] Rex Connor MD Refill Request (ROSUVASTATIN, CLOPIDOGREL, ASPIRIN LOW) 02/01/2025 12:30 PM CDT Home Care Visit [facility] [address] [place] [phone] Jessica Armstrong, PT PT - OASIS RESUMPTION OF CARE 02/01/2025 Telephone [facility] [address] [place] [address] Rex Connor MD Home Care (Orders/Severe Medication interactions) 02/01/2025 Patient Outreach [facility] [address] [place] [address] Hannah Roque, RN Primary RN Care Management; Hospital F/U (Lace=51) 01/30/2025 Home Care Visit [facility] [address] [place] [phone] Jessica Armstrong, PT PT - OASIS TRANSFER 01/29/2025 11:19 AM CDT Anesthesia Event [facility] [address] [place] [address] Coby Frazier MD Busker, Carly J, REGULATORY AND COMPLIANCE TECHNICIAN Student 01/29/2025 10:35 AM CDT - 01/29/2025 1:02 PM CDT Surgery [facility] [address] [place] [address] Donny Mcgee MD LEFT REVASCULARIZATION TRANS CAROTID ARTERY 01/29/2025 9:11 AM CDT - 01/30/2025 2:19 PM CDT Hospital Encounter [facility] [address] [place] [address] Donny Mcgee MD Carotid artery stenosis, symptomatic, left (Primary Dx) Discharge Disposition: Home Health 01/29/2025 Orders Only [facility] [address] [place] [address] Lexie Holguin NP <No scans attached> 01/29/2025 Travel 01/27/2025 12:00 PM CDT Home Care Visit [facility] [address] [place] [phone] Yessi Diaz, JAVA LEAD ARCHITECT PT - HOME VISIT 01/21/2025 2:15 PM CDT Home Care Visit [facility] [address] [place] [phone] Terry Cary, PT PT - HOME VISIT 01/19/2025 12:45 PM CDT Office Visit [facility] [address] [place] [address] Maine Abdi MD Hospital F/U (DOD 01/14/2025, Payne) 01/19/2025 10:00 AM CDT Home Care Visit [facility] [address] [place] [address] Terry Cary, PT PT - OASIS START OF CARE 01/19/2025 Home Care Visit [facility] [address] [place] [phone] Terry Cary, PT CARE COORDINATION 01/19/2025 Telephone [facility] [address] [place] [phone] Terry Cary, PT Home Care 01/19/2025 Orders Only [facility] [address] [place] [address] Leyla Domingo PA <No scans attached> 01/19/2025 Travel 01/19/2025 Plan of Care Documentation [facility] [address] [place] [address] 01/19/2025 Telephone [facility] [address] [place] [phone] Terry Cary, PT Home Care 01/15/2025 Telephone [facility] [address] [place] [address] Donny Mcgee MD Surgery Scheduled 01/15/2025 Patient Outreach [facility] [address] [place] [address] Christel Jean Baptiste, RN Primary RN Care Management; Hospital F/U (LACE 45) 01/14/2025 Travel 01/13/2025 9:16 AM CDT - 01/14/2025 6:02 PM CDT Hospital Encounter [facility] [address] [place] [address] [facility] Hospitalists Of Brenda, Ramon Castaneda MD Residents, C1 Carotid artery stenosis, symptomatic, left (Primary Dx); Stenosis of left carotid artery; TIA (transient ischemic attack) Discharge Disposition: Home Health 01/12/2025 Orders Only [facility] Scanner 1 scan: (1-Ord) [facility], CT ANGIO NECK, 01/12/2025 01/12/2025 Orders Only [facility] Scanner 1 scan: (1-Ord) DE PERE, HEAD/BRAIN WO CON, 01/12/2025 01/12/2025 Office [address] [facility] Neurosurgery ABSI [facility] [address] [place] [address] Ericka Mendenhall MD Telehealth ([facility] - Phone consult only / no video) 01/04/2025 Orders Only [facility] Scanner 1 scan: (1-Ord) [facility], CT CERVICAL SPINE WO CON, 01/04/2025 01/04/2025 Orders Only [facility] Scanner 1 scan: (1-Ord) [facility], CT HEAD/BRAIN WO CON, 01/04/2025 12/22/2024 Telephone [facility] [address] [place] [address] [facility] from Last 3 Months Immunizations Immunization Administration Dates Next Due AMB Influenza, IIV4 PF (=>6 mos Flulaval,Fluzone Fluarix)(Flu Clinic Only) 02/03/2018,02/22/2017 COVID-19 vaccine (Moderna 100mcg/0.5mL) PF, MDV 06/30/2020,06/02/2020 COVID-19 vaccine (Rev Worldwide-Bio NTech 30mcg/0.3mL) 12YO+ TANYA-SUCROSE PF, MDV 08/30/2021 [...] AM CDT Legal Sex Male 7:21 AM GAMING DIRECTOR Gender Identity Male 08/04/2024 11:14 AM CDT Sexual Orientation Not on file Occupation Industry Job Start Date Job End Date PROACT Not on file Not on file Not on file Not on file Not on file Not on file Not on file Obstetrics History Last Filed Vital Signs Vital Sign Reading Time Taken Comments Blood Pressure 142/78 03/03/2025 11:22 AM CDT Pulse 82 03/03/2025 11:22 AM CDT Temperature 36.3 C (97.3 F) 03/03/2025 11:22 AM CDT Respiratory Rate 16 03/03/2025 11:22 AM CDT Oxygen Saturation 99% 03/03/2025 11:22 AM CDT Inhaled Oxygen Concentration - - Weight 81.7 kg (180 lb 3.2 oz) 02/03/2025 8:54 A M CDT Height 174 cm (5' 8.5) 02/03/2025 8:54 AM CDT Body Mass Index 27 02/03/2025 8:54 AM CDT Plan of Treatment Upcoming Encounters Date Type Department Care Team (Late st Contact Info) Description 03/09/2025 2:00 PM CDT Appointment [facility] [address] [place] [address] 03/09/2025 3:00 PM CDT Office Visit [facility] [address] [place] [address] Donny Mcgee MD [address] [facility] [address] [place] [address] Health Maintenance Due Date Last Done Comments [...] INTERPRETATION 5 12:00 AM CDT SCAN-CT INTERPRETATION 12:00 AM CDT SCAN-RADIOLOGY REPORT 02/15/2025 12:00 AM CDT SDNA-FIT EXTERNAL (COLOGUARD) Routine 02/08/2025 2:30 PM CDT Screening for colorectal cancer OCCULT BLOOD IFOBT STOOL Routine 02/08/2025 12:00 PM CDT Screening for colon cancer BASIC METABOLIC PANEL Early AM 01/30/2025 6:57 AM CDT CBC W PLT NO DIFF Early AM 01/30/2025 6:57 AM CDT SCAN-CARDIAC STRIP 01/30/2025 3:27 AM CDT [facility] ACTIVATED CLOTTING TM CV Timed 01/29/2025 12:20 PM CDT [facility] KIT PR5 Routine 01/29/2025 12:11 PM CDT [facility] DRSG PR5 Routine 01/29/2025 12:11 PM CDT [facility] DRSG PR1 Routine 01/29/2025 12:11 PM CDT [facility] TUBING PR20 Routine 01/29/2025 12:11 PM CDT [facility] TUBING PR1 Routine 01/29/2025 12:11 PM CDT [facility] ANES ARTERIAL CATH FOR SAMPLE MONITOR TRANS Routine 01/29/2025 12:11 PM CDT [facility] ANES US GUIDE FOR VASC ACCESS Routine 01/29/2025 12:11 PM CDT [facility] CATH PR5 Routine 01/29/2025 12:11 PM [...] DOSE WO CONTRAST Routine 06/18/2024 2:03 PM GAMING DIRECTOR Personal history of nicotine dependence CT CHEST ABDOMEN PELVIS W Routine 06/28/2021 12:22 PM GAMING DIRECTOR Weight loss ANTI HCV Routine 06/25/2019 8:36 AM GAMING DIRECTOR Need for hepatitis C screening test from [...] 9:32 AM CDT 02/17/2025 9:32 AM CDT us Rex Connor MD CHEMISTRY Final Result Performing Organization Address [facility]/ZIP Co de Phone Number [facility] [address] [address], [place] [phone] * (ABNORMAL) HEMOGLOBIN (02/17/2025 9:32 AM CDT) Only the most recent of2 resultswithin the time period is included. HEMOGLOBIN 11.4(L) 13.2 - 17.1 g/dL 02/18/2025 3:51 AM CDT [facility] MCV 96.0 80.0 - 100.0 fL 02/18/2025 3:51 AM CDT [facility] Blood BLOOD SPECIMEN / Unknown [facility] / Unknown 02/17/2025 9:32 AM CDT 02/17/2025 9:32 AM CDT us Rex Connor MD HEMATOLOGY Final Result Performing Organization Address City/[facility]/ZIP Co de Phone Number [facility] [address] [address], [place] [phone] * FERRITIN (02/17/2025 9:32 AM CDT) FERRITIN 69 24 - 380 ng/mL 02/18/2025 5:30 AM CDT [facility] Blood BLOOD SPECIMEN / Unknown [facility] / Unknown 02/17/2025 9:32 AM CDT 02/17/2025 9:32 AM CDT Rex Connor MD CHEMISTRY Final Result [facility] [address] [place] [address], [place] [phone] * SCAN-RADIOLOGY REPORT (02/15/2025 12:00 AM CDT) Anatomical Region Laterality Modality Other us Scanner OTHER Final Result * SCAN-CT INTERPRETATION (02/15/2025 12:00 AM CDT) Only the most recent of6 resultswithin the time period is included. Anatomical Region Laterality Modality Other us Scanner OTHER Final Result * (ABNORMAL) SDNA-FIT EXTERNAL (COLOGUARD) [[id number]] (02/08/2025 2:30 PM CDT) NONINV COLON CA DNA+OCC BLD SCRN STL-IMP Positive( A) Negative 02/13/2025 4:12 AM CDT [facility] (CLIA #:[id number]) Comment: The Cologuard Plus (TM) test was performed on this specimen. POSITIVE TEST RESULT. A positive (abnormal) Cologuard Plus result means the patient has a egnzha-vpib-mrsbwqc chance of having colorectal cancer (CRC) or [...] a 91% specificity (Cologuard Plus Clinician Brochure. [employer] [place], [place] Visit [email or web address].com/about/lspkaovc-[email or web address] for more test information, references, warnings, and precautions. Stool specimen (specimen) (Rectum) 02/08/2025 2:30 PM CDT 02/10/2025 9:51 AM CDT us Rex Connor MD URINE Final Result [facility] (CLIA #:[id number]) [address] [place] [address], * OCCULT BLOOD IFOBT STOOL (02/08/2025 12:00 PM CDT) STOOL BLOOD ,IFOBT Negative Negative 02/15/2025 3:10 PM CDT [facility] Stool STOOL SPECIMEN / Unknown Non-Blood / Unknown 02/08/2025 12:00 PM CDT 02/12/2025 9:19 PM CDT Rex Connor MD LABORATORY Final Result [facility] [address] [place] [address], * (ABNORMAL) CBC W PLT No DIFF (01/30/2025 6:57 AM CDT) Only the most recent of2 resultswithin the time period is included. WHITE BLOOD COUNT 7.0 4.5 - 11.0 thou/cu mm 01/30/2025 7:34 AM CDT [facility] RED BLOOD COUNT 3.06(L) 4.30 - 5.90 mil/cu mm 01/30/2025 7:34 AM CDT [facility] HEMOGLOBIN 9.3(L) 13.5 - 17.5 g/dL 01/30/2025 7:34 AM T [facility] HEMATOCRIT 29.6(L) 37.0 - 53.0 % 01/30/2025 7:34 AM T [facility] MCV 97 80 - 100 fL 01/30/2025 7:34 AM T [facility] MCH 30.4 26.0 - 34.0 pg 01/30/2025 7:34 AM T [facility] MCHC 31.4(L) 32.0 - 36.0 g/dL 01/30/2025 7:34 AM T [facility] RDW 14.1 11.5 - 15.5 % 01/30/2025 7:34 AM T [facility] PLATELET COUNT 160 140 - 440 thou/cu mm 01/30/2025 7:34 AM T [facility] MPV 9.9 6.5 - 11.0 fL 01/30/2025 7:34 AM CDT [facility] NRBC 0.0 % 01/30/2025 7:34 AM T [facility] ABS NRBC 0.0 thou /cu mm 01/30/2025 7:34 AM T [facility] Blood BLOOD SPECIMEN / Unknown Venipuncture / Unknown 01/30/2025 6:57 AM CDT 01/30/2025 7:23 AM CDT us Michael Kang MD HEMATOLOGY Final Result [facility] [address] [place] [address], [place] * (ABNORMAL) Basic Metabolic Panel (01/30/2025 6:57 AM CDT) Only the most recent of3 resultswithin the time period is included. SODIUM 139 136 - 145 mmol/L 01/30/2025 7:50 AM CDT [facility] POTASSIUM 4.5 3.5 - 5.1 mmol/L 01/30/2025 7:50 AM CDT [facility] CHLORIDE 105 98 - 107 mmol/L 01/30/2025 7:50 AM CDT [facility] CO2,TOTAL 24 22 - 29 mmol/L 01/30/2025 7:50 AM CDT [facility] ANION GAP 10 5 - 18 01/30/2025 7:50 AM CDT [facility] GLUCOSE 96 70 - 99 mg/dL 01/30/2025 7:50 AM CDT [facility] CALCIUM 9.1 8.8 - 10.4 mg/dL 01/30/2025 7:50 AM T [facility] Comment: Reference ranges for this test were updated on 03/24/2024 to reflect our healthy population more accurately. Reference range changes are not retroactively applied to results, but previous results using the same methodology can be interpreted in the context of the new reference range. BUN 21 8 - 23 mg/dL 01/30/2025 7:50 AM CDT [facility] CREATININE 1.22(H) 0.70 - 1.20 mg/dL 01/30/2025 7:50 AM CDT [facility] BUN/CREAT RATIO 17 10 - 20 7:50 AM T [facility] eGFR 64(L) >90 mL/min/1. 73m2 01/30/2025 7:50 AM CDT [facility] Comment:As of 2021, eG FR [...] MD CHEMISTRY Final Result Performing Organization Address City/[facility]/ZIP Co de Phone Number [facility] [address] [address], [place] * SCAN-CARDIAC STRIP (01/30/2025 3:27 AM CDT) us Scanner OTHER Final Result * (ABNORMAL) ACTIVATED CLOTTING TIME [id number] ACT (01/29/2025 12:20 PM CDT) [facility] Signature ACTIVATED CLOTTING TIME, POCT 292(H) 74 - 125 sec 01/29/2025 1:39 PM CDT [facility] Blood BLOOD SPECIMEN / Unknown 01/29/2025 12:20 PM CDT 01/29/2025 1:39 PM CDT us Donny Mcgee MD HEMATOLOGY Final Result [facility] [address] [place] [address], [place] * HCHG CATH PR5, HCHG ANES [...] complications. Coby Frazier MD ANESTHESIA PX NOTE ZACHARY DE LA PAZ Final Result * [facility] TUBE PR1, HCHG STYLET PR1 (01/29/2025 11:57 AM CDT) Narrative Keshawn Sullivan CRNA - 01/29/2025 11:57 AM CDT Keshawn [...] Measured From: gums Difficulty: 0 (not difficult) Coby Frazier MD ANESTHESIA PX HERMES DE LA PAZ Final Result * EKG [...] NOW QTc 417 ms BEYOND NOW P Boyd 67 degrees BEYOND NOW R Boyd 10 degrees BEYOND NOW T Boyd 55 degrees BEYOND NOW 01/29/2025 10:3 4 AM CDT 01/29/2025 8:49 PM CDT Narrative [facility] - 01/29/2025 8:49 PM CDT Test Indication: preop Vannesa Gomez PA EKG ORD Fin al Result BEYOND NOW [place], [place] * (ABNORMAL) P2Y12 INHIBITION (01/29/2025 10:08 AM CDT) [facility] PLATELET COUNT 188 140 - 440 thou/cu mm 01/29/2025 10:54 AM CDT [facility] P2Y12 REACTION UNITS 59 01/29/2025 10:54 AM CDT [facility] Comment: Reference Range: Individuals on [...] been established. References: 1. García Burk, Leonor D, Henna P, et al. Platelet Reactivity and Cardiovascular Outcomes after Percutaneous Coronary Intervention. Circulation. 2011;124:1132- 1137. 2. Reginald Mccloud, Tia Fraser, Clayton L, et al. Bleeding and stent thrombosis on [id number]: collaborative analysis on the role of platelet reactivity for risk stratification after percutaneous coronary intervention. Heart Journal. 2015; 36:8562-8704. 3. Reginald Mccloud, Salazar RF, Cosmo haleyi A, et al. Expert position paper on the role of platelet function testing in patients undergoing percutaneous coronary intervention. Heart Journal. 2014;35(4):209-215. HEMATOCRIT 35.0(L) 37.0 - 53.0 % 01/29/2025 10:54 AM CDT [facility] Blood BLOOD SPECIMEN / Unknown Venipuncture / Unknown 01/29/2025 10:08 AM CDT 01/29/2025 10:43 AM CDT Narrative [facility] LAB[facility]ATORYCENTRAL LABORATORY - 01/29/2025 10:54 AM CDT OBTAIN BLOOD COLLECTION TUBES FROM THE LABORATORY. [facility] HEART SEND OUTS Fin al Result Performing Organization Address City/[facility]/ZIP Co de Phone Number [facility]ORY[facility]TRAL LABORATORY [address] [place] [address], [place] * Type and Screen (01/29/2025 10:08 AM CDT) [facility] Positive 01/29/2025 11:09 AM CDT [facility] LAB-CENTRAL LAB BLOOD BANK ANTIBODY SCREEN Negative Negative 01/29/2025 11:09 AM CDT [facility] LAB BLOOD BANK SPECIMEN EXPIRATION DATE/TIME 02/01/25 23:59 01/29/2025 11:09 AM CDT [facility] BLOOD BANK Blood BLOOD SPECIMEN / Unknown Non-Lab Venipuncture / Unknown 01/29/2025 10:08 AM CDT 01/29/2025 10:23 AM CDT [facility] HE[facility] BLOOD BANK Fin al Result Performing Organization Address City/[facility]/ZIP Co de Phone Number [facility] BLOOD BANK [address] [place] [address], * EXTRA TUBE GOLD/SST (01/29/2025 10:07 AM CDT) Blood BLOOD SPECIMEN / Unknown Non-Lab Venipuncture / Unknown 01/29/2025 10:07 AM CDT 01/29/2025 10:24 AM CDT Donny Mcgee MD LABORATORY Final Result [facility] LAB[facility]ORY[facility]AL LABORATORY [address] [place] [address], [place] * SCAN-CARDIAC STRIP (01/29/2025 12:00 AM [...] of5 resultswithin the time period is included. GLUCOSE METER 97 65 - 100 mg/dL 01/14/2025 11:13 AM CDT [facility] Blood BLOOD SPECIMEN / Unknown 01/14/2025 11:07 AM CDT 01/14/2025 11:12 AM CDT Ramon Gutierrez MD CHEMISTRY Final R esult [facility] [address] [place] [address], [place] * ECHO TTE COMPLETE W CONTRAST [...] kg Tech: Referring MD: GODFREY FINCH Site: [facility] Reading Location: [facility] Patient Location: Inpatient. Procedure: 2D w/ Contrast, [...] documentation: 2 ml diluted Definity, lot #[id number], [facility]# [id number] was administered peripherally to enhance visualization of all left ventricular segments. . This study was interpreted by an [facility] accredited facility. Final Procedure Note Bryce Pierce MD - 01/14/2025 ECHOCARDIOGRAM SCOOBY MERINO : 1955 69 years Study Date: 01/14/2025 9:27:18 AM Gender: M BP: 147/82 mmHg Height: 180.00 cm BSA: 2.07 m Weight: 87.00 kg Tech: Referring MD: GODFREY FINCH Site: [facility] Reading Location: [facility] Patient Location: Inpatient. Procedure: 2D w/ Contrast, [...] documentation: 2 ml diluted Definity, lot #[id number], [facility]#[id number] was administered peripherally to enhance visualization of allleft ventricular segments. . This study was interpreted by an [facility] accredited facility. Final us Godfrey Finch MD [...] MD @ 01/13/2025 9:51:54 PM (Electronically Signed) Godfrey Finch MD MR Final Resul t * SCAN-CARDIAC STRIP (01/13/2025 11:25 AM CDT) Scanner OTHER Final Result * Hemoglobin A1C Screening (01/13/2025 11:09 AM CDT) HEMOGLOBIN A1C SCREENING 5.5 <=6.4 % 01/13/2025 3:23 PM CDT [facility] Blood BLOOD SPECIMEN / Unknown Butterfly / Unknown 01/13/2025 11:09 AM CDT 01/13/2025 11:19 AM CDT Narrative [facility] - 01/13/2025 3:23 PM CDT (<5.7%) Normal (5.7% to 6.4%) Indicates prediabetes (>=6.5%) Confirms diabetes Falsely low levels may be seen with: Recent Transfusion, Recent Significant Blood Loss, Hemolytic Diseases, or Falsely elevated levels may be seen with: Untreated Anemias, Splenectomy Godfrey Finch MD CHEMISTRY Final Resul t [facility] [address] [place] [address], * PLATELET COUNT (01/13/2025 11:09 AM CDT) PLATELET COUNT 177 140 - 440 thou/cu mm 01/13/2025 11:55 AM CDT [facility] MPV 9.5 6.5 - 11.0 fL 01/13/2025 11:55 AM CDT [facility] Blood BLOOD SPECIMEN / Unknown Butterfly / Unknown 01/13/2025 11:09 AM CDT 01/13/2025 11:19 AM CDT Ramon Gutierrez MD HEMATOLOGY Final R esult [facility] [address] [place] [address], * Lipid Panel (01/13/2025 11:09 AM CDT) CHOLESTEROL,TOTAL 178 100 - 199 mg/dL 01/13/2025 12:11 PM CDT [facility] Comment: Cholesterol, Total Reference Ranges Desirable <200 mg/dL Borderline 200-239 mg/dL High >=240 mg/dL TRIGLYCERIDES 110 <150 mg/dL 01/13/2025 12:11 PM CDT [facility] HDL CHOLESTEROL 47 >40 mg/dL 12:11 PM CDT [facility] NON-HDL CHOLESTEROL 131 <145 mg/dl 01/13/2025 12:11 PM CDT [facility] CHOL/HDL RATIO 3.79 <4.50 01/13/2025 12:11 PM CDT [facility] LDL CHOLESTEROL 109 <=130 mg/dL 01/13/2025 12:11 PM T [facility] VLDL CHOLESTEROL 22 <=30 mg/dL 01/13/2025 12:11 PM T [facility] PROVIDER ORDERED STATUS RANDOM 01/13/2025 12:11 PM T [facility] Blood BLOOD SPECIMEN / Unknown Butterfly / Unknown 01/13/2025 11:09 AM CDT 01/13/2025 11:19 AM CDT us Godfrey Finch MD CHEMISTRY Final Resul t [facility] [address] [place] [id number], [place] * CT CHEST SCREENING LOW DOSE WO CONTRAST [309267] -- Criteria: must meet ALL: Age 50-80, current smoker or quit within the last 15 years, AND 20+ pack-year history (06/18/2024 2:03 PM GAMING DIRECTOR) Anatomical Region Laterality Modality Computed Tomogra phy Impressions 06/19/2024 12:04 PM GAMING DIRECTOR New 6 millimeter left upper lobe pulmonary [...] @06/18/2024 4:28:09 PM/jj Narrative 06/19/2024 12:04 PM GAMING DIRECTOR For Patients: As a result of the [...] CHEST ABDOMEN PELVIS W (06/28/2021 12:22 PM GAMING DIRECTOR) Anatomical Region Laterality Modality Abdomen, Pelvis, AORTA, LIVER, SPLEEN Computed Tomography 06/28/2021 9:38 PM GAMING DIRECTOR Impressions 06/28/2021 9:38 PM GAMING DIRECTOR Esophagus appears patulous and there are secretions [...] 9:38PM (Electronically Signed) Narrative 06/28/2021 9:38 PM GAMING DIRECTOR For Patients: As a result of the [...] are osteopenic. Mild chronic compression deformity of [id number] body IMPRESSION: Esophagus appears patulous and there are secretions seen within thetrachea and extending into the distal small airways concerning foraspiration risk. There are changes of chronic aspiration or bronchitis orcombination of the 2. The lungs show numerous areas of small airwayocclusion with distal bronchiectasis and bronchiolitis. Tiny rtak-[id number]-[id number] are seen within the right middle lobe. [...] Result * ANTI HCV (06/25/2019 8:36 AM GAMING DIRECTOR) HEPATITIS C ANTIBODY Non-React dani Non-React dani 06/25/2019 2:37 PM GAMING DIRECTOR [email or web address] Comment:Antibodies to HCV no t detected; does not exclude the possibility of exposure to HCV. Blood BLOOD SPECIMEN / Unknown Venipuncture / Unknown 06/25/2019 8:36 AM GAMING DIRECTOR 06/25/2019 8:36 AM GAMING DIRECTOR us Rex Connor MD SEND OUTS Final Result [email or web address] [address] [place] [address], [place] from Last 3 Months or Most Recently Relevant to Health Maintenance Insurance C/O [facility] [address] [address] MEDICAID MEDICARE [place] ONLY MEDICARE PART B HB ONLY MEDICARE PART A HB ONLY Member Subscriber Plan / Payer (Ef fective 2001-Present) Name:Scooby Merino Member ID:[id number] Relation to Subscriber:Self Name:Scooby Merino Subscriber ID:[id number] Payer ID:Not on file Group ID:Not on file Type:Not on file Address: ATTN: CLAIMS [address] C/O [address] [address] MEDICA CHOICE CARE MEDICARE PART B HB ONLY MEDICARE PART A HB ONLY MEDICAID HC MEDICARE PPS * Guarantor: JUSTIN WOLF Account Type Relation to Patient Date of Phone Billing Address [facility] 1979 [place] [id number] ATTN A/P [address] [address] [place] [address] Advance Directives Documents on File Type Date Recorded 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
--- NOTE | 2025-03-05 21:15 | CRLHL7_ITS ---
For Patients: As a result of the Century Cures Act, medical imaging exams and procedure reports are released immediately into your electronic medical record. You may view this report before your referring provider. If you have questions, please contact your health care provider. INDICATION: Slurred speech, right arm weakness TECHNIQUE: CT Head without i.v. contrast. Coronal and sagittal reformats were obtained. COMPARISON: None FINDINGS: CSF space: Unremarkable for age. Brain: No evidence of mass, acute infarction or hemorrhage is seen. No mass-effect or midline shift is seen. Mild diffuse cortical atrophy is noted. The brain parenchyma is otherwise normal in appearance with preservation of the cristobal-white matter junction. Calvarium: The visualized paranasal sinuses are well aerated. The mastoid air cells are clear. The visualized orbits are grossly unremarkable. The calvarium is unremarkable in appearance with no fractures identified. IMPRESSION: 1. No evidence of acute infarction, intracranial hemorrhage, or mass-effect seen. The findings were verbally communicated with Dr. Davey at 9:40 PM. Please note that all CT scans at this facility use dose modulation, iterative reconstruction, and/or weight-based dosing when appropriate to reduce radiation dose to as low as reasonably achievable. Dictated by: Nolan Cortez MD @ 03/05/2025 21:40:16 (Electronically Signed)
--- NOTE | 2025-03-05 21:16 | CT_ITS ---
Patient: BRADFORD MERINO Facility:?[facility] Patient ID:?[id number] Site Patient ID:?[id number]. Site :?1955 Study:?CT-Neck Angio Angio STROKE CODE 95CC ISOVUE 370-03/05/2025 9:30:17 PM Ordering Physician:Richy Garcia Final Report: ----- ADDENDUM ----- DATE: 03/05/2025 CLINICAL HISTORY: Patient with focal neurological deficits. TECHNIQUE: Standard helical CT image acquisition through the head and neck was performed after intravenous contrast bolus enhancement. 2D and 3D MIP images for post- processing were performed and interpreted on an independent workstation and 3D images were permanently archived. COMPARISON: CT same day, CTA 01/12/2025 FINDINGS: The origins of the great vessels from the aortic arch are patent. The origin of the right vertebral artery is patent. The origin of the left vertebral artery demonstrates mild narrowing. The common carotid arteries are patent There is a mild (50%) stenosis at the origin of the right internal carotid artery by NASCET criteria, caused by calcified plaque with a 2mm residual lumen. There is a stent at the origin of the left internal carotid artery with mild (less than 50%) narrowing in its distal segment by NASCET criteria with a greater than 2mm residual lumen. The rest of the cervical segments of the internal carotid arteries are patent up to their intracranial segments. The intracranial segments of the internal carotid arteries are patent. The left vertebral artery is dominant. The cervical segments of the vertebral arteries are patent. The intracranial segments of the vertebral arteries are patent. There is an 5mm left ophthalmic ICA aneurysm. The middle cerebral arteries are normal without aneurysm or proximal occlusion identified. The anterior cerebral arteries are normal without aneurysm or proximal occlusion identified. The anterior communicating artery is well visualized and appears normal. The basilar artery is normal without aneurysm or occlusion. The posterior cerebral arteries are normal without aneurysm or proximal occlusion. There is normal opacification of major intracranial venous structures. The visualized lung apices are unremarkable The thyroid gland is unremarkable. The soft tissues of the neck are unremarkable. There are degenerative changes in the cervical spine. IMPRESSION: 1. No proximal intracranial large vessel occlusion. 2. Stent at the origin of the left internal carotid artery with mild (less than 50%) narrowing in its distal segment by NASCET criteria with a greater than 2mm residual lumen. 3. Unchanged mild (50%) stenosis at the origin of the right internal carotid artery by NASCET criteria, caused by calcified plaque with a 2mm residual lumen. 4. Unchanged 5mm left ophthalmic ICA aneurysm. Telehealth consultation with [facility]s Neurointerventional team for manage of this aneurysm is recommended. This can be arranged by calling . Patrica Reynolds M.D. Neurointerventional Radiologist [facility] [place] Pager: Office/Appointments: [facility]: Dictated by Patrica Ryenolds MD @ Mar 05 2025 11:22PM (Electronic Signature)
--- NOTE | 2025-03-05 21:16 | CT_ITS ---
Patient: BRADFORD MERINO Facility:?[facility] Patient ID:?[id number] Site Patient ID:?[id number]. Site :?1955 Study:?CT-Head Angio STROKE CODE 95CC ISOVUE 370-03/05/2025 9:29:58 PM Ordering Physician:Richy Garcia Final Report: DATE: 03/05/2025 CLINICAL HISTORY: Patient with focal neurological deficits. TECHNIQUE: Standard helical CT image acquisition through the head and neck was performed after intravenous contrast bolus enhancement. 2D and 3D MIP images for post- processing were performed and interpreted on an independent workstation and 3D images were permanently archived. COMPARISON: CT same day, CTA 01/12/2025 FINDINGS: The origins of the great vessels from the aortic arch are patent. The origin of the right vertebral artery is patent. The origin of the left vertebral artery demonstrates mild narrowing. The common carotid arteries are patent There is a mild (50%) stenosis at the origin of the right internal carotid artery by NASCET criteria, caused by calcified plaque with a 2mm residual lumen. There is a stent at the origin of the left internal carotid artery with mild (less than 50%) narrowing in its distal segment by NASCET criteria with a greater than 2mm residual lumen. The rest of the cervical segments of the internal carotid arteries are patent up to their intracranial segments. The intracranial segments of the internal carotid arteries are patent. The left vertebral artery is dominant. The cervical segments of the vertebral arteries are patent. The intracranial segments of the vertebral arteries are patent. There is an 5mm left ophthalmic ICA aneurysm. The middle cerebral arteries are normal without aneurysm or proximal occlusion identified. The anterior cerebral arteries are normal without aneurysm or proximal occlusion identified. The anterior communicating artery is well visualized and appears normal. The basilar artery is normal without aneurysm or occlusion. The posterior cerebral arteries are normal without aneurysm or proximal occlusion. There is normal opacification of major intracranial venous structures. The visualized lung apices are unremarkable The thyroid gland is unremarkable. The soft tissues of the neck are unremarkable. There are degenerative changes in the cervical spine. IMPRESSION: 1. No proximal intracranial large vessel occlusion. 2. Stent at the origin of the left internal carotid artery with mild (less than 50%) narrowing in its distal segment by NASCET criteria with a greater than 2mm residual lumen. 3. Unchanged mild (50%) stenosis at the origin of the right internal carotid artery by NASCET criteria, caused by calcified plaque with a 2mm residual lumen. 4. Unchanged 5mm left ophthalmic ICA aneurysm. Telehealth consultation with [facility]s Neurointerventional team for manage of this aneurysm is recommended. This can be arranged by calling . Patrica Reynolds M.D. Neurointerventional Radiologist [facility] [place] Pager: Office/Appointments: [facility]: Please note that all CT scans at this facility use dose modulation, iterative reconstruction, and/or weight-based dosing when appropriate to reduce radiation dose to as low as reasonably achievable. Dictated by Patrica Reynolds MD @ 03/05/2025 11:21:38 PM (Electronic Signature)
--- NOTE | 2025-03-05 22:21 | CRLHL7_ITS ---
For Patients: As a result of the Century Cures Act, medical imaging exams and procedure reports are released immediately into your electronic medical record. You may view this report before your referring provider. If you have questions, please contact your health care provider. Indication: TIA. Technique: Chest 1 view. Comparison: Chest x-ray 09/01/2022. Findings/Impression: The heart is not abnormally enlarged. Mediastinal contours grossly within normal limits. No definite confluent airspace opacity. Mild bibasilar atelectasis. No pleural effusion or pneumothorax. No acute osseous abnormality. Dictated by Kt Hensley MD @ 03/05/2025 10:58:11 PM (Electronically Signed)
[2025-03-05 22:32] LABS: Hematocrit* 31.6 % (37.0-53.0); Hemoglobin* 10.1 gm/dL (13.5-17.5); Immature Granulocytes Abs Auto 0.08 K/uL (0.00-0.30); Immature Granulocytes Pct Auto 1.1 %; Lymphocytes Absolute Auto 0.90 K/uL (0.90-2.90); Mean Corpuscular HGB Conc 32 gm/dL (32-36); Mean Corpuscular Hemoglobin 30 pg (26-34); Mean Corpuscular Volume 95 fL (80-100); RDW Coefficient of Variation % 13.7 % (11.5-15.5); Red Blood Count* 3.33 m/uL (4.30-5.90); Slide Review Reflex No; White Blood Count* 7.48 K/uL (4.50-11.00)
[2025-03-05 22:51] LABS: Albumin* 3.5 g/dL (3.3-5.0); Chloride* 104 mmol/L (96-114); Potassium* 4.4 mmol/L (3.6-5.1); Sodium* 134 mmol/L (135-149)
[2025-03-05 22:54] LABS: Alanine Aminotransferase* 5 U/L (4-50); Alkaline Phosphatase* 83 U/L (40-150); Anion Gap 8 mEq/L (7-15); Aspartate Amino Transferase* 31 U/L (12-35); Bilirubin Total* 0.3 mg/dL (0.1-1.5); Blood Urea Nitrogen* 29 mg/dL (7-30); Calcium* 9.4 mg/dL (8.4-10.6); Carbon Dioxide* 22 mmol/L (20-32); Creatinine* 1.4 mg/dL (0.5-1.5); Estimated Glomerular Filt Rate 54 ml/min; Glucose* 85 mg/dL (60-115); Total Protein* 6.3 g/dL (6.0-8.3)
--- OUTSIDE RECORDS SUMMARY | 2025-03-05 23:34 | XMS_ITS | Clinical Summary ---
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 Name Role Phone Contreras Vargas MD Unavailable Conditions or Problems Problem Name Problem Code Onset Date Status Entry Date Provider Comment Standard Description Annotate Parkinsonism , unspecified 61609275 (SNOMED CT) 05/20 Active 05/20 Aleta Restrepo Parkinsonism Schizoaffect dani disorder with depression 40286733 (SNOMED CT) 07/29 Active 07/29 Contreras Vargas MD Schizoaffective disorder Memory deficit 950496244 (SNOMED CT) 07/29 Active 07/29 Contreras Vargas MD Memory impairment Tremor, rest 41878378 (SNOMED CT) 07/29 Active 07/29 Contreras Vargas MD Resting tremor Parkinsonism 40030140 (SNOMED CT) 05/20 Inactive 05/20 Jose Eduardo Corcoran MD Parkinsonism Medications Medication Instructions Start Date Stop Date Generic Name [facility] Provider TAMSULOSIN HCL 0.4 MG CAPS 02/02 tamsulosin [id number] Fauzia Robbins DNP,PARTS CONSULTANT,CN P MAGNESIUM CITRATE 1.745 GM/30ML SOLN 02/02 magnesium citrate [id number] Fauzia Robbins DNP,PARTS CONSULTANT,CN P DEEP SEA NASAL SPRAY 0.65 % SOLN Administer 2 spray into both nostrils every six hours 02/02 sodium chloride 45485888399 Fauzia Robbins DNP,PARTS CONSULTANT,CN P LEVOTHYROXINE SODIUM 150 MCG TABS 02/02 levothyroxine 91407360996 Fauzia Robbins DNP,PARTS CONSULTANT,CN P QUETIAPINE FUMARATE 200 MG TABS Take 200 mg by mouth every night 02/02 quetiapine [id number] Fauzia Robbins DNP,PARTS CONSULTANT,CN P NICOTINE POLACRILEX [address] 1 by mouth every hour as needed 02/02 nicotine (polacrilex) [id number] Fauzia Robbins DNP,PARTS CONSULTANT,CN P haloperidol decanoate (HALDOL DECANOATE) 100 mg/mL intramusc Inject 75 mg intramuscularly every two weeks 02/02 HALDOL DECANOATE Fauzia Robbins DNP,PARTS CONSULTANT,CN P DIVALPROEX SODIUM ER 500 MG [id number] Take 2 Tablets (1,000 mg) by mouth at bedtime. 02/02 divalproex [id number] [facility],PARTS CONSULTANT,CN P HALOPERIDOL DECANOATE 50 MG/ML SOLN 02/02 haloperidol decanoate [id number] Fauzia Robbins DNP,PARTS CONSULTANT,CN P BENZTROPINE MESYLATE 0.5 MG TABS Take 0.5 mg by mouth twice a day 02/02 benztropine [id number] [facility]IC[facility],PARTS CONSULTANT,CN P HALOPERIDOL 5 MG TABS Take 5 mg by mouth every four hours as needed 02/02 haloperidol [id number] [facility] PAT[facility]ICIA,PARTS CONSULTANT,CN P IBUPROFEN (IBUPROFEN) 600 MG TABS Take 1 tablet by mouth every eight hours as needed 02/02 IBUPROFEN [facility] PAT[facility]ICIA,PARTS CONSULTANT,CN P CLONAZEPAM 0.5 MG TABS Take 1 tablet by mouth once a day as needed 02/02 clonazepam [id number] Fauzia Robbins DNP,PARTS CONSULTANT,CN P CLONAZEPAM 0.5 MG TABS 02/02 clonazepam 88915592208 Fauzia Robbins DNP,PARTS CONSULTANT,CN P SYMBICORT 80-4.5 MCG/ACT AERO 02/02 budesonide-form oterol 28278260669 Fauzia Rechtzigel DNP,PARTS CONSULTANT,CN P ACETAMINOPHEN 500 MG TABS Take 2 Tablets (1,000 mg) by mouth every 6 hours if needed for Pain. Max acetaminophen dose: 4000mg in 24 hrs. 02/02 acetaminophen 14796308382 Fauzia Rechtzigel DNP,PARTS CONSULTANT,CN P ASPIRIN LOW DOSE 81 MG [facility] aspirin [id number] Fauzia Rechigel DNP,PARTS CONSULTANT,CN P DEEP SEA NASAL SPRAY 0.65 % SOLN sodium chloride [id number] A keisha Rechtzigel DNP,PARTS CONSULTANT,CN P CLONAZEPAM 1 MG TABS clonazepam 05715378117 [facility],PARTS CONSULTANT,CN P CLOPIDOGREL BISULFATE 75 MG TABS clopidogrel 02631313655 [facility],PARTS CONSULTANT,CN P DIVALPROEX SODIUM ER 250 MG [id number] divalproex [id number] [facility],PARTS CONSULTANT,CN P QUETIAPINE FUMARATE 150 MG TABS quetiapine [id number] [facility],PARTS CONSULTANT,CN P OLANZAPINE 5 MG TABS olanzapine [id number] [facility],PARTS CONSULTANT,CN P SENNA 8.6 MG TABS sennosides [id number] [facility],PARTS CONSULTANT,CN P ROSUVASTATIN CALCIUM 40 MG TABS rosuvastatin [id number] [facility],PARTS CONSULTANT,CN P FAMOTIDINE 20 MG TABS Take 1 tablet by mouth once a day famotidine 88629327853 Contreras Vargas MD MELATONIN 3 MG TABS Take 1 tablet by mouth every night melatonin 86190524842 Contreras Vargas MD QUETIAPINE FUMARATE 200 MG TABS Take 200 mg by mouth every night 02/02 quetiapine 65830582622 Contreras Vargas MD ESCITALOPRAM OXALATE 10 MG TABS Take 10 mg by mouth once a day escitalopram oxalate [id number] Contreras Vargas MD ALBUTEROL SULFATE (2.5 MG/3ML) 0.083% NEBU Inhale 1 ampul by mouth twice a day albuterol sulfate 35439369021 Contreras Vargas MD Multivits,Ca,Mine [id number] (High Potency Multivit, w-iron Take 1 tablet by mouth once a day High Potency Multivit, w-iron Contreras Vargas MD IBUPROFEN (IBUPROFEN) 600 MG TABS Take 1 tablet by mouth every eight hours as needed 02/02 IBUPROFEN Contreras Vargas MD TAMSULOSIN HCL 0.4 MG CAPS Take 1 capsule by mouth once a day tamsulosin 60945203243 Contreras Vargas MD AMLODIPINE BESYLATE 10 MG TABS 07/29 amlodipine 92832816661 Contreras Vargas MD SENNOSIDES-DOCUSA TE SODIUM 8.6-50 MG TABS Take 1 tablet by mouth twice a day 07/29 sennosides-docu sate sodium 41487514873 Contreras Vargas MD fluticasone propion-salmetero L (Advair Diskus) 250-50 mcg/Do Inhale 1 puff by mouth twice a day Advair Diskus Contreras Vargas MD GAVILAX 17 GM/SCOOP POWD 07/29 polyethylene glycol 3350 [id number] Contreras Vargas MD PEG 3350 17 GM/SCOOP POWD Take 1 by mouth once a day as needed polyethylene glycol 3350 53087369299 Contreras Vargas MD PROPRANOLOL HCL 20 MG TABS Take 1 tablet by mouth three times a day propranolol 69870676832 Contreras Vargas MD HALOPERIDOL 5 MG TABS Take 5 mg by mouth every four hours as needed 02/02 haloperidol 67935798596 Contreras Vargsa MD cholecalciferol (VITAMIN D3) 1,000 unit tablet Take 1 tablet by mouth once a day VITAMIN D3 Contreras Vargas MD Nebulizer Inhale 07/29 Nebulizer Contreras Vargas MD QUETIAPINE FUMARATE 300 MG TABS 07/29 quetiapine 01164067907 Contreras Vargas MD CARBIDOPA-LEVODOP A 25-100 MG TABS Take 1 tablet by mouth three times a day carbidopa-levod opa 10742075545 Contreras Vargas MD NICOTINE POLACRILEX [address] 1 by mouth every hour as needed 02/02 nicotine (polacrilex) 41801854023 Contreras Vargas MD BENZTROPINE MESYLATE 0.5 MG TABS Take 0.5 mg by mouth twice a day 02/02 benztropine 39703976348 Contreras Vargas MD DEEP SEA NASAL SPRAY 0.65 % SOLN Administer 2 spray into both nostrils every six hours 02/02 sodium chloride 83107858958 Contreras Vargas MD NICOTINE 7 MG/24HR PT24 07/29 nicotine 98162937354 Contreras Vargas MD PROPRANOLOL HCL 20 MG TABS 07/29 propranolol 90387627950 Contreras Vargas MD SENEXON-S 8.6-50 MG TABS 07/29 sennosides-docu sate sodium 67601279709 Contreras Vargas MD LEVOTHYROXINE SODIUM 150 MCG TABS Take 1 tablet by mouth every morning levothyroxine 17916856026 Contreras Vargas MD CLONAZEPAM 0.5 MG TABS Take 1 tablet by mouth once a day as needed 02/02 clonazepam 53827596826 Contreras Vargas MD ASPIRIN LOW DOSE 81 MG TBEC 07/29 aspirin 23394913032 Contreras Vargas MD haloperidol decanoate (HALDOL DECANOATE) 100 mg/mL intramusc Inject 75 mg intramuscularly every two weeks 02/02 HALDOL DECANOATE Contreras Vargas MD TAMSULOSIN HCL 0.4 MG CAPS TAKE 1 CAPSULE BY MOUTH DAILY 30 MINUTES AFTER THE SAME MEAL EACH DAY *SWALLOW WHOLE* 07/29 tamsulosin 68055728436 QIEUSER QIEUSER DEEP SEA NASAL SPRAY 0.65 % SOLN ADMINISTER 2 SPRAYS IN AFFECTED NOSTRIL(S) EVERY 6 HOURS 07/29 sodium chloride 49157049386 QIEUSER QIEUSER SENNOSIDES-DOCUSA TE SODIUM 8.6-50 MG TABS TAKE 1 TABLET BY MOUTH TWICE DAILY 07/29 sennosides-docu sate sodium 06463812472 QIEUSER QIEUSER QUETIAPINE FUMARATE 200 MG TABS Take 200 mg by mouth at bedtime. 07/29 quetiapine 97253450467 QIEUSER QIEUSER PEG 3350 17 GM/SCOOP POWD Take 1 scoop (17 g) by mouth or nasogastric tube once daily if needed for Constipation. 07/29 polyethylene glycol 3350 12403200148 QIEUSER QIEUSER NICOTINE POLACRILEX [address] 1 Lozenge (2 mg) in mouth, between cheek & gum every hour while awake as needed for Nicotine Craving. 11/27 nicotine (polacrilex) 43537591997 QIEUSER QIEUSER Nebulizer Nebulizer, disposable neb kit x 4, reuseable neb kit x 1, mask x 1, filters x 1. Frequency of use: daily; Medication: albuterol Length of need: 99 months 07/29 Nebulizer QIEUSER QIEUSER Multivits,Ca,Mine olre-Iivs-SV (High Potency Multivit, w-iron Take 1 Tablet by mouth once daily. 07/29 High Potency Multivit, w-iron QIEUSER QIEUSER MELATONIN 3 MG TABS Take 1 Tablet (3 mg) by mouth at bedtime. 07/29 melatonin 49918257052 QIEUSER QIEUSER IBUPROFEN (IBUPROFEN) 600 MG TABS TAKE 1 TABLET BY MOUTH EVERY 8 HOURS NEEDED FOR PAIN OR TEMP >101.5F (38.6C) 07/29 IBUPROFEN QIEUSER QIEUSER haloperidol decanoate (HALDOL DECANOATE) 100 mg/mL intramusc Inject 75 mg intramuscular every 2 weeks. 07/29 HALDOL DECANOATE QIEUSER QIEUSER HALOPERIDOL 5 MG TABS Take 5 mg by mouth every 4 hours if needed for Agitation. 07/29 haloperidol 30189863008 QIEUSER QIEUSER fluticasone propion-salmetero L (Advair Diskus) 250-50 mcg/Do INHALE 1 PUFF BY MOUTH TWICE DAILY --RINSE MOUTH AFTER USE-- 07/29 Advair Diskus QIEUSER QIEUSER FAMOTIDINE 20 MG TABS Take 1 Tablet (20 mg) by mouth once daily. 07/29 famotidine 02164392771 QIEUSER QIEUSER ESCITALOPRAM OXALATE 10 MG TABS Take 10 mg by mouth once daily. 07/29 escitalopram oxalate 17610605929 QIEUSER QIEUSER cholecalciferol (VITAMIN D3) 1,000 unit tablet Take 1 Tablet (1,000 units) by mouth once daily. 07/29 VITAMIN D3 QIEUSER QIEUSER CARBIDOPA-LEVODOP A 25-100 MG TABS Take 1 Tablet by mouth three times daily. 11/27 carbidopa-levod opa 46890388570 QIEUSER QIEUSER BENZTROPINE MESYLATE 0.5 MG TABS Take 0.5 mg by mouth two times daily. 07/29 benztropine 99696346762 QIEUSER QIEUSER ALBUTEROL SULFATE (2.5 MG/3ML) 0.083% NEBU INHALE 1 AMPULE BY MOUTH VIA NEBULIZER TWICE DAILY 07/29 albuterol sulfate [id number] QIEUSER QIEUSER ACETAMINOPHEN 500 MG TABS Take 2 Tablets (1,000 mg) by mouth every 6 hours if needed for Pain. Max acetaminophen dose: 4000mg in 24 hrs. 02/02 acetaminophen 33387255977 QIEUSER QIEUSER PROPRANOLOL HCL 20 MG TABS Take 1 Tablet (20 mg) by mouth 2 times daily. AM and at bedtime. 11/27 propranolol 36064417988 QIEUSER QIEUSER LEVOTHYROXINE SODIUM 150 MCG TABS Take 1 Tablet (150 mcg) by mouth before breakfast. 07/29 levothyroxine 01587290580 QIEUSER QIEUSER DIVALPROEX SODIUM ER 500 MG [id number] Take 2 Tablets (1,000 mg) by mouth at bedtime. 02/02 divalproex 48427703015 QIEUSER QIEUSER CLONAZEPAM 0.5 MG TABS Take 1 Tablet (0.5 mg) by mouth once daily if needed for Anxiety. 11/27 clonazepam 65282889908 QIEUSER QIEUSER TAMSULOSIN HCL 0.4 MG CAPS 02/02 tamsulosin 75697914067 Jose Eduardo Corcoran MD NICOTINE 7 MG/24HR PT24 07/29 nicotine 03952939719 Jose Eduardo Corcoran MD ASPIRIN EC 81 MG TBEC 10/23 aspirin 15920614577 Jose Eduardo Corcoran MD PROPRANOLOL HCL 20 MG TABS 11/27 propranolol 22108618105 Jose Eduardo Corcoran MD CLONAZEPAM 0.5 MG TABS 02/02 clonazepam 36749936323 Jose Eduardo Corcoran MD ACETAMINOPHEN 325 MG TABS acetaminophen 49687828379 Jose Eduardo Corcoran MD ALBUTEROL SULFATE HFA 108 (90 Base) MCG/ACT AERS albuterol sulfate 12118894536 Jose Eduardo Corcoran MD DIVALPROEX SODIUM ER 500 MG [id number] divalproex 57042827394 Jose Eduardo Corcoran MD AMLODIPINE BESYLATE 10 MG TABS 11/27 amlodipine 47702116499 Jose Eduardo Corcoran MD QUETIAPINE FUMARATE 300 MG TABS 07/29 quetiapine 57514153502 Jose Eduardo Corcoran MD SENEXON-S 8.6-50 MG TABS 07/29 sennosides-docu sate sodium 55172994276 Jose Eduardo Corcoran MD GAVILAX 17 GM/SCOOP POWD 07/29 polyethylene glycol 3350 84106286726 Jose Eduardo Corcoran MD SYMBICORT 80-4.5 MCG/ACT AERO 02/02 budesonide-form oterol 64578024631 Jose Eduardo Corcoran MD HALOPERIDOL DECANOATE 50 MG/ML SOLN 02/02 haloperidol decanoate 08274838251 Jose Eduardo Corcoran MD MAGNESIUM CITRATE 1.745 GM/30ML SOLN 02/02 magnesium citrate 98665790174 Jose Eduardo Corcoran MD LEVOTHYROXINE SODIUM 150 MCG TABS 02/02 levothyroxine 29705104456 Jose Eduardo Corcoran MD Medications Administered No [...] Yes Consent To Release information to the [employer] ([employer]) Office Visit: Office Visit f ax MEDS [...] Neurologist or [facility] ORDERS [facility] Scan [facility]-[id number] Documentation of current medicatio ns ORDERS Follow up RISSA after testing [id number] Other Radiology Vital Signs Date Name Value [...]
[2025-03-06] VITALS (27 sets, daily range): BP systolic 97–151; BP diastolic 60–88; PULSE 70–109; RESP 14–23; TEMP 36.1; O2SAT 94–99; BMI 24.2
--- NOTE | 2025-03-06 00:02 | ED.GENADULT ---
HPI - General Adult General Chief complaint: Neuro Symptoms/Altered Deficit Stated complaint: stroke like symptoms Time Seen by Provider: 03/05/25 21:19 History of Present Illness HPI narrative: Patient is a 69-year-old value patient that has history of CVA and recent stenting of his left carotid artery who presents with right-sided facial droop slurred speech right arm and leg weakness. This happened acutely approximately 30 minutes prior to arrival. The time that I cyst him in the CT scan room the symptoms had resolved knee was left at his baseline. Patient was lucid and was able move all extremities is able to tell me that he in fact does have some residual right-sided weakness but he is feeling return to baseline. We did do CTA and CT and those findings showed a stent in the left carotid artery. I did discuss the case with Neurology and the patient is on both aspirin and Plavix. His EKG shows sinus rhythm. Again patient has now returned to baseline. Related Data Home Medications ?Medication ?Instructions ?Recorded ?Confirmed clonazepam 0.5 mg tablet 1 mg PO HS 12/20/21 03/01/25 divalproex 250 mg tablet,extended 250 mg PO HS 12/20/21 03/01/25 release 24 hr divalproex 500 mg tablet,extended 1,000 mg PO HS 12/20/21 03/01/25 release 24 hr escitalopram oxalate 5 mg tablet mg 12/20/21 04/24/23 haloperidol decanoate 50 mg/mL mg IM 12/20/21 04/24/23 intramuscular solution levothyroxine 150 mcg tablet 150 mcg PO DAILY 12/20/21 03/01/25 propranolol 20 mg tablet 20 mg PO BID 12/20/21 03/01/25 quetiapine 100 mg tablet 150 mg PO HS 12/20/21 03/01/25 tamsulosin 0.4 mg capsule 0.4 mg PO DAILY 12/20/21 03/01/25 aspirin 325 mg tablet 81 mg PO DAILY 08/21/22 03/01/25 benztropine 0.5 mg tablet 0.5 mg PO BID 08/21/22 04/24/23 budesonide-formoterol HFA 80 inhalation 08/21/22 04/24/23 mcg-4.5 mcg/actuation aerosol inhaler (Symbicort) carbidopa 25 mg-levodopa 100 mg 1 tab PO 3XD 08/21/22 03/01/25 tablet escitalopram oxalate 10 mg tablet 10 mg PO DAILY 08/21/22 03/01/25 haloperidol decanoate 100 mg/mL mg IM 08/21/22 04/24/23 intramuscular solution nicotine (polacrilex) 2 mg buccal 0 mg PO 08/21/22 04/24/23 lozenge nicotine 14 mg/24 hr daily 1 patch topical DAILY 08/21/22 04/24/23 transdermal patch polyethylene glycol 3350 17 g PO 08/21/22 04/24/23 gram/dose oral powder (Gavilax) quetiapine 200 mg tablet 200 mg PO QPM 08/21/22 04/24/23 clopidogrel 75 mg tablet 75 mg PO DAILY 03/01/25 03/01/25 famotidine 20 mg tablet 20 mg PO DAILY 03/01/25 03/01/25 ferrous sulfate 325 mg (65 mg mg PO 03/01/25 iron) tablet (FeroSul) fluticasone 250 mcg-salmeterol 50 1 ea inhalation BID 03/01/25 03/01/25 mcg/dose blistr powdr for inhalation melatonin 3 mg capsule 3 mg PO QHS 03/01/25 03/01/25 olanzapine 5 mg tablet 5 mg PO QPM 03/01/25 03/01/25 rosuvastatin 40 mg tablet 40 mg PO DAILY 03/01/25 03/01/25 sennosides 8.6 mg tablet (senna) 17.2 mg PO DAILY 03/01/25 03/01/25 Allergies Allergy/AdvReac Type Severity Reaction Status Date / Time haloperidol AdvReac Unknown Verified 03/05/25 21:27 clozapine AdvReac Verified 03/05/25 21:27 Review of Systems Status of ROS: Reports: 10 or more systems reviewed and unremarkable except as noted in History and below [facility] Medical History History of alcohol abuse ?F10.11 - Alcohol abuse, in remission (ICD-10) Schizoaffective disorder, bipolar type ?F25.0 - Schizoaffective disorder, bipolar type (ICD-10) Psychotic disorder ?F29 - Unspecified psychosis not due to a substance or known physiological condition (ICD-10) Manic depression ?F31.9 - Bipolar disorder, unspecified (ICD-10) CAD (coronary artery disease) ?I25.10 - Atherosclerotic heart disease of [place] coronary artery without angina pectoris (ICD-10) Social History Smoking Status: Current every day smoker What tobacco products do you use: cigarettes Do you use any of these nicotine containing products: None Second hand tobacco smoke exposure: No How often do you have a drink containing alcohol: never How many standard drinks containing alcohol do you have on a typical day: 1 or 2 How often do you have six or more drinks on one occasion: Never AUDIT-C Alcohol total score: 0 Non-prescribed substance use: denies use service: No Exam Narrative: Exam Narrative: EXAM GENERAL: Patient appears comfortable and well. EYES: No scleral icterus. ENT: Tympanic membranes and oropharynx normal. THYROID: no thyroid nodules or thyromegaly. LYMPH: No supraclavicular or cervical lymphadenopathy. SKIN: Healed incision noted over the left side of the neck. EXT: No dependent lower extremity pedal edema. HEART: Regular rate and rhythm with no murmurs, rubs, or gallops. LUNGS: Clear to auscultation bilaterally with no crackles or wheezes. ABD: Soft, non tender, non distended. PSYCH: Good eye contact, speech is not pressured. Neuro exam shows moving all extremity slight facial droop on the right slight slurred speech. Patient states this is his baseline. Const: Vital Signs, click to edit/add: Vital Signs - 24 hr 03/05/25 21:12 03/05/25 21:26 03/05/25 21:42 Pulse Rate [Left P ulse Oximeter] 93 84 Respiratory Rate 16 Blood Pressure [Le ft Upper Arm] 138/50 L 128/68 125/73 Pulse Oximetry 93 96 99 Oxygen Delivery Me thod Room Air Room Air Course Course ED Course: Patient seen examined and telehealth stroke code was called. I did discuss the case on 2 occasions with Stroke Neurology in a recommend no further intervention but admission for continued medical management and telemetry. Arrangements are made patient will be admitted to observation with likely discharge back to [place] in the morning. Vital Signs Vital signs: Initial Vital Signs Pulse Rate 93 03/05/25 21:12 Respiratory Rate 16 03/05/25 21:12 Blood Pressure 138/50 L 03/05/25 21:12 Blood Pressure Mean 79 03/05/25 21:12 Blood Pressure Position Supine 03/05/25 21:12 Pulse Oximetry 93 03/05/25 21:12 Oxygen Delivery Method Room Air 03/05/25 21:12 Vital Signs Pulse Rate 93 03/05/25 21:12 Respiratory Rate 16 03/05/25 21:12 Blood Pressure 138/50 L 03/05/25 21:12 Pulse Oximetry 93 03/05/25 21:12 Oxygen Delivery Method Room Air 03/05/25 21:12 Pulse Rate 84 03/05/25 21:42 Respiratory Rate 16 03/05/25 21:12 Blood Pressure 125/73 03/05/25 21:42 Pulse Oximetry 99 03/05/25 21:42 Oxygen Delivery Method Room Air 03/05/25 21:42 Medical Decision Making Lab Data Labs: Lab Results 03/05/25 Range/Units 21:35 WBC 7.48 (4.50-11.00) K/uL RBC 3.33 L (4.30-5.90) m/uL Hgb 10.1 L (13.5-17.5) gm/dL Hct 31.6 L (37.0-53.0) % MCV 95 (80-100) fL MCH 30 (26-34) pg MCHC 32 (32-36) gm/dL RDW Coeff of Cecil 13.7 (11.5-15.5) % Plt Count 162 (140-440) K/uL Neut % (Auto) 73.7 H (42.0-72.0) % Lymph % (Auto) 12.4 L (20-44) % Gordon % (Auto) 11.6 H (0.0-11.0) % Eos % (Auto) 1.1 (0.0-7.0) % Baso % (Auto) 0.1 (0.0-3.0) % Neut # (Auto) 5.50 (1.7-7.0) K/uL Lymph # (Auto) 0.90 (0.90-2.90) K/uL Gordon # (Auto) 0.90 (0.00-0.90) K/UL Eos # (Auto) 0.08 (0.00-0.50) K/uL Baso # (Auto) 0.01 (0.00-0.30) K/uL Abs Immat Gran (auto) 0.08 (0.00-0.30) K/uL Imm/Tot Granulo (auto) 1.1 % Sodium 134 L (135-149) mmol/L Potassium 4.4 (3.6-5.1) mmol/L Chloride 104 (96-114) mmol/L Carbon Dioxide 22 (20-32) mmol/L Anion Gap 8 (7-15) mEq/L BUN 29 (7-30) mg/dL Creatinine 1.4 (0.5-1.5) mg/dL Estimated GFR 54 ml/min Glucose 85 (60-115) mg/dL Calcium 9.4 (8.4-10.6) mg/dL Total Bilirubin 0.3 (0.1-1.5) mg/dL AST 31 (12-35) U/L ALT 5 (4-50) U/L Alkaline Phosphatase 83 (40-150) U/L Total Protein 6.3 (6.0-8.3) g/dL Albumin 3.5 (3.3-5.0) g/dL Discharge Plan Discharge Clinical Impression: Brain TIA Patient Disposition: Admitted As Observation Condition: Stable Activity Level: Other Discharge Diet: Other
--- NOTE | 2025-03-06 00:13 | W.PM.TELEH&P ---
Telehealth- H&P: HPI History of Present Illness Date Seen: 03/06/25 Chief complaint: stroke like symptoms Narrative: Scooby Greer is seen as an Interactive Telehealth visit. Scooby Greer is a 69 year old male who has history of TIA with recent left carotid artery stenting currently on aspirin and Plavix, history of bipolar disorder living in assisted living who presented today with right-sided weakness and his arm and leg as well as slurred speech. Patient is a very poor historian, having difficulty putting together a coherent story. Patient was brought to the emergency department, and went directly to the CT scanner. By the time patient arrived, his symptoms had resolved, and patient endorses feeling strong and at his baseline. CT/CTA negative for acute lesion. Stroke neurology was involved, recommends observation for TIA. They did not recommend any additional anticoagulation or antiplatelet. Patient is currently awake, alert, no symptoms. He states that his right sided symptoms have resolved, although he does have some dysarthria at baseline, he states that it is due to his dentition. He denies any difficulty chewing or swallowing. We will admit him to observation at this time. Review of Systems Status of ROS: Reports: 10 or more systems reviewed and unremarkable except as noted in History and below [facility] Medical History (Updated 03/06/25 @ 00:31 by Jayden Jama MD) History of alcohol abuse ?F10.11 - Alcohol abuse, in remission (ICD-10) Schizoaffective disorder, bipolar type ?F25.0 - Schizoaffective disorder, bipolar type (ICD-10) Psychotic disorder ?F29 - Unspecified psychosis not due to a substance or known physiological condition (ICD-10) Manic depression ?F31.9 - Bipolar disorder, unspecified (ICD-10) CAD (coronary artery disease) ?I25.10 - Atherosclerotic heart disease of [place] coronary artery without angina pectoris (ICD-10) Social History Smoking Status: Current every day smoker What tobacco products do you use: cigarettes Do you use any of these nicotine containing products: None Second hand tobacco smoke exposure: No How often do you have a drink containing alcohol: never How many standard drinks containing alcohol do you have on a typical day: 1 or 2 How often do you have six or more drinks on one occasion: Never AUDIT-C Alcohol total score: 0 Non-prescribed substance use: denies use service: No Meds Home Medications and Allergies Home Medications ?Medication ?Instructions ?Recorded ?Confirmed ?Type clonazepam 0.5 mg tablet 1 mg PO HS PRN 12/20/21 03/06/25 History divalproex 250 mg tablet,extended 250 mg PO HS 12/20/21 03/01/25 History release 24 hr divalproex 500 mg tablet,extended 1,000 mg PO HS 12/20/21 03/01/25 History release 24 hr escitalopram oxalate 5 mg tablet mg 12/20/21 04/24/23 History haloperidol decanoate 50 mg/mL 2 mg IM QHS PRN 12/20/21 03/06/25 History intramuscular solution levothyroxine 150 mcg tablet 150 mcg PO DAILY 12/20/21 03/01/25 History propranolol 20 mg tablet 20 mg PO BID 12/20/21 03/01/25 History quetiapine 100 mg tablet 150 mg PO HS 12/20/21 03/01/25 History tamsulosin 0.4 mg capsule 0.4 mg PO DAILY 12/20/21 03/01/25 History aspirin 325 mg tablet 81 mg PO DAILY 08/21/22 03/01/25 History benztropine 0.5 mg tablet 0.5 mg PO BID 08/21/22 04/24/23 History budesonide-formoterol HFA 80 inhalation 08/21/22 04/24/23 History mcg-4.5 mcg/actuation aerosol inhaler (Symbicort) carbidopa 25 mg-levodopa 100 mg 1 tab PO 3XD 08/21/22 03/01/25 History tablet escitalopram oxalate 10 mg tablet 10 mg PO DAILY 08/21/22 03/01/25 History haloperidol decanoate 100 mg/mL mg IM 08/21/22 04/24/23 History intramuscular solution nicotine (polacrilex) 2 mg buccal 0 mg PO 08/21/22 04/24/23 History lozenge nicotine 14 mg/24 hr daily 1 patch topical DAILY 08/21/22 04/24/23 History transdermal patch polyethylene glycol 3350 17 g PO 08/21/22 04/24/23 History gram/dose oral powder (Gavilax) quetiapine 200 mg tablet 200 mg PO QPM 08/21/22 04/24/23 History clopidogrel 75 mg tablet 75 mg PO DAILY 03/01/25 03/01/25 History famotidine 20 mg tablet 20 mg PO DAILY 03/01/25 03/01/25 History ferrous sulfate 325 mg (65 mg mg PO 03/01/25 History iron) tablet (FeroSul) fluticasone 250 mcg-salmeterol 50 1 ea inhalation BID 03/01/25 03/01/25 History mcg/dose blistr powdr for inhalation melatonin 3 mg capsule 3 mg PO QHS 03/01/25 03/01/25 History olanzapine 5 mg tablet 5 mg PO QPM 03/01/25 03/01/25 History rosuvastatin 40 mg tablet 40 mg PO DAILY 03/01/25 03/01/25 History sennosides 8.6 mg tablet (senna) 17.2 mg PO DAILY 03/01/25 03/01/25 History Allergies Allergy/AdvReac Type Severity Reaction Status Date / Time haloperidol AdvReac Unknown Verified 03/05/25 21:27 clozapine AdvReac Verified 03/05/25 21:27 Exam Narrative Exam Narrative: Physical Exam GENERAL: ?vital signs reviewed, well developed and nourished, in no distress HEENT: pupils are equal round and reactive to light, extraocular movements are grossly within normal limits and oral mucosa is moist. Poor dentition NECK: Supple without lymphadenopathy or thyromegaly according to nursing staff examination observation HEART: Regular rhythm, somewhat tachycardic without any rubs, murmurs, or gallops. LUNGS: Clear to auscultation bilaterally with good air movement throughout ABDOMEN: Observation from nurse assisted exam, abdomen appears soft, nontender, and nondistended with Positive bowel sounds noted. EXTREMITIES: Strength and sensation is observed to be grossly within normal limits in the upper and lower extremities.? No focal strength deficit is observed. SKIN:? Observed warm and dry with color normal Const Vital Signs, click to edit/add: Vital Signs - 24 hr 03/05/25 21:12 03/05/25 21:26 03/05/25 21:42 Pulse Rate [Left Pulse Oximeter] 93 84 Respiratory Rate 16 Blood Pressure [Left Upper Arm] 138/50 L 128/68 125/73 Pulse Oximetry 93 96 99 Oxygen Delivery Method Room Air Room Air Hospitalist - H&P: Result Labs Labs: Short CBC 03/05/25 Range/Units 21:35 WBC 7.48 (4.50-11.00) K/uL Hgb 10.1 L (13.5-17.5) gm/dL Hct 31.6 L (37.0-53.0) % Plt Count 162 (140-440) K/uL BMP 03/05/25 21:35 Sodium 134 L Potassium 4.4 Chloride 104 Carbon Dioxide 22 BUN 29 Creatinine 1.4 Glucose 85 Calcium 9.4 Liver Function 03/05/25 Range/Units 21:35 Total Bilirubin 0.3 (0.1-1.5) mg/dL AST 31 (12-35) U/L ALT 5 (4-50) U/L Alkaline Phosphatase 83 (40-150) U/L Albumin 3.5 (3.3-5.0) g/dL Assessment and Plan Assessment and plan (1) Brain TIA: Status: Acute Assessment and Plan: Patient's symptoms have resolved. Patient is already on aspirin and Plavix due to recent left carotid stenting. Neurology recommended observation on telemetry. No overtures about MRI or additional anticoagulation at this time. (2) Schizoaffective disorder, bipolar type: Status: Acute Assessment and Plan: Continue home medications (3) CAD (coronary artery disease): Status: Acute Assessment and Plan: stable (4) Tobacco dependence: Status: Acute (5) Hypothyroidism: Status: Acute Assessment and Plan: continue home med (6) Hyperlipidemia: Status: Acute Assessment and Plan: continue home statin. Will check FLP in AM Telehealth: Statement Statement Telehealth Visit: Today's History and Physical is provided via interactive telehealth by Jayden Jama MD.? Patient is located at [facility].? Provider is located at [facility].? Nursing staff assisted with the patient's exam. The visit being done today meets criteria for a telehealth visit and the patient or patient?s parent/guardian is aware the visit is a telehealth visit. Camera Start Time: 03:10 Camera End Time: 03:32
[2025-03-06] MEDS: LEVOTHYROXINE 75 MCG TABLET 150 MCG PO (06:57)
--- NOTE | 2025-03-06 07:00 | PC.NURSE ---
Pt pleasant and cooperative. Equal strength in all extremities. No facial droop or drift noted. Pt missing many teeth which causes face to appear asymmetrical, however smile and tongue midline. Chronic pain in left hip noted, ice to site with relief, otherwise no complaints of pain or discomfort. Pt expresses interest in getting back to [place] where he has lived for many years.
[2025-03-06 07:30] LABS: Cholesterol* 134 mg/dL (90-199); Triglycerides* 69 mg/dL (40-149)
[2025-03-06 07:31] LABS: HDL Cholesterol* 47 mg/dL (>=40)
[2025-03-06] MEDS: CLOPIDOGREL 75 MG TABLET PO (09:45)
[2025-03-06] MEDS: ROSUVASTATIN CALCIUM 10 MG TABLET 40 MG PO (09:45)
[2025-03-06] MEDS: ESCITALOPRAM 10 MG TABLET PO (09:45)
[2025-03-06] MEDS: ASPIRIN 81 MG TABLET EC PO (09:46)
[2025-03-06] MEDS: PROPRANOLOL 20 MG TABLET PO (09:46)
[2025-03-06] MEDS: TAMSULOSIN HCL 0.4 MG CAPSULE PO (09:46)
--- NOTE | 2025-03-06 14:54 | P.DS_ITS ---
DS: Providers Provider Date Seen: 03/06/25 Date of admission: 03/06/25 02:43 Primary care physician: Rex Connor MD Admitting Clinician: Jayden Jama MD Attending Physician on discharge: Uriel Nassar MD Date of Discharge: 03/06/25 DS: Diagnosis Discharge Diagnosis (1) Brain TIA: Status: Acute (2) Carotid artery disease: Status: Acute (3) Hyperlipidemia: Status: Acute (4) Tobacco dependence: Status: Acute (5) Schizoaffective disorder, bipolar type: Status: Acute (6) CAD (coronary artery disease): Status: Acute (7) Hypothyroidism: Status: Acute DS: Summary Hospital Course Hospital Course: 69 year old male who has history of TIA with recent left carotid artery stenting currently on aspirin and Plavix, history of bipolar disorder living in assisted living who presented today with right-sided weakness and his arm and leg as well as slurred speech. Patient is a very poor historian, having difficulty putting together a coherent story. Patient was brought to the emergency department, and went directly to the CT scanner. By the time patient arrived, his symptoms had resolved, and patient endorses feeling strong and at his baseline. CT/CTA negative for acute lesion. Stroke neurology was involved, recommends observation for TIA. They did not recommend any additional anticoagulation or antiplatelet. Patient is currently awake, alert, no symptoms. He states that his right sided symptoms have resolved, although he does have some dysarthria at baseline, he states that it is due to his dentition. He denies any difficulty chewing or swallowing. We will admit him to observation at this time. Patient remains asymptomatic throughout his entire hospital stay after his initial presentation as specified above. Stroke Neurology again consulted with patient on morning of discharge and made no recommendations for additional changes or adjustments. Neurologist agreed with plan to discharge back with outpatient followup as specified. Status at Discharge Functional status at discharge: independent ambulation Overall status at discharge: patient is back to baseline Time Spent with Patient Time attestation: Total time spent providing and/or coordinating discharge services: Time spent: Less than 30 minutes Exam Narrative: Exam Narrative: GENERAL: ?vital signs reviewed, well developed and nourished, in no distress HEENT: pupils are equal round and reactive to light, extraocular movements are grossly within normal limits and oral mucosa is moist. Poor dentition NECK: Supple without lymphadenopathy or thyromegaly according to nursing staff examination observation HEART: Regular rhythm, somewhat tachycardic without any rubs, murmurs, or gallops. LUNGS: Clear to auscultation bilaterally with good air movement throughout ABDOMEN: Observation from nurse assisted exam, abdomen appears soft, nontender, and nondistended with Positive bowel sounds noted. EXTREMITIES: Strength and sensation is observed to be grossly within normal limits in the upper and lower extremities.? No focal strength deficit is observed. SKIN:? Observed warm and dry with color normal Const: Vital Signs, click to edit/add: Vital Signs - 24 hr 03/05/25 21:12 03/05/25 21:26 03/05/25 21:42 Temperature 96.0 F L Pulse Rate Pulse Rate [Left P ulse Oximeter] 93 84 Pulse Rate [Pulse Oximeter] Respiratory Rate 16 Blood Pressure Blood Pressure [Le ft Arm] Blood Pressure [Le ft Upper Arm] 138/50 L 128/68 125/73 Pulse Oximetry 93 96 99 Oxygen Delivery Me od Room Air Room Air 03/05/25 22:04 03/05/25 22:15 03/05/25 22:30 Temperature Pulse Rate 88 87 92 Pulse Rate [Left P ulse Oximeter] Pulse Rate [Pulse Oximeter] Respiratory Rate 16 15 17 Blood Pressure Blood Pressure [Le ft Arm] Blood Pressure [Le ft Upper Arm] Pulse Oximetry 97 96 97 Oxygen Delivery Me thod 03/05/25 22:45 03/05/25 23:00 03/05/25 23:13 Temperature Pulse Rate 86 85 88 Pulse Rate [Left P ulse Oximeter] Pulse Rate [Pulse Oximeter] Respiratory Rate 13 14 15 Blood Pressure 133/78 Blood Pressure [Le ft Arm] Blood Pressure [Le ft Upper Arm] Pulse Oximetry 95 94 98 Oxygen Delivery Me thod 03/05/25 23:15 03/05/25 23:17 03/05/25 23:30 Temperature Pulse Rate 90 91 83 Pulse Rate [Left P ulse Oximeter] Pulse Rate [Pulse Oximeter] Respiratory Rate 14 14 15 Blood Pressure 130/79 Blood Pressure [Le ft Arm] Blood Pressure [Le ft Upper Arm] Pulse Oximetry 96 97 95 Oxygen Delivery Me thod 03/05/25 23:32 03/05/25 23:45 03/05/25 23:47 Temperature Pulse Rate 83 84 83 Pulse Rate [Left P ulse Oximeter] Pulse Rate [Pulse Oximeter] Respiratory Rate 14 14 15 Blood Pressure 107/67 97/60 Blood Pressure [Le ft Arm] Blood Pressure [Le ft Upper Arm] Pulse Oximetry 95 95 94 Oxygen Delivery Me thod 03/06/25 00:00 03/06/25 00:02 03/06/25 00:02 Temperature Pulse Rate 83 81 81 Pulse Rate [Left P ulse Oximeter] Pulse Rate [Pulse Oximeter] Respiratory Rate 14 14 14 Blood Pressure 102/60 102/60 Blood Pressure [Le ft Arm] Blood Pressure [Le ft Upper Arm] Pulse Oximetry 95 95 95 Oxygen Delivery Me thod 03/06/25 00:02 03/06/25 00:15 03/06/25 00:17 Temperature Pulse Rate 81 82 84 Pulse Rate [Left P ulse Oximeter] Pulse Rate [Pulse Oximeter] Respiratory Rate 14 14 16 Blood Pressure 102/60 98/71 Blood Pressure [Le ft Arm] Blood Pressure [Le ft Upper Arm] Pulse Oximetry 95 95 95 Oxygen Delivery Me thod 03/06/25 00:30 03/06/25 00:32 03/06/25 00:45 Temperature Pulse Rate 90 84 79 Pulse Rate [Left P ulse Oximeter] Pulse Rate [Pulse Oximeter] Respiratory Rate 18 16 14 Blood Pressure 131/74 Blood Pressure [Le ft Arm] Blood Pressure [Le ft Upper Arm] Pulse Oximetry 97 96 95 Oxygen Delivery Me thod 03/06/25 00:47 03/06/25 01:00 03/06/25 01:01 Temperature Pulse Rate 80 79 78 Pulse Rate [Left P ulse Oximeter] Pulse Rate [Pulse Oximeter] Respiratory Rate 15 15 15 Blood Pressure 104/65 101/60 Blood Pressure [Le ft Arm] Blood Pressure [Le ft Upper Arm] Pulse Oximetry 95 95 95 Oxygen Delivery Me thod 03/06/25 01:15 03/06/25 01:16 03/06/25 01:30 Temperature Pulse Rate 78 77 85 Pulse Rate [Left P ulse Oximeter] Pulse Rate [Pulse Oximeter] Respiratory Rate 15 15 17 Blood Pressure 108/62 Blood Pressure [Le ft Arm] Blood Pressure [Le ft Upper Arm] Pulse Oximetry 96 96 99 Oxygen Delivery Me thod 03/06/25 01:31 03/06/25 01:32 03/06/25 01:45 Temperature Pulse Rate 85 82 78 Pulse Rate [Left P ulse Oximeter] Pulse Rate [Pulse Oximeter] Respiratory Rate 23 16 15 Blood Pressure 120/79 Blood Pressure [Le ft Arm] Blood Pressure [Le ft Upper Arm] Pulse Oximetry 99 97 95 [facility] 03/[facility] 01:47 03/06/25 02:00 03/06/25 02:02 Temperature Pulse Rate 77 77 75 Pulse Rate [Left P ulse Oximeter] Pulse Rate [Pulse Oximeter] Respiratory Rate 16 15 15 Blood Pressure 100/65 97/65 Blood Pressure [Le ft Arm] Blood Pressure [Le ft Upper Arm] Pulse Oximetry 94 94 95 [facility] 03/06/25 02:15 03/06/25 02:16 03/06/25 02:30 Temperature Pulse Rate 75 75 74 Pulse Rate [Left P ulse Oximeter] Pulse Rate [Pulse Oximeter] Respiratory Rate 16 15 15 Blood Pressure 98/64 Blood Pressure [Le ft Arm] Blood Pressure [Le ft Upper Arm] Pulse Oximetry 94 95 95 [facility] 03/06/25 02:31 03/06/25 04:02 03/06/25 04:05 Temperature 97.0 F L Pulse Rate 70 91 Pulse Rate [Left P ulse Oximeter] Pulse Rate [Pulse Oximeter] 90 Respiratory Rate 16 18 Blood Pressure 105/61 Blood Pressure [Le ft Arm] 151/88 H Blood Pressure [Le ft Upper Arm] Pulse Oximetry 95 97 [facility] 03/06/25 08:58 03/06/25 09:30 Temperature Pulse Rate 109 H Pulse Rate [Left P ulse Oximeter] Pulse Rate [Pulse Oximeter] 109 H Respiratory Rate 22 Blood Pressure Blood Pressure [Le ft Arm] 147/76 H Blood Pressure [Le ft Upper Arm] Pulse Oximetry 96 Oxygen Delivery Id thod Room Air DS: Data Data Completed and Pending Labs on day of discharge: Labs from last 24 hours 03/06/25 03/05/25 06:43 21:35 WBC 7.48 RBC 3.33 L Hgb 10.1 L Hct 31.6 L MCV 95 MCH 30 MCHC 32 RDW Coeff of [place] 13.7 Plt Count 162 Neut % (Auto) 73.7 H Lymph % (Auto) 12.4 L [place] % (Auto) 11.6 H Eos % (Auto) 1.1 Baso % (Auto) 0.1 Neut # (Auto) 5.50 Lymph # (Auto) 0.90 [place] # (Auto) 0.90 Eos # (Auto) 0.08 Baso # (Auto) 0.01 Abs Immat Gran (auto) 0.08 Imm/Tot Granulo (auto) 1.1 Sodium 134 L Potassium 4.4 Chloride 104 Carbon Dioxide 22 Anion Gap 8 BUN 29 Creatinine 1.4 Estimated GFR 54 Glucose 85 Hemoglobin A1c 5.1 Calcium 9.4 Total Bilirubin 0.3 AST 31 ALT 5 Alkaline Phosphatase 83 Total Protein 6.3 Albumin 3.5 Triglycerides 69 Cholesterol 134 LDL Cholesterol, Calc 73 HDL Cholesterol [address] scan - head: Attestation: I have reviewed the pertinent imaging results. Radiologist's impression: No acute intracerebral abnormalities noted CT angiogram of head and neck: Attestation: I have reviewed the pertinent imaging results. Radiologist's impression: No acute abnormalities noted with no significant obstructive disease and recent carotid endarterectomy site widely patent without untoward abnormality Discharge Plan Discharge Disposition: [facility] Date of Admission: 03/06/25 02:43 Attending Provider on Discharge: Uriel Nassar Primary Care Provider: Rex Connor Condition: Improved Anticipated Discharge Date/Time: 03/06/25 12:30 Discharge Medications: Continued clonazepam 0.5 mg tablet 1 mg PO HS PRN divalproex 500 mg tablet extended release 24 hr 1,000 mg PO HS divalproex 250 mg tablet extended release 24 hr 250 mg PO HS tamsulosin 0.4 mg capsule 0.4 mg PO DAILY levothyroxine 150 mcg tablet 150 mcg PO DAILY propranolol 20 mg tablet 20 mg PO BID clopidogrel 75 mg tablet 75 mg PO DAILY fluticasone propion-salmeterol 250-50 mcg/dose blister with device 1 ea inhalation BID famotidine 20 mg tablet 20 mg PO DAILY ferrous sulfate [FeroSul] 325 mg (65 mg iron) tablet 325 mg PO DAILY melatonin 3 mg capsule 3 mg PO QHS olanzapine 5 mg tablet 5 mg PO QPM sennosides [senna] 8.6 mg tablet 17.2 mg PO DAILY rosuvastatin 40 mg tablet 40 mg PO HS nicotine 14 mg/24 hr patch 24 hour 1 patch topical DAILY haloperidol decanoate 100 mg/mL solution IM polyethylene glycol 3350 [Gavilax] 17 gram/dose powder 17 g PO BID carbidopa-levodopa 25-100 mg tablet 1 tab PO 3XD escitalopram oxalate 10 mg tablet 10 mg PO DAILY nicotine (polacrilex) 2 mg lozenge 2 mg PO Q1H PRN aspirin 81 mg tablet,chewable 1 tab PO DAILY quetiapine 150 mg tablet 450 mg PO HS cholecalciferol (vitamin D3) [Vitamin D3] 25 mcg (1,000 unit) tablet 25 mcg PO DAILY Discharge Orders: Discharge Order (Routine); Ordered 03/06/25 Ordered By: Uriel Nassar Additional Instructions: 1. Keep follow-up with PCP as previously planned 2. Keep follow-up with surgeon and neurologist as previously planned 3. Return to clinic or hospital sooner if needed Activity Level: No Restrictions and Other Discharge Diet: Regular and Other Follow Up Appointments: Rex Connor MD [Primary Care Provider, Family Practice] Forms: [facility] Info Instructions Admit to: [place] Discharge Potential: Poor Length of Stay: >90 days Can use facility standing orders?: Yes Orders are good >30 days: Yes Signature: Uriel Nassar
--- NOTE | 2025-03-06 15:05 | PC.NURSE ---
The patient discharged back to [place] with his belongings. Plan for follow up was discussed with the patient. I also gave Mounika the nurse an update via phone. Lesia CORREA BSN
== END 2025-03-06 13:30 ==
LOC: ED 03-06 00:07 → MEDSURG 03-06 02:46
PROVIDERS: Admitting Provider Internal Medicine; Emergency Provider Internal Medicine; PCP Family Medicine; Visit Provider Internal Medicine
DX: G45.9 Transient cerebral ischemic attack, unspecified (principal); F25.0 Schizoaffective disorder, bipolar type; I25.10 Atherosclerotic heart disease of native coronary artery without angina pectoris; F17.290 Nicotine dependence, other tobacco product, uncomplicated; E03.9 Hypothyroidism, unspecified; E78.5 Hyperlipidemia, unspecified; Z13.1 Encounter for screening for diabetes mellitus
CPT/HCPCS: 36415; 70450; 70496; 70498; 71045; 80053; 80061; 83036; 85025; 87081; 93005; 99283; 99285; 99291; A9270; G0378; Q9967; S4990

== ENCOUNTER 2025-03-18 20:12 | Outpatient (CLI) | payer MEDICARE, MEDICAID, SELFPAY | END 2025-03-18 20:13 | disposition home or self-care (01) | PROVIDERS: PCP Family Medicine; Visit Provider Emergency Medicine | DX: R41.82 Altered mental status, unspecified (principal); R47.81 Slurred speech | CPT/HCPCS: A0425; A0427 ==

== ENCOUNTER 2025-03-18 20:31 | Observation (INO) | payer MEDICARE, MEDICAID, SELFPAY ==
--- OUTSIDE RECORDS SUMMARY | 2025-02-02 11:20 | XMS_ITS ---
Author Organization [facility] Address [address] , [address] [place] [address] Phone Care Team Providers Care Meatcutter Name Role Phone Itzel GOMEZ APRN,JALEN, Fauzia Mariano Unavailable + Conditions or Problems No information available. Medications Medication Instructions Start Date Stop Date Generic Name [facility] Provider TAMSULOSIN HCL 0.4 MG CAPS 02/02 tamsulosin [id number] Fauzia Robbins DNP, APRN,JALEN MAGNESIUM CITRATE 1.745 GM/30ML SOLN 02/02 magnesium citrate [id number] Fauzia Robbins DNP, APRN,JALEN DEEP SEA NASAL SPRAY 0.65 % SOLN Administer 2 spray into both nostrils every six hours 02/02 sodium chloride [id number] Fauzia Robbins DNP, APRN,JALEN LEVOTHYROXINE SODIUM 150 MCG TABS 02/02 levothyroxine [id number] Fauzia Robbins DNP, APRN,LINUX SYSTEMS ANALYST QUETIAPINE FUMARATE 200 MG TABS Take 200 mg by mouth every night 02/02 quetiapine [id number] Fauzia Robbins DNP, APRN,LINUX SYSTEMS ANALYST NICOTINE POLACRILEX [address] 1 by mouth every hour as needed 02/02 nicotine (polacrilex) [id number] Fauzia Robbins DNP,SUYAPA,LINUX SYSTEMS ANALYST haloperidol decanoate (HALDOL DECANOATE) 100 mg/mL intramusc Inject 75 mg intramuscularly every two weeks 02/02 HALDOL DECANOATE Fauzia Robbins DNP, APRN,LINUX SYSTEMS ANALYST DIVALPROEX SODIUM ER 500 MG [id number] Take 2 Tablets (1,000 mg) by mouth at bedtime. 02/02 divalproex [id number] Fauzia Robbins DNP,SUYAPA,LINUX SYSTEMS ANALYST HALOPERIDOL DECANOATE 50 MG/ML SOLN 02/02 haloperidol decanoate [id number] Fauzia Robbins DNPLAUNDRY ASSISTANT,LINUX SYSTEMS ANALYST BENZTROPINE MESYLATE 0.5 MG TABS Take 0.5 mg by mouth twice a day 02/02 benztropine [id number] Fauzia Robbins DNPLAUNDRY ASSISTANT,LINUX SYSTEMS ANALYST HALOPERIDOL 5 MG TABS Take 5 mg by mouth every four hours as needed 02/02 haloperidol [id number] Fauzia Robbins DNP,LAUNDRY ASSISTANT,LINUX SYSTEMS ANALYST IBUPROFEN (IBUPROFEN) 600 MG TABS Take 1 tablet by mouth every eight hours as needed 02/02 IBUPROFEN Fauzia Robbins DNPLAUNDRY ASSISTANT,LINUX SYSTEMS ANALYST CLONAZEPAM 0.5 MG TABS Take 1 tablet by mouth once a day as needed 02/02 clonazepam [id number] Fauzia Robbins DNP, APRN,LINUX SYSTEMS ANALYST CLONAZEPAM 0.5 MG TABS 02/02 clonazepam [id number] Fauzia Robbins DNP,LAUNDRY ASSISTANT,LINUX SYSTEMS ANALYST SYMBICORT 80-4.5 MCG/ACT AERO 02/02 budesonide-form oterol [id number] Fauzia Robbins DNP,LAUNDRY ASSISTANT,LINUX SYSTEMS ANALYST ACETAMINOPHEN 500 MG TABS Take 2 Tablets (1,000 mg) by mouth every 6 hours if needed for Pain. Max acetaminophen dose: 4000mg in 24 hrs. 02/02 acetaminophen [id number] Fauzia Robbins DNP,LAUNDRY ASSISTANT,LINUX SYSTEMS ANALYST ASPIRIN LOW DOSE 81 MG [facility] aspirin [id number] Fauzia Robbins DNP,LAUNDRY ASSISTANT,LINUX SYSTEMS ANALYST DEEP SEA NASAL SPRAY 0.65 % SOLN sodium chloride [id number] Fauzia Robbins DNP,LAUNDRY ASSISTANT,LINUX SYSTEMS ANALYST CLONAZEPAM 1 MG TABS clonazepam [id number] Fauzia Robbins DNP,LAUNDRY ASSISTANT,LINUX SYSTEMS ANALYST CLOPIDOGREL BISULFATE 75 MG TABS clopidogrel [id number] Fauzia Mariano [facility] DNP,LAUNDRY ASSISTANT,LINUX SYSTEMS ANALYST DIVALPROEX SODIUM ER 250 MG [id number] divalproex [id number] Fauzia Mariano [facility] DNP,LAUNDRY ASSISTANT,LINUX SYSTEMS ANALYST QUETIAPINE FUMARATE 150 MG TABS quetiapine [id number] Fauzia Mariano [facility],LAUNDRY ASSISTANT,LINUX SYSTEMS ANALYST OLANZAPINE 5 MG TABS olanzapine [id number] Fauzia Mariano [facility],LAUNDRY ASSISTANT,LINUX SYSTEMS ANALYST SENNA 8.6 MG TABS sennosides [id number] Fauzia Mariano [facility],LAUNDRY ASSISTANT,LINUX SYSTEMS ANALYST ROSUVASTATIN CALCIUM 40 MG TABS rosuvastatin [id number] Fauzia Mariano [facility],LAUNDRY ASSISTANT,LINUX SYSTEMS ANALYST Medications Administered No information available. Allergies, Adverse Reactions, Alerts No information available. Results Date Name Value Unit Range Flag Description Office Visit: Office Visit f ax MEDS REVIEW Done Documenta tion of current medications (procedure) Plan of Care Type Date Detail Pending order Follow up Pending order Obtain outside r ecords Pending order Obtain outside r ecords Pending order Follow up Procedures No information available. Vital Signs Date Name Value Unit Description Height 70 [in_us] height E&M Immunizations No information available. Advance Directives No information available.
--- OUTSIDE RECORDS SUMMARY | 2025-02-02 11:20 | XMS_ITS ---
Author Organization [facility] Address [address] , [address] [place] [address] Phone Care Team Providers Care Acrobatic Dancer Name Role Phone Itzel GOMEZ APRN,JALEN, Fauzia Mariano Unavailable + Conditions or Problems No information available. Medications Medication Instructions Start Date Stop Date Generic Name [facility] Provider TAMSULOSIN HCL 0.4 MG CAPS 02/02 tamsulosin [id number] Fauzia Robbins DNP, APRN,JALEN MAGNESIUM CITRATE 1.745 GM/30ML SOLN 02/02 magnesium citrate [id number] Fauzia Robbins DNP, APRN,JALEN DEEP SEA NASAL SPRAY 0.65 % SOLN Administer 2 spray into both nostrils every six hours 02/02 sodium chloride [id number] Fauzia Robbins DNP, APRN,JALEN LEVOTHYROXINE SODIUM 150 MCG TABS 02/02 levothyroxine [id number] Fauzia Robbins DNP, APRN,DORMITORY SUPERVISOR QUETIAPINE FUMARATE 200 MG TABS Take 200 mg by mouth every night 02/02 quetiapine [id number] Fauzia Robbins DNP, APRN,DORMITORY SUPERVISOR NICOTINE POLACRILEX [address] 1 by mouth every hour as needed 02/02 nicotine (polacrilex) [id number] Fauzia Robbins DNP,SUYAPA,DORMITORY SUPERVISOR haloperidol decanoate (HALDOL DECANOATE) 100 mg/mL intramusc Inject 75 mg intramuscularly every two weeks 02/02 HALDOL DECANOATE Fauzia Robbins DNP, APRN,DORMITORY SUPERVISOR DIVALPROEX SODIUM ER 500 MG [id number] Take 2 Tablets (1,000 mg) by mouth at bedtime. 02/02 divalproex [id number] Fauzia Robbins DNP,SUYAPA,DORMITORY SUPERVISOR HALOPERIDOL DECANOATE 50 MG/ML SOLN 02/02 haloperidol decanoate [id number] Fauzia Robbins DNPPROBATION SUPERVISOR,DORMITORY SUPERVISOR BENZTROPINE MESYLATE 0.5 MG TABS Take 0.5 mg by mouth twice a day 02/02 benztropine [id number] Fauzia Robbins DNPPROBATION SUPERVISOR,DORMITORY SUPERVISOR HALOPERIDOL 5 MG TABS Take 5 mg by mouth every four hours as needed 02/02 haloperidol [id number] Fauzia Robbins DNP,PROBATION SUPERVISOR,DORMITORY SUPERVISOR IBUPROFEN (IBUPROFEN) 600 MG TABS Take 1 tablet by mouth every eight hours as needed 02/02 IBUPROFEN Fauzia Robbins DNPPROBATION SUPERVISOR,DORMITORY SUPERVISOR CLONAZEPAM 0.5 MG TABS Take 1 tablet by mouth once a day as needed 02/02 clonazepam [id number] Fauzia Robbins DNP, APRN,DORMITORY SUPERVISOR CLONAZEPAM 0.5 MG TABS 02/02 clonazepam [id number] Fauzia Robbins DNP,PROBATION SUPERVISOR,DORMITORY SUPERVISOR SYMBICORT 80-4.5 MCG/ACT AERO 02/02 budesonide-form oterol [id number] Fauzia Robbins DNP,PROBATION SUPERVISOR,DORMITORY SUPERVISOR ACETAMINOPHEN 500 MG TABS Take 2 Tablets (1,000 mg) by mouth every 6 hours if needed for Pain. Max acetaminophen dose: 4000mg in 24 hrs. 02/02 acetaminophen [id number] Fauzia Robbins DNP,PROBATION SUPERVISOR,DORMITORY SUPERVISOR ASPIRIN LOW DOSE 81 MG [facility] aspirin [id number] Fauzia Robbins DNP,PROBATION SUPERVISOR,DORMITORY SUPERVISOR DEEP SEA NASAL SPRAY 0.65 % SOLN sodium chloride [id number] Fauzia Robbins DNP,PROBATION SUPERVISOR,DORMITORY SUPERVISOR CLONAZEPAM 1 MG TABS clonazepam [id number] Fauzia Robbins DNP,PROBATION SUPERVISOR,DORMITORY SUPERVISOR CLOPIDOGREL BISULFATE 75 MG TABS clopidogrel [id number] Fauzia Mariano [facility] DNP,PROBATION SUPERVISOR,DORMITORY SUPERVISOR DIVALPROEX SODIUM ER 250 MG [id number] divalproex [id number] Fauzia Mariano [facility] DNP,PROBATION SUPERVISOR,DORMITORY SUPERVISOR QUETIAPINE FUMARATE 150 MG TABS quetiapine [id number] Fauzia Mariano [facility],PROBATION SUPERVISOR,DORMITORY SUPERVISOR OLANZAPINE 5 MG TABS olanzapine [id number] Fauzia Mariano [facility],PROBATION SUPERVISOR,DORMITORY SUPERVISOR SENNA 8.6 MG TABS sennosides [id number] Fauzia Mariano [facility],PROBATION SUPERVISOR,DORMITORY SUPERVISOR ROSUVASTATIN CALCIUM 40 MG TABS rosuvastatin [id number] Fauzia Mariano [facility],PROBATION SUPERVISOR,DORMITORY SUPERVISOR Medications Administered No information available. Allergies, Adverse [...]
[2025-03-18] VITALS (15 sets, daily range): BP systolic 101–147; BP diastolic 50–81; PULSE 72–89; RESP 11–18; TEMP 36.4–36.6; O2SAT 95–100; BMI 24.8
--- NOTE | 2025-03-18 20:36 | CRLHL7_ITS ---
For Patients: As a result of the Cures Act, medical imaging exams and procedure reports are released immediately into your electronic medical record. You may view this report before your referring provider. If you have questions, please contact your health care provider. INDICATION: Altered mental status. TECHNIQUE: Noncontrast CT of the head with multiplanar reconstruction utilizing bone and soft tissue algorithms. COMPARISON: CT dated 03/05/2025. FINDINGS: No acute intracranial hemorrhage. Similar scattered hypoattenuation within the supratentorial white matter typical of small vessel ischemic changes. The cristobal-white matter interface is maintained. The ventricles are unchanged in size. There is similar mild diffuse volume loss. A small arachnoid cyst at the right anterior cranial fossa is unchanged. Intact calvarium. Symmetric globes. Mild mucosal thickening within the ethmoid sinuses. IMPRESSION: 1. No acute intracranial abnormality. 2. Similar mild diffuse parenchymal volume loss and chronic small vessel ischemic changes. 3. Stable small arachnoid cyst at the right anterior middle cranial fossa. Please note that all CT scans at this facility use dose modulation, iterative reconstruction, and/or weight-based dosing when appropriate to reduce radiation dose to as low as reasonably achievable. Dictated by Kt Maher MD @ 03/18/2025 8:47:07 PM (Electronically Signed)
--- OUTSIDE RECORDS SUMMARY | 2025-03-18 20:37 | XMS_ITS | Clinical Summary ---
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 Name Role Phone Contreras Vargas MD Unavailable Conditions or Problems Problem Name Problem Code Onset Date Status Entry Date Provider Comment Standard Description Annotate Parkinsonism , unspecified 52255667 (SNOMED CT) 05/20 Active 05/20 Aleta Restrepo Parkinsonism Schizoaffect dani disorder with depression 99678773 (SNOMED CT) 07/29 Active 07/29 Contreras Vargas MD Schizoaffective disorder Memory deficit 453228617 (SNOMED CT) 07/29 Active 07/29 Contreras Vargas MD Memory impairment Tremor, rest 90463617 (SNOMED CT) 07/29 Active 07/29 Contreras Vargas MD Resting tremor Parkinsonism 36494366 (SNOMED CT) 05/20 Inactive 05/20 Jose Eduardo Corcoran MD Parkinsonism Medications Medication Instructions Start Date Stop Date Generic Name [facility] Provider TAMSULOSIN HCL 0.4 MG CAPS 02/02 tamsulosin [id number] Fauiza Robbins DNP,STRETCHING PRESS OPERATOR,CN P MAGNESIUM CITRATE 1.745 GM/30ML SOLN 02/02 magnesium citrate 68552410490 Fauzia Robbins DNP,STRETCHING PRESS OPERATOR,CN P DEEP SEA NASAL SPRAY 0.65 % SOLN Administer 2 spray into both nostrils every six hours 02/02 sodium chloride 38061115454 Fauzia Robbins DNP,STRETCHING PRESS OPERATOR,CN P LEVOTHYROXINE SODIUM 150 MCG TABS 02/02 levothyroxine 73836155795 Fauzia Robbins DNP,STRETCHING PRESS OPERATOR,CN P QUETIAPINE FUMARATE 200 MG TABS Take 200 mg by mouth every night 02/02 quetiapine [id number] Fauzia Robbins DNP,STRETCHING PRESS OPERATOR,CN P NICOTINE POLACRILEX [address] 1 by mouth every hour as needed 02/02 nicotine (polacrilex) [id number] Fauzia Robbins DNP,STRETCHING PRESS OPERATOR,CN P haloperidol decanoate (HALDOL DECANOATE) 100 mg/mL intramusc Inject 75 mg intramuscularly every two weeks 02/02 HALDOL DECANOATE Fauzia Robbins DNP,STRETCHING PRESS OPERATOR,CN P DIVALPROEX SODIUM ER 500 MG [id number] Take 2 Tablets (1,000 mg) by mouth at bedtime. 02/02 divalproex [id number] [facility],STRETCHING PRESS OPERATOR,CN P HALOPERIDOL DECANOATE 50 MG/ML SOLN 02/02 haloperidol decanoate 56639056793 Fauzia Robbins DNP,STRETCHING PRESS OPERATOR,CN P BENZTROPINE MESYLATE 0.5 MG TABS Take 0.5 mg by mouth twice a day 02/02 benztropine 09383500325 [facility],STRETCHING PRESS OPERATOR,CN P HALOPERIDOL 5 MG TABS Take 5 mg by mouth every four hours as needed 02/02 haloperidol [id number] [facility],STRETCHING PRESS OPERATOR,CN P IBUPROFEN (IBUPROFEN) 600 MG TABS Take 1 tablet by mouth every eight hours as needed 02/02 IBUPROFEN [facility],STRETCHING PRESS OPERATOR,CN P CLONAZEPAM 0.5 MG TABS Take 1 tablet by mouth once a day as needed 02/02 clonazepam [id number] Fauzia Robbins DNP,STRETCHING PRESS OPERATOR,CN P CLONAZEPAM 0.5 MG TABS 02/02 clonazepam 20631537926 Fauzia Robbins DNP,STRETCHING PRESS OPERATOR,CN P SYMBICORT 80-4.5 MCG/ACT AERO 02/02 budesonide-form oterol [id number] Fauzia Rechtzigel DNP,STRETCHING PRESS OPERATOR,CN P ACETAMINOPHEN 500 MG TABS Take 2 Tablets (1,000 mg) by mouth every 6 hours if needed for Pain. Max acetaminophen dose: 4000mg in 24 hrs. 02/02 acetaminophen 14691801497 Fauzia Rechtzigel DNP,STRETCHING PRESS OPERATOR,CN P ASPIRIN LOW DOSE 81 MG [facility] aspirin 35089808511 Fauzia Rechigel DNP,STRETCHING PRESS OPERATOR,CN P DEEP SEA NASAL SPRAY 0.65 % SOLN sodium chloride 34334482600 A keisha Rechtzigel DNP,STRETCHING PRESS OPERATOR,CN P CLONAZEPAM 1 MG TABS clonazepam 53211223251 [facility]STRETCHING PRESS OPERATOR,CN P CLOPIDOGREL BISULFATE 75 MG TABS clopidogrel [id number] [facility],STRETCHING PRESS OPERATOR,CN P DIVALPROEX SODIUM ER 250 MG [id number] divalproex [id number] [facility],STRETCHING PRESS OPERATOR,CN P QUETIAPINE FUMARATE 150 MG TABS quetiapine 16704230136 [facility],STRETCHING PRESS OPERATOR,CN P OLANZAPINE 5 MG TABS olanzapine 67674187105 [facility],STRETCHING PRESS OPERATOR,CN P SENNA 8.6 MG TABS sennosides 03878522692 [facility],STRETCHING PRESS OPERATOR,CN P ROSUVASTATIN CALCIUM 40 MG TABS rosuvastatin 22441566139 [facility],STRETCHING PRESS OPERATOR,CN P FAMOTIDINE 20 MG TABS Take 1 tablet by mouth once a day famotidine 41827033554 Contreras Vargas MD MELATONIN 3 MG TABS Take 1 tablet by mouth every night melatonin 37623320599 Contreras Vargas MD QUETIAPINE FUMARATE 200 MG TABS Take 200 mg by mouth every night 02/02 quetiapine 17609189453 Contreras Vargas MD ESCITALOPRAM OXALATE 10 MG TABS Take 10 mg by mouth once a day escitalopram oxalate 67182319247 Contreras Vargas MD ALBUTEROL SULFATE (2.5 MG/3ML) 0.083% NEBU Inhale 1 ampul by mouth twice a day albuterol sulfate 48448444762 Contreras Vargas MD Multivits,Ca,Mine pojz-[id number]-RH (High Potency Multivit, w-iron Take 1 tablet by mouth once a day High Potency Multivit, w-iron Contreras Vargas MD IBUPROFEN (IBUPROFEN) 600 MG TABS Take 1 tablet by mouth every eight hours as needed 02/02 IBUPROFEN Contreras Vargas MD TAMSULOSIN HCL 0.4 MG CAPS Take 1 capsule by mouth once a day tamsulosin 02598746792 Contreras Vargas MD AMLODIPINE BESYLATE 10 MG TABS 07/29 amlodipine 11461876501 Contreras Vargas MD SENNOSIDES-DOCUSA TE SODIUM 8.6-50 MG TABS Take 1 tablet by mouth twice a day 07/29 sennosides-docu sate sodium 44191624973 Contreras Vargas MD fluticasone propion-salmetero L (Advair Diskus) 250-50 mcg/Do Inhale 1 puff by mouth twice a day Advair Diskus Contreras Vargas MD GAVILAX 17 GM/SCOOP POWD 07/29 polyethylene glycol 3350 46647816967 Contreras Vargas MD PEG 3350 17 GM/SCOOP POWD Take 1 by mouth once a day as needed polyethylene glycol 3350 26178961484 Contreras Vargas MD PROPRANOLOL HCL 20 MG TABS Take 1 tablet by mouth three times a day propranolol 47782106326 Contreras Vargas MD HALOPERIDOL 5 MG TABS Take 5 mg by mouth every four hours as needed 02/02 haloperidol 90998769503 Contreras Vargas MD cholecalciferol (VITAMIN D3) 1,000 unit tablet Take 1 tablet by mouth once a day VITAMIN D3 Contreras Vargas MD Nebulizer Inhale 07/29 Nebulizer Contreras Vargas MD QUETIAPINE FUMARATE 300 MG TABS 07/29 quetiapine 87866534398 Contreras Vargas MD CARBIDOPA-LEVODOP A 25-100 MG TABS Take 1 tablet by mouth three times a day carbidopa-levod opa 43439380680 Contreras Vargas MD NICOTINE POLACRILEX [address] 1 by mouth every hour as needed 02/02 nicotine (polacrilex) 12516754012 Contreras Vargas MD BENZTROPINE MESYLATE 0.5 MG TABS Take 0.5 mg by mouth twice a day 02/02 benztropine 85484929282 Contreras Vargas MD DEEP SEA NASAL SPRAY 0.65 % SOLN Administer 2 spray into both nostrils every six hours 02/02 sodium chloride 88219969809 Contreras Vargas MD NICOTINE 7 MG/24HR PT24 07/29 nicotine 73355410045 Contreras Vargas MD PROPRANOLOL HCL 20 MG TABS 07/29 propranolol 21030345488 Contreras Vargas MD SENEXON-S 8.6-50 MG TABS 07/29 sennosides-docu sate sodium 48021684478 Contreras Vargas MD LEVOTHYROXINE SODIUM 150 MCG TABS Take 1 tablet by mouth every morning levothyroxine 50442867902 Contreras Vargas MD CLONAZEPAM 0.5 MG TABS Take 1 tablet by mouth once a day as needed 02/02 clonazepam 16236129743 Contreras Vargas MD ASPIRIN LOW DOSE 81 MG TBEC 07/29 aspirin 81182430120 Contreras Vargas MD haloperidol decanoate (HALDOL DECANOATE) 100 mg/mL intramusc Inject 75 mg intramuscularly every two weeks 02/02 HALDOL DECANOATE Contreras Vargas MD TAMSULOSIN HCL 0.4 MG CAPS TAKE 1 CAPSULE BY MOUTH DAILY 30 MINUTES AFTER THE SAME MEAL EACH DAY *SWALLOW WHOLE* 07/29 tamsulosin 60643772960 QIEUSER QIEUSER DEEP SEA NASAL SPRAY 0.65 % SOLN ADMINISTER 2 SPRAYS IN AFFECTED NOSTRIL(S) EVERY 6 HOURS 07/29 sodium chloride 56922014288 QIEUSER QIEUSER SENNOSIDES-DOCUSA TE SODIUM 8.6-50 MG TABS TAKE 1 TABLET BY MOUTH TWICE DAILY 07/29 sennosides-docu sate sodium 87325159329 QIEUSER QIEUSER QUETIAPINE FUMARATE 200 MG TABS Take 200 mg by mouth at bedtime. 07/29 quetiapine 49593481648 QIEUSER QIEUSER PEG 3350 17 GM/SCOOP POWD Take 1 scoop (17 g) by mouth or nasogastric tube once daily if needed for Constipation. 07/29 polyethylene glycol 3350 60196290680 QIEUSER QIEUSER NICOTINE POLACRILEX [address] 1 Lozenge (2 mg) in mouth, between cheek & gum every hour while awake as needed for Nicotine Craving. 11/27 nicotine (polacrilex) 78138880156 QIEUSER QIEUSER Nebulizer Nebulizer, disposable neb kit x 4, reuseable neb kit x 1, mask x 1, filters x 1. Frequency of use: daily; Medication: albuterol Length of need: 99 months 07/29 Nebulizer QIEUSER QIEUSER Multivits,Ca,Mine mndz-Wvws-DQ (High Potency Multivit, w-iron Take 1 Tablet by mouth once daily. 07/29 High Potency Multivit, w-iron QIEUSER QIEUSER MELATONIN 3 MG TABS Take 1 Tablet (3 mg) by mouth at bedtime. 07/29 melatonin 95723223088 QIEUSER QIEUSER IBUPROFEN (IBUPROFEN) 600 MG TABS TAKE 1 TABLET BY MOUTH EVERY 8 HOURS NEEDED FOR PAIN OR TEMP >101.5F (38.6C) 07/29 IBUPROFEN QIEUSER QIEUSER haloperidol decanoate (HALDOL DECANOATE) 100 mg/mL intramusc Inject 75 mg intramuscular every 2 weeks. 07/29 HALDOL DECANOATE QIEUSER QIEUSER HALOPERIDOL 5 MG TABS Take 5 mg by mouth every 4 hours if needed for Agitation. 07/29 haloperidol 16867859181 QIEUSER QIEUSER fluticasone propion-salmetero L (Advair Diskus) 250-50 mcg/Do INHALE 1 PUFF BY MOUTH TWICE DAILY --RINSE MOUTH AFTER USE-- 07/29 Advair Diskus QIEUSER QIEUSER FAMOTIDINE 20 MG TABS Take 1 Tablet (20 mg) by mouth once daily. 07/29 famotidine 51759945384 QIEUSER QIEUSER ESCITALOPRAM OXALATE 10 MG TABS Take 10 mg by mouth once daily. 07/29 escitalopram oxalate 84530271879 QIEUSER QIEUSER cholecalciferol (VITAMIN D3) 1,000 unit tablet Take 1 Tablet (1,000 units) by mouth once daily. 07/29 VITAMIN D3 QIEUSER QIEUSER CARBIDOPA-LEVODOP A 25-100 MG TABS Take 1 Tablet by mouth three times daily. 11/27 carbidopa-levod opa 67929458923 QIEUSER QIEUSER BENZTROPINE MESYLATE 0.5 MG TABS Take 0.5 mg by mouth two times daily. 07/29 benztropine 41063456684 QIEUSER QIEUSER ALBUTEROL SULFATE (2.5 MG/3ML) 0.083% NEBU INHALE 1 AMPULE BY MOUTH VIA NEBULIZER TWICE DAILY 07/29 albuterol sulfate 87768240251 QIEUSER QIEUSER ACETAMINOPHEN 500 MG TABS Take 2 Tablets (1,000 mg) by mouth every 6 hours if needed for Pain. Max acetaminophen dose: 4000mg in 24 hrs. 02/02 acetaminophen 32376514154 QIEUSER QIEUSER PROPRANOLOL HCL 20 MG TABS Take 1 Tablet (20 mg) by mouth 2 times daily. AM and at bedtime. 11/27 propranolol 90723877270 QIEUSER QIEUSER LEVOTHYROXINE SODIUM 150 MCG TABS Take 1 Tablet (150 mcg) by mouth before breakfast. 07/29 levothyroxine 82462350976 QIEUSER QIEUSER DIVALPROEX SODIUM ER 500 MG [id number] Take 2 Tablets (1,000 mg) by mouth at bedtime. 02/02 divalproex 34820932776 QIEUSER QIEUSER CLONAZEPAM 0.5 MG TABS Take 1 Tablet (0.5 mg) by mouth once daily if needed for Anxiety. 11/27 clonazepam 59023816566 QIEUSER QIEUSER TAMSULOSIN HCL 0.4 MG CAPS 02/02 tamsulosin 58644222756 Jose Eduardo Corcoran MD NICOTINE 7 MG/24HR PT24 07/29 nicotine 64714110122 Jose Eduardo Corcoran MD ASPIRIN EC 81 MG TBEC 10/23 aspirin 21243494034 Jose Eduardo Corcoran MD PROPRANOLOL HCL 20 MG TABS 11/27 propranolol 61429373702 Jose Eduardo Corcoran MD CLONAZEPAM 0.5 MG TABS 02/02 clonazepam 29144028377 Jose Eduardo Corcoran MD ACETAMINOPHEN 325 MG TABS acetaminophen 38192457014 Jose Eduardo Corcoran MD ALBUTEROL SULFATE HFA 108 (90 Base) MCG/ACT AERS albuterol sulfate 47723538715 Jose Eduardo Corcoran MD DIVALPROEX SODIUM ER 500 MG [id number] divalproex 17223932279 Jose Eduardo Corcorna MD AMLODIPINE BESYLATE 10 MG TABS 11/27 amlodipine 63077063809 Jose Eduardo Corcoran MD QUETIAPINE FUMARATE 300 MG TABS 07/29 quetiapine 93252850112 Jose Eduardo Corcoran MD SENEXON-S 8.6-50 MG TABS 07/29 sennosides-docu sate sodium 67274715077 Jose Eduardo Corcoran MD GAVILAX 17 GM/SCOOP POWD 07/29 polyethylene glycol 3350 39203471371 Jose Eduardo Corcoran MD SYMBICORT 80-4.5 MCG/ACT AERO 02/02 budesonide-form oterol 61259985626 Jose Eduardo Corcoran MD HALOPERIDOL DECANOATE 50 MG/ML SOLN 02/02 haloperidol decanoate 34024601024 Jose Eduardo Corcoran MD MAGNESIUM CITRATE 1.745 GM/30ML SOLN 02/02 magnesium citrate 57705257840 Jose Eduardo Corcoran MD LEVOTHYROXINE SODIUM 150 MCG TABS 02/02 levothyroxine 85324067909 Jose Eduardo Corcoran MD Medications Administered No [...] Yes Consent To Release information to the [email or web address] ([employer]) Office Visit: Office Visit f ax MEDS [...] with Neurologist or R[facility]SA ORDERS [facility] Scan [facility]-[id number] Documentation of current medicatio ns ORDERS Follow up RISSA after testing [id number] Other Radiology Vital Signs Date Name Value [...]
--- OUTSIDE RECORDS SUMMARY | 2025-03-18 20:38 | XMS_ITS | Clinical Summary ---
Author Organization [facility] Address [address] [place] [address] Care Team Providers Care Catapult And Arresting Gear Officer Name Role Phone Rex Connor MD Primary Care Provider [facility] Care, Branch Unavailable [phone] Allergies Active Allergy Reactions Criticality Noted Date [...] >101.5F (38.6C) 100 Tablet 07/14/19 25 Active zxvtbwpi-eep-nkbk fum-folic ac (Thera-M) 19 mg iron- 400 [...] 10/07/19 Active sodium chloride (Deep Sea Nasal [place]) 0.65 % nasal solutionIndication s:Epistaxis,Nasal crusting ADMINISTER [...] the RLL. Pt was referred to [facility] lung nodule clinic Need for dental care [...] health hospitalizations and was committed to [facility] in 2009. 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 Therapeutic depakote trial not effective. -Doing outpatient ECT @ [facility] -You you seeing Manny Katz in therapy at [facility] . His phone number is [phone]. Hopspitalized at [facility] from 09/10-11/10/11 and received ECT during this hospitalization. Hospitalized at [facility] in May, for worsening depression and suicidal thoughts - feeling hopeless and having abnormal dreams. ECT being done every 6 weeks prior to hospitalization and pt seemed to decompensate from this. At his intake on 08/06/12, pt reported the following med trials: -Risperdal injections were ineffective -Clozaril - caused cardiac myositis -Prolixin injections - ineffective -[place] - caused kidney function issues. *More details [...] in paranoia - he would see a cWyze vehicle and he would think WWIII was [...] Encounters Date Type Department Care Team Description 03/09/2025 3:00 PM CDT Office Visit [facility] [address] [place] [address] Ramírez Sanches MD CV Vascular Est (1 month Follow up: s/p left Transcarotid Artery Revascularization with carotid stenting and flow reversal 01/30/2025. CUS prior to OV.) 03/09/2025 2:00 PM CDT - 03/09/2025 11:59 PM CDT Hospital Encounter [facility] [address] [place] [address] Ramírez Sanches MD Moore, Brian H Left carotid artery stenosis 03/09/2025 Travel 03/06/2025 Office Visit [facility] [address] [place] [phone] Maine Solomon, PARK GUIDE Telehealth ([facility] ) 03/05/2025 Orders Only [facility] Scanner 1 scan: (1-Ord) [facility], XR CHEST 1V PORTABLE, 03/05/2025 03/05/2025 Orders Only [facility] Scanner 1 scan: (1-Ord) [facility], CT HEAD/BRAIN W/O CON, 03/05/2025 03/03/2025 11:00 AM CDT Home Care Visit [facility] [address] [place] [address] Justen Fan, PT PT - OASIS DISCHARGE 02/24/2025 10:00 AM CDT Home Care Visit [facility] [address] [place] [address] Justen Fan, PT PT - HOME VISIT 02/19/2025 Orders Only [facility] [address] [place] [address] Rex Connor MD <No scans attached> 02/18/2025 Telephone [facility] [address] [place] [address] Rex Connor MD 02/17/2025 1:15 PM CDT Home Care Visit [facility] [address] [place] [address] Terry Cary, PT PT - HOME VISIT 02/17/2025 9:45 AM CDT Orders Only [facility] [address] [place] [address] Lab, [facility] 02/17/2025 Travel 02/15/2025 Orders Only [facility] Scanner 1 scan: (1-Ord) [facility], HEAD/BRAIN W/O CONTRAST, 02/15/2025 02/15/2025 Orders Only [facility] Scanner 1 scan: (1-Ord) [place] , CERVICAL SPINE WO CON, 02/15/2025 02/15/2025 Orders Only [facility] Scanner 1 scan: (1-Ord) [place] H+C, HIP LT, 02/15/2025 02/15/2025 Telephone [facility] [address] [place] [address] Tony Hawkins MD Colonoscopy Scheduled / Needs Meds 02/15/2025 Telephone [facility] [address] [place] [address] Rex Connor MD Colorectal Cancer Screening (Positive Cologuard) 02/12/2025 Orders Only [facility] [address] [place] [address] Rex Connor MD Lab 02/10/2025 3:15 PM CDT Home Care Visit [facility] [address] [place] [address] Terry Cary, PT PT - HOME VISIT 02/03/2025 8:50 AM CDT Office Visit [facility] [address] [place] [address] Rex Connor MD Hospital F/U (ANW, 01/29/2025 - 01/30/2025, stent placement); Wrist Pain/problem (Left wrist pain and bruising); Constipation (2 to 3 days); Derm Problem (Irritation about left ear/Mark on bilateral ankle) 02/03/2025 Travel 02/02/2025 Refill [facility] [address] [place] [address] Rex Connor MD Refill Request (ROSUVASTATIN, CLOPIDOGREL, ASPIRIN LOW) 02/01/2025 12:30 PM CDT Home Care Visit [facility] [address] [place] [address] Jessica Armstrong, PT PT - OASIS RESUMPTION OF CARE 02/01/2025 Telephone [facility] [address] [place] [address] Rex Connor MD Home Care (Orders/Severe Medication interactions) 02/01/2025 Patient Outreach [facility] [address] [place] [address] Hannah Roque, RN Primary RN Care Management; Hospital F/U (Lace=51) 01/30/2025 Home Care Visit [facility] [address] [place] [address] Jessica Armstrong, PT PT - OASIS TRANSFER 01/29/2025 11:19 AM CDT Anesthesia Event [facility] [address] [place] [address] Coby Frazier MD Busker, Carly J, SECURITY ASSESSOR Student 01/29/2025 10:35 AM CDT - 01/29/2025 1:02 PM CDT Surgery [facility] [address] [place] [address] Ramírez Sanches MD LEFT REVASCULARIZATION TRANS CAROTID ARTERY 01/29/2025 9:11 AM CDT - 01/30/2025 2:19 PM CDT Hospital Encounter [facility] [address] [place] [address] Ramírez Sanches MD Carotid artery stenosis, symptomatic, left (Primary Dx) Discharge Disposition: Home Health 01/29/2025 Orders Only [facility] [address] [place] [address] Lexie Holguin NP <No scans attached> 01/29/2025 Travel 01/27/2025 12:00 PM CDT Home Care Visit [facility] [address] [place] [phone] Yessi Diaz, FLIGHT ATTENDANT/INFLIGHT MANAGER PT - HOME VISIT 01/21/2025 2:15 PM CDT Home Care Visit [facility] [address] [place] [phone] Terry Cary, PT PT - HOME VISIT 01/19/2025 12:45 PM CDT Office Visit [facility] [address] [place] [address] Maine Abdi MD Hospital F/U (DOD 01/14/2025, [place]) 01/19/2025 10:00 AM CDT Home Care Visit [facility] [address] [place] [phone] Terry Cary, PT PT - OASIS START OF CARE 01/19/2025 Home Care Visit [facility] [address] [place] [phone] Terry Cary, PT CARE COORDINATION 01/19/2025 Telephone [facility] [address] [facility] [place] [phone] Terry Cary, PT Home Care 01/19/2025 Orders Only [facility] [address] [facility] [place] [phone] Leyla Domingo PA <No scans attached> 01/19/2025 Travel 01/19/2025 Plan of Care Documentation [facility] [address] [facility] [place] [phone] 01/19/2025 Telephone [facility] [address] [facility] [place] [phone] Teryr Cary, PT Home Care 01/15/[address] [facility] [address] [place] [address] Ramírez Sanches MD Surgery Scheduled 01/15/2025 Patient Outreach [facility] [address] [place] [address] Christel Jean Baptiste RN Primary RN Care Management; Hospital F/U (LACE 45) 01/14/2025 Travel 01/13/2025 9:16 AM CDT - 01/14/2025 6:02 PM CDT Hospital Encounter [facility] [address] [place] [address] [facility] Of Ramon Gutierrez MD Residents, C1 Carotid artery stenosis, symptomatic, left (Primary Dx); Stenosis of left carotid artery; TIA (transient ischemic attack) Discharge Disposition: Home Health 01/12/2025 Orders Only [facility] Scanner 1 scan: (1-Ord) [facility], CT ANGIO NECK, 01/12/2025 01/12/2025 Orders Only [facility] Scanner 1 scan: (1-Ord) [place], HEAD/BRAIN WO CON, 01/12/2025 01/12/2025 Office Visit [facility] [address] [place] [address] Ericka Mendenhall MD Telehealth ([facility] - Phone consult only / no video) 01/04/2025 Orders Only [facility] Scanner 1 scan: (1-Ord) [facility], CT CERVICAL SPINE WO CON, 01/04/2025 01/04/2025 Orders Only [facility] Scanner 1 scan: (1-Ord) [facility], CT HEAD/BRAIN WO CON, 01/04/2025 12/22/2024 Telephone [facility] [address] [place] [address] Syeda, Dejah, [facility] HEARING AIDS DROPPED OFF from Last 3 Months Immunizations Immunization Administration Dates Next Due AMB Influenza, IIV4 PF (=>6 mos Flulaval,Fluzone Fluarix)(Flu Clinic Only) 02/03/2018,02/22/2017 COVID-19 vaccine (Moderna 100mcg/0.5mL) PF, MDV 06/30/2020,06/02/2020 COVID-19 vaccine (Athlete Builder-Bio NTech 30mcg/0.3mL) 12YO+ TANYA-SUCROSE PF, MDV 08/30/2021 [...] Types Packs/Day Years Used Date Smoking Tobacco: Some Days Cigarettes 1 30 Smokeless Tobacco: Never Tobacco Cessation:Ready to Q uit: Not Asked; Counseling Given: Not Answered Comments:approx 10 cigarettes in a week, smokes the cigarettes found in the parking lot gideon trays- updated 03/09/2025 Alcohol Use Standard Drinks/Week Comments Not Currently [...] AM CDT Legal Sex Male 7:21 AM YARN SALVAGER Gender Identity Male 08/04/2024 11:14 AM CDT Sexual Orientation Not on file Occupation Industry Job Start Date Job End Date PROACT Not on file Not on file Not on file Not on file Not on file Not on file Not on file Obstetrics History Last Filed Vital Signs Vital Sign Reading Time Taken Comments Blood Pressure 160/92 03/09/2025 2:36 PM CDT Pulse 93 03/09/2025 2:36 PM CDT Temperature 36.3 C (97.3 F) 03/03/2025 11:22 AM CDT Respiratory Rate 16 03/03/2025 11:22 AM CDT Oxygen Saturation 96% 03/09/2025 2:36 PM CDT Inhaled Oxygen Concentration - - Weight 77.7 kg (171 lb 3.2 oz) 03/09/2025 2:36 P M CDT Height 174 cm (5' 8.5) 02/03/2025 8:54 AM CDT Body Mass Index 25.65 02/03/2025 8:54 AM CDT Plan of Treatment Upcoming Encounters Date Type Department Care Team (Late st Contact Info) Description 03/31/2025 2:30 PM YARN SALVAGER Office Visit [facility] [address] [place] [address] Rex Connor MD [address] [place] [address] Health Maintenance Due Date Last Done Comments Depression screening for age 12+ 1967 Colonoscopy through age 75 07/17/201301/15 (Completed outside of [facility]) Tetanus booster 04/20/2021 04/20/2011 Zoster (shingles) series for age 50+ (3 of 3) 03/10/2022 01/13/2022, 01/26/2015 Medicare Wellness for age 65+ 06/10/2024 06/10/2023, 08/27/2018, 05/31/2017 Influenza Vaccine (#1) 2025 , 03/27/2021, 02/19/2020, [...] Procedure Name Priority Date/Time Associated Diagnosis Comments US CAROTID DUPLEX BILATERAL Routine 03/09/2025 2:29 PM CDT Left carotid artery stenosis SCAN-RADIOLOGY REPORT 03/05/2025 12:00 AM CDT SCAN-CT INTERPRETATION 12:00 AM CDT FERRITIN Routine 02/17/2025 9:32 AM CDT Iron deficiency anemia, unspecified iron deficiency anemia type HEMOGLOBIN Routine 02/17/2025 9:32 AM CDT Iron deficiency anemia, unspecified iron deficiency anemia type IRON PLUS IRON BINDING CAP Routine 02/17/2025 9:32 AM CDT Iron deficiency anemia, unspecified iron deficiency anemia type SCAN-CT INTERPRETATION 12:00 AM CDT SCAN-CT INTERPRETATION 12:00 AM [...] TUBING PR1 Routine 01/29/2025 12:11 PM CDT HC ANES ARTERIAL CATH FOR SAMPLE MONITOR TRANS [...] DOSE WO CONTRAST Routine 06/18/2024 2:03 PM YARN SALVAGER Personal history of nicotine dependence CT CHEST ABDOMEN PELVIS W Routine 06/28/2021 12:22 PM YARN SALVAGER Weight loss ANTI HCV Routine 06/25/2019 8:36 AM YARN SALVAGER Need for hepatitis C screening test from Last 3 Months or Most Recently Relevant to Health Maintenance Results * US CAROTID DUPLEX BILATERAL (03/09/2025 2:29 PM CDT) Anatomical Region Laterality Modality CAROTID, NECK Ultrasound 03/09/2025 2:05 PM CDT Narrative 03/09/2025 3:27 PM CDT VASCULAR ULTRASOUND REPORT SCOOBY MERINO : 1955 Study Date: 03/09/2025 2:05:54 PM Age: 69 years Tech: LINN Gender: M Referring MD: RAMÍREZ SANCHES Site: [facility] V[facility] Center Study performed: Carotid Indication for Study: follow-up stent Study Quality: Good Other History: 1 month s/p left TCAR stent TECHNIQUE: The extracranial carotid arteries, vertebral arteries and subclavian arteries were examined per exam protocol with duplex ultrasound, color-flow and spectral Doppler. Flow velocities including peak systolic (PSV), end diastolic (EDV), and velocity ratios if applicable were documented at sites per exam protocol. IMPRESSION: 1. Based on the ICA velocities, ICA/CCA ratio, and 2D images the right internal carotid artery is patent with mild heterogenous plaque without significant stenosis <50%. The left internal carotid artery is widely patent status post TCAR stenting without restenosis <50%. 2. Normal antegrade flow within bilateral vertebral arteries. 3. Multiphasic flow within bilateral subclavian arteries. COMPARISON: No prior study available for comparison. RIGHT FINDINGS: Antegrade flow in the right vertebral artery. Normal multiphasic right subclavian artery flow. LEFT FINDINGS: Antegrade flow in the left vertebral artery. Normal multiphasic left subclavian artery flow. MEASUREMENTS: +--------+--------+------+--------+--------+ RIGHT RIGHT LEFT LEFT +--------+--------+------+--------+--------+ PSV cm/s EDV cm/s Vessel PSV cm/s EDV cm/s +--------+--------+------+--------+--------+ 134 40 P. CCA 164 55 +--------+--------+------+--------+--------+ 104 32 D. CCA 120 43 +--------+--------+------+--------+--------+ 98 30 P. ICA 75 27 +--------+--------+------+--------+--------+ 101 36 M. ICA 75 32 +--------+--------+------+--------+--------+ 88 34 D. ICA 80 36 +--------+--------+------+--------+--------+ 107 16 ECA 78 12 +--------+--------+------+--------+--------+ +-----+ +----+ RIGHT LEFT +-----+ +----+ 123 Subclavian Artery (cm/s) 196 +-----+ +----+ 55 Vertebral Artery (cm/s) 81 +-----+ +----+ 1.0 ICA/CCA Ratio 0.6 +-----+ +----+ STENT: Widely patent left internal carotid artery stent without restenosis <50%. +------+---------+ +----+--------+--------+ STENT: Right PSV Right EDV cm/s Left PSV Left EDV cm/s cm/s cm/s +------+---------+ +----+--------+--------+ D. CCA Pre 120 43 +------+---------+ +----+--------+--------+ P. ICA PRX 75 27 +------+---------+ +----+--------+--------+ M. ICA Mid 66 25 +------+---------+ +----+--------+--------+ M. ICA DST 75 32 +------+---------+ +----+--------+--------+ D. ICA Post 80 36 +------+---------+ +----+--------+--------+ Ramírez Sanches MD. Electronically signed on 03/09/2025 3:27:13 PM This study was performed and interpreted by a service accredited by the Intersocietal Accreditation Commission (IAC/Vascular), www.[email or web address].org/vascular Report generated by [employer]. Final Procedure Note Ramírez Sanches MD - 03/09/2025 VASCULAR ULTRASOUND REPORT SCOOBY MERINO : 1955 Study Date: 03/09/2025 2:05:54 PM Age: 69 years Tech: M Gender: M Referring MD: RAMÍREZ SANCHES Site: [facility] - Vascular Center Study performed: Carotid Indication for Study: follow-up stent Study Quality: Good Other History: 1 month s/p left TCAR stent TECHNIQUE: The extracranial carotid arteries, vertebral arteries and subclavianarteries were examined per exam protocol with duplex ultrasound,color-flow and spectral Doppler. Flow velocities including peak systolic(PSV), end diastolic (EDV), and velocity ratios if applicable weredocumented at sites per exam protocol. IMPRESSION: 1. Based on the ICA velocities, ICA/CCA ratio, and 2D images the rightinternal carotid artery is patent with mild heterogenous plaque withoutsignificant stenosis <50%. The left internal carotid artery is widelypatent status post TCAR stenting without restenosis <50%. 2. Normal antegrade flow within bilateral vertebral arteries. 3. Multiphasic flow within bilateral subclavian arteries. COMPARISON: No prior study available for comparison. RIGHT FINDINGS: Antegrade flow in the right vertebral artery. Normal multiphasic rightsubclavian artery flow. LEFT FINDINGS: Antegrade flow in the left vertebral artery. Normal multiphasic leftsubclavian artery flow. MEASUREMENTS: +--------+--------+------+--------+--------+ RIGHT RIGHT LEFT LEFT +--------+--------+------+--------+--------+ PSV cm/s EDV cm/s Vessel PSV cm/s EDV cm/s +--------+--------+------+--------+--------+ 134 40 P. CCA 164 55 +--------+--------+------+--------+--------+ 104 32 D. CCA 120 43 +--------+--------+------+--------+--------+ 98 30 P. ICA 75 27 +--------+--------+------+--------+--------+ 101 36 M. ICA 75 32 +--------+--------+------+--------+--------+ 88 34 D. ICA 80 36 +--------+--------+------+--------+--------+ 107 16 ECA 78 12 +--------+--------+------+--------+--------+ +-----+ +----+ RIGHT LEFT +-----+ +----+ 123 Subclavian Artery (cm/s) 196 +-----+ +----+ 55 Vertebral Artery (cm/s) 81 +-----+ +----+ 1.0 ICA/CCA Ratio 0.6 +-----+ +----+ STENT: Widely patent left internal carotid artery stent without restenosis<50%. +------+---------+ +----+--------+--------+ STENT: Right PSV Right EDV cm/s Left PSV Left EDV cm/s cm/s cm/s +------+---------+ +----+--------+--------+ D. CCA Pre 120 43 +------+---------+ +----+--------+--------+ P. ICA PRX 75 27 +------+---------+ +----+--------+--------+ M. ICA Mid 66 25 +------+---------+ +----+--------+--------+ M. ICA DST 75 32 +------+---------+ +----+--------+--------+ D. ICA Post 80 36 +------+---------+ +----+--------+--------+ Ramírez Sanches MD. Electronically signed on 03/09/2025 3:27:13 PM This study was performed and interpreted by a service accredited by theIntersocietal Accreditation Commission (IAC/Vascular),www.[email or web address]/vascular Report generated by [employer]. Final us Ramírez Sanches MD Final Result * SCAN-RADIOLOGY REPORT (03/05/2025 12:00 AM CDT) Only the most recent of2 resultswithin the time period is included. Anatomical Region Laterality Modality Other us Scanner OTHER Final Result * SCAN-CT INTERPRETATION (03/05/2025 12:00 AM CDT) Only the most recent of7 resultswithin the time period is included. Anatomical Region Laterality Modality Other us Scanner OTHER Final Result * (ABNORMAL) IRON PLUS IRON BINDING CAP [...] MD CHEMISTRY Final Result Performing Organization Address [facility] Co de Phone Number [facility] [address] [address], [place] [phone] * (ABNORMAL) HEMOGLOBIN (02/17/2025 9:32 AM CDT) [...] MD HEMATOLOGY Final Result Performing Organization Address City/[facility]/ZIP Co de Phone Number [facility] [address] [address], * FERRITIN (02/17/2025 9:32 AM CDT) Pathologist [facility] FERRITIN 69 24 - 380 ng/mL 02/18/2025 5:30 AM CDT [facility] Blood BLOOD SPECIMEN / Unknown [facility] / Unknown 02/17/2025 9:32 AM CDT 02/17/2025 9:32 AM CDT Rex Connor MD CHEMISTRY Final Result [facility] [address] [place] [address], * (ABNORMAL) SDNA-FIT EXTERNAL (COLOGUARD) [[id number]] (02/08/2025 2:30 PM CDT) Pathologist [facility] NONINV COLON CA DNA+OCC BLD SCRN STL-IMP Positive( A) Negative 02/13/2025 4:12 AM CDT [email or web address] (CLIA #:[id number]) Comment: The Cologuard Plus (TM) test was performed on this specimen. POSITIVE TEST RESULT. A positive (abnormal) Cologuard Plus result means the patient has a yrfgjy-kmov-jfbowji chance of having colorectal cancer (CRC) or [...] a 91% specificity (Cologuard Plus Clinician Brochure. [employer]. [place], [place].). Visit www.[employer].Smart [employer]/about/nedfkacv-wklxcrwegvh-mzoahkqetuf for more test information, references, warnings, and precautions. Stool specimen (specimen) (Rectum) 02/08/2025 2:30 PM CDT 02/10/2025 9:51 AM CDT Rex Connor MD URINE Final Result Performing Organization Address City/[facility] Co de Phone Number [email or web address] (CLIA #:[id number]) [address] [place] [address], * OCCULT BLOOD IFOBT STOOL (02/08/2025 12:00 PM CDT) STOOL BLOOD ,IFOBT Negative Negative 02/15/2025 3:10 PM CDT [facility] Stool STOOL SPECIMEN / Unknown Non-Blood / Unknown 02/08/2025 12:00 PM CDT 02/12/2025 9:19 PM CDT Rex Connor MD LABORATORY Final Result [facility] [address] [place] [address], * (ABNORMAL) CBC W PLT No DIFF (01/30/2025 6:57 AM CDT) Only the most recent of2 resultswithin the time period is included. WHITE BLOOD COUNT 7.0 4.5 - 11.0 thou/cu mm 01/30/2025 7:34 AM CDT [facility] RED BLOOD COUNT 3.06(L) 4.30 - 5.90 mil/cu mm 01/30/2025 7:34 AM CDT [facility] HEMOGLOBIN 9.3(L) 13.5 - 17.5 g/dL 01/30/2025 7:34 AM CDT [facility] HEMATOCRIT 29.6(L) 37.0 - 53.0 % 01/30/2025 7:34 AM CDT [facility] MCV 97 80 - 100 fL 01/30/2025 7:34 AM CDT [facility] MCH 30.4 26.0 - 34.0 pg 01/30/2025 7:34 AM CDT [facility] MCHC 31.4(L) 32.0 - 36.0 g/dL 01/30/2025 7:34 AM T [facility] RDW 14.1 11.5 - 15.5 % 01/30/2025 7:34 AM CDT [facility] PLATELET COUNT 160 140 - 440 thou/cu mm 01/30/2025 7:34 AM T [facility] MPV 9.9 6.5 - 11.0 fL 01/30/2025 7:34 AM CDT [facility] NRBC 0.0 % 01/30/2025 7:34 AM CDT [facility] ABS NRBC 0.0 thou /cu mm 01/30/2025 7:34 AM [facility] Blood BLOOD SPECIMEN / Unknown Venipuncture / Unknown 01/30/2025 6:57 AM CDT 01/30/2025 7:23 AM CDT us Michael Kang MD HEMATOLOGY Final Result [facility] [address] [place] [address], * (ABNORMAL) Basic Metabolic Panel (01/30/2025 6:57 AM CDT) Only the most recent of3 resultswithin the time period is included. Pathologist [facility] SODIUM 139 136 - 145 mmol/L 01/30/2025 7:50 AM CDT [facility] POTASSIUM 4.5 3.5 - 5.1 mmol/L 01/30/2025 7:50 AM CDT [facility] CHLORIDE 105 98 - 107 mmol/L 01/30/2025 7:50 AM CDT [facility] CO2,TOTAL 24 22 - 29 mmol/L 01/30/2025 7:50 AM CDT [facility] ANION GAP 10 5 - 18 01/30/2025 7:50 AM CDT [facility] GLUCOSE 96 70 - 99 mg/dL 01/30/2025 7:50 AM CDT [facility] CALCIUM 9.1 8.8 - 10.4 mg/dL 01/30/2025 7:50 AM T [facility] Comment: Reference ranges for this test were updated on 03/24/2024 to reflect our healthy population more accurately. Reference range changes are not retroactively applied to results, but previous results using the same methodology can be interpreted in the context of the new reference range. BUN 21 8 - 23 mg/dL 01/30/2025 7:50 AM CDT [facility] CREATININE 1.22(H) 0.70 - 1.20 mg/dL 01/30/2025 7:50 AM CDT [facility] BUN/CREAT RATIO 17 10 - 20 7:50 AM CDT [facility] eGFR 64(L) >90 mL/min/1. 73m2 01/30/2025 7:50 AM CDT [facility] [facility] Comment:As of 2021, eG [...] MD CHEMISTRY Final Result Performing Organization Address City/[facility]/ZIP Co de Phone Number [facility] [address] [place] [address], [place] * SCAN-CARDIAC STRIP (01/30/2025 3:27 AM CDT) us Scanner OTHER Final Result * (ABNORMAL) ACTIVATED CLOTTING TIME [id number] ACT (01/29/2025 12:20 PM CDT) ACTIVATED CLOTTING TIME, POCT 292(H) 74 - 125 sec 01/29/2025 1:39 PM CDT [facility] Blood BLOOD SPECIMEN / Unknown 01/29/2025 12:20 PM CDT 01/29/2025 1:39 PM CDT us Ramírez Sanches MD HEMATOLOGY Final Result [facility] [address] [place] [address], [place] * HCHG CATH PR5, HCHG ANES [...] (not difficult) Coby Frazier MD ANESTHESIA PX NOTE ZACHARY [...] NOW QTc 417 ms BEYOND NOW P [place] 67 degrees BEYOND NOW R [place] 10 degrees BEYOND NOW T [place] 55 degrees BEYOND NOW 01/29/2025 10:3 4 AM CDT 01/29/2025 8:49 PM CDT Narrative BEYOND NOW - 01/29/2025 8:49 PM CDT Test Indication: preop Vannesa Gomez UNA EKG ORD Fin al Result BEYOND NOW [place], [place] * (ABNORMAL) P2Y12 INHIBITION (01/29/2025 10:08 AM CDT) [facility] PLATELET COUNT 188 140 - 440 thou/cu mm 01/29/2025 10:54 AM CDT [facility] P2Y12 REACTION UNITS 59 01/29/2025 10:54 AM CDT [facility] Comment: Reference Range: Individuals on [...] not been established. References: 1. García Burk, Angiokiersten D, Henna P, et al. Platelet Reactivity and Cardiovascular Outcomes after Percutaneous Coronary Intervention. Circulation. 2011;124:1132- 1137. 2. Reginald Mccloud, Tia Fraser, Clayton L, et al. Bleeding and stent thrombosis on [id number]: collaborative analysis on the role of platelet reactivity for risk stratification after percutaneous coronary intervention. Heart Journal. 2015; 36:3333-4365. 3. Reginald Mccloud, Salazar RF, Cosmo brasher A, et al. Expert position paper on the role of platelet function testing in patients undergoing percutaneous coronary intervention. Heart Journal. 2014;35(4):209-215. HEMATOCRIT 35.0(L) 37.0 - 53.0 % 01/29/2025 10:54 AM CDT [facility] Blood BLOOD SPECIMEN / Unknown Venipuncture / Unknown 01/29/2025 10:08 AM CDT 01/29/2025 10:43 AM CDT Narrative [facility] - 01/29/2025 10:54 AM CDT OBTAIN BLOOD COLLECTION TUBES FROM THE LABORATORY. V[facility] HEART SEND OUTS Fin al Result [facility] [address] [place] [address], [place] * Type and Screen (01/29/2025 10:08 AM CDT) [facility] B Rh Positive 01/29/2025 11:09 AM CDT [facility] ANTIBODY SCREEN Negative Negative 01/29/2025 11:09 AM CDT [facility] LAB BLOOD BANK SPECIMEN EXPIRATION DATE/TIME 02/01/25 23:59 01/29/2025 11:09 AM CDT [facility] BLOOD BANK Blood BLOOD SPECIMEN / Unknown Non-Lab Venipuncture / Unknown 01/29/2025 10:08 AM CDT 01/29/2025 10:23 AM CDT [facility] BLOOD B[facility] Fin al Result [facility] BLOOD BANK [address] [place] [address], [place] [phone] * EXTRA TUBE GOLD/SST (01/29/2025 10:07 AM CDT) Blood BLOOD SPECIMEN / Unknown Non-Lab Venipuncture / Unknown 01/29/2025 10:07 AM CDT 01/29/2025 10:24 AM CDT Ramírez Sanches MD LABORATORY Final Result [facility] [address] [place] [address], [place] * SCAN-CARDIAC STRIP (01/29/2025 12:00 AM [...] 100 mg/dL 01/14/2025 11:13 AM CDT [facility] Blood BLOOD SPECIMEN / Unknown 01/14/2025 11:07 AM CDT 01/14/2025 11:12 AM CDT Ramon Gutierrez MD CHEMISTRY Final R esult [facility] [address] [place] [address], [place] * ECHO TTE COMPLETE W CONTRAST [...] kg Tech: Referring MD: GODFREY FINCH Site: [facility] [place] Location: [facility] Patient Location: Inpatient. Procedure: 2D w/ Contrast, [...] documentation: 2 ml diluted Definity, lot #[id number], [facility]# [id number] was administered peripherally to enhance visualization of all left ventricular segments. . This study was interpreted by an [facility] accredited facility. Final Procedure Note Bryce Pierce MD - 01/14/2025 ECHOCARDIOGRAM SCOOBY MERINO : 1955 69 years Study Date: 01/14/2025 9:27:18 AM Gender: M BP: 147/82 mmHg Height: 180.00 cm BSA: 2.07 m Weight: 87.00 kg Tech: Referring MD: GODFREY FINCH Site: [facility] [place] Location: [facility] Patient Location: Inpatient. Procedure: 2D w/ [...] documentation: 2 ml diluted Definity, lot #[id number], [facility]#[id number] was administered peripherally to enhance visualization of allleft ventricular segments. . This study was interpreted by an [facility] accredited facility. Final us Godfrey Finch MD [...] 5.5 <=6.4 % 01/13/2025 3:23 PM CDT [facility] Blood BLOOD SPECIMEN / Unknown Butterfly / Unknown 01/13/2025 11:09 AM CDT 01/13/2025 11:19 AM CDT Narrative [facility] - 01/13/2025 3:23 PM CDT (<5.7%) Normal (5.7% to 6.4%) Indicates prediabetes (>=6.5%) Confirms diabetes Falsely low levels may be seen with: Recent Transfusion, Recent Significant Blood Loss, Hemolytic Diseases, or Falsely elevated levels may be seen with: Untreated Anemias, Splenectomy Godfrey Finch MD CHEMISTRY Final Resul t [facility] [address] [place] [address], * PLATELET COUNT (01/13/2025 11:09 AM CDT) PLATELET COUNT 177 140 - 440 thou/cu mm 01/13/2025 11:55 AM CDT [facility] MPV 9.5 6.5 - 11.0 fL 01/13/2025 11:55 AM CDT [facility] Blood BLOOD SPECIMEN / Unknown Butterfly / Unknown 01/13/2025 11:09 AM CDT 01/13/2025 11:19 AM CDT Ramon Gutierrez MD HEMATOLOGY Final R esult [facility] [address] [place] [address], * Lipid Panel (01/13/2025 11:09 AM CDT) CHOLESTEROL,TOTAL 178 100 - 199 mg/dL 01/13/2025 12:11 PM CDT [facility] Comment: Cholesterol, Total Reference Ranges Desirable <200 mg/dL Borderline 200-239 mg/dL High >=240 mg/dL TRIGLYCERIDES 110 <150 mg/dL 01/13/2025 12:11 PM CDT [facility] HDL CHOLESTEROL 47 >40 mg/dL 12:11 PM CDT [facility] NON-HDL CHOLESTEROL 131 <145 mg/dl 01/13/2025 12:11 PM CDT [facility] CHOL/HDL RATIO 3.79 <4.50 01/13/2025 12:11 PM CDT [facility] LDL CHOLESTEROL 109 <=130 mg/dL 01/13/2025 12:11 PM CDT [facility] VLDL CHOLESTEROL 22 <=30 mg/dL 01/13/2025 12:11 PM CDT [facility] PROVIDER ORDERED STATUS RANDOM 01/13/2025 12:11 PM CDT [facility] Blood BLOOD SPECIMEN / Unknown Butterfly / Unknown 01/13/2025 11:09 AM CDT 01/13/2025 11:19 AM CDT us Godfrey Finch MD CHEMISTRY Final Resul t [facility] [address] [place] [address], [place] * CT CHEST SCREENING LOW DOSE WO CONTRAST [[id number]] -- Criteria: must meet ALL: Age 50-80, current smoker or quit within the last 15 years, AND 20+ pack-year history (06/18/2024 2:03 PM YARN SALVAGER) Anatomical Region Laterality Modality Computed Tomogra phy Impressions 06/19/2024 12:04 PM YARN SALVAGER New 6 millimeter left upper lobe pulmonary [...] @06/18/2024 4:28:09 PM/jj Narrative 06/19/2024 12:04 PM YARN SALVAGER For Patients: As a result of the [...] CHEST ABDOMEN PELVIS W (06/28/2021 12:22 PM YARN SALVAGER) Anatomical Region Laterality Modality Abdomen, Pelvis, AORTA, LIVER, SPLEEN Computed Tomography 06/28/2021 9:38 PM YARN SALVAGER Impressions 06/28/2021 9:38 PM YARN SALVAGER Esophagus appears patulous and there are secretions [...] 9:38PM (Electronically Signed) Narrative 06/28/2021 9:38 PM YARN SALVAGER For Patients: As a result of the [...] are osteopenic. Mild chronic compression deformity of A8nawmdform body IMPRESSION: Esophagus appears patulous and there are secretions seen within thetrachea and extending into the distal small airways concerning foraspiration risk. There are changes of chronic aspiration or bronchitis orcombination of the 2. The lungs show numerous areas of small airwayocclusion with distal bronchiectasis and bronchiolitis. Tiny [id number]-mv-[id number] are seen within the right middle lobe. [...] Result * ANTI HCV (06/25/2019 8:36 AM YARN SALVAGER) HEPATITIS C ANTIBODY Non-React dani Non-React dani 06/25/2019 2:37 PM YARN SALVAGER [facility] Comment:Antibodies to HCV no t detected; does not exclude the possibility of exposure to HCV. Blood BLOOD SPECIMEN / Unknown Venipuncture / Unknown 06/25/2019 8:36 AM YARN SALVAGER 06/25/2019 8:36 AM YARN SALVAGER us Rex Connor MD SEND OUTS Final Result [facility] [address] [place] [address], [place] from Last 3 Months or Most Recently Relevant to Health Maintenance Insurance C/O [facility] [address] [address] MEDICAID MEDICARE [place] ONLY MEDICARE PART B HB ONLY MEDICARE PART A HB ONLY Member Subscriber Plan / Payer (Ef fective 2001-Present) Name:Scooby Merino Member ID:[id number] Relation to Subscriber:Self Name:Scooby Merino Subscriber ID:[id number] Payer ID:Not on file Group ID:Not on file Type:Not on file Address: ATTN: CLAIMS [address] [address] [address] MEDICA CHOICE CARE MEDICARE PART B [place] ONLY MEDICARE PART A HB ONLY C/O [address] [id number] MEDICAID [place] MEDICARE PPS * Guarantor: JUSTIN WOLF Account Type Relation to Patient Date of Phone Billing Address [facility]/[place] 1979 [place] [id number] ATTN A/P [address] [address] [place] [address] Advance Directives Documents on File Type Date Recorded Patient Healthcare Network Pricing Consultant Expl anation Healthcare Directive 04/27/2016 7:01 AM [...] Comments Code Status Discussion: Discussed Care Teams Catapult And Arresting Gear Officer Relationship Specialty Start Date End Date Rex Connor MD [address] [place] [address] PCP - General Family Practice 10/14/18 [facility] [address] [place] [address] 03/04/25
--- OUTSIDE RECORDS SUMMARY | 2025-03-18 20:38 | XMS_ITS | Clinical Summary ---
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 Gender Identity Not on file Sexual Orientation [...] on file Medical Devices Implanted Type Area Plate Worker Helper Device Identifier Shelf Expiration Date Model / Serial / Lot Embolic Substance/Device- 12/29/2020 Implanted:Qty: 1 on 12/29/2020 by Elton Pond MD Embolic Substance/D evice Nose [employer] 11/02/2021 / / [id number] Description:Nose bleed emobo lization Embolic Substance/Device- 12/29/2020 Implanted:Qty: 1 on 12/29/2020 by Elton Pond MD Embolic Substance/D evice Nose [employer] 04/07/2024 / / [id number] Description:Nose bleed emobo lization Insurance MEDICARE MEDICAID [place] Advance Directives For more information, please contact: [phone] * Full Code (Latest Code Status on File) Date Activated Date Inactivated Comments 12/29/2020 11:12 AM 12/30/2020 3:08 PM All basic a nd advanced life-sustaining interventions are performed as appropriate Question Answer Comments Code status determined by: Discussion with humberto nt/ legal decision maker Care Teams Test Worker Relationship Specialty Start Date End Date Rex Connor [address] [facility] [address] PCP - General Family Medicine 12/28/20
--- OUTSIDE RECORDS SUMMARY | 2025-03-18 20:38 | XMS_ITS | Patient Health Record ---
Author Organization [facility] Address [address] [place] [address] Care Team Providers Care Chip Crusher Operator Name Role Phone Rex Connor Primary Care Provider Unavailab JOE Mitchell Unavailable [phone] None, None Unavailable Unavailable Allergies Allergen (clinical [...] Risk Notes Problem Schizoaffective disorder, bipolar type (09387402) Schizoaffective disorder, bipolar type (F25.0) Active confirmed Problem Epistaxis (863434486) Epistaxis (R04.0) Active confirmed Problem Hypertension (49693569) HTN (hypertension) (I10) Active confirmed Plan Of Treatment No Information Insurance Providers Payer Name Payer Address Payer Phone Subscriber Number Group Number Insured Name Patient Relationship to Insured Coverage Start Date Coverage End Date MEDICARE [address] [place] [address] [id number] Scooby Greer Self - patient is the insured [place] [employer] [address] [address] [place] [address] [phone] [id number] Scooby Greer Self - patient is the insured Medical (General) History Medical History History ICD Code Heart disease Psychotic disorder Schizoaffective disorder bipolar type CV19 Vaccine 05/2020 Surgical History Surgery Date(Month/Year) Hernia Stomach for ulcers
--- NOTE | 2025-03-18 20:50 | ED.GENADULT ---
HPI - General Adult General Date Seen: 03/18/25 Chief complaint: Neuro Symptoms/Altered Deficit Stated complaint: CVA Time Seen by Provider: 03/18/25 20:50 History of Present Illness HPI narrative: Per medical record he was here about 12 days ago on 03/06. According to that record he has a recent left carotid arteries is stenting and was brought in with right-sided facial droop and slurred speech along with right arm and leg weakness that happened suddenly at his nursing home 30 minutes prior to presentation that day. He was already on aspirin and Plavix. Labs showed a white count of 7.4, hemoglobin 10.1, platelet count 162 He was admitted to the hospital. Sodium 134, potassium 4 4, chloride 104, bicarb 22, BUN 29, creatinine 1.4. Glucose 85. Calcium 9 4. Total bili 0.3. CT/CTA were negative for any acute lesion. Symptoms were thought to have been due to a TIA. I also saw this patient on January 12 with a similar episode of altered mental status, focal deficits, temporary hypotension. It was thought to be a TIA related hypotensive episode leading to poor filling through his carotid stenosis. He was transferred [facility] for vascular surgery consultation. Also his power of estate planning attorney confirmed, during that visit that he does not want CPR but that he would want treatments some force symptoms such as carotid stenosis with a would improve his quality of life. He presents to the ER tonight by EMS from his nursing home at [place]. History get from EMS who got directly from his providers at [facility] was that he has been normal today and was normal at about 720 when he received his night meds. At about 730 he was apparently walking in the hallway a value in acting oddly. Another resident there noticed he was acting odd and brought him to the staff. The staff noticed that he was having left facial droop and left arm and leg weakness and called 911. They did not report any seizure activity when the patient was in the hallway. No known falls. No report of any other recent illness or fever. EMS reports that he was initially having left facial droop and left arm weakness. He had altered mental status. In route he had hypotension with a blood pressure about 70 on 40. Blood sugar was 107. EMS activated a pre-hospital stroke team activation. Related Data Home Medications ?Medication ?Instructions ?Recorded ?Confirmed clonazepam 0.5 mg tablet 1 mg PO HS PRN 12/20/21 03/06/25 divalproex 250 mg tablet,extended 250 mg PO HS 12/20/21 03/06/25 release 24 hr divalproex 500 mg tablet,extended 1,000 mg PO HS 12/20/21 03/06/25 release 24 hr levothyroxine 150 mcg tablet 150 mcg PO DAILY 12/20/21 03/06/25 propranolol 20 mg tablet 20 mg PO BID 12/20/21 03/06/25 tamsulosin 0.4 mg capsule 0.4 mg PO DAILY 12/20/21 03/06/25 carbidopa 25 mg-levodopa 100 mg 1 tab PO 3XD 08/21/22 03/06/25 tablet escitalopram oxalate 10 mg tablet 10 mg PO DAILY 08/21/22 03/06/25 haloperidol decanoate 100 mg/mL mg IM 08/21/22 04/24/23 intramuscular solution nicotine (polacrilex) 2 mg buccal 2 mg PO Q1H PRN 08/21/22 03/06/25 lozenge nicotine 14 mg/24 hr daily 1 patch topical DAILY 08/21/22 04/24/23 transdermal patch polyethylene glycol 3350 17 17 g PO BID 08/21/22 03/06/25 gram/dose oral powder (Gavilax) clopidogrel 75 mg tablet 75 mg PO DAILY 03/01/25 03/06/25 famotidine 20 mg tablet 20 mg PO DAILY 03/01/25 03/06/25 ferrous sulfate 325 mg (65 mg 325 mg PO DAILY 03/01/25 03/06/25 iron) tablet (FeroSul) fluticasone 250 mcg-salmeterol 50 1 ea inhalation BID 03/01/25 03/06/25 mcg/dose blistr powdr for inhalation melatonin 3 mg capsule 3 mg PO QHS 03/01/25 03/06/25 olanzapine 5 mg tablet 5 mg PO QPM 03/01/25 03/06/25 rosuvastatin 40 mg tablet 40 mg PO HS 03/01/25 03/06/25 sennosides 8.6 mg tablet (senna) 17.2 mg PO DAILY 03/01/25 03/06/25 aspirin 81 mg chewable tablet 1 tab PO DAILY 03/06/25 03/06/25 cholecalciferol (vitamin D3) 25 25 mcg PO DAILY 03/06/25 03/06/25 mcg (1,000 unit) tablet (Vitamin D3) quetiapine 150 mg tablet 450 mg PO HS 03/06/25 03/06/25 Allergies Allergy/AdvReac Type Severity Reaction Status Date / Time haloperidol AdvReac Unknown Verified 03/18/25 21:24 clozapine AdvReac Verified 03/18/25 21:24 PFS PFS Medical History Tobacco dependence ?F17.200 - Nicotine dependence, unspecified, uncomplicated (ICD-10) Hypothyroidism ?E03.9 - Hypothyroidism, unspecified (ICD-10) Hyperlipidemia ?E78.5 - Hyperlipidemia, unspecified (ICD-10) Carotid artery disease ?I77.9 - Disorder of arteries and arterioles, unspecified (ICD-10) Brain TIA ?G45.9 - Transient cerebral ischemic attack, unspecified (ICD-10) History of alcohol abuse ?F10.11 - Alcohol abuse, in remission (ICD-10) Schizoaffective disorder, bipolar type ?F25.0 - Schizoaffective disorder, bipolar type (ICD-10) Psychotic disorder ?F29 - Unspecified psychosis not due to a substance or known physiological condition (ICD-10) Manic depression ?F31.9 - Bipolar disorder, unspecified (ICD-10) CAD (coronary artery disease) ?I25.10 - Atherosclerotic heart disease of [place] coronary artery without angina pectoris (ICD-10) Social History What is your current living situation?: I presently have a place to live Problems where you live: no known problems In the past 12 months, utilities in danger of being shut off: no In past 12 months, lack of transportation kept you from medical appts, meetings, work, or getting things needed for daily living: no In the past 12 mos, have been you worried that your food would run out before you had money to buy more?: never true In the past 12 mos, the food you bought just didn't last and you didn't have money to buy more?: never true Highest level of school completed/degree received: Associate degree: occupational, technical, vocational program Smoking Status: Current every day smoker What tobacco products do you use: cigarettes Do you use any of these nicotine containing products: None Second hand tobacco smoke exposure: No How often do you have a drink containing alcohol: never How often do you have six or more drinks on one occasion: Never AUDIT-C Alcohol total score: 0 Non-prescribed substance use: denies use How often does anyone, including family, friends and others, physically hurt you: never How often does anyone, including family, friends and others, insult or talk down to you: never How often does anyone, including family, friends and others, threaten you with harm: never How often does anyone, including family, friends and others, scream or curse at you: never service: No Exam Narrative: Exam Narrative: Primary Survey: A- patent. Speaking clearly. Phonation normal. No stridor. As he arrives he seems of 10 it is not clear he is protecting his airway but within a couple of minutes he is conversant and is clearly protecting his airway. B- breathing easily. Lung sounds clear and equal. Oxygen saturation normal on room air C- no active bleeding. Blood pressure initially hypotensive per paramedics but 1st blood pressure reading here as he was improving was in the 120s systolic.. Symmetric pulses and cap refill in 4 extremities. D- initially drowsy and GCS 14, but as were able to arouse him and talked him he is moving both arms and legs. Initially had a clear left facial droop. GCS of 14. Initially seemed unresponsive and not moving arms and legs with the but within a minute or 2 we were able to get him to lift both arms up in the ER. He has no asymmetric arm weakness. No pronator drift. He is able to lift each leg up in the ER. 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 Intact light touch sensation x4 extremities. initially seemed to have a left facial droop that improved within about 10 or 15 minutes of arrival to the ER. Ultimately was left with no focal deficits. Constitutional: Appears well-developed and well-nourished. Alert. Conversant. Non toxic. HENT: Head: Atraumatic. Nose: Nose normal. Mouth/Throat: Oral mucosa is clear and moist. no trismus. Pharynx normal. Tonsils symmetric. No tonsillar enlargement, erythema, or exudate. Eyes: Conjunctivae normal. EOM normal. Pupils equal, round, and reactive to light. No scleral icterus. Neck: Normal range of motion. Neck supple. No tracheal deviation present. Cardiovascular: Normal rate, regular rhythm. No gallop. No friction rub. No murmur heard. Symmetric radial artery pulses Pulmonary/Chest: Effort normal. No stridor. No respiratory distress. No wheezes. No rales. No rhonchi . No tenderness. Abdominal: Soft. Bowel sounds normal. No distension. No mass. No tenderness. No rebound. No guarding. Musculoskeletal: RUE: Normal range of motion. No tenderness. No deformity LUE: Normal range of motion. No tenderness. No deformity RLE: Normal range of motion. No edema. No tenderness. No deformity LLE: Normal range of motion. No edema. No tenderness. No deformity Lymph: No cervical adenopathy. Neurological: After he has through CT scan in ER room 8, he is more alert. He answers questions. He is oriented to person and day of the week. He knows that he was at a [employer] green party his nursing home today. Mental status normal. Attention normal. Alert and oriented x3. GCS 15. Memory normal. Speech fluent. Cognition normal. Cranial Nerves intact II-XII except I did not formally test gag or visual acuity. EOMI. Palate elevates symmetrically and tongue protrudes in the midline. 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 Finger to nose and coordination normal. Skin: Skin is warm and dry. No rash noted. No pallor. Normal capillary refill. Psychiatric: Limited. Once he is conversant speech is still mildly slurred. He does make a lot of sense. 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 He does not always answer direct questions. Const: Vital Signs, click to edit/add: Vital Signs - 24 hr 03/18/25 20:42 03/18/25 20:47 03/18/25 20:57 Temperature 97.9 F Pulse Rate 82 89 Pulse Rate [Pulse Oximeter] 80 Respiratory Rate 18 16 14 Blood Pressure 114/70 135/81 Blood Pressure [Ri ght Upper Arm] 121/74 Pulse Oximetry 99 100 98 Oxygen Delivery Me thod Room Air 03/18/25 21:19 03/18/25 21:20 03/18/25 21:32 Temperature Pulse Rate 82 82 82 Pulse Rate [Pulse Oximeter] Respiratory Rate 17 14 12 Blood Pressure 147/75 H 131/66 Blood Pressure [Ri ght Upper Arm] Pulse Oximetry 95 98 97 Oxygen Delivery Me thod 03/18/25 21:47 03/18/25 21:52 03/18/25 22:02 Temperature Pulse Rate 76 80 74 Pulse Rate [Pulse Oximeter] Respiratory Rate 12 12 12 Blood Pressure 102/53 L 118/65 103/50 L Blood Pressure [Ri ght Upper Arm] Pulse Oximetry 97 99 97 Oxygen Delivery Me thod 03/18/25 22:15 03/18/25 22:17 03/18/25 22:32 Temperature Pulse Rate 72 73 72 Pulse Rate [Pulse Oximeter] Respiratory Rate 13 12 11 L Blood Pressure 101/50 L 108/54 L Blood Pressure [Ri ght Upper Arm] Pulse Oximetry 96 96 97 Oxygen Delivery Me thod 03/18/25 22:33 03/18/25 22:48 Temperature Pulse Rate 72 76 Pulse Rate [Pulse Oximeter] Respiratory Rate 12 12 Blood Pressure 140/74 H Blood Pressure [Ri ght Upper Arm] Pulse Oximetry 97 99 Oxygen Delivery Me thod Course Course ED Course: Recheck-blood pressure remained stable. Reevaluation(s) Reevaluation #1: Recheck-lead but arousable. Vital Signs Vital signs: Initial Vital Signs Pulse Rate 82 03/18/25 20:42 Respiratory Rate 18 03/18/25 20:42 Blood Pressure 114/70 03/18/25 20:42 Blood Pressure Mean 84 03/18/25 20:42 Pulse Oximetry 99 03/18/25 20:42 Vital Signs Pulse Rate 82 03/18/25 20:42 Respiratory Rate 18 03/18/25 20:42 Blood Pressure 114/70 03/18/25 20:42 Pulse Oximetry 99 03/18/25 20:42 Temperature 97.5 F L 03/18/25 23:05 Pulse Rate 71 03/19/25 01:07 Respiratory Rate 18 03/18/25 23:05 Blood Pressure 129/76 03/18/25 23:05 Pulse Oximetry 97 03/18/25 23:05 Oxygen Delivery Method Room Air 03/18/25 23:05 Medications Administered Medications: Generic Name Dose Route Start Last Admin Trade Name Freq PRN Reason Stop Dose Admin Carbidopa/Levodopa 1 tab 03/18/25 23:51 03/19/25 01:01 Carbidopa-Levodopa 25-100 Tablet PO 1 tab TID KVNG Administration Melatonin 3 mg 03/19/25 00:11 03/19/25 01:01 Melatonin 3 Mg Tablet PO 3 mg HS KVNG Administration Discontinued Medications Generic Name Dose Route Start Last Admin Trade Name Freq PRN Reason Stop Dose Admin Sodium Chloride 1,000 mls @ 1,000 mls/hr 03/18/25 21:00 03/18/25 21:00 0.9 % Sodium Chloride 1000 Ml IV 03/18/25 21:59 Infused .Q1H KVNG Infusion Medical Decision Making MDM Narrative Medical decision making narrative: 69-year-old gentleman with a complicated presentation to the ER. 1. Neuro. Patient was brought in as a stroke team activation by EMS because he clearly had left facial droop and left-sided weakness when he was at his care facility. By the time he arrived here to the ER his left-sided weakness was already improved but he did have residual altered mental status and left facial droop. Even that improved within about 15 or 20 minutes arrival to the ER and now he is back to his neurologic baseline. He is conversant, but a poor historian. Neuro imaging with noncontrast head CT and CT angiogram did not show any acute findings. Consultation with Stroke Neurology is undertaken. At this point we think that the risk of thrombolytics with 4-0 a the benefit. Stroke Neurology does recommend MRI in the morning to make sure there has not been any acute infarcts. Stroke neurology actually suspects that he is probably having episodes of hypotension (possibly dysautonomia from his Parkinson's disease) leading to temporary cerebral malperfusion leading to his multiple visits with transient neurologic symptoms. 2. Hypotension. He did have hypotension with a blood pressure of 70 on 40 per EMS. Blood pressure was normal here in the ER from our 1st measurement, even before he received IV fluids or other interventions. Consider causes of low blood pressure. He is anemic with a hemoglobin 9.9 but this is exactly does baseline and there is no report of any recent bleeding. He is not febrile. No clear evidence for infection or sepsis. He did have some mild right upper quadrant tenderness on my exam for which we did abdominal CT. This shows no acute finding other than constipation. No clear evidence for pneumonia on his chest x-ray. We were not yet able to obtain urine here in the ER. No clear evidence for skin or joint infection. Mental status is back to baseline and he denies headaches so would doubt meningitis/encephalitis. Discussed with our hospitalist, Dr. Nassar who accepts for admission. Lab Data Labs: Lab Results 03/18/25 Range/Units 20:44 WBC 5.55 (4.50-11.00) K/uL RBC 3.34 L (4.30-5.90) m/uL Hgb 9.9 L (13.5-17.5) gm/dL Hct 31.3 L (37.0-53.0) % MCV 94 (80-100) fL MCH 30 (26-34) pg MCHC 32 (32-36) gm/dL RDW Coeff of [place] 13.6 (11.5-15.5) % Plt Count 184 (140-440) K/uL Neut % (Auto) 65.5 (42.0-72.0) % Lymph % (Auto) 18.9 L (20-44) % [place] % (Auto) 11.0 (0.0-11.0) % Eos % (Auto) 4.0 (0.0-7.0) % Baso % (Auto) 0.4 (0.0-3.0) % Neut # (Auto) 3.64 (1.7-7.0) K/uL Lymph # (Auto) 1.00 (0.90-2.90) K/uL [place] # (Auto) 0.60 (0.00-0.90) K/UL Eos # (Auto) 0.22 (0.00-0.50) K/uL Baso # (Auto) 0.02 (0.00-0.30) K/uL Abs Immat Gran (auto) 0.01 (0.00-0.30) K/uL Imm/Tot Granulo (auto) 0.2 % INR 0.92 (0.91-1.10) Sodium 136 (135-149) mmol/L Potassium 4.3 (3.6-5.1) mmol/L Chloride 109 (96-114) mmol/L Carbon Dioxide 23 (20-32) mmol/L Anion Gap 4 L (7-15) mEq/L BUN 20 (7-30) mg/dL Creatinine 1.2 (0.5-1.5) mg/dL Estimated Creat Clear 59.99 Estimated GFR 65 ml/min Glucose 82 (60-115) mg/dL Lactate 1.3 (0.5-1.9) mmol/L Calcium 9.0 (8.4-10.6) mg/dL Total Bilirubin 0.2 (0.1-1.5) mg/dL AST 30 (12-35) U/L ALT 6 (4-50) U/L Alkaline Phosphatase 81 (40-150) U/L Troponin I < 0.01 (0.01-0.04) ng/mL Total Protein 6.1 (6.0-8.3) g/dL Albumin 3.3 (3.3-5.0) g/dL Lipase 198 (23-300) U/L Imaging Data Chest x-ray: Attestation: I have reviewed the pertinent imaging results. Radiologist's impression: IMPRESSION: No evidence of acute pulmonary process. CT scan - abdomen: Attestation: I have reviewed the pertinent imaging results. Radiologist's impression: IMPRESSION: 1. No acute abdominal or pelvic abnormality on this noncontrast examination. 2. Large colonic stool load, likely reflecting constipation. CT scan - head: Attestation: I have reviewed the pertinent imaging results. Radiologist's impression: IMPRESSION: 1. No acute intracranial abnormality. 2. Similar mild diffuse parenchymal volume loss and chronic small vessel ischemic changes. 3. Stable small arachnoid cyst at the right anterior middle cranial fossa. CTA head and neck: Attestation: I have reviewed the pertinent imaging results. Radiologist's impression: PRELIMINARY IMPRESSION: Evaluation limited by motion artifact, particularly at the skull base. CTA head: No sign of large vessel occlusion. 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 CTA neck: No sign of dissection. Patent left ICA stent with mild narrowing in the distal segment, unchanged. Mild narrowing of the right ICA origin, unchanged. Patent cervical vertebral arteries. ECG Data Attestation: I personally reviewed and interpreted this ECG as follows: Interpretation: Normal sinus with Rate 88 MN interval 146 Normal QRS axis. No ST segment elevation or depression QT 368, QTC 445 Discharge Plan Discharge Clinical Impression: Brain TIA, Acute hypotension Patient Disposition: Admitted As Observation
--- NOTE | 2025-03-18 20:57 | CRLHL7_ITS ---
For Patients: As a result of the Cures Act, medical imaging exams and procedure reports are released immediately into your electronic medical record. You may view this report before your referring provider. If you have questions, please contact your health care provider. INDICATION: Hypotension. TECHNIQUE: Chest 2 views. COMPARISON: 03/05/2025. FINDINGS: Cardiovascular and mediastinum: Cardiomediastinal silhouette is within normal limits. Lungs and pleural spaces: No consolidation. No pleural effusions or pneumothorax. Bones and soft tissues: No significant findings. IMPRESSION: No evidence of acute pulmonary process. Dictated by Attila Quezada MD @ 03/18/2025 9:26:03 PM (Electronically Signed)
--- NOTE | 2025-03-18 20:57 | CRLHL7_ITS ---
For Patients: As a result of the Century Cures Act, medical imaging exams and procedure reports are released immediately into your electronic medical record. You may view this report before your referring provider. If you have questions, please contact your health care provider. INDICATION: Acute stroke, left facial droop. TECHNIQUE: CTA head using intravenous contrast with bolus tracking, 3D angiographic rendering using maximum intensity projection (MIP) and images permanently archived. CTA neck using intravenous contrast with bolus tracking, 3D angiographic rendering using maximum intensity projection (MIP) and images permanently archived. Comparison: 03/05/2025, 01/12/2025. FINDINGS: CTA head: There is normal opacification of the intracranial vasculature. There is no large vessel occlusion or significant intracranial stenosis. A 5 millimeter ophthalmic left ICA aneurysm is again noted. CTA neck: There has been placement of left carotid stent. There is only mild residual stenosis at the distal aspect of the device, unchanged. There is atherosclerotic plaque at the origin of the right internal carotid artery resulting in a mild stenosis, less than 50 percent by NASCET. There is atherosclerotic plaque at the origin of the vertebral arteries. There is no significant vertebral artery stenosis or dissection. IMPRESSION: 1. Patent left carotid stent. 2. Mild right ICA origin stenosis, less than 50 percent by NASCET. 3. 5 millimeter ophthalmic left ICA aneurysm, unchanged. We would be happy to manage this at the [facility] neurointerventional clinic if desired. This can be arranged by calling our coordinator at [phone]. Rohan Gutierrez MD Neurointerventional Radiology [facility]: [phone] Please note that all CT scans at this facility use dose modulation, iterative reconstruction, and/or weight-based dosing when appropriate to reduce radiation dose to as low as reasonably achievable. Dictated by Rohan Gutierrez MD @ 03/18/2025 10:17:10 PM (Electronically Signed)
--- NOTE | 2025-03-18 20:57 | CRLHL7_ITS ---
For Patients: As a result of the Century Cures Act, medical imaging exams and procedure reports are released immediately into your electronic medical record. You may view this report before your referring provider. If you have questions, please contact your health care provider. INDICATION: Right upper quadrant abdominal pain. TECHNIQUE: CT abdomen and pelvis without contrast. COMPARISON: None. FINDINGS: Lower chest: Few linear parenchymal bands in the right middle lobe and inferior lingula, likely representing subsegmental atelectasis/scarring. Liver: Normal in size and attenuation. Gallbladder and bile ducts: No stones or inflammation. No biliary ductal dilatation. Spleen: Normal in size. Adrenal glands: Normal in size. No nodules. Pancreas: No inflammation. Kidneys: Subcentimeter foci are too small to accurately characterize. No stones or hydronephrosis. GI tract: Gastric postsurgical changes. Large colonic stool load. No evidence of obstruction. Normal appendix. Lymph nodes: No lymphadenopathy. Vasculature: Abdominal aorta is normal in caliber. Mild scattered atherosclerotic calcifications. Abdominal wall/Omentum/Peritoneum: Unremarkable. No free air or significant free fluid. Pelvis: Unremarkable. Bones: Degenerative changes. Decreased bone mineralization. IMPRESSION: 1. No acute abdominal or pelvic abnormality on this noncontrast examination. 2. Large colonic stool load, likely reflecting constipation. Please note that all CT scans at this facility use dose modulation, iterative reconstruction, and/or weight-based dosing when appropriate to reduce radiation dose to as low as reasonably achievable. Dictated by Attila Quezada MD @ 03/18/2025 9:38:28 PM (Electronically Signed)
--- NOTE | 2025-03-18 20:57 | CRLHL7_ITS ---
For Patients: As a result of the Century Cures Act, medical imaging exams and procedure reports are released immediately into your electronic medical record. You may view this report before your referring provider. If you have questions, please contact your health care provider. INDICATION: Acute stroke, left facial droop. TECHNIQUE: CTA head using intravenous contrast with bolus tracking, 3D angiographic rendering using maximum intensity projection (MIP) and images permanently archived. CTA neck using intravenous contrast with bolus tracking, 3D angiographic rendering using maximum intensity projection (MIP) and images permanently archived. Comparison: 03/05/2025, 01/12/2025. FINDINGS: CTA head: There is normal opacification of the intracranial vasculature. There is no large vessel occlusion or significant intracranial stenosis. A 5 millimeter ophthalmic left ICA aneurysm is again noted. CTA neck: There has been placement of left carotid stent. There is only mild residual stenosis at the distal aspect of the device, unchanged. There is atherosclerotic plaque at the origin of the right internal carotid artery resulting in a mild stenosis, less than 50 percent by NASCET. There is atherosclerotic plaque at the origin of the vertebral arteries. There is no significant vertebral artery stenosis or dissection. IMPRESSION: 1. Patent left carotid stent. 2. Mild right ICA origin stenosis, less than 50 percent by NASCET. 3. 5 millimeter ophthalmic left ICA aneurysm, unchanged. We would be happy to manage this at the [facility] neurointerventional clinic if desired. This can be arranged by calling our coordinator at [phone]. Rohan Gutierrez MD Neurointerventional Radiology [facility]: [phone] Please note that all CT scans at this facility use dose modulation, iterative reconstruction, and/or weight-based dosing when appropriate to reduce radiation dose to as low as reasonably achievable. Dictated by Rohan Gutierrez MD @ 03/18/2025 10:16:47 PM (Electronically Signed)
[2025-03-18 21:04] LABS: Lactate* 1.3 mmol/L (0.5-1.9)
--- OUTSIDE RECORDS SUMMARY | 2025-03-18 21:05 | XMS_ITS | Clinical Summary ---
Author Organization [facility] Address [address] , [address] [place] [address] Phone Care Team Providers Care [employer] Name Role Phone Contreras Vargas MD Unavailable Conditions or Problems Problem Name Problem Code Onset Date Status Entry Date Provider Comment Standard Description Annotate Parkinsonism , unspecified 95673061 (SNOMED CT) 05/20 Active 05/20 Aleta Restrepo Parkinsonism Schizoaffect dani disorder with depression 14197153 (SNOMED CT) 07/29 Active 07/29 Contreras Vargas MD Schizoaffective disorder Memory deficit 609450980 (SNOMED CT) 07/29 Active 07/29 Contreras Vargas MD Memory impairment Tremor, rest 64153146 (SNOMED CT) 07/29 Active 07/29 Contreras Vargas MD Resting tremor Parkinsonism 16679359 (SNOMED CT) 05/20 Inactive 05/20 Jose Eduardo Corcoran MD Parkinsonism Medications Medication Instructions Start Date Stop Date Generic Name [facility] Provider TAMSULOSIN HCL 0.4 MG CAPS 02/02 tamsulosin [id number] Fauzia Robbins DNP,INDUSTRIAL WELDER,CN P MAGNESIUM CITRATE 1.745 GM/30ML SOLN 02/02 magnesium citrate 79754393878 Fauzia Robbins DNP,INDUSTRIAL WELDER,CN P DEEP SEA NASAL SPRAY 0.65 % SOLN Administer 2 spray into both nostrils every six hours 02/02 sodium chloride 20157573703 Fauzia Robbins DNP,INDUSTRIAL WELDER,CN P LEVOTHYROXINE SODIUM 150 MCG TABS 02/02 levothyroxine 20749189212 Fauzia Robbins DNP,INDUSTRIAL WELDER,CN P QUETIAPINE FUMARATE 200 MG TABS Take 200 mg by mouth every night 02/02 quetiapine [id number] Fauzia Robbins DNP,INDUSTRIAL WELDER,CN P NICOTINE POLACRILEX [address] 1 by mouth every hour as needed 02/02 nicotine (polacrilex) [id number] Fauzia Robbins DNP,INDUSTRIAL WELDER,CN P haloperidol decanoate (HALDOL DECANOATE) 100 mg/mL intramusc Inject 75 mg intramuscularly every two weeks 02/02 HALDOL DECANOATE Fauzia Robbins DNP,INDUSTRIAL WELDER,CN P DIVALPROEX SODIUM ER 500 MG [id number] Take 2 Tablets (1,000 mg) by mouth at bedtime. 02/02 divalproex [id number] [facility],INDUSTRIAL WELDER,CN P HALOPERIDOL DECANOATE 50 MG/ML SOLN 02/02 haloperidol decanoate 65247263281 Fauzia Robbins DNP,INDUSTRIAL WELDER,CN P BENZTROPINE MESYLATE 0.5 MG TABS Take 0.5 mg by mouth twice a day 02/02 benztropine 64136026710 [facility] PATRICIA,INDUSTRIAL WELDER,CN P HALOPERIDOL 5 MG TABS Take 5 mg by mouth every four hours as needed 02/02 haloperidol 38803496340 [facility] PATRICIA,INDUSTRIAL WELDER,CN P IBUPROFEN (IBUPROFEN) 600 MG TABS Take 1 tablet by mouth every eight hours as needed 02/02 IBUPROFEN [facility]zia [facility] PATRICIA,INDUSTRIAL WELDER,CN P CLONAZEPAM 0.5 MG TABS Take 1 tablet by mouth once a day as needed 02/02 clonazepam 28376872246 Fauzia Robbins DNP,INDUSTRIAL WELDER,CN P CLONAZEPAM 0.5 MG TABS 02/02 clonazepam 86483948070 Fauzia Robbins DNP,INDUSTRIAL WELDER,CN P SYMBICORT 80-4.5 MCG/ACT AERO 02/02 budesonide-form oterol 41959986071 Fauzia Rechtzigel DNP,INDUSTRIAL WELDER,CN P ACETAMINOPHEN 500 MG TABS Take 2 Tablets (1,000 mg) by mouth every 6 hours if needed for Pain. Max acetaminophen dose: 4000mg in 24 hrs. 02/02 acetaminophen 06117817693 Fauzia Rechtzigel DNP,INDUSTRIAL WELDER,CN P ASPIRIN LOW DOSE 81 MG [facility] aspirin 25851806059 Fauzia Rechigel DNP,INDUSTRIAL WELDER,CN P DEEP SEA NASAL SPRAY 0.65 % SOLN sodium chloride 48853792581 A keisha Rechtzigel DNP,INDUSTRIAL WELDER,CN P CLONAZEPAM 1 MG TABS clonazepam 24276786403 [facility],INDUSTRIAL WELDER,CN P CLOPIDOGREL BISULFATE 75 MG TABS clopidogrel 90938514076 [facility],INDUSTRIAL WELDER,CN P DIVALPROEX SODIUM ER 250 MG [id number] divalproex 66381720427 [facility],INDUSTRIAL WELDER,CN P QUETIAPINE FUMARATE 150 MG TABS quetiapine 40324553864 [facility],INDUSTRIAL WELDER,CN P OLANZAPINE 5 MG TABS olanzapine 50681610862 [facility],INDUSTRIAL WELDER,CN P SENNA 8.6 MG TABS sennosides 14751552514 [facility],INDUSTRIAL WELDER,CN P ROSUVASTATIN CALCIUM 40 MG TABS rosuvastatin 60306803026 [facility],INDUSTRIAL WELDER,CN P FAMOTIDINE 20 MG TABS Take 1 tablet by mouth once a day famotidine 33773941693 Contreras Vargas MD MELATONIN 3 MG TABS Take 1 tablet by mouth every night melatonin 79108023866 Contreras Vargas MD QUETIAPINE FUMARATE 200 MG TABS Take 200 mg by mouth every night 02/02 quetiapine 23901300111 Contreras Vargas MD ESCITALOPRAM OXALATE 10 MG TABS Take 10 mg by mouth once a day escitalopram oxalate 86207560975 Contreras Vargas MD ALBUTEROL SULFATE (2.5 MG/3ML) 0.083% NEBU Inhale 1 ampul by mouth twice a day albuterol sulfate 40085045334 Contreras Vargas MD Multivits,Ca,Mine [id number] (High Potency Multivit, w-iron Take 1 tablet by mouth once a day High Potency Multivit, w-iron Contreras Vargas MD IBUPROFEN (IBUPROFEN) 600 MG TABS Take 1 tablet by mouth every eight hours as needed 02/02 IBUPROFEN Contreras Vargas MD TAMSULOSIN HCL 0.4 MG CAPS Take 1 capsule by mouth once a day tamsulosin 99625005575 Contreras Vargas MD AMLODIPINE BESYLATE 10 MG TABS 07/29 amlodipine 51817263546 Contreras Vargas MD SENNOSIDES-DOCUSA TE SODIUM 8.6-50 MG TABS Take 1 tablet by mouth twice a day 07/29 sennosides-docu sate sodium 99693524944 Contreras Vargas MD fluticasone propion-salmetero L (Advair Diskus) 250-50 mcg/Do Inhale 1 puff by mouth twice a day Advair Diskus Contreras Vargas MD GAVILAX 17 GM/SCOOP POWD 07/29 polyethylene glycol 3350 87507164647 Contreras Vargas MD PEG 3350 17 GM/SCOOP POWD Take 1 by mouth once a day as needed polyethylene glycol 3350 53324482379 Contreras Vargas MD PROPRANOLOL HCL 20 MG TABS Take 1 tablet by mouth three times a day propranolol 38336482346 Contreras Vargas MD HALOPERIDOL 5 MG TABS Take 5 mg by mouth every four hours as needed 02/02 haloperidol 35378872260 Contreras Vargas MD cholecalciferol (VITAMIN D3) 1,000 unit tablet Take 1 tablet by mouth once a day VITAMIN D3 Contreras Vargas MD Nebulizer Inhale 07/29 Nebulizer Contreras Vargas MD QUETIAPINE FUMARATE 300 MG TABS 07/29 quetiapine 27116936379 Contreras Vargas MD CARBIDOPA-LEVODOP A 25-100 MG TABS Take 1 tablet by mouth three times a day carbidopa-levod opa 57654735734 Contreras Vargas MD NICOTINE POLACRILEX [address] 1 by mouth every hour as needed 02/02 nicotine (polacrilex) 57410739642 Contreras Vargas MD BENZTROPINE MESYLATE 0.5 MG TABS Take 0.5 mg by mouth twice a day 02/02 benztropine 00484810481 Contreras Vargas MD DEEP SEA NASAL SPRAY 0.65 % SOLN Administer 2 spray into both nostrils every six hours 02/02 sodium chloride 98175320753 Contreras Vargas MD NICOTINE 7 MG/24HR PT24 07/29 nicotine 49742348888 Contreras Vargas MD PROPRANOLOL HCL 20 MG TABS 07/29 propranolol 63324073102 Contreras Vargas MD SENEXON-S 8.6-50 MG TABS 07/29 sennosides-docu sate sodium 78219194131 Contreras Vargas MD LEVOTHYROXINE SODIUM 150 MCG TABS Take 1 tablet by mouth every morning levothyroxine 81484455706 Contreras Vargas MD CLONAZEPAM 0.5 MG TABS Take 1 tablet by mouth once a day as needed 02/02 clonazepam 59597753345 Conrteras Vargas MD ASPIRIN LOW DOSE 81 MG TBEC 07/29 aspirin 19376338954 Contreras Vargas MD haloperidol decanoate (HALDOL DECANOATE) 100 mg/mL intramusc Inject 75 mg intramuscularly every two weeks 02/02 HALDOL DECANOATE Contreras Vargas MD TAMSULOSIN HCL 0.4 MG CAPS TAKE 1 CAPSULE BY MOUTH DAILY 30 MINUTES AFTER THE SAME MEAL EACH DAY *SWALLOW WHOLE* 07/29 tamsulosin 47111498913 QIEUSER QIEUSER DEEP SEA NASAL SPRAY 0.65 % SOLN ADMINISTER 2 SPRAYS IN AFFECTED NOSTRIL(S) EVERY 6 HOURS 07/29 sodium chloride 32420864846 QIEUSER QIEUSER SENNOSIDES-DOCUSA TE SODIUM 8.6-50 MG TABS TAKE 1 TABLET BY MOUTH TWICE DAILY 07/29 sennosides-docu sate sodium 43342193307 QIEUSER QIEUSER QUETIAPINE FUMARATE 200 MG TABS Take 200 mg by mouth at bedtime. 07/29 quetiapine 72786240815 QIEUSER QIEUSER PEG 3350 17 GM/SCOOP POWD Take 1 scoop (17 g) by mouth or nasogastric tube once daily if needed for Constipation. 07/29 polyethylene glycol 3350 38896167328 QIEUSER QIEUSER NICOTINE POLACRILEX [address] 1 Lozenge (2 mg) in mouth, between cheek & gum every hour while awake as needed for Nicotine Craving. 11/27 nicotine (polacrilex) 70786358914 QIEUSER QIEUSER Nebulizer Nebulizer, disposable neb kit x 4, reuseable neb kit x 1, mask x 1, filters x 1. Frequency of use: daily; Medication: albuterol Length of need: 99 months 07/29 Nebulizer QIEUSER QIEUSER Multivits,Ca,Mine otiz-Lzln-KA (High Potency Multivit, w-iron Take 1 Tablet by mouth once daily. 07/29 High Potency Multivit, w-iron QIEUSER QIEUSER MELATONIN 3 MG TABS Take 1 Tablet (3 mg) by mouth at bedtime. 07/29 melatonin 57565848727 QIEUSER QIEUSER IBUPROFEN (IBUPROFEN) 600 MG TABS TAKE 1 TABLET BY MOUTH EVERY 8 HOURS NEEDED FOR PAIN OR TEMP >101.5F (38.6C) 07/29 IBUPROFEN QIEUSER QIEUSER haloperidol decanoate (HALDOL DECANOATE) 100 mg/mL intramusc Inject 75 mg intramuscular every 2 weeks. 07/29 HALDOL DECANOATE QIEUSER QIEUSER HALOPERIDOL 5 MG TABS Take 5 mg by mouth every 4 hours if needed for Agitation. 07/29 haloperidol 38177546040 QIEUSER QIEUSER fluticasone propion-salmetero L (Advair Diskus) 250-50 mcg/Do INHALE 1 PUFF BY MOUTH TWICE DAILY --RINSE MOUTH AFTER USE-- 07/29 Advair Diskus QIEUSER QIEUSER FAMOTIDINE 20 MG TABS Take 1 Tablet (20 mg) by mouth once daily. 07/29 famotidine 88917610583 QIEUSER QIEUSER ESCITALOPRAM OXALATE 10 MG TABS Take 10 mg by mouth once daily. 07/29 escitalopram oxalate 40459893054 QIEUSER QIEUSER cholecalciferol (VITAMIN D3) 1,000 unit tablet Take 1 Tablet (1,000 units) by mouth once daily. 07/29 VITAMIN D3 QIEUSER QIEUSER CARBIDOPA-LEVODOP A 25-100 MG TABS Take 1 Tablet by mouth three times daily. 11/27 carbidopa-levod opa 99793947810 QIEUSER QIEUSER BENZTROPINE MESYLATE 0.5 MG TABS Take 0.5 mg by mouth two times daily. 07/29 benztropine 12472981364 QIEUSER QIEUSER ALBUTEROL SULFATE (2.5 MG/3ML) 0.083% NEBU INHALE 1 AMPULE BY MOUTH VIA NEBULIZER TWICE DAILY 07/29 albuterol sulfate 71828112510 QIEUSER QIEUSER ACETAMINOPHEN 500 MG TABS Take 2 Tablets (1,000 mg) by mouth every 6 hours if needed for Pain. Max acetaminophen dose: 4000mg in 24 hrs. 02/02 acetaminophen 51826998443 QIEUSER QIEUSER PROPRANOLOL HCL 20 MG TABS Take 1 Tablet (20 mg) by mouth 2 times daily. AM and at bedtime. 11/27 propranolol 47619586570 QIEUSER QIEUSER LEVOTHYROXINE SODIUM 150 MCG TABS Take 1 Tablet (150 mcg) by mouth before breakfast. 07/29 levothyroxine 54631347693 QIEUSER QIEUSER DIVALPROEX SODIUM ER 500 MG [id number] Take 2 Tablets (1,000 mg) by mouth at bedtime. 02/02 divalproex 95367341371 QIEUSER QIEUSER CLONAZEPAM 0.5 MG TABS Take 1 Tablet (0.5 mg) by mouth once daily if needed for Anxiety. 11/27 clonazepam 96617879556 QIEUSER QIEUSER TAMSULOSIN HCL 0.4 MG CAPS 02/02 tamsulosin 58607662056 Jose Eduardo Corcoran MD NICOTINE 7 MG/24HR PT24 07/29 nicotine 99420806694 Jose Eduardo Corcoran MD ASPIRIN EC 81 MG TBEC 10/23 aspirin 58781601795 Jose Eduardo Corcoran MD PROPRANOLOL HCL 20 MG TABS 11/27 propranolol 10931985408 Jose Eduardo Corcoran MD CLONAZEPAM 0.5 MG TABS 02/02 clonazepam 44199506442 Jose Eduardo Corcoran MD ACETAMINOPHEN 325 MG TABS acetaminophen 26939183565 Jose Eduardo Corcoran MD ALBUTEROL SULFATE HFA 108 (90 Base) MCG/ACT AERS albuterol sulfate 53871250587 Jose Eduardo Corcoran MD DIVALPROEX SODIUM ER 500 MG [id number] divalproex 09729481958 Jose Eduardo Corcoran MD AMLODIPINE BESYLATE 10 MG TABS 11/27 amlodipine 81439580804 Jose Eduardo Corcoran MD QUETIAPINE FUMARATE 300 MG TABS 07/29 quetiapine 08151291977 Jose Eduardo Corcoran MD SENEXON-S 8.6-50 MG TABS 07/29 sennosides-docu sate sodium 52370401538 Jose Eduardo Corcoran MD GAVILAX 17 GM/SCOOP POWD 07/29 polyethylene glycol 3350 02207259437 Jose Eduardo Corcoran MD SYMBICORT 80-4.5 MCG/ACT AERO 02/02 budesonide-form oterol 99324283064 Jose Edurado Corcoran MD HALOPERIDOL DECANOATE 50 MG/ML SOLN 02/02 haloperidol decanoate 84920382845 Jose Eduardo Corcoran MD MAGNESIUM CITRATE 1.745 GM/30ML SOLN 02/02 magnesium citrate 38339184873 Jose Eduardo Corcoran MD LEVOTHYROXINE SODIUM 150 MCG TABS 02/02 levothyroxine 74865196751 Jose Eduardo Corcoran MD Medications Administered No [...] Yes Consent To Release information to the [employer] ([employer]) Office Visit: Office Visit f ax MEDS [...] with Neurologist or [facility] ORDERS [facility] Scan [facility]-[id number] Documentation of current medicatio ns ORDERS Follow up RISSA after testing [id number] Other Radiology Vital Signs Date Name Value [...]
[2025-03-18 21:27] LABS: Hematocrit* 31.3 % (37.0-53.0); Hemoglobin* 9.9 gm/dL (13.5-17.5); Immature Granulocytes Abs Auto 0.01 K/uL (0.00-0.30); Immature Granulocytes Pct Auto 0.2 %; Mean Corpuscular HGB Conc 32 gm/dL (32-36); Mean Corpuscular Hemoglobin 30 pg (26-34); Mean Corpuscular Volume 94 fL (80-100); RDW Coefficient of Variation % 13.6 % (11.5-15.5); Red Blood Count* 3.34 m/uL (4.30-5.90); White Blood Count* 5.55 K/uL (4.50-11.00)
[2025-03-18 21:29] LABS: Albumin* 3.3 g/dL (3.3-5.0); Chloride* 109 mmol/L (96-114); Potassium* 4.3 mmol/L (3.6-5.1); Sodium* 136 mmol/L (135-149)
[2025-03-18 21:31] LABS: Lymphocytes Absolute Auto 1.00 K/uL (0.90-2.90); Slide Review Reflex No
[2025-03-18 21:32] LABS: Alanine Aminotransferase* 6 U/L (4-50); Alkaline Phosphatase* 81 U/L (40-150); Anion Gap 4 mEq/L (7-15); Aspartate Amino Transferase* 30 U/L (12-35); Bilirubin Total* 0.2 mg/dL (0.1-1.5); Blood Urea Nitrogen* 20 mg/dL (7-30); Calcium* 9.0 mg/dL (8.4-10.6); Carbon Dioxide* 23 mmol/L (20-32); Creatinine* 1.2 mg/dL (0.5-1.5); Est. Creatinine Clearance* 59.99; Estimated Glomerular Filt Rate 65 ml/min; Glucose* 82 mg/dL (60-115); Total Protein* 6.1 g/dL (6.0-8.3)
[2025-03-18 21:42] LABS: INR 0.92 (0.91-1.10); Prothrombin Time 13.1 Seconds
--- NOTE | 2025-03-18 23:38 | PM.IMHP1 ---
Assessment and Plan Assessment and plan (1) Weakness on left side of face: Problem comment: Transient Status: Acute (2) Left arm weakness: Problem comment: Transient Status: Acute (3) Acute hypotension: Problem comment: Etiology not yet determined. Concern about this being a manifestation of evolving dysautonomia in association with known parkinsonism. It is postulated that the acute hypotension begat the transient left facial and left arm weakness plus confusion. Status: Acute (4) Parkinsonism: Problem comment: Longstanding and being treated Status: Acute (5) Carotid artery disease: Status: Acute (6) Tobacco dependence: Status: Acute (7) Hyperlipidemia: Status: Acute (8) Hypothyroidism: Status: Acute (9) Schizoaffective disorder, bipolar type: Status: Acute Plan 1. Admit for observation with monitoring of vital signs including orthostatic blood pressures and pulses. Recheck MRI of the brain tomorrow morning. Reconsult with stroke neuro. 2. Reviewed impression, plans, recommendations with patient. 3. Answered his questions to satisfaction. 4. He is agreeable with above stated plans and recommendations. Total Time Spent Total Time Spent: 65 minutes Hospitalist- H&P: HPI History of Present Illness Date Seen: 03/18/25 Chief complaint: transient left weakness, facial droop, hypotension Narrative: Scooby Greer is a 69 year old man with cerebral atherosclerosis and history of symptomatic left carotid artery stenosis who underwent a carotid endarterectomy late December 2024 presents today with sudden onset left facial droop, left arm weakness, confusion, hypotension with blood pressure as low as 70/40. He resides at [facility]. They summoned EMS who also confirmed the same signs and symptoms including the hypotension. They promptly brought him to the emergency department, where upon arrival to the emergency department his signs and symptoms had all resolved including the hypotension. Total duration of symptoms roughly 30 minutes. Assessment in the emergency department today included CT scan of the head, CT angiogram of the head and neck. No new findings. Consultation undertaken with stroke neurology from [facility] via telehealth, Dr. Martinez. On assessing the situation including prior presentations in the past 2-3 months, Dr. Martinez recommended patient be admitted for close monitoring of vitals due to concern of possible evolving dysautonomia which may be driving some of these episodes. Patient known to have parkinsonism is treated with carbidopa levodopa. Dr. Martinez recommended MRI of the head tomorrow morning if at all possible and stroke neurology will re-consult tomorrow. Do consideration may need to be given to the possibility of adjusting medications and possibly adding midodrine verses Florinef. Roughly 2 weeks ago he was in the hospital with a similar transient presentation. Thorough assessment undertaken. Patient remained asymptomatic throughout his entire hospital stay after his initial presentation as specified above. Stroke Neurology again consulted with patient on morning of discharge and made no recommendations for additional changes or adjustments. Neurologist agreed with plan to discharge back to his living situation with outpatient follow-up as needed. Review of Systems Status of ROS: Reports: 6 or more systems reviewed and unremarkable except as noted in History and below Narrative: He tells me he has not been smoking for 2 years. He started smoking again 2 weeks ago. He was outside for a smoke when this episode occurred at this time. Quit drinking alcohol 2 years ago. Has not resumed this. No recent trauma, injury, travel. No recent blood loss of any sort. No major illness of any sort. Medical Decision Making Medical Decision Making Code Status: DNR DNI resuscitation status During This Stay, Who Would You Like To Make Decisions For You In The Event You Are Unable To Make Them For Yourself?: He has a guardian. [facility] Medical History Tobacco dependence ?F17.200 - Nicotine dependence, unspecified, uncomplicated (ICD-10) Hypothyroidism ?E03.9 - Hypothyroidism, unspecified (ICD-10) Hyperlipidemia ?E78.5 - Hyperlipidemia, unspecified (ICD-10) Carotid artery disease ?I77.9 - Disorder of arteries and arterioles, unspecified (ICD-10) Brain TIA ?G45.9 - Transient cerebral ischemic attack, unspecified (ICD-10) History of alcohol abuse ?F10.11 - Alcohol abuse, in remission (ICD-10) Schizoaffective disorder, bipolar type ?F25.0 - Schizoaffective disorder, bipolar type (ICD-10) Psychotic disorder ?F29 - Unspecified psychosis not due to a substance or known physiological condition (ICD-10) Manic depression ?F31.9 - Bipolar disorder, unspecified (ICD-10) CAD (coronary artery disease) ?I25.10 - Atherosclerotic heart disease of [place] coronary artery without angina pectoris (ICD-10) Social History What is your current living situation?: I presently have a place to live Problems where you live: no known problems In the past 12 months, utilities in danger of being shut off: no In past 12 months, lack of transportation kept you from medical appts, meetings, work, or getting things needed for daily living: no In the past 12 mos, have been you worried that your food would run out before you had money to buy more?: never true In the past 12 mos, the food you bought just didn't last and you didn't have money to buy more?: never true Highest level of school completed/degree received: Associate degree: occupational, technical, vocational program Smoking Status: Current every day smoker What tobacco products do you use: cigarettes Do you use any of these nicotine containing products: None Second hand tobacco smoke exposure: No How often do you have a drink containing alcohol: never How often do you have six or more drinks on one occasion: Never AUDIT-C Alcohol total score: 0 Non-prescribed substance use: denies use How often does anyone, including family, friends and others, physically hurt you: never How often does anyone, including family, friends and others, insult or talk down to you: never How often does anyone, including family, friends and others, threaten you with harm: never How often does anyone, including family, friends and others, scream or curse at you: never service: No Meds Home Medications and Allergies Home Medications ?Medication ?Instructions ?Recorded ?Confirmed ?Type clonazepam 0.5 mg tablet 1 mg PO HS PRN 12/20/21 03/06/25 History divalproex 250 mg tablet,extended 250 mg PO HS 12/20/21 03/06/25 History release 24 hr divalproex 500 mg tablet,extended 1,000 mg PO HS 12/20/21 03/06/25 History release 24 hr levothyroxine 150 mcg tablet 150 mcg PO DAILY 12/20/21 03/06/25 History propranolol 20 mg tablet 20 mg PO BID 12/20/21 03/06/25 History tamsulosin 0.4 mg capsule 0.4 mg PO DAILY 12/20/21 03/06/25 History carbidopa 25 mg-levodopa 100 mg 1 tab PO 3XD 08/21/22 03/06/25 History tablet escitalopram oxalate 10 mg tablet 10 mg PO DAILY 08/21/22 03/06/25 History haloperidol decanoate 100 mg/mL mg IM 08/21/22 04/24/23 History intramuscular solution nicotine (polacrilex) 2 mg buccal 2 mg PO Q1H PRN 08/21/22 03/06/25 History lozenge nicotine 14 mg/24 hr daily 1 patch topical DAILY 08/21/22 04/24/23 History transdermal patch polyethylene glycol 3350 17 17 g PO BID 08/21/22 03/06/25 History gram/dose oral powder (Gavilax) clopidogrel 75 mg tablet 75 mg PO DAILY 03/01/25 03/06/25 History famotidine 20 mg tablet 20 mg PO DAILY 03/01/25 03/06/25 History ferrous sulfate 325 mg (65 mg 325 mg PO DAILY 03/01/25 03/06/25 History iron) tablet (FeroSul) fluticasone 250 mcg-salmeterol 50 1 ea inhalation BID 03/01/25 03/06/25 History mcg/dose blistr powdr for inhalation melatonin 3 mg capsule 3 mg PO QHS 03/01/25 03/06/25 History olanzapine 5 mg tablet 5 mg PO QPM 03/01/25 03/06/25 History rosuvastatin 40 mg tablet 40 mg PO HS 03/01/25 03/06/25 History sennosides 8.6 mg tablet (senna) 17.2 mg PO DAILY 03/01/25 03/06/25 History aspirin 81 mg chewable tablet 1 tab PO DAILY 03/06/25 03/06/25 History cholecalciferol (vitamin D3) 25 25 mcg PO DAILY 03/06/25 03/06/25 History mcg (1,000 unit) tablet (Vitamin D3) quetiapine 150 mg tablet 450 mg PO HS 03/06/25 03/06/25 History Allergies Allergy/AdvReac Type Severity Reaction Status Date / Time haloperidol AdvReac Unknown Verified 03/18/25 21:24 clozapine AdvReac Verified 03/18/25 21:24 Exam Narrative: Exam Narrative: I examined patient in his hospital room. He is awake and talkative. Speaks tangentially. Easily brought back to topic of conversation. Cooperative and friendly. Speech is somewhat slurred which he indicates is because of his teeth and not having his dentures in place. No focal motor neurologic deficits upper and lower extremities. No facial droop, upper or lower extremity weakness, confusion. No hypotension or bradycardia or tachycardia. Lungs clear to auscultation. Heart tones with regular rhythm. Abdomen benign. Const: Vital Signs, click to edit/add: Vital Signs - 24 hr 03/18/25 20:42 03/18/25 20:47 03/18/25 20:57 Temperature 97.9 F Pulse Rate 82 89 Pulse Rate [Pulse Oximeter] 80 Respiratory Rate 18 16 14 Blood Pressure 114/70 135/81 Blood Pressure [Ri ght Upper Arm] 121/74 Pulse Oximetry 99 100 98 Oxygen Delivery Me thod Room Air 03/18/25 21:19 03/18/25 21:20 03/18/25 21:32 Temperature Pulse Rate 82 82 82 Pulse Rate [Pulse Oximeter] Respiratory Rate 17 14 12 Blood Pressure 147/75 H 131/66 Blood Pressure [Ri ght Upper Arm] Pulse Oximetry 95 98 97 Oxygen Delivery Me thod 03/18/25 21:47 03/18/25 21:52 03/18/25 22:02 Temperature Pulse Rate 76 80 74 Pulse Rate [Pulse Oximeter] Respiratory Rate 12 12 12 Blood Pressure 102/53 L 118/65 103/50 L Blood Pressure [Ri ght Upper Arm] Pulse Oximetry 97 99 97 Oxygen Delivery Me thod 03/18/25 22:15 03/18/25 22:17 03/18/25 22:32 Temperature Pulse Rate 72 73 72 Pulse Rate [Pulse Oximeter] Respiratory Rate 13 12 11 L Blood Pressure 101/50 L 108/54 L Blood Pressure [Ri ght Upper Arm] Pulse Oximetry 96 96 97 Oxygen Delivery Me thod 03/18/25 22:33 03/18/25 22:48 Temperature Pulse Rate 72 76 Pulse Rate [Pulse Oximeter] Respiratory Rate 12 12 Blood Pressure 140/74 H Blood Pressure [Ri ght Upper Arm] Pulse Oximetry 97 99 Oxygen Delivery Me thod Hospitalist - H&P: Result Labs Labs: Short CBC 03/18/25 Range/Units 20:44 WBC 5.55 (4.50-11.00) K/uL Hgb 9.9 L (13.5-17.5) gm/dL Hct 31.3 L (37.0-53.0) % Plt Count 184 (140-440) K/uL BMP 03/18/25 20:44 Sodium 136 Potassium 4.3 Chloride 109 Carbon Dioxide 23 BUN 20 Creatinine 1.2 Glucose 82 Calcium 9.0 Cardiac Enzymes 03/18/25 Range/Units 20:44 Troponin I < 0.01 (0.01-0.04) ng/mL Liver Function 03/18/25 Range/Units 20:44 Total Bilirubin 0.2 (0.1-1.5) mg/dL AST 30 (12-35) U/L ALT 6 (4-50) U/L Alkaline Phosphatase 81 (40-150) U/L Albumin 3.3 (3.3-5.0) g/dL ECG Attestation: I personally reviewed and interpreted this ECG as follows: ECG interpretation date: 03/18/25 Interpretation: Normal sinus rhythm. Imaging CT scan - head: Attestation: I have reviewed the pertinent imaging results. Radiologist's impression: No acute intracranial abnormalities. CT angiogram of head and neck: Attestation: I have reviewed the pertinent imaging results. Radiologist's impression: CTA head: There is normal opacification of the intracranial vasculature. There is no large vessel occlusion or significant intracranial stenosis. A 5 millimeter ophthalmic left ICA aneurysm is again noted. CTA neck: There has been placement of left carotid stent. There is only mild residual stenosis at the distal aspect of the device, unchanged. There is atherosclerotic plaque at the origin of the right internal carotid artery resulting in a mild stenosis, less than 50 percent by NASCET. There is atherosclerotic plaque at the origin of the vertebral arteries. There is no significant vertebral artery stenosis or dissection. IMPRESSION: 1. Patent left carotid stent. 2. Mild right ICA origin stenosis, less than 50 percent by NASCET. 3. 5 millimeter ophthalmic left ICA aneurysm, unchanged. We would be happy to manage this at the [facility] neurointerventional clinic if desired. This can be arranged by calling our coordinator at [phone].
[2025-03-19] VITALS (8 sets, daily range): BP systolic 99–150; BP diastolic 65–93; PULSE 71–99; RESP 14–20; TEMP 35.9–36.8; O2SAT 97–99
[2025-03-19] MEDS: MELATONIN 3 MG TABLET PO (01:01)
[2025-03-19] MEDS: CARBIDOPA-LEVODOPA 25-100 TABLET 1 TAB PO ×3 (01:01→14:03)
[2025-03-19 02:56] LABS: Ethanol* < 0.01 % (0.01-0.03)
[2025-03-19 03:42] LABS: Appearance Urine Clear (Clear)
--- NOTE | 2025-03-19 06:00 | CRLHL7_ITS ---
For Patients: As a result of the Century Cures Act, medical imaging exams and procedure reports are released immediately into your electronic medical record. You may view this report before your referring provider. If you have questions, please contact your health care provider. Indication: Transient left-sided weakness and hypotension Technique: Multiplanar, multisequence MR images of the brain were obtained without the administration of IV contrast. Comparison: CT head March 18, 2025 Findings: On midline sagittal T1 images there are preserved flow voids within the sagittal sinuses. The corpus callosum is preserved in signal and contour. The pituitary gland is unremarkable without evidence of remodeling of the sella turcica. There is no significant cerebellar tonsillar ectopia. On diffusion-weighted sequences, there is extensive Limited evaluation due to motion artifact seen throughout. No large, obvious focus of diffusion restriction is identified. On blood sensitive sequences, no obvious hemorrhage is appreciated with somewhat limited evaluation due to extensive motion artifact. There is global cortical atrophy with sulcal widening and ex vacuo dilatation of the lateral ventricles. There is moderate to severe chronic small vessel disease change within the subcortical and periventricular white matter with old lacunar changes of the basal ganglia. The remaining brain parenchyma is grossly preserved in signal intensity. Redemonstration of arachnoid cystic changes of the anterior aspect of the middle cranial fossa. The flow voids at the skull base are unremarkable. The orbits and their contents are within normal limits. The paranasal sinuses are clear. There is fluid seen within the left mastoid air cells. Impression: 1. Overall partially nondiagnostic diffusion-weighted sequences due to extensive motion artifact. No obvious territorial infarcts are appreciated. Subtle lacunar infarcts may be obscured. 2. Otherwise, moderate age-related, chronic small-vessel disease and remote ischemic changes of the brain without no acute intracranial abnormality. Dictated by Rolando Messer MD @ 03/19/2025 1:40:11 PM (Electronically Signed)
[2025-03-19] MEDS: LEVOTHYROXINE 75 MCG TABLET 150 MCG PO (06:24)
--- NOTE | 2025-03-19 07:00 | PC.NURSE ---
End of shift:?Pt pleasant,?alert?and oriented?to self?and situation, though not place.??Upon arrival, pt had a left sided facial droop, throughout shift this improved. Speech is still garbled/delayed.?Strength improved throughout shift, pt now able to?walk to bathroom with 1a, walker and gait belt.?Denies pain.?Tele reads?NSR.?Pt in bed, appears to be resting call?light?within reach and alarms on.?
[2025-03-19] MEDS: ALBUTEROL SULFATE 2.5 MG/3 ML VIAL.NEB NEB (09:25)
[2025-03-19] MEDS: ASPIRIN 81 MG TAB.CHEW PO (09:25)
[2025-03-19] MEDS: CLOPIDOGREL 75 MG TABLET PO (09:26)
[2025-03-19] MEDS: PROPRANOLOL 20 MG TABLET PO (09:26)
[2025-03-19] MEDS: FAMOTIDINE 20 MG TABLET PO (09:26)
[2025-03-19] MEDS: TAMSULOSIN HCL 0.4 MG CAPSULE PO (09:26)
[2025-03-19] MEDS: ESCITALOPRAM 10 MG TABLET PO (09:26)
[2025-03-19] MEDS: SODIUM CHLORIDE 0.9 % (FLUSH) 10 ML SYRINGE 5 ML IVF (09:27)
--- NOTE | 2025-03-19 10:29 | PC.SOCIAL ---
Discharge planning: asbestos hazard abatement worker left a message with [facility] at phone number #[phone] requesting a call back in regard to discharge planning. Social work to follow-up as needed.
--- NOTE | 2025-03-19 11:32 | PC.SOCIAL ---
Addendum entered by DEEDEE Ceballos 03/19/25 12:27: Discharge planning: shellfish bed worker completed the baseline assessment with SUNNY Ribera from [facility] #[phone]. See the below answers... Patient's baseline prior to hospitalization assessment 1. How does patient transfer/ambulate? Two wheeled walker. Transfers on his own. 2. Who administers patient?s medication? [facility] staff. Pharmacy providing medications? [facility]. 3. Does patient use oxygen?? No. 4. Patient?s diet at facility? Regular. ??? - Does patient need assistance with eating? No. 5. What assistance does the facility staff provide to patient? Meals, medication, supervision. 6. Does patient have any behaviors hospital staff need to be aware of? Pt has been receiving ECT therapy. He has not been able to do it for sometime because ECT therapy is not allowed to be completed for six weeks after having a stroke. Pt had a recent mini stroke not that long ago. Pt is scheduled to have ECT treatment on Saturday of next week, so [facility] needs to know if he did indeed have a stroke or not with this hospitalization. An MRI needs to be completed to confirm if the pt had a stroke or not. 7. Any cognitive impairments? Mental Status? See above information for question #6. The nurse at [facility] states that when the pt does not have his ECT treatments he acts like a completely different person then when he is having his ECT treatments. SUNNY Ribera at [facility] states that when the pt is not getting ECT it seems as though he almost has Dimentia like behaviors and no filter when he is talking. 8. Any additional information to help hospital staff successfully care for patient? See above information in question #7. 9. Does patient have a health care directive, POLST, or guardian? Yes. Pt's bother Willy and his mAie are POA. They are aware he is in the hospital. 10. Are there any outside providers involved in patient?s care (PT, Home Care, Hospice)? [facility] #[phone]. 11. Is patient?s bed held? SENIOR CARE, no bed hold needed. ? - Can patient return to the facility (including a weekend return)? Yes, as long as the pt is back to baseline functioning. If there are med changes, SUNNY Ribera at [facility] would like to be notified. 12. How does patient normally transport? [facility] staff or [id number]. 13. Primary contacts name and phone number for care facility: SUNNY Ribera #[phone]. [facility] facility number #[phone]. [facility] fax number #[phone]. Social work to follow-up as needed. Original Note: Discharge planning: shellfish bed worker met with pt who confirms that he lives at [facility] in [place]. shellfish bed worker also spoke to Sharon who is the Training And Development Officer of [facility] and she stated that the pt has a disease case manager through [facility] named Leelee Darian #[phone](Sharon shared that she is most likely not aware that the pt is in the hospital as they have not called her to notify her). Sharon states that the pt's brother, Willy and his Marion are the pt's POA. Sharon also shared that the pt is on a Mental Health Commitment(she was not sure if it was still in place) for needing to do ECT treatment and not following through with it. Sharon also gave this worker the number of the nurse at [facility], Mounika #[phone] to call about more clinical questions. Mounika works remotely on Fridays. shellfish bed worker will call Mounika, as well. Social work to follow-up as needed.
[2025-03-19] MEDS: ACETAMINOPHEN 325 MG TABLET 650 MG PO (11:49)
--- NOTE | 2025-03-19 14:20 | PM.DS1 ---
DS: Providers Provider Date Seen: 03/19/25 Date of admission: 03/18/25 22:54 Primary care physician: Rex Connor MD Admitting Clinician: Uriel Nassar MD Consults: 03/18/25 23:51 Consult to Occupational Therapy [CONS] Routine Comment: Reason(s) for OT Consult:: Evaluate and Treat Any Restrictions?:: No Restrictions Consult to Physical Therapy [CONS] Routine Comment: Reason(s) for PT Consult:: Evaluate and Treat Any Restrictions?:: No Restrictions Consult to Batter Out [CONS] Routine Comment: Reason for Consult:: Discharge Planning Needs 03/19/25 09:53 Consult to Speech Therapy [CONS] Routine Comment: Reason(s) for Speech Consult:: Speech/Swallowing Eval Attending Physician on discharge: Damaris Liang [facility] Date of Discharge: 03/19/25 DS: Diagnosis Discharge Diagnosis (1) Weakness on left side of face: Status: Acute Problem details: Transient RESOLVED prior to discharge (2) Left arm weakness: Status: Acute Problem details: Transient. Mild, persists on discharge. (3) Acute hypotension: Status: Acute Problem details: Etiology not yet determined. Concern about this being a manifestation of evolving dysautonomia in association with known parkinsonism. It is postulated that the acute hypotension begat the transient left facial and left arm weakness plus confusion. Resolved prior to discharge. Orthostatics unremarkable. Agree parkinsonism is a risk factor. Also on multiple medications at bedtime which may be contributing. Outpatient follow-up with PCP/psychiatry for medication management. (4) Parkinsonism: Status: Acute Problem details: Longstanding and being treated (5) Carotid artery disease: Status: Acute Problem details: Chronic, noted (6) Tobacco dependence: Status: Acute Problem details: Chronic, risk factor, smoking cessation encouraged (7) Hyperlipidemia: Status: Acute Problem details: Continue on Crestor (8) Hypothyroidism: Status: Acute Problem details: Continue levothyroxine (9) Schizoaffective disorder, bipolar type: Status: Acute Problem details: Continue home medications DS: Summary Hospital Course Hospital Course: Course of care and details as noted above. Hypotension resolved. Facial symptoms have resolved. Continues with some mild left upper extremity weakness. MRI with extensive motion artifact. No definitive infarcts. Tele neurology consulted, suspicious of orthostatic hypotension, parkinsonism, Sinemet. Also noted to be on several nighttime medications which could be contributing. Patient is discharged back to [place] to resume current cares and therapies. Recommend outpatient follow-up with PCP and Psychiatry for ongoing medication management, recommendations for resumption of ECT. 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 Status at Discharge Functional status at discharge: uses cane/walker Overall status at discharge: patient is back to baseline Time Spent with Patient Time attestation: Total time spent providing and/or coordinating discharge services: Time spent: Greater than 30 minutes Exam Narrative: Exam Narrative: PHYSICAL EXAM General: Pleasant, conversant, NAD Cardiovascular: RRR Pulmonary: No dyspnea Neurological: Alert, answering questions appropriately. No facial asymmetry or slurring of speech. 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 No deficits lower extremities. Skin: Warm, dry. Const: Vital Signs, click to edit/add: Vital Signs - 24 hr 03/18/25 20:42 03/18/25 20:47 03/18/25 20:57 Temperature 97.9 F Pulse Rate 82 89 Pulse Rate [Pulse Oximeter] 80 Pulse Rate [orthos tatic lying Pulse Oximeter] Pulse Rate [orthos tatic sitting Puls e Oximeter] Pulse Rate [orthos tatic standing Pul se Oximeter] Respiratory Rate 18 16 14 Blood Pressure 114/70 135/81 Blood Pressure [Ri ght Arm] Blood Pressure [Ri ght Upper Arm] 121/74 Blood Pressure [or thostatic lying Le ft Arm] Blood Pressure [or thostatic sitting Left Arm] Blood Pressure [or thostatic standing Left Arm] Pulse Oximetry 99 100 98 Oxygen Delivery Tx thod Room Air 03/18/25 21:19 03/18/25 21:20 03/18/25 21:32 Temperature Pulse Rate 82 82 82 Pulse Rate [Pulse Oximeter] Pulse Rate [orthos tatic lying Pulse Oximeter] Pulse Rate [orthos tatic sitting Puls e Oximeter] Pulse Rate [orthos tatic standing Pul se Oximeter] Respiratory Rate 17 14 12 Blood Pressure 147/75 H 131/66 Blood Pressure [Ri ght Arm] Blood Pressure [Ri ght Upper Arm] Blood Pressure [or thostatic lying Le ft Arm] Blood Pressure [or thostatic sitting Left Arm] Blood Pressure [or thostatic standing Left Arm] Pulse Oximetry 95 98 97 Oxygen Delivery Me thod 03/18/25 21:47 03/18/25 21:52 03/18/25 22:02 Temperature Pulse Rate 76 80 74 Pulse Rate [Pulse Oximeter] Pulse Rate [orthos tatic lying Pulse Oximeter] Pulse Rate [orthos tatic sitting Puls e Oximeter] Pulse Rate [orthos tatic standing Pul se Oximeter] Respiratory Rate 12 12 12 Blood Pressure 102/53 L 118/65 103/50 L Blood Pressure [Ri ght Arm] Blood Pressure [Ri ght Upper Arm] Blood Pressure [or thostatic lying Le ft Arm] Blood Pressure [or thostatic sitting Left Arm] Blood Pressure [or thostatic standing Left Arm] Pulse Oximetry 97 99 97 Oxygen Delivery Me thod 03/18/25 22:15 03/18/25 22:17 03/18/25 22:32 Temperature Pulse Rate 72 73 72 Pulse Rate [Pulse Oximeter] Pulse Rate [orthos tatic lying Pulse Oximeter] Pulse Rate [orthos tatic sitting Puls e Oximeter] Pulse Rate [orthos tatic standing Pul se Oximeter] Respiratory Rate 13 12 11 L Blood Pressure 101/50 L 108/54 L Blood Pressure [Ri ght Arm] Blood Pressure [Ri ght Upper Arm] Blood Pressure [or thostatic lying Le ft Arm] Blood Pressure [or thostatic sitting Left Arm] Blood Pressure [or thostatic standing Left Arm] Pulse Oximetry 96 96 97 Oxygen Delivery Me thod 03/18/25 22:33 03/18/25 22:48 03/18/25 23:05 Temperature 97.5 F L Pulse Rate 72 76 Pulse Rate [Pulse Oximeter] 77 Pulse Rate [orthos tatic lying Pulse Oximeter] Pulse Rate [orthos tatic sitting Puls e Oximeter] Pulse Rate [orthos tatic standing Pul se Oximeter] Respiratory Rate 12 12 18 Blood Pressure 140/74 H Blood Pressure [Ri ght Arm] 129/76 Blood Pressure [Ri ght Upper Arm] Blood Pressure [or thostatic lying Le ft Arm] Blood Pressure [or thostatic sitting Left Arm] Blood Pressure [or thostatic standing Left Arm] Pulse Oximetry 97 99 97 Oxygen Delivery Me thod Room Air 03/18/25 23:05 03/19/25 01:07 03/19/25 03:25 Temperature 98.2 F Pulse Rate 71 Pulse Rate [Pulse Oximeter] 76 Pulse Rate [orthos tatic lying Pulse Oximeter] Pulse Rate [orthos tatic sitting Puls e Oximeter] Pulse Rate [orthos tatic standing Pul se Oximeter] Respiratory Rate 18 14 Blood Pressure Blood Pressure [Ri ght Arm] 99/65 Blood Pressure [Ri ght Upper Arm] Blood Pressure [or thostatic lying Le ft Arm] Blood Pressure [or thostatic sitting Left Arm] Blood Pressure [or thostatic standing Left Arm] Pulse Oximetry 97 97 Oxygen Delivery Me thod Room Air Room Air 03/19/25 07:00 03/19/25 07:00 03/19/25 07:19 Temperature 96.7 F L Pulse Rate 89 Pulse Rate [Pulse Oximeter] 86 Pulse Rate [orthos tatic lying Pulse Oximeter] Pulse Rate [orthos tatic sitting Puls e Oximeter] Pulse Rate [orthos tatic standing Pul se Oximeter] Respiratory Rate 20 Blood Pressure Blood Pressure [Ri ght Arm] 150/77 H Blood Pressure [Ri ght Upper Arm] Blood Pressure [or thostatic lying Le ft Arm] Blood Pressure [or thostatic sitting Left Arm] Blood Pressure [or thostatic standing Left Arm] Pulse Oximetry 97 99 Oxygen Delivery Tx thod Room Air Room Air 03/19/25 08:00 03/19/25 11:00 03/19/25 13:55 Temperature 97.8 F Pulse Rate Pulse Rate [Pulse Oximeter] 73 Pulse Rate [orthos tatic lying Pulse Oximeter] 73 Pulse Rate [orthos tatic sitting Puls e Oximeter] 99 Pulse Rate [orthos tatic standing Pul se Oximeter] 97 Respiratory Rate 20 20 Blood Pressure Blood Pressure [Ri ght Arm] 130/88 Blood Pressure [Ri ght Upper Arm] Blood Pressure [or thostatic lying Le ft Arm] 146/93 H Blood Pressure [or thostatic sitting Left Arm] 147/87 H Blood Pressure [or thostatic standing Left Arm] 124/89 Pulse Oximetry 98 98 Oxygen Delivery Me thod Room Air Room Air DS: Data Data Completed and Pending Labs on day of discharge: Labs from last 24 hours 03/19/25 03/18/25 03:33 20:44 WBC 5.55 RBC 3.34 L Hgb 9.9 L Hct 31.3 L MCV 94 MCH 30 MCHC 32 RDW Coeff of [place] 13.6 Plt Count 184 Neut % (Auto) 65.5 Lymph % (Auto) 18.9 L [place] % (Auto) 11.0 Eos % (Auto) 4.0 Baso % (Auto) 0.4 Neut # (Auto) 3.64 Lymph # (Auto) 1.00 [place] # (Auto) 0.60 Eos # (Auto) 0.22 Baso # (Auto) 0.02 Abs Immat Gran (auto) 0.01 Imm/Tot Granulo (auto) 0.2 INR 0.92 Sodium 136 Potassium 4.3 Chloride 109 Carbon Dioxide 23 Anion Gap 4 L BUN 20 Creatinine 1.2 Estimated Creat Clear 59.99 Estimated GFR 65 Glucose 82 Lactate 1.3 Calcium 9.0 Total Bilirubin 0.2 AST 30 ALT 6 Alkaline Phosphatase 81 Troponin I < 0.01 Total Protein 6.1 Albumin 3.3 Lipase 198 Urine Color Yellow Urine Appearance Clear Urine pH 6.5 Ur Specific [place] 1.010 Urine Protein Negative Urine Glucose (UA) Negative Urine Ketones Negative Urine Blood Negative Urine Nitrite Negative Urine Bilirubin Negative Urine Urobilinogen 0.2 Ur Leukocyte Esterase Negative Urine RBC 0-2 Urine WBC 0-2 Ur Squamous Epith Cells None Urine Bacteria None Ethyl Alcohol < 0.01 Discharge Plan Discharge Disposition: Home, Self-Care Date of Admission: 03/18/25 22:54 Attending Provider on Discharge: Damaris Liang Primary Care Provider: Rex Connor Condition: Improved Anticipated Discharge Date/Time: 03/19/25 15:00 Discharge Medications: Continued divalproex 500 mg tablet extended release 24 hr 1,000 mg PO HS Patient Comments: TOTAL OF 1250MG divalproex 250 mg tablet extended release 24 hr 250 mg PO HS Patient Comments: TOTAL OF 1250MG tamsulosin 0.4 mg capsule 0.4 mg PO DAILY levothyroxine 150 mcg tablet 150 mcg PO DAILY propranolol 20 mg tablet 20 mg PO BID clopidogrel 75 mg tablet 75 mg PO DAILY fluticasone propion-salmeterol 250-50 mcg/dose blister with device 1 inh inhalation BID famotidine 20 mg tablet 20 mg PO DAILY ferrous sulfate [FeroSul] 325 mg (65 mg iron) tablet 325 mg PO Q48H melatonin 3 mg capsule 3 mg PO HS olanzapine 5 mg tablet 5 mg PO HS sennosides [senna] 8.6 mg tablet 8.6 mg PO BID rosuvastatin 40 mg tablet 40 mg PO HS clonazepam 1 mg tablet 1 mg PO HS [place] Sea Nasal 0.65 % aerosol,spray 2 spray INTRANASAL Q6H [id number]-[id number]-minerals Tablet 1 tab PO DAILY albuterol sulfate 2.5 mg /3 mL (0.083 %) solution for nebulization 2.5 mg inhalation BID Rx Instructions: Inhale 3 mL (2.5 mg) via a nebulizer two times daily. polyethylene glycol 3350 [Gavilax] 17 gram/dose powder 17 g PO BID carbidopa-levodopa 25-100 mg tablet 1 tab PO 3XD escitalopram oxalate 10 mg tablet 10 mg PO DAILY nicotine (polacrilex) 2 mg lozenge 2 mg PO Q1H PRN aspirin 81 mg tablet,chewable 1 tab PO DAILY quetiapine 150 mg tablet 450 mg PO HS cholecalciferol (vitamin D3) [Vitamin D3] 25 mcg (1,000 unit) tablet 25 mcg PO DAILY Discharge Orders: Discharge Order (Routine); Ordered 03/19/25 Ordered By: Damaris Liang Patient Education: Weakness (DC) Additional Instructions: RESUME CURRENT THERAPIES AND CARES FOLLOWING DISCHARGE FOLLOW UP WITH PCP. WOULD RECOMMEND REVIEWING CURRENT NIGHTTIME MEDICATIONS THESE MAY BE CAUSING SOME OF THE NIGHTTIME SYMPTOMS. FOLLOW UP WITH PSYCHIATRY FOR RECOMMENDATIONS OF RESUMPTION OF ECT. NEUROLOGY RECOMMENDS FOLLOW-UP WITH OUTPATIENT VASCULAR FOR KNOWN OPHTHALMIC BRANCH ANEURYSM (STABLE ON CTA) Activity Level: Activity as Tolerated Discharge Diet: Regular Follow Up Appointments: Rex Connor MD [Primary Care Provider, Family Practice] Referral Note: Post hospital follow-up 5-7 days Forms: MyHealth Info Instructions
--- NOTE | 2025-03-19 15:38 | PC.NURSE ---
Pt a/o with occasional forgetfulness. Pt up standby assist. Pt straight cathed this morning for urine retention, Pt voided x2 since then. No reports of retention, no distention noted. Pt given prn pain medication. D/C packet given to pt and caregiver. IVs removed, both cath intact. pt left facility at 1530 accompanied by staff, pt transported by caregiver.
--- NOTE | 2025-03-22 09:00 | REH.SLP ---
Speech Language Pathology Discharge Summary Reason for therapy discharge: Discharged to previous living situation. Progress towards therapy goals. Goals not met. See goals in speech therapy notes in [facility] electronic health records. Rehab barriers to achieving goals: discharge on same date as initial evaluation. Therapy Recommendations: No further therapy is recommended unless there is concerns about diet tolerance and/or speech is not at his baseline.
== END 2025-03-19 15:30 | disposition home or self-care (01) ==
LOC: ED 22:44 → MEDSURG 22:55
PROVIDERS: Admitting Provider Internal Medicine; Emergency Provider Emergency Medicine; PCP Family Medicine; Visit Provider Internal Medicine
DX: R53.1 Weakness (principal); I95.9 Hypotension, unspecified; I25.10 Atherosclerotic heart disease of native coronary artery without angina pectoris; E78.5 Hyperlipidemia, unspecified; E03.9 Hypothyroidism, unspecified; G20.C Parkinsonism, unspecified; F25.0 Schizoaffective disorder, bipolar type
CPT/HCPCS: 36415; 51702; 51798; 70450; 70496; 70498; 70551; 71046; 74176; 80053; 81001; 82077; 83605; 83690; 84484; 85025; 85610; 87040; 87081; 87800; 92610; 93005; 94640; 97161; 97165; 99284; 99285; 99291; A9270; G0378; J7030; Q9967; S4990

== ENCOUNTER 2025-03-22 20:26 | Outpatient (CLI) | payer MEDICARE, MEDICAID, SELFPAY | END 2025-03-22 20:27 | disposition home or self-care (01) | LOC: AMB 03-26 13:25 | PROVIDERS: PCP Family Medicine; Visit Provider Emergency Medicine Emergency Medical Services | DX: R41.82 Altered mental status, unspecified (principal) | CPT/HCPCS: A0425; A0427 ==

== ENCOUNTER 2025-03-22 20:47 | Emergency (ER) | payer MEDICARE, MEDICAID, SELFPAY ==
[2025-03-22] VITALS (16 sets, daily range): BP systolic 111–151; BP diastolic 64–91; PULSE 69–84; RESP 16–18; TEMP 36.6; O2SAT 95–100; BMI 25.1
--- NOTE | 2025-03-22 20:49 | CRLHL7_ITS ---
For Patients: As a result of the Century Cures Act, medical imaging exams and procedure reports are released immediately into your electronic medical record. You may view this report before your referring provider. If you have questions, please contact your health care provider. INDICATION: Acute mental status change. Slurred speech TECHNIQUE: Noncontrast axial CT of the head is submitted. COMPARISON: Compared to prior study from March 18, 2025 FINDINGS: Mild cerebral atrophy. The ventricles, sulci and gyri are of normal size, shape and contour for age and degree of atrophy. Midline structures are centrally located. Stable incidental arachnoid cyst within the anterior medial aspect of the right middle cranial fossa. Mild patchy regions of decreased attenuation within the periventricular and subcortical white matter of both cerebral hemispheres. IMPRESSION: 1. Stable, no radiographic evidence of acute intracranial abnormalities. 2. Mild cerebral atrophy. 3. Mild supratentorial white matter changes that are non-specific, but statistically most likely related to chronic small vessel ischemic disease. Please note that all CT scans at this facility use dose modulation, iterative reconstruction, and/or weight-based dosing when appropriate to reduce radiation dose to as low as reasonably achievable. Dictated by Trino Tsai MD @ 03/22/2025 9:12:03 PM (Electronically Signed)
--- NOTE | 2025-03-22 20:49 | CRLHL7_ITS ---
For Patients: As a result of the Century Cures Act, medical imaging exams and procedure reports are released immediately into your electronic medical record. You may view this report before your referring provider. If you have questions, please contact your health care provider. INDICATION: Acute stroke, altered mental status, slurred speech. TECHNIQUE: CTA head using intravenous contrast with bolus tracking, 3D angiographic rendering using maximum intensity projection (MIP) and images permanently archived. CTA neck using intravenous contrast with bolus tracking, 3D angiographic rendering using maximum intensity projection (MIP) and images permanently archived. Comparison: 03/18/2025, 03/05/2025, 01/12/2025. FINDINGS: CTA head: There is normal opacification of the intracranial vasculature. There is no large vessel occlusion or significant intracranial stenosis. A 5 millimeter ophthalmic left ICA aneurysm is again noted. CTA neck: There has been placement of left carotid stent. There is only mild residual stenosis at the distal aspect of the device, unchanged. There is atherosclerotic plaque at the origin of the right internal carotid artery resulting in a mild stenosis, less than 50 percent by NASCET. There is atherosclerotic plaque at the origin of the vertebral arteries. There is no significant vertebral artery stenosis or dissection. IMPRESSION: 1. Patent left carotid stent. 2. Mild right ICA origin stenosis, less than 50 percent by NASCET. 3. 5 millimeter ophthalmic left ICA aneurysm, unchanged. We would be happy to manage this at the [facility] neurointerventional clinic if desired. This can be arranged by calling our coordinator at [phone]. Rohan Gutierrez MD Neurointerventional Radiology [facility]: [phone] Please note that all CT scans at this facility use dose modulation, iterative reconstruction, and/or weight-based dosing when appropriate to reduce radiation dose to as low as reasonably achievable. Dictated by Rohan Gutierrez MD @ 03/22/2025 10:14:10 PM (Electronically Signed)
--- NOTE | 2025-03-22 20:49 | CRLHL7_ITS ---
For Patients: As a result of the Cures Act, medical imaging exams and procedure reports are released immediately into your electronic medical record. You may view this report before your referring provider. If you have questions, please contact your health care provider. INDICATION: Altered mental status with slurred speech TECHNIQUE: Chest 1 views. COMPARISON: Chest radiograph on March 18, 2025 and prior. FINDINGS: Cardiovasculature and mediastinum: Heart size is normal. Unremarkable mediastinum. Lungs and pleural spaces: Lung volumes are low with bibasilar atelectasis. No focal pulmonary consolidation. No pleural effusion or pneumothorax. Bones and soft tissues: No significant findings. IMPRESSION: No acute cardiopulmonary process. Dictated by Michelle Bruner MD @ 03/22/2025 9:21:30 PM (Electronically Signed)
--- NOTE | 2025-03-22 20:49 | CRLHL7_ITS ---
For Patients: As a result of the Century Cures Act, medical imaging exams and procedure reports are released immediately into your electronic medical record. You may view this report before your referring provider. If you have questions, please contact your health care provider. INDICATION: Acute stroke, altered mental status, slurred speech. TECHNIQUE: CTA head using intravenous contrast with bolus tracking, 3D angiographic rendering using maximum intensity projection (MIP) and images permanently archived. CTA neck using intravenous contrast with bolus tracking, 3D angiographic rendering using maximum intensity projection (MIP) and images permanently archived. Comparison: 03/18/2025, 03/05/2025, 01/12/2025. FINDINGS: CTA head: There is normal opacification of the intracranial vasculature. There is no large vessel occlusion or significant intracranial stenosis. A 5 millimeter ophthalmic left ICA aneurysm is again noted. CTA neck: There has been placement of left carotid stent. There is only mild residual stenosis at the distal aspect of the device, unchanged. There is atherosclerotic plaque at the origin of the right internal carotid artery resulting in a mild stenosis, less than 50 percent by NASCET. There is atherosclerotic plaque at the origin of the vertebral arteries. There is no significant vertebral artery stenosis or dissection. IMPRESSION: 1. Patent left carotid stent. 2. Mild right ICA origin stenosis, less than 50 percent by NASCET. 3. 5 millimeter ophthalmic left ICA aneurysm, unchanged. We would be happy to manage this at the [facility] neurointerventional clinic if desired. This can be arranged by calling our coordinator at [phone]. Rohan Gutierrez MD Neurointerventional Radiology [facility]: [phone] Please note that all CT scans at this facility use dose modulation, iterative reconstruction, and/or weight-based dosing when appropriate to reduce radiation dose to as low as reasonably achievable. Dictated by Rohan Gutierrez MD @ 03/22/2025 10:13:16 PM (Electronically Signed)
--- OUTSIDE RECORDS SUMMARY | 2025-03-22 20:49 | XMS_ITS | Clinical Summary ---
Author Organization [place] Address [address] [place] [id number] Care Team Providers Care Topographical Engineer Name Role Phone Rex Connor Mary Jo Primary Care Provider [phone] Allergies Active Allergy Reactions Criticality Noted Date [...] on file Legal Sex Male 12:58 PM [employer] Gender Identity Not on file Sexual Orientation [...] on file Medical Devices Implanted Type Area Supervisory Forester Device Identifier Shelf Expiration Date Model / Serial / Lot Embolic Substance/Device- 12/29/2020 Implanted:Qty: 1 on 12/29/2020 by Elton Pond MD Embolic Substance/D evice Nose [employer] 11/02/2021 / / [id number] Description:Nose bleed emobo lization Embolic Substance/Device- 12/29/2020 Implanted:Qty: 1 on 12/29/2020 by Elton Pond MD Embolic Substance/D evice Nose [employer] 04/07/2024 / / [id number] Description:Nose bleed emobo lization Insurance MEDICARE MEDICAID [place] Advance Directives For more information, please contact: [phone] * Full Code (Latest Code Status on File) Date Activated Date Inactivated Comments 12/29/2020 11:12 AM 12/30/2020 3:08 PM All basic a nd advanced life-sustaining interventions are performed as appropriate Question Answer Comments Code status determined by: Discussion with humberto nt/ legal decision maker Care Teams Topographical Engineer Relationship Specialty Start Date End Date Rex Connor [address] [facility] [address] PCP - General Family Medicine 12/28/20
--- OUTSIDE RECORDS SUMMARY | 2025-03-22 20:49 | XMS_ITS | Clinical Summary ---
Author Organization [facility] Address [address] [place] [id number] Care Team Providers Care Slot Floorman Name Role Phone Rex Connor MD Primary Care Provider [facility] Care, Branch Unavailable Allergies Active Allergy Reactions Criticality Noted Date Comments Clozapine Other - Describe In Comment Field MYOCARDITIS Medications haloperidoL (HALDOL) 5 mg tablet Take 5 mg by mouth 2 times daily if needed (psychosis or agitation). 0 0 Active QUEtiapine 150 mg tab Take 450 mg by mouth at bedtime. 0 1 Active propranoloL (INDERAL) 20 mg tabletIndications: Anxiety Take 1 Tablet (20 mg) by mouth 2 times daily. AM and at bedtime. 60 Tablet 1 Active NebulizerIndicatio ns:Bronchiectasis without complication (HC) Nebulizer, disposable neb kit x 4, reuseable neb kit x 1, mask x 1, filters x 1. Frequency of use: daily; Medication: albuterol Length of need: 99 months 1 Each 2 Active escitalopram oxalate (LEXAPRO) 10 mg tablet Take 10 mg by mouth once daily. Active divalproex (DEPAKOTE ER) 500 mg Extended-Release tabletIndications: Schizoaffective disorder, bipolar type (HC) Take 1,000 mg by mouth at bedtime. Take with 250 mg for a total dose of 1,250 mg 5 Active carbidopa-levodopa , 25-100 mg, (SINEMET 25-100) 25-100 mg tabletIndications: Parkinson's disease, unspecified whether dyskinesia present, unspecified whether manifestations fluctuate (HC) Take 1 Tablet by mouth three times daily. 84 Tablet 5 Active cholecalciferol (VITAMIN D3) 1,000 unit tabletIndications: Vitamin D deficiency Take 1 Tablet (1,000 units) by mouth once daily. 28 Tablet 5 Active famotidine (PEPCID) 20 mg tabletIndications: Gastroesophageal reflux disease, unspecified whether esophagitis present Take 1 Tablet (20 mg) by mouth once daily. 28 Tablet 5 Active fluticasone propion-salmeteroL (Advair Diskus) 250-50 mcg/Dose diskus inhalerIndications :Mild persistent asthma with exacerbation (HC) INHALE 1 PUFF BY MOUTH TWICE DAILY --RINSE MOUTH AFTER USE-- 60 Each 5 Active levothyroxine (SYNTHROID) 150 mcg tabletIndications: Other specified hypothyroidism Take 1 Tablet (150 mcg) by mouth before breakfast. 28 Tablet 5 Active melatonin 3 mg tabletIndications: Insomnia, idiopathic Take 1 Tablet (3 mg) by mouth at bedtime. 90 Tablet 3 5 Active tamsulosin 0.4 mg capsuleIndications :BPH without urinary obstruction TAKE 1 CAPSULE BY MOUTH DAILY 30 MINUTES AFTER THE SAME MEAL EACH DAY *SWALLOW WHOLE* 28 Capsule 5 Active ibuprofen (ADVIL; MOTRIN) 600 mg tabletIndications: Pain TAKE 1 TABLET BY MOUTH EVERY 8 HOURS NEEDED FOR PAIN OR TEMP >101.5F (38.6C) 100 Tablet 5 Active auawazkp-wbs-nlma fum-folic ac (Thera-M) 19 mg iron- 400 mcg tabIndications:Nut ritional deficiency TAKE 1 TABLET BY MOUTH DAILY 90 Tablet 2 5 Active albuterol 0.083% (2.5 mg/3 mL) neb solutionIndication s:Bronchiectasis without complication (HC) Inhale 3 mL (2.5 mg) via a nebulizer two times daily. 90 mL 12 5 Active nicotine 2 mg lozengeIndications :Tobacco abuse Place 1 Lozenge (2 mg) in mouth, between cheek & gum every hour while awake as needed for Nicotine Craving. 200 Lozenge Active sodium chloride (Deep Sea Nasal Julian) 0.65 % nasal solutionIndication s:Epistaxis,Nasal crusting ADMINISTER 2 SPRAYS IN AFFECTED NOSTRIL(S) EVERY 6 HOURS 44 mL Active Prevail UnderwearIndicatio ns:Urinary incontinence, unspecified type USE DIRECTED 144 Each Active divalproex (DEPAKOTE) 250 mg Delayed-Release tablet Take 250 mg by mouth at bedtime. Take with 1,000 mg for a total dose of 1,250 mg hs Active OLANzapine (ZYPREXA) 5 mg tablet Take 5 mg by mouth at bedtime. Active acetaminophen (TYLENOL) 325 mg tablet Take 325-650 mg by mouth every 4 hours if needed for Pain. 5 Active clonazePAM (KLONOPIN) 1 mg tablet Take 1 mg by mouth at bedtime. 5 Active polyethylene glycol (Miralax) 17 g per [...] hours if needed for Pain. 10 Tablet 01/30/2025 1:49 PM CDT 5 Active clopidogreL (PLAVIX) 75 mg tabletIndications: Carotid artery stenosis, symptomatic, left Take 1 Tablet (75 mg) by mouth once daily in the morning. 90 Tablet 3 5 Active rosuvastatin (CRESTOR) 40 mg tabletIndications: Carotid artery stenosis, symptomatic, left Take 1 Tablet (40 mg) by mouth at bedtime. 90 Tablet 3 5 Active aspirin chewable 81 mg tabletIndications: Carotid artery stenosis, symptomatic, left Chew 1 Tablet (81 mg) by mouth once daily with a meal. 90 Tablet 3 5 Active ferrous sulfate 325 mg (65 mg iron) tabletIndications: Iron deficiency anemia, unspecified iron deficiency anemia type Take 1 Tablet (325 mg) by mouth once every other day. 45 Tablet 3 5 Active Active Problems Problem Noted Date Diagnosed Date Iron deficiency anemia 02/03/2025 TIA involving left internal carotid artery 01/29 Carotid artery stenosis, symptomatic, left: Sten t 01/30/25 01/13/2025 Lung nodules 06/18/2024 Overview (06/19/2024): 06/18/24- Lung CT- Lung RAD 4A with a new 6mm nodule in the MARIFER and a new 4mm nodule in the RLL. Pt was referred to [facility] lung nodule clinic Need for dental [...] mental health hospitalizations and was committed to [facility] in 2009. 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 Therapeutic depakote trial not effective. -Doing outpatient ECT @ [facility] -You you seeing Manny Katz in therapy at [facility] . His phone number is [phone]. Hopspitalized at [facility] from 09/10-11/10/11 and received ECT during this hospitalization. Hospitalized at [facility] in May, for worsening depression and suicidal thoughts - feeling hopeless and having abnormal dreams. ECT being done every 6 weeks prior to hospitalization and pt seemed to decompensate from this. At his intake on 08/06/12, pt reported the following med trials: -Risperdal injections were ineffective -Clozaril - caused cardiac myositis -Prolixin injections - ineffective -[place] - caused kidney function issues. *More details [...] in paranoia - he would see a [employer] vehicle and he would think WWIII was [...] Encounters Date Type Department Care Team Description 03/19/2025 Orders Only [facility] Scanner 1 scan: (1-Ord) [facility], MR HEAD/BRAIN W/O CONTRAST, 03/19/2025 03/19/2025 Office Visit [facility] Brain [facility] Spine [facility] [address] [place] [phone] Juan Ramon Colvin MD Telehealth ([facility]) 03/18/2025 Orders Only [facility] Scanner 1 scan: (1-Ord) [place], XR CHEST 2V, 03/18/2025 03/18/2025 Orders Only [facility] Scanner 1 scan: (1-Ord) [place], HEAD/BRAIN WO CON, 03/18/2025 03/18/2025 Office Visit [facility] Spine [facility] [address] [place] [phone] Ericka Mendenhall MD Telehealth ([facility] - telephone consult only - no video) 03/09/2025 3:00 PM CDT Office Visit [facility] [address] [place] [address] Ramírez Sanches MD CV Vascular Est (1 month Follow up: s/p left Transcarotid Artery Revascularization with carotid stenting and flow reversal 01/30/2025. CUS prior to OV.) 03/09/2025 2:00 PM CDT - 03/09/2025 11:59 PM CDT Hospital Encounter [facility] [address] [place] [address] Ramírez Sanches MD Moore, Brian H Left carotid artery stenosis 03/09/2025 Travel 03/06/2025 Office Visit [facility] Spine [facility] [address] [place] [phone] Maine Solomon NP Telehealth ([facility] ) 03/05/2025 Orders Only [facility] Scanner 1 scan: (1-Ord) [facility], XR CHEST 1V PORTABLE, 03/05/2025 03/05/2025 Orders Only [facility] Scanner 1 scan: (1-Ord) [facility], CT HEAD/BRAIN W/O CON, 03/05/2025 03/03/2025 11:00 AM CDT Home Care Visit [facility] [address] [place] [address] Jusetn Fan, PT PT - OASIS DISCHARGE 02/24/2025 10:00 AM CDT Home Care Visit [facility] [address] [facility] [place] [address] Justen Fan, PT PT - HOME VISIT 02/19/2025 Orders Only [facility] [address] [place] [address] Rex Connor MD <No scans attached> 02/18/2025 Telephone [facility] [address] [place] [address] Rex Connor MD 02/17/2025 1:15 PM CDT Home Care Visit [facility] [address] [place] [address] Terry Cary, PT PT - HOME VISIT 02/17/2025 9:45 AM CDT Orders Only [facility] [address] [place] [address] Lab, [facility] 02/17/2025 Travel 02/15/2025 Orders Only [facility] Scanner 1 scan: (1-Ord) [facility], HEAD/BRAIN W/O CONTRAST, 02/15/2025 02/15/2025 Orders Only [facility] Scanner 1 scan: (1-Ord) [place] , CERVICAL SPINE WO CON, 02/15/2025 02/15/2025 Orders Only [facility] Scanner 1 scan: (1-Ord) [place] H+C, HIP LT, 02/15/2025 02/15/2025 Telephone [facility] [address] [place] [address] Tony Hawkins MD Colonoscopy Scheduled / Needs Meds 02/15/2025 Telephone [facility] [address] [place] [address] Rex Connor MD Colorectal Cancer Screening (Positive Cologuard) 02/12/2025 Orders Only [facility] [address] [place] [address] Rex Connor MD Lab 02/10/2025 3:15 PM CDT Home Care Visit [facility] [address] [place] [phone] Terry Cary, PT PT - HOME VISIT 02/03/2025 8:50 AM CDT Office Visit [facility] [address] [place] [address] Rex Connor MD Hospital F/U (ANW, 01/29/2025 - 01/30/2025, stent placement); Wrist Pain/problem (Left wrist pain and bruising); Constipation (2 to 3 days); Derm Problem (Irritation about left ear/Mark on bilateral ankle) 02/03/2025 Travel 02/02/2025 Refill [facility] [address] [place] [address] Rex Connor MD Refill Request (ROSUVASTATIN, CLOPIDOGREL, ASPIRIN LOW) 02/01/2025 12:30 PM CDT Home Care Visit [facility] [address] [place] [phone] Jessica Armstrong, PT PT - OASIS RESUMPTION OF CARE 02/01/2025 Telephone [facility] [address] [place] [address] Rex Connor MD Home Care (Orders/Severe Medication interactions) 02/01/2025 Patient Outreach [facility] [address] [place] [address] Hannah Roque, RN Primary RN Care Management; Hospital F/U (Lace=51) 01/30/2025 Home Care Visit [facility] [address] [place] [phone] Jessica Armstrong, PT PT - OASIS TRANSFER 01/29/2025 11:19 AM CDT Anesthesia Event [facility] [address] [place] [address] Coby Frazier MD Busker, Carly J, ANESTHESIA RESIDENT Student 01/29/2025 10:35 AM CDT - 01/29/2025 1:02 PM CDT Surgery [facility] [address] [place] [address] Ramírez Sanches MD LEFT REVASCULARIZATION TRANS CAROTID ARTERY 01/29/2025 9:11 AM CDT - 01/30/2025 2:19 PM CDT Hospital Encounter [facility] [address] [place] [address] Ramírez Sanches MD Carotid artery stenosis, symptomatic, left (Primary Dx) Discharge Disposition: Home Health 01/29/2025 Orders Only [facility] [address] [place] [address] Lexie Holguin NP <No scans attached> 01/29/2025 Travel 01/27/2025 12:00 PM CDT Home Care Visit [facility] [address] [place] [phone] Yessi Diaz, PAPER MILL MANAGER PT - HOME VISIT 01/21/2025 2:15 PM CDT Home Care Visit [facility] [address] [place] [phone] Terry Cary, PT PT - HOME VISIT 01/19/2025 12:45 PM CDT Office Visit [address] [address] Maine Abdi MD Hospital F/U ([facility] 01/14/2025, Jerome) 01/19/2025 10:00 AM CDT Home Care Visit [facility] [address] [facility] [place] [address] Terry Cary, PT PT - OASIS START OF CARE 01/19/2025 Home Care Visit [facility] [address] [facility] [place] [address] Terry Cary, PT CARE COORDINATION 01/19/2025 Telephone [facility] [address] [place] [phone] Terry Cary, PT Home Care 01/19/2025 Orders Only [facility] [address] [place] [address] Leyla Domingo PA <No scans attached> 01/19/2025 Travel 01/19/2025 Plan of Care Documentation [facility] [address] [place] [address] 01/19/2025 Telephone [facility] [address] [place] [address] Terry Cary, PT Home Care 01/15/2025 Telephone [facility] [address] [place] [address] Ramírez Sanches MD Surgery Scheduled 01/15/2025 Patient Outreach [facility] [address] [place] [address] Christel Jean Baptiste, RN Primary RN Care Management; Hospital F/U (LACE 45) 01/14/2025 Travel 01/13/2025 9:16 AM CDT - 01/14/2025 6:02 PM CDT Hospital Encounter [facility] [address] [place] [address] [facility], [facility] Hospitalists Of [place], Ramon Castaneda MD Residents, C1 Carotid artery stenosis, symptomatic, left (Primary Dx); Stenosis of left carotid artery; TIA (transient ischemic attack) Discharge Disposition: Home Health 01/12/2025 Orders Only [facility] Scanner 1 scan: (1-Ord) [facility], CT ANGIO NECK, 01/12/2025 01/12/2025 Orders Only [facility] Scanner 1 scan: (1-Ord) [place], HEAD/BRAIN WO CON, 01/12/2025 01/12/2025 Office Visit [facility] Brain and Spine [facility] [address] [place] [phone] Ericka Mendenhall MD Telehealth ([facility] - Phone consult only / no video) 01/04/2025 Orders Only [facility] Scanner 1 scan: (1-Ord) [facility], CT CERVICAL SPINE WO CON, 01/04/2025 01/04/2025 Orders Only [facility] Scanner 1 scan: (1-Ord) [facility], CT HEAD/BRAIN WO CON, 01/04/2025 12/22/2024 Telephone [facility] [address] [facility] [place] [address] Syeda [place], [facility] HEARING AIDS DROPPED OFF from Last 3 [...] AM CDT Legal Sex Male 7:21 AM WELT WHEELER Gender Identity Male 08/04/2024 11:14 AM CDT [...] st Contact Info) Description 03/31/2025 2:30 PM WELT WHEELER Office Visit [facility] [address] [place] [address] Rex Connor MD [address] [place] [address] Health Maintenance Due Date Last Done Comments [...] Procedure Name Priority Date/Time Associated Diagnosis Comments SCAN-MRI INTERPRETATION 03/19/2025 12:00 AM CDT SCAN-RADIOLOGY REPORT 03/18/2025 12:00 AM CDT SCAN-CT INTERPRETATION 12:00 AM CDT US CAROTID DUPLEX BILATERAL Routine 03/09/2025 2:29 [...] TUBING PR1 Routine 01/29/2025 12:11 PM CDT [facility] ANES ARTERIAL CATH FOR SAMPLE MONITOR TRANS Routine 01/29/2025 12:11 PM CDT [facility] ANES US GUIDE FOR VASC ACCESS Routine 01/29/2025 12:11 PM CDT [facility] CATH PR5 Routine 01/29/2025 12:11 PM [...] DOSE WO CONTRAST Routine 06/18/2024 2:03 PM WELT WHEELER Personal history of nicotine dependence CT CHEST ABDOMEN PELVIS W Routine 06/28/2021 12:22 PM WELT WHEELER Weight loss ANTI HCV Routine 06/25/2019 8:36 AM WELT WHEELER Need for hepatitis C screening test from Last 3 Months or Most Recently Relevant to Health Maintenance Results * SCAN-MRI INTERPRETATION (03/19/2025 12:00 AM CDT) Anatomical Region Laterality Modality Other us Scanner OTHER Final Result * SCAN-RADIOLOGY REPORT (03/18/2025 12:00 AM CDT) Only the most recent of3 resultswithin the time period is included. Anatomical Region Laterality Modality Other us Scanner OTHER Final Result * SCAN-CT INTERPRETATION (03/18/2025 12:00 AM CDT) Only the most recent of8 resultswithin the time period is included. Anatomical Region Laterality Modality Other us Scanner OTHER Final Result * US CAROTID DUPLEX BILATERAL (03/09/2025 2:29 PM CDT) Anatomical Region Laterality Modality CAROTID, NECK Ultrasound 03/09/2025 2:05 PM CDT Narrative 03/09/2025 3:27 PM CDT VASCULAR ULTRASOUND REPORT SCOOBY MERINO : 1955 Study Date: 03/09/2025 2:05:54 PM Age: 69 years Tech: [facility] Gender: M Referring MD: RAMÍREZ SANCHES Site: [facility] Vascular Center Study performed: Carotid Indication for [...] Accreditation Commission (IAC/Vascular), www.intersocietal.org/vascular Report generated by [email or web address]. Final Procedure Note Ramírez Sanches MD - 03/09/2025 VASCULAR ULTRASOUND REPORT SCOOBY MERINO : 1955 Study Date: 03/09/2025 2:05:54 PM Age: 69 years Tech: [facility] Gender: M Referring MD: RAMÍREZ SANCHES Site: [facility] Vascular Center Study performed: Carotid Indication for [...] theIntersocietal Accreditation Commission (IAC/Vascular),www.intersocietal.org/vascular Report generated by Voice123. Final us Ramírez Sanches MD Final Result * (ABNORMAL) IRON PLUS IRON BINDING CAP (02/17/2025 9:32 AM CDT) [facility] IRON, TOTAL 60 50 - 180 mcg/dL [...] MD CHEMISTRY Final Result Performing Organization Address [facility] Co de Phone Number [employer] [address] [phone], * (ABNORMAL) HEMOGLOBIN (02/17/2025 9:32 AM CDT) Only the most recent of2 resultswithin the time period is included. [facility] HEMOGLOBIN 11.4(L) 13.2 - 17.1 g/dL 02/18/2025 3:51 AM CDT [facility] MCV 96.0 80.0 - 100.0 fL 02/18/2025 3:51 AM CDT [facility] Blood BLOOD SPECIMEN / Unknown [facility] / Unknown 02/17/2025 9:32 AM CDT 02/17/2025 9:32 AM CDT us Rex Connor MD HEMATOLOGY Final Result Performing Organization Address [facility] Co de Phone Number [employer] [address] [phone], * FERRITIN (02/17/2025 9:32 AM CDT) [facility] FERRITIN 69 24 - 380 ng/mL 02/18/2025 5:30 AM CDT [facility] Blood BLOOD SPECIMEN / Unknown [facility] / Unknown 02/17/2025 9:32 AM CDT 02/17/2025 9:32 AM CDT Rex Connor MD CHEMISTRY Final Result Performing Organization Address [facility] Co de Phone Number [employer] [address] [address], * (ABNORMAL) SDNA-FIT EXTERNAL (COLOGUARD) [[id number]] (02/08/2025 2:30 PM CDT) [facility] NONINV COLON CA DNA+OCC BLD SCRN STL-IMP Positive( A) Negative 02/13/2025 4:12 AM CDT [facility] (CLIA #:[id number]) Comment: The Cologuard Plus (TM) test was performed on this specimen. POSITIVE TEST RESULT. A positive (abnormal) Cologuard Plus result means the patient has a xszsgj-pjht-saskrvo chance of having colorectal cancer (CRC) or [...] a 91% specificity (Cologuard Plus Clinician Brochure. [employer]. [place], [place] Visit www.[employer].com/about/tnbdkdez-zbfpuuoroka-jwopfylaygc for more test information, references, warnings, and precautions. Stool specimen (specimen) (Rectum) 02/08/2025 2:30 PM CDT 02/10/2025 9:51 AM CDT us Rex Connor MD URINE Final Result [facility] (CLIA #:[id number]) [address] [place] [address], * OCCULT BLOOD IFOBT STOOL (02/08/2025 12:00 PM CDT) STOOL BLOOD ,IFOBT Negative Negative 02/15/2025 3:10 PM CDT [facility] Stool STOOL SPECIMEN / Unknown Non-Blood / Unknown 02/08/2025 12:00 PM CDT 02/12/2025 9:19 PM CDT us Rex Connor MD LABORATORY Final Result Performing Organization Address City/[facility]/ZIP Co de Phone Number [facility] [address] [place] [address], * (ABNORMAL) CBC W PLT No DIFF (01/30/2025 6:57 AM CDT) Only the most recent of2 resultswithin the time period is included. WHITE BLOOD COUNT 7.0 4.5 - 11.0 thou/cu mm 01/30/2025 7:34 AM CDT [facility] RED BLOOD COUNT 3.06(L) 4.30 - 5.90 mil/cu mm 01/30/2025 7:34 AM CDT [facility] HEMOGLOBIN 9.3(L) 13.5 - 17.5 g/dL 01/30/2025 7:34 AM CDT [facility] HEMATOCRIT 29.6(L) 37.0 - 53.0 % 01/30/2025 7:34 AM CDT [facility] MCV 97 80 - 100 fL 01/30/2025 7:34 AM CDT [facility] MCH 30.4 26.0 - 34.0 pg 01/30/2025 7:34 AM CDT [facility] MCHC 31.4(L) 32.0 - 36.0 g/dL 01/30/2025 7:34 AM CDT [facility] RDW 14.1 11.5 - 15.5 % 01/30/2025 7:34 AM CDT [facility] PLATELET COUNT 160 140 - 440 thou/cu mm 01/30/2025 7:34 AM CDT [facility] MPV 9.9 6.5 - 11.0 fL 01/30/2025 7:34 AM CDT [facility] NRBC 0.0 % 01/30/2025 7:34 AM CDT [facility] ABS NRBC 0.0 thou /cu mm 01/30/2025 7:34 AM T [facility] Blood BLOOD SPECIMEN / Unknown Venipuncture / Unknown 01/30/2025 6:57 AM CDT 01/30/2025 7:23 AM CDT us Michael Kang MD HEMATOLOGY Final Result [facility] [address] [place] [address], * (ABNORMAL) Basic Metabolic Panel (01/30/2025 6:57 AM CDT) Only the most recent of3 resultswithin the time period is included. SODIUM 139 136 - 145 mmol/L 01/30/2025 7:50 AM CDT [facility] POTASSIUM 4.5 3.5 - 5.1 mmol/L 01/30/2025 7:50 AM CDT [facility] CHLORIDE 105 98 - 107 mmol/L 01/30/2025 7:50 AM CDT [facility] CO2,TOTAL 24 22 - 29 mmol/L 01/30/2025 7:50 AM CDT [facility] ANION GAP 10 5 - 18 01/30/2025 7:50 AM CDT [facility] GLUCOSE 96 70 - 99 mg/dL 01/30/2025 7:50 AM CDT [facility] CALCIUM 9.1 8.8 - 10.4 mg/dL 01/30/2025 7:50 AM CDT [facility] Comment: Reference ranges for this test were updated on 03/24/2024 to reflect our healthy population more accurately. Reference range changes are not retroactively applied to results, but previous results using the same methodology can be interpreted in the context of the new reference range. BUN 21 8 - 23 mg/dL 01/30/2025 7:50 AM CDT [facility] CREATININE 1.22(H) 0.70 - 1.20 mg/dL 01/30/2025 7:50 AM CDT [facility] BUN/CREAT RATIO 17 10 - 20 7:50 AM CDT [facility] eGFR 64(L) >90 mL/min/1. 73m2 01/30/2025 7:50 AM CDT [facility] Comment:As of 2021, eG [...] us Michael Kang MD CHEMISTRY Final Result [facility] [address] [place] [address], [place] * SCAN-CARDIAC STRIP (01/30/2025 3:27 AM CDT) us Scanner OTHER Final Result * (ABNORMAL) ACTIVATED CLOTTING TIME [id number] ACT (01/29/2025 12:20 PM CDT) ACTIVATED CLOTTING TIME, POCT 292(H) 74 - 125 sec 01/29/2025 1:39 PM CDT [facility] Blood BLOOD SPECIMEN / Unknown 01/29/2025 12:20 PM CDT 01/29/2025 1:39 PM CDT us Ramírez Sanches MD HEMATOLOGY Final Result [facility] [address] [place] [address], * [facility] CATH PR5, [facility] ANES US [...] PX NOTE SOUMYAE BRAIN Final Result * HCHG TUBE PR1, HCHG STYLET PR1 (01/29/2025 11:57 AM CDT) Narrative Keshawn Sullivan CRNA - 01/29/2025 11:57 AM CDKeshawn Beck [...] PX NOTE ORDE RABLES Final Result * EKG (01/29/2025 10:34 AM CDT) Interpretation Normal sinus rhythm Normal ECG When compared with ECG of 13-Sep-2018 10:47, No significant change was found BEYOND NOW Ventricular Rate 75 BPM BEYOND NOW Atrial Rate 75 BPM BEYOND NOW P-R Interval 150 ms BEYOND NOW QRS Duration 92 ms BEYOND NOW QT 374 ms BEYOND NOW QTc 417 ms BEYOND NOW P [place] 67 degrees BEYOND NOW R [place] 10 degrees BEYOND NOW T [place] 55 degrees BEYOND NOW 01/29/2025 10:3 4 AM CDT 01/29/2025 8:49 PM CDT Narrative BEYOND NOW - 01/29/2025 8:49 PM CDT Test Indication: preop [facility] HE[facility] EKG ORD Fin al Result Performing Organization Address City/State/[facility] Co de Phone Number BEYOND NOW [place], [place] * (ABNORMAL) P2Y12 INHIBITION (01/29/2025 10:08 AM CDT) PLATELET COUNT 188 140 - 440 thou/cu mm 01/29/2025 10:54 AM CDT [employer] LAB[facility]AT[facility]-[place] [facility] P2Y12 REACTION UNITS 59 01/29/2025 10:54 AM CDT [employer] [facility] Comment: Reference Range: Individuals [...] et al. Bleeding and stent thrombosis on [id number]: collaborative analysis on the role of platelet reactivity for risk stratification after percutaneous coronary intervention. Heart Journal. 2015; 36:3076-3630. 3. Reginald Mccloud, Salazar RF, Cosmo brasher A, et al. Expert position paper on the role of platelet function testing in patients undergoing percutaneous coronary intervention. Heart Journal. 2014;35(4):209-215. HEMATOCRIT 35.0(L) 37.0 - 53.0 % 01/29/2025 10:54 AM CDT [facility] Blood BLOOD SPECIMEN / Unknown Venipuncture / Unknown 01/29/2025 10:08 AM CDT 01/29/2025 10:43 AM CDT Narrative [facility] [employer] LABORATORY-[facility] - 01/29/2025 10:54 AM CDT OBTAIN BLOOD COLLECTION TUBES FROM THE LABORATORY. us [facility] HE[facility] SEND OUTS Fin al Result [facility] [employer] LABORATORY-CEN[facility]AL LABORATORY [address] [place] [address], * Type and Screen (01/29/2025 10:08 AM CDT) Pathologist [facility] ABORH B Rh Positive 01/29/2025 11:09 AM CDT [facility] BLOOD B[facility] ANTIBODY SCREEN Negative Negative 01/29/2025 11:09 AM CDT [facility] [employer] LAB-CENTRAL LAB BLOOD BANK SPECIMEN EXPIRATION DATE/TIME 02/01/25 23:59 01/29/2025 11:[address] [facility] Blood BLOOD SPECIMEN / Unknown Non-Lab Venipuncture / Unknown 01/29/2025 10:08 AM CDT 01/29/2025 10:23 AM CDT [facility] Gomez [place] BLOOD BANK Fin al Result [facility] LAB BLOOD BANK [address] [place] [address], * EXTRA TUBE GOLD/SST (01/29/2025 10:07 AM CDT) Blood BLOOD SPECIMEN / Unknown Non-Lab Venipuncture / Unknown 01/29/2025 10:07 AM CDT 01/29/2025 10:24 AM CDT Ramírez Sanches MD LABORATORY Final Result Performing Organization Address City/[facility]/ZIP Co de Phone Number [facility] [address] [place] [address], [place] * SCAN-CARDIAC STRIP (01/29/2025 12:00 AM CDT) Narrative 01/29/2025 12:00 AM CDT Ordered by an unspecified provider. Other Clinical Staff OTHER Final Resul t * SCAN CORRESP-LABORATORY RESULTS (01/14/2025 12:59 PM CDT) Narrative 01/14/2025 12:59 PM CDT Ordered by an unspecified provider. us Other Clinical Staff OTHER Final Resul t * SCAN CORRESP-EKG RESULTS (01/14/2025 12:59 PM CDT) Narrative 01/14/2025 12:59 PM CDT Ordered by an unspecified provider. Other Clinical Staff OTHER Final Resul t * GLUCOSE METER (01/14/2025 11:07 AM CDT) Only the most recent of5 resultswithin the time period is included. [facility] GLUCOSE METER 97 65 - 100 mg/dL 01/14/2025 11:13 AM CDT [facility] Blood BLOOD SPECIMEN / Unknown 01/14/2025 11:07 AM CDT 01/14/2025 11:12 AM CDT us Ramon Gutierrez MD CHEMISTRY Final R esult [facility] LABORAT[facility] [address] [address], [place] * ECHO TTE COMPLETE W CONTRAST [...] kg Tech: Referring MD: GODFREY FINCH Site: [facility] Reading Location: [facility] Patient Location: Inpatient. Procedure: 2D w/ [...] documentation: 2 ml diluted Definity, lot #[id number], [facility]# [id number] was administered peripherally to enhance visualization of all left ventricular segments. . This study was interpreted by an [facility] accredited facility. 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 [...] documentation: 2 ml diluted Definity, lot #[id number], [facility]#[id number] was administered peripherally to enhance visualization of allleft ventricular segments. . This study was interpreted by an [facility] accredited facility. Final Godfrey Finch MD ECHO ORD Final Resul [...] 5.5 <=6.4 % 01/13/2025 3:23 PM CDT [facility] LABORATORY Blood BLOOD SPECIMEN / Unknown Butterfly / Unknown 01/13/2025 11:09 AM CDT 01/13/2025 11:19 AM CDT Narrative [facility] - 01/13/2025 3:23 PM CDT (<5.7%) Normal (5.7% to 6.4%) Indicates prediabetes (>=6.5%) Confirms diabetes Falsely low levels may be seen with: Recent Transfusion, Recent Significant Blood Loss, Hemolytic Diseases, or Falsely elevated levels may be seen with: Untreated Anemias, Splenectomy us Godfrey Finch MD CHEMISTRY Final Resul t Performing Organization Address City/[facility]/ZIP Co de Phone Number [facility] LABORATORY [address] [place] [address], * PLATELET COUNT (01/13/2025 11:09 AM CDT) PLATELET COUNT 177 140 - 440 thou/cu mm 01/13/2025 11:55 AM CDT [facility] LAB[facility]ORY MPV 9.5 6.5 - 11.0 fL 01/13/2025 11:55 AM CDT [facility] LAB[facility] Blood BLOOD SPECIMEN / Unknown Butterfly / Unknown 01/13/2025 11:09 AM CDT 01/13/2025 11:19 AM CDT Ramon Gutierrez MD HEMATOLOGY Final R esult Performing Organization Address City/[facility] Co de Phone Number [facility] [address] [place] [address], * Lipid Panel (01/13/2025 11:09 AM CDT) CHOLESTEROL,TOTAL 178 100 - 199 mg/dL 01/13/2025 12:11 PM CDT [facility] TR[facility] LAB[facility] Comment: Cholesterol, Total Reference Ranges Desirable <200 mg/dL Borderline 200-239 mg/dL High >=240 mg/dL TRIGLYCERIDES 110 <150 mg/dL 01/13/2025 12:11 PM CDT [facility] HDL CHOLESTEROL 47 >40 mg/dL 12:11 PM CDT [facility] NON-HDL CHOLESTEROL 131 <145 mg/dl 01/13/2025 12:11 PM CDT [facility] LAB[facility] CHOL/HDL RATIO 3.79 <4.50 01/13/2025 12:11 PM CDT [facility] LDL CHOLESTEROL 109 <=130 mg/dL 01/13/2025 12:11 PM CDT [facility] TRAL LABORATORY VLDL CHOLESTEROL 22 <=30 mg/dL 01/13/2025 12:11 PM CDT [facility] TRAL LABORATORY PROVIDER ORDERED STATUS RANDOM 01/13/2025 12:11 PM CDT [facility] LAB[facility] Blood BLOOD SPECIMEN / Unknown Butterfly / Unknown 01/13/2025 11:09 AM CDT 01/13/2025 11:19 AM CDT us Godfrey Finch MD CHEMISTRY Final Resul t [facility] LABORATORY-CENTRAL LABORATORY [address] [place] [address], * CT CHEST SCREENING LOW DOSE WO CONTRAST [[id number]] -- Criteria: must meet ALL: Age 50-80, current smoker or quit within the last 15 years, AND 20+ pack-year history (06/18/2024 2:03 PM WELT WHEELER) Anatomical Region Laterality Modality Computed Tomogra phy Impressions 06/19/2024 12:04 PM WELT WHEELER New 6 millimeter left upper lobe pulmonary [...] @06/18/2024 4:28:09 PM/giovanni Narrative 06/19/2024 12:04 PM WELT WHEELER For Patients: As a result of the [...] 2 millimeter perifissural nodule left upper lobe, /38. Continued decreased size of nodular density within the right middle lobe with residual linear scarring present. Stable 2 millimeter nodule right lower lobe, 72. Additional new nodule within the right lower [...] CHEST ABDOMEN PELVIS W (06/28/2021 12:22 PM WELT WHEELER) Anatomical Region Laterality Modality Abdomen, Pelvis, AORTA, LIVER, SPLEEN Computed Tomography 06/28/2021 9:38 PM WELT WHEELER Impressions 06/28/2021 9:38 PM WELT WHEELER Esophagus appears patulous and there are secretions [...] 9:38PM (Electronically Signed) Narrative 06/28/2021 9:38 PM WELT WHEELER For Patients: As a result of the [...] are osteopenic. Mild chronic compression deformity of [id number] body IMPRESSION: Esophagus appears patulous and there are secretions seen within thetrachea and extending into the distal small airways concerning foraspiration risk. There are changes of chronic aspiration or bronchitis orcombination of the 2. The lungs show numerous areas of small airwayocclusion with distal bronchiectasis and bronchiolitis. Tiny ipvo-bv-pscyjbuokhmd are seen within the right middle lobe. [...] Result * ANTI HCV (06/25/2019 8:36 AM WELT WHEELER) HEPATITIS C ANTIBODY Non-React dani Non-React dani 06/25/2019 2:37 PM WELT WHEELER [facility] Comment:Antibodies to HCV no t detected; does not exclude the possibility of exposure to HCV. Blood BLOOD SPECIMEN / Unknown Venipuncture / Unknown 06/25/2019 8:36 AM WELT WHEELER 06/25/2019 8:36 AM WELT WHEELER Rex Connor MD SEND OUTS Final Result [facility] LABORATORY-CENTRAL LABORATORY 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
--- OUTSIDE RECORDS SUMMARY | 2025-03-22 20:49 | XMS_ITS | Patient Health Record ---
Author Organization [facility] Address [address] [place] [address] Care Team Providers Care [employer]ader Name Role Phone Rex Connor Primary Care Provider Unavailab JOE Mitchell Unavailable [phone] None, None Unavailable Unavailable Allergies Allergen (clinical [...] Risk Notes Problem Schizoaffective disorder, bipolar type (09200556) Schizoaffective disorder, bipolar type (F25.0) Active confirmed Problem Epistaxis (901531261) Epistaxis (R04.0) Active confirmed Problem Hypertension (45820193) HTN (hypertension) (I10) Active confirmed Plan Of Treatment No Information Insurance Providers Payer Name Payer Address Payer Phone Subscriber Number Group Number Insured Name Patient Relationship to Insured Coverage Start Date Coverage End Date MEDICARE [address] [place] [phone] [id number] Scooby Greer Self - patient is the insured [employer] [address] [address] [place] [address] [id number] Scooby Greer Self - patient is the insured Medical (General) History Medical History History ICD Code Heart disease Psychotic disorder Schizoaffective disorder bipolar type CV19 Vaccine 05/2020 Surgical History Surgery Date(Month/Year) Hernia Stomach for ulcers
--- NOTE | 2025-03-22 21:07 | ED.NEUROSD ---
HPI - Neuro Symptoms/Deficit General Time Seen by Provider: 21:07 Date Seen: 03/22/25 Chief Complaint: Neuro Symptoms/Altered Deficit Stated Complaint: Possible Stroke Time Seen by Provider: 03/22/25 20:49 Source: patient, EMS, RN notes reviewed and old records reviewed Mode of arrival: EMS Limitations: altered mental status History of Present Illness HPI Narrative: Scooby is a 69-year-old male with history of parkinsonian syndrome, recurrent TIA, continued tobacco use and schizoaffective disorder who comes to the emergency room via EMS for evaluation after having been found slumped over while on a smoke break. Scooby is noted to have last known well at 1930. Symptom discovery at 2014. Nursing staff noted that he seemed to be weak on his left side and was not speaking. EMS placed an IV transported him here to the ER. Stated that he was able to stand and pivot in order to get on to the EMS cot. He also started talking and route to the hospital. It was noted that he has been he seen here on 03/18 for symptoms related to hypotension and left-sided weakness. A follow-up MRI on 03/19 showed a lot of artifact but no new findings. Previously on 03/06 he was seen for right-sided symptoms with his no acute findings and diagnosed with a TIA. Of note, the left-sided weakness that staff had noted on 03/18 had resolved and patient had not been exhibiting that until discovered tonight. I do meet the patient in the back hallway and we proceed directly to CT. CT/CTA done immediately. Patient is able to speak to me. Notes headache and the frontal sinus area. Denies any recent trauma or falls. Related Data Home Medications ?Medication ?Instructions ?Recorded ?Confirmed divalproex 250 mg tablet,extended 250 mg PO HS 12/20/21 03/19/25 release 24 hr divalproex 500 mg tablet,extended 1,000 mg PO HS 12/20/21 03/19/25 release 24 hr levothyroxine 150 mcg tablet 150 mcg PO DAILY 12/20/21 03/19/25 propranolol 20 mg tablet 20 mg PO BID 12/20/21 03/19/25 tamsulosin 0.4 mg capsule 0.4 mg PO DAILY 12/20/21 03/19/25 carbidopa 25 mg-levodopa 100 mg 1 tab PO 3XD 08/21/22 03/19/25 tablet escitalopram oxalate 10 mg tablet 10 mg PO DAILY 08/21/22 03/19/25 nicotine (polacrilex) 2 mg buccal 2 mg PO Q1H PRN 08/21/22 03/19/25 lozenge polyethylene glycol 3350 17 17 g PO BID 08/21/22 03/19/25 gram/dose oral powder (Gavilax) clopidogrel 75 mg tablet 75 mg PO DAILY 03/01/25 03/19/25 famotidine 20 mg tablet 20 mg PO DAILY 03/01/25 03/19/25 ferrous sulfate 325 mg (65 mg 325 mg PO Q48H 03/01/25 03/19/25 iron) tablet (FeroSul) fluticasone 250 mcg-salmeterol 50 1 inh inhalation BID 03/01/25 03/19/25 mcg/dose blistr powdr for inhalation melatonin 3 mg capsule 3 mg PO HS 03/01/25 03/19/25 olanzapine 5 mg tablet 5 mg PO HS 03/01/25 03/19/25 rosuvastatin 40 mg tablet 40 mg PO HS 03/01/25 03/19/25 sennosides 8.6 mg tablet (senna) 8.6 mg PO BID 03/01/25 03/19/25 aspirin 81 mg chewable tablet 1 tab PO DAILY 03/06/25 03/19/25 cholecalciferol (vitamin D3) 25 25 mcg PO DAILY 03/06/25 03/19/25 mcg (1,000 unit) tablet (Vitamin D3) quetiapine 150 mg tablet 450 mg PO HS 03/06/25 03/19/25 albuterol sulfate 2.5 mg/3 mL 2.5 mg inhalation BID 03/19/25 03/19/25 (0.083 %) solution for nebulization clonazepam 1 mg tablet 1 mg PO HS 03/19/25 03/19/25 uxzyuqvmsiqj-Xr-hiyj-minerals 1 tab PO DAILY 03/19/25 03/19/25 sodium chloride 0.65 % nasal spray 2 spray intranasal Q6H 03/19/25 03/19/25 aerosol (Deep Sea Nasal) Allergies Allergy/AdvReac Type Severity Reaction Status Date / Time haloperidol AdvReac Unknown Verified 03/18/25 21:24 clozapine AdvReac Verified 03/18/25 21:24 Review of Systems Status of ROS: Reports: unobtainable due to mental status [facility] Medical History Aneurysm of ophthalmic artery ?I67.1 - Cerebral aneurysm, nonruptured (ICD-10) Tobacco dependence ?F17.200 - Nicotine dependence, unspecified, uncomplicated (ICD-10) Hypothyroidism ?E03.9 - Hypothyroidism, unspecified (ICD-10) Hyperlipidemia ?E78.5 - Hyperlipidemia, unspecified (ICD-10) Carotid artery disease ?I77.9 - Disorder of arteries and arterioles, unspecified (ICD-10) Brain TIA ?G45.9 - Transient cerebral ischemic attack, unspecified (ICD-10) History of alcohol abuse ?F10.11 - Alcohol abuse, in remission (ICD-10) Schizoaffective disorder, bipolar type ?F25.0 - Schizoaffective disorder, bipolar type (ICD-10) Psychotic disorder ?F29 - Unspecified psychosis not due to a substance or known physiological condition (ICD-10) Manic depression ?F31.9 - Bipolar disorder, unspecified (ICD-10) CAD (coronary artery disease) ?I25.10 - Atherosclerotic heart disease of [place] coronary artery without angina pectoris (ICD-10) Social History What is your current living situation?: I presently have a place to live Problems where you live: no known problems In the past 12 months, utilities in danger of being shut off: no In past 12 months, lack of transportation kept you from medical appts, meetings, work, or getting things needed for daily living: no In the past 12 mos, have been you worried that your food would run out before you had money to buy more?: never true In the past 12 mos, the food you bought just didn't last and you didn't have money to buy more?: never true Highest level of school completed/degree received: Associate degree: occupational, technical, vocational program Smoking Status: Current every day smoker What tobacco products do you use: cigarettes Do you use any of these nicotine containing products: None Second hand tobacco smoke exposure: No How often do you have a drink containing alcohol: never How often do you have six or more drinks on one occasion: Never AUDIT-C Alcohol total score: 0 Non-prescribed substance use: denies use How often does anyone, including family, friends and others, physically hurt you: never How often does anyone, including family, friends and others, insult or talk down to you: never How often does anyone, including family, friends and others, threaten you with harm: never How often does anyone, including family, friends and others, scream or curse at you: never service: No Exam Narrative: Exam Narrative: Patient is with a GCS of 14. EOM is full. Obeying commands. Face symmetrical with smile. Does have a. Midline tongue. Eyebrow raise intact. Heart with regular rate and rhythm and lungs are clear. Abdomen soft. Patient has bilateral plantar flexion intact. Decreased dorsiflexion on the left. Patient unable to lift legs off of the bed. He is able to lift both arms up but there seems to be weakness on the right. Do note that when he is re-examine in his room his strength has gradually improved as has his effort. He is now talking more as well. Const: Vital Signs, click to edit/add: Vital Signs - 24 hr 03/22/25 20:47 03/22/25 21:05 03/22/25 21:09 Temperature 97.9 F Pulse Rate 79 Pulse Rate [Pulse Oximeter] 74 Respiratory Rate 16 16 Blood Pressure 128/77 Blood Pressure [Ri ght Upper Arm] 128/71 Pulse Oximetry 98 95 95 Oxygen Delivery Me thod Room Air 03/22/25 21:15 03/22/25 21:16 03/22/25 21:30 Temperature Pulse Rate 78 77 74 Pulse Rate [Pulse Oximeter] Respiratory Rate 16 Blood Pressure 129/71 Blood Pressure [Ri ght Upper Arm] Pulse Oximetry 95 95 95 Oxygen Delivery Me thod 03/22/25 21:32 03/22/25 21:33 03/22/25 21:46 Temperature Pulse Rate 72 72 Pulse Rate [Pulse Oximeter] Respiratory Rate 16 16 Blood Pressure 111/64 146/86 H Blood Pressure [Ri ght Upper Arm] Pulse Oximetry 95 95 Oxygen Delivery Me thod 03/22/25 21:54 03/22/25 22:00 03/22/25 22:01 Temperature Pulse Rate 69 71 Pulse Rate [Pulse Oximeter] Respiratory Rate 17 Blood Pressure 137/79 Blood Pressure [Ri ght Upper Arm] Pulse Oximetry 97 97 97 Oxygen Delivery Me thod 03/22/25 22:15 03/22/25 22:16 03/22/25 22:52 Temperature Pulse Rate 72 72 Pulse Rate [Pulse Oximeter] 74 Respiratory Rate 17 16 Blood Pressure 139/79 Blood Pressure [Ri ght Upper Arm] 151/83 H Pulse Oximetry 98 99 98 Oxygen Delivery Me thod Room Air 03/22/25 22:52 03/22/25 22:53 Temperature Pulse Rate Pulse Rate [Pulse Oximeter] 83 84 Respiratory Rate 18 16 Blood Pressure Blood Pressure [Ri ght Upper Arm] 137/81 132/91 H Pulse Oximetry 99 100 Oxygen Delivery Me thod Room Air Room Air Course Course ED Course: Differential diagnosis includes but is not limited to TIA, stroke, orthostatic hypotension, seizure, postictal phase, electrolyte imbalance. Patient underwent CT/CTA upon his arrival. We will also obtain labs to include CBC, comprehensive panel, urinalysis, to ETOH and drug screen. Reevaluation(s) Reevaluation #1: At the pleasure of speaking to Dr. Moore, neurologist. Agrees with overnight observation and will speak to his colleague about this patient for rounds tomorrow morning. Patient continues to improve. Is now hungry and asking for a sandwich. Vital Signs Vital signs: Initial Vital Signs Temperature 97.9 F 03/22/25 20:47 Temperature Source Temporal Artery Scan 03/22/25 20:47 Pulse Rate 74 03/22/25 20:47 Respiratory Rate 16 03/22/25 20:47 Blood Pressure 128/71 03/22/25 20:47 Blood Pressure Mean 90 03/22/25 20:47 Blood Pressure Position Sitting 03/22/25 20:47 Pulse Oximetry 98 03/22/25 20:47 Oxygen Delivery Method Room Air 03/22/25 20:47 Vital Signs Temperature 97.9 F 03/22/25 20:47 Pulse Rate 74 03/22/25 20:47 Respiratory Rate 16 03/22/25 20:47 Blood Pressure 128/71 03/22/25 20:47 Pulse Oximetry 98 03/22/25 20:47 Oxygen Delivery Method Room Air 03/22/25 20:47 Temperature 97.9 F 03/22/25 20:47 Pulse Rate 84 03/22/25 22:53 Respiratory Rate 16 03/22/25 22:53 Blood Pressure 132/91 H 03/22/25 22:53 Pulse Oximetry 100 03/22/25 22:53 Oxygen Delivery Method Room Air 03/22/25 22:53 MDM - Neuro Symptoms/Deficit MDM Narrative Medical decision making narrative: 1. Altered mentation-symptoms gradually resolved during stay here. CT and CTA reassuring with no acute findings. Previous visit on March 06 were with right-sided symptoms, symptoms on March 18 is with left-sided symptoms but at that time orthostatic hypotension may have been the cause. Tonight primarily left-sided symptoms per EMS but upon examination it was left lower extremity and right arm weakness. Certainly his decreased interaction could be secondary to seizure and a postictal phase as well. No active seizure seen here in the ED. Patient was considered for overnight observation admission but was declined by hospitalist after review of previous visits for similar symptoms. Patient was then observed in the ED for period of time. Gradual improvement was noted. Patient then was able to eat and was at his baseline and felt safe to go home. 2. History of TIA/5 mm ophthalmic left ICA aneurysm-recommend follow-up with Neurology 3. Parkinsonian syndrome with orthostatic hypotension-blood pressure is appropriate here in the emergency room with no evidence of hypotension. Pulse was normal. 4. Tobacco use -advised abstinence. Increases risk of stroke. Patient acknowledges this. 5. Cytopenia-platelets are preserved but hemoglobin has dropped from 12.1 5 months ago to 9.6 tonight. No significant decrease from visit of 9.9 last week. No history of blood in bowel movements or vomiting. Will need to follow-up with primary MD. 6. Disposition-patient gradually improved during his time in the emergency room. At this time hospitalist had declined admission. I did call Neurology back is as they had suggested admission. At this time during our conversation he was improved and neurologist felt it would be okay to let him go home as long as the patient would be able to follow up outpatient. I was able to speak to his POA Marion which is is [id number]. She is a nurse and knowledgeable of Medicine and Marie particular situation. She too is frustrated at the recurrent episodes of altered mentation in need for ER evaluation. We did talk about possibility of TIA but the results had been reassuring in the past. Tonight CT CTA also reassuring. Then talked to her about orthostatic hypotension which is associated with the autonomic dysfunction in parkinsonian syndrome. I do suggest follow-up with neurology for all of these reasons plus the aneurysm in the ophthalmic ICA. I also spoke about the drop in hemoglobin and the low white count. This would need to be followed up by primary care. No evidence of bleeding tonight. Unfortunately, before we could finish our conversation I was called away for an emergent patient. I did try to call back at approximately 0124 hours and left a message. I was unable to leave the entire message I had wanted to because the phone cut out. I will insure that the suggestions for follow-up are sent to [facility] which is [place]. Medical Records Attestation: I reviewed the patient's medical records. Lab Data Attestation: I reviewed the patient's lab results. Labs: Lab Results 03/22/25 03/22/25 03/22/25 Range/Units 21:05 21:36 22:30 WBC 3.76 L (4.50-11.00) K/uL RBC 3.22 L (4.30-5.90) m/uL Hgb 9.6 L (13.5-17.5) gm/dL Hct 30.7 L (37.0-53.0) % MCV 95 (80-100) fL MCH 30 (26-34) pg MCHC 31 L (32-36) gm/dL RDW Coeff of [place] 14.1 (11.5-15.5) % Plt Count 167 (140-440) K/uL Neut % (Auto) 58.3 (42.0-72.0) % Lymph % (Auto) 23.9 (20-44) % [place] % (Auto) 12.5 H (0.0-11.0) % Eos % (Auto) 4.5 (0.0-7.0) % Baso % (Auto) 0.5 (0.0-3.0) % Neut # (Auto) 2.20 (1.7-7.0) K/uL Lymph # (Auto) 0.90 (0.90-2.90) K/uL [place] # (Auto) 0.50 (0.00-0.90) K/UL Eos # (Auto) 0.20 (0.00-0.50) K/uL Baso # (Auto) 0.00 (0.00-0.30) K/uL Abs Immat Gran (auto) 0.00 (0.00-0.30) K/uL Imm/Tot Granulo (auto) 0.3 % Sodium 134 L (135-149) mmol/L Potassium 4.5 (3.6-5.1) mmol/L Chloride 106 (96-114) mmol/L Carbon Dioxide 25 (20-32) mmol/L Anion Gap 3 L (7-15) mEq/L BUN 21 (7-30) mg/dL Creatinine 1.3 (0.5-1.5) mg/dL Estimated Creat Clear 55.37 Estimated GFR 59 ml/min Glucose 90 (60-115) mg/dL Calcium 8.8 (8.4-10.6) mg/dL Total Bilirubin 0.3 (0.1-1.5) mg/dL AST 32 (12-35) U/L ALT 6 (4-50) U/L Alkaline Phosphatase 80 (40-150) U/L Total Protein 5.8 L (6.0-8.3) g/dL Albumin 3.1 L (3.3-5.0) g/dL Urine Color Yellow (Yellow) Urine Appearance Clear (Clear) Urine pH 7.0 (5.0-8.5) Ur Specific [place] 1.010 (1.000-1.030) Urine Protein Negative (Negative) Urine Glucose (UA) Negative (Negative) Urine Ketones Negative (Negative) Urine Blood Trace-intact A (Negative) Urine Nitrite Negative (Negative) Urine Bilirubin Negative (Negative) Urine Urobilinogen 0.2 (0.2-1.0) Ur Leukocyte Esterase Negative (Negative) Urine RBC 0-2 (0-2) Urine WBC 0-2 (0-5) Ur Squamous Epith Cells Few (None-Few) Urine Bacteria None (None) Urine Opiates Screen Negative (Negative) Ur Oxycodone Screen Negative (Negative) Urine Methadone Screen Negative (Negative) Ur Barbiturates Screen Negative (Negative) U Tricyclic Antidepress POSITIVE A (Negative) Ur Phencyclidine Scrn Negative (Negative) Ur Amphetamines Screen Negative (Negative) U Methamphetamines Scrn Negative (Negative) U Benzodiazepines Scrn Negative (Negative) Urine Cocaine Screen Negative (Negative) U Marijuana (THC) Screen Negative (Negative) Ur Drug Screen Comment See Note Ethyl Alcohol < 0.01 (0.01-0.03) % Lab Acknowledgement Test Added Imaging Data CT scan - head: Attestation: I have reviewed the pertinent imaging results. My impression: I do not note any acute bleed. Radiologist's impression: Mild cerebral atrophy. The ventricles, sulci and gyri are of normal size, shape and contour for age and degree of atrophy. Midline structures are centrally located. Stable incidental arachnoid cyst within the anterior medial aspect of the right middle cranial fossa. Mild patchy regions of decreased attenuation within the periventricular and subcortical white matter of both cerebral hemispheres. IMPRESSION: 1. Stable, no radiographic evidence of acute intracranial abnormalities. 2. Mild cerebral atrophy. 3. Mild supratentorial white matter changes that are non-specific, but statistically most likely related to chronic small vessel ischemic disease. Chest x-ray: Attestation: I have reviewed the pertinent imaging results. My impression: Chronic lung markings. No obvious pneumonia. Radiologist's impression: Cardiovasculature and mediastinum: Heart size is normal. Unremarkable mediastinum. Lungs and pleural spaces: Lung volumes are low with bibasilar atelectasis. No focal pulmonary consolidation. No pleural effusion or pneumothorax. Bones and soft tissues: No significant findings. IMPRESSION: No acute cardiopulmonary process. CTA head and neck: Attestation: I have reviewed the pertinent imaging results. Radiologist's impression: CTA head: There is normal opacification of the intracranial vasculature. There is no large vessel occlusion or significant intracranial stenosis. A 5 millimeter ophthalmic left ICA aneurysm is again noted. CTA neck: There has been placement of left carotid stent. There is only mild residual stenosis at the distal aspect of the device, unchanged. There is atherosclerotic plaque at the origin of the right internal carotid artery resulting in a mild stenosis, less than 50 percent by NASCET. There is atherosclerotic plaque at the origin of the vertebral arteries. There is no significant vertebral artery stenosis or dissection. IMPRESSION: 1. Patent left carotid stent. 2. Mild right ICA origin stenosis, less than 50 percent by NASCET. 3. 5 millimeter ophthalmic left ICA aneurysm, unchanged. We would be happy to manage this at the [facility] neurointerventional clinic if desired. This can be arranged by calling our coordinator at [phone]. Discharge Plan Discharge Clinical Impression: History of TIAs, Cytopenia, Parkinson disease, Altered behavior, Tobacco use Patient Disposition: Home, Self-Care Condition: Improved Additional Instructions: You will need to follow-up with neurology for: A follow-up for recurrent TIA, orthostatic hypotension associated with your Parkinson's, recurrent altered mentation. There is also a very small aneurysm in the vasculature supplying the left eye with blood. Will need to follow-up with your primary care doctor because you have a low white cell count and low hemoglobin. Your platelets are normal. It is suggested by Neurology that you wear support stockings so that your blood pressure does not drop. Sometimes wearing an abdominal binder helps as well. It would be very helpful if you would stop smoking for your health. Return to the emergency room for worsening symptoms. Prescriptions: No Action divalproex 500 mg tablet extended release 24 hr 1,000 mg PO HS Patient Comments: TOTAL OF 1250MG divalproex 250 mg tablet extended release 24 hr 250 mg PO HS Patient Comments: TOTAL OF 1250MG tamsulosin 0.4 mg capsule 0.4 mg PO DAILY levothyroxine 150 mcg tablet 150 mcg PO DAILY propranolol 20 mg tablet 20 mg PO BID clopidogrel 75 mg tablet 75 mg PO DAILY fluticasone propion-salmeterol 250-50 mcg/dose blister with device 1 inh inhalation BID famotidine 20 mg tablet 20 mg PO DAILY ferrous sulfate [FeroSul] 325 mg (65 mg iron) tablet 325 mg PO Q48H melatonin 3 mg capsule 3 mg PO HS olanzapine 5 mg tablet 5 mg PO HS sennosides [senna] 8.6 mg tablet 8.6 mg PO BID rosuvastatin 40 mg tablet 40 mg PO HS clonazepam 1 mg tablet 1 mg PO HS Deep Sea Nasal 0.65 % aerosol,spray 2 spray INTRANASAL Q6H cfgmjwjfsquz-Df-avuj-minerals Tablet 1 tab PO DAILY albuterol sulfate 2.5 mg /3 mL (0.083 %) solution for nebulization 2.5 mg inhalation BID Rx Instructions: Inhale 3 mL (2.5 mg) via a nebulizer two times daily. polyethylene glycol 3350 [Gavilax] 17 gram/dose powder 17 g PO BID carbidopa-levodopa 25-100 mg tablet 1 tab PO 3XD escitalopram oxalate 10 mg tablet 10 mg PO DAILY nicotine (polacrilex) 2 mg lozenge 2 mg PO Q1H PRN aspirin 81 mg tablet,chewable 1 tab PO DAILY quetiapine 150 mg tablet 450 mg PO HS cholecalciferol (vitamin D3) [Vitamin D3] 25 mcg (1,000 unit) tablet 25 mcg PO DAILY Follow Up/Referrals: Rex Connor MD [Primary Care Provider, Family Practice]
--- OUTSIDE RECORDS SUMMARY | 2025-03-22 21:13 | XMS_ITS | Clinical Summary ---
Author Organization [facility] Address [address] , [address] [place] [address] Phone Care Team Providers Care Industrial Staff Nurse Name Role Phone Contreras Vargas MD Unavailable Conditions or Problems Problem Name Problem Code Onset Date Status Entry Date Provider Comment Standard Description Annotate Parkinsonism , unspecified 19497889 (SNOMED CT) 05/20 Active 05/20 Aleta Restrepo Parkinsonism Schizoaffect dani disorder with depression 03547781 (SNOMED CT) 07/29 Active 07/29 Contreras Vargas MD Schizoaffective disorder Memory deficit [id number] (SNOMED CT) 07/29 Active 07/29 Contreras Vargas MD Memory impairment Tremor, rest 43466877 (SNOMED CT) 07/29 Active 07/29 Contreras Vargas MD Resting tremor Parkinsonism 81088857 (SNOMED CT) 05/20 Inactive 05/20 Jose Eduardo Corcoran MD Parkinsonism Medications Medication Instructions Start Date Stop Date Generic Name [facility] Provider TAMSULOSIN HCL 0.4 MG CAPS 02/02 tamsulosin [id number] Fauzia Robbins DNP,[employer]IAISON ENGINEER,CN P MAGNESIUM CITRATE 1.745 GM/30ML SOLN 02/02 magnesium citrate 16697298830 Fauzia Robbins DNP,LIAISON ENGINEER,CN P DEEP SEA NASAL SPRAY 0.65 % SOLN Administer 2 spray into both nostrils every six hours 02/02 sodium chloride 47002772664 Fauzia Robbins DNP,LIAISON ENGINEER,CN P LEVOTHYROXINE SODIUM 150 MCG TABS 02/02 levothyroxine 39132642885 Fauzia Robbins DNP,LIAISON ENGINEER,CN P QUETIAPINE FUMARATE 200 MG TABS Take 200 mg by mouth every night 02/02 quetiapine 50106493424 Fauzia Robbins DNP,LIAISON ENGINEER,CN P NICOTINE POLACRILEX [address] 1 by mouth every hour as needed 02/02 nicotine (polacrilex) 76737652442 Fauzia Robbins DNP,LIAISON ENGINEER,CN P haloperidol decanoate (HALDOL DECANOATE) 100 mg/mL intramusc Inject 75 mg intramuscularly every two weeks 02/02 HALDOL DECANOATE Fauzia Robbins DNP,LIAISON ENGINEER,CN P DIVALPROEX SODIUM ER 500 MG [id number] Take 2 Tablets (1,000 mg) by mouth at bedtime. 02/02 divalproex [id number] [facility],LIAISON ENGINEER,CN P HALOPERIDOL DECANOATE 50 MG/ML SOLN 02/02 haloperidol decanoate 22824372225 Fauzia Robbins DNP,LIAISON ENGINEER,CN P BENZTROPINE MESYLATE 0.5 MG TABS Take 0.5 mg by mouth twice a day 02/02 benztropine 13678663142 [facility],LIAISON ENGINEER,CN P HALOPERIDOL 5 MG TABS Take 5 mg by mouth every four hours as needed 02/02 haloperidol 33105890878 [facility],LIAISON ENGINEER,CN P IBUPROFEN (IBUPROFEN) 600 MG TABS Take 1 tablet by mouth every eight hours as needed 02/02 IBUPROFEN [facility],LIAISON ENGINEER,CN P CLONAZEPAM 0.5 MG TABS Take 1 tablet by mouth once a day as needed 02/02 clonazepam [id number] Fauzia Robbins DNP,LIAISON ENGINEER,CN P CLONAZEPAM 0.5 MG TABS 02/02 clonazepam 20509755548 Fauzia Robbins DNP,LIAISON ENGINEER,CN P SYMBICORT 80-4.5 MCG/ACT AERO 02/02 budesonide-form oterol 59334460954 Fauzia Rechtzigel DNP,LIAISON ENGINEER,CN P ACETAMINOPHEN 500 MG TABS Take 2 Tablets (1,000 mg) by mouth every 6 hours if needed for Pain. Max acetaminophen dose: 4000mg in 24 hrs. 02/02 acetaminophen 29293709430 Fauzia Rechtzigel DNP,LIAISON ENGINEER,CN P ASPIRIN LOW DOSE 81 MG [facility] aspirin 08480702380 Fauzia Rechigel DNP,LIAISON ENGINEER,CN P DEEP SEA NASAL SPRAY 0.65 % SOLN sodium chloride 59057602861 A keisha Rechtzigel DNP,LIAISON ENGINEER,CN P CLONAZEPAM 1 MG TABS clonazepam 97221825870 [facility]LIAISON ENGINEER,CN P CLOPIDOGREL BISULFATE 75 MG TABS clopidogrel 52738359940 [facility],LIAISON ENGINEER,CN P DIVALPROEX SODIUM ER 250 MG [id number] divalproex 59634241054 [facility]LIAISON ENGINEER,CN P QUETIAPINE FUMARATE 150 MG TABS quetiapine 81204718189 [facility],LIAISON ENGINEER,CN P OLANZAPINE 5 MG TABS olanzapine 80666550746 [facility],LIAISON ENGINEER,CN P SENNA 8.6 MG TABS sennosides 59360479460 [facility],LIAISON ENGINEER,CN P ROSUVASTATIN CALCIUM 40 MG TABS rosuvastatin 75994120940 [facility],LIAISON ENGINEER,CN P FAMOTIDINE 20 MG TABS Take 1 tablet by mouth once a day famotidine 34063755574 Contreras Vargas MD MELATONIN 3 MG TABS Take 1 tablet by mouth every night melatonin 85364552648 Contreras Vargas MD QUETIAPINE FUMARATE 200 MG TABS Take 200 mg by mouth every night 02/02 quetiapine 49996844473 Contreras Vargas MD ESCITALOPRAM OXALATE 10 MG TABS Take 10 mg by mouth once a day escitalopram oxalate 32061305825 Contreras Vargas MD ALBUTEROL SULFATE (2.5 MG/3ML) 0.083% NEBU Inhale 1 ampul by mouth twice a day albuterol sulfate 03660408082 Contreras Vargas MD Multivits,Ca,Mine [id number] (High Potency Multivit, w-iron Take 1 tablet by mouth once a day High Potency Multivit, w-iron Contreras Vargas MD IBUPROFEN (IBUPROFEN) 600 MG TABS Take 1 tablet by mouth every eight hours as needed 02/02 IBUPROFEN Contreras Vargas MD TAMSULOSIN HCL 0.4 MG CAPS Take 1 capsule by mouth once a day tamsulosin 12555251231 Contreras Vargas MD AMLODIPINE BESYLATE 10 MG TABS 07/29 amlodipine 96010170867 Contreras Vargas MD SENNOSIDES-DOCUSA TE SODIUM 8.6-50 MG TABS Take 1 tablet by mouth twice a day 07/29 sennosides-docu sate sodium 71024824326 Contreras Vargas MD fluticasone propion-salmetero L (Advair Diskus) 250-50 mcg/Do Inhale 1 puff by mouth twice a day Advair Diskus Contreras Vargas MD GAVILAX 17 GM/SCOOP POWD 07/29 polyethylene glycol 3350 84928812910 Contreras Vargas MD PEG 3350 17 GM/SCOOP POWD Take 1 by mouth once a day as needed polyethylene glycol 3350 39023943310 Contreras Vargas MD PROPRANOLOL HCL 20 MG TABS Take 1 tablet by mouth three times a day propranolol 90244365632 Contreras Vargas MD HALOPERIDOL 5 MG TABS Take 5 mg by mouth every four hours as needed 02/02 haloperidol 32497419190 Contreras Vargas MD cholecalciferol (VITAMIN D3) 1,000 unit tablet Take 1 tablet by mouth once a day VITAMIN D3 Contreras Vargas MD Nebulizer Inhale 07/29 Nebulizer Contreras Vargas MD QUETIAPINE FUMARATE 300 MG TABS 07/29 quetiapine 69582742926 Contreras Vargas MD CARBIDOPA-LEVODOP A 25-100 MG TABS Take 1 tablet by mouth three times a day carbidopa-levod opa 96185550061 Contreras Vargas MD NICOTINE POLACRILEX [address] 1 by mouth every hour as needed 02/02 nicotine (polacrilex) 17410330561 Contreras Vargas MD BENZTROPINE MESYLATE 0.5 MG TABS Take 0.5 mg by mouth twice a day 02/02 benztropine 08359879572 Contreras Vargas MD DEEP SEA NASAL SPRAY 0.65 % SOLN Administer 2 spray into both nostrils every six hours 02/02 sodium chloride 73425059928 Contreras Vargas MD NICOTINE 7 MG/24HR PT24 07/29 nicotine 68184134963 Contreras Vargas MD PROPRANOLOL HCL 20 MG TABS 07/29 propranolol 55427731257 Contreras Vargas MD SENEXON-S 8.6-50 MG TABS 07/29 sennosides-docu sate sodium 10559982865 Contreras Vargas MD LEVOTHYROXINE SODIUM 150 MCG TABS Take 1 tablet by mouth every morning levothyroxine 96346511777 Contreras Vargas MD CLONAZEPAM 0.5 MG TABS Take 1 tablet by mouth once a day as needed 02/02 clonazepam 93954077674 Contreras Vargas MD ASPIRIN LOW DOSE 81 MG TBEC 07/29 aspirin 22712039161 Contreras Vargas MD haloperidol decanoate (HALDOL DECANOATE) 100 mg/mL intramusc Inject 75 mg intramuscularly every two weeks 02/02 HALDOL DECANOATE Contreras Vargas MD TAMSULOSIN HCL 0.4 MG CAPS TAKE 1 CAPSULE BY MOUTH DAILY 30 MINUTES AFTER THE SAME MEAL EACH DAY *SWALLOW WHOLE* 07/29 tamsulosin 46598123214 QIEUSER QIEUSER DEEP SEA NASAL SPRAY 0.65 % SOLN ADMINISTER 2 SPRAYS IN AFFECTED NOSTRIL(S) EVERY 6 HOURS 07/29 sodium chloride 46231498919 QIEUSER QIEUSER SENNOSIDES-DOCUSA TE SODIUM 8.6-50 MG TABS TAKE 1 TABLET BY MOUTH TWICE DAILY 07/29 sennosides-docu sate sodium 20525633676 QIEUSER QIEUSER QUETIAPINE FUMARATE 200 MG TABS Take 200 mg by mouth at bedtime. 07/29 quetiapine 95505612672 QIEUSER QIEUSER PEG 3350 17 GM/SCOOP POWD Take 1 scoop (17 g) by mouth or nasogastric tube once daily if needed for Constipation. 07/29 polyethylene glycol 3350 22793187409 QIEUSER QIEUSER NICOTINE POLACRILEX [address] 1 Lozenge (2 mg) in mouth, between cheek & gum every hour while awake as needed for Nicotine Craving. 11/27 nicotine (polacrilex) 92796182361 QIEUSER QIEUSER Nebulizer Nebulizer, disposable neb kit x 4, reuseable neb kit x 1, mask x 1, filters x 1. Frequency of use: daily; Medication: albuterol Length of need: 99 months 07/29 Nebulizer QIEUSER QIEUSER Multivits,Ca,Mine [id number] (High Potency Multivit, w-iron Take 1 Tablet by mouth once daily. 07/29 High Potency Multivit, w-iron QIEUSER QIEUSER MELATONIN 3 MG TABS Take 1 Tablet (3 mg) by mouth at bedtime. 07/29 melatonin 39871789477 QIEUSER QIEUSER IBUPROFEN (IBUPROFEN) 600 MG TABS TAKE 1 TABLET BY MOUTH EVERY 8 HOURS NEEDED FOR PAIN OR TEMP >101.5F (38.6C) 07/29 IBUPROFEN QIEUSER QIEUSER haloperidol decanoate (HALDOL DECANOATE) 100 mg/mL intramusc Inject 75 mg intramuscular every 2 weeks. 07/29 HALDOL DECANOATE QIEUSER QIEUSER HALOPERIDOL 5 MG TABS Take 5 mg by mouth every 4 hours if needed for Agitation. 07/29 haloperidol 70028493419 QIEUSER QIEUSER fluticasone propion-salmetero L (Advair Diskus) 250-50 mcg/Do INHALE 1 PUFF BY MOUTH TWICE DAILY --RINSE MOUTH AFTER USE-- 07/29 Advair Diskus QIEUSER QIEUSER FAMOTIDINE 20 MG TABS Take 1 Tablet (20 mg) by mouth once daily. 07/29 famotidine 30521385548 QIEUSER QIEUSER ESCITALOPRAM OXALATE 10 MG TABS Take 10 mg by mouth once daily. 07/29 escitalopram oxalate 28332376834 QIEUSER QIEUSER cholecalciferol (VITAMIN D3) 1,000 unit tablet Take 1 Tablet (1,000 units) by mouth once daily. 07/29 VITAMIN D3 QIEUSER QIEUSER CARBIDOPA-LEVODOP A 25-100 MG TABS Take 1 Tablet by mouth three times daily. 11/27 carbidopa-levod opa 48312994889 QIEUSER QIEUSER BENZTROPINE MESYLATE 0.5 MG TABS Take 0.5 mg by mouth two times daily. 07/29 benztropine 14748447848 QIEUSER QIEUSER ALBUTEROL SULFATE (2.5 MG/3ML) 0.083% NEBU INHALE 1 AMPULE BY MOUTH VIA NEBULIZER TWICE DAILY 07/29 albuterol sulfate 91041483024 QIEUSER QIEUSER ACETAMINOPHEN 500 MG TABS Take 2 Tablets (1,000 mg) by mouth every 6 hours if needed for Pain. Max acetaminophen dose: 4000mg in 24 hrs. 02/02 acetaminophen 50652525636 QIEUSER QIEUSER PROPRANOLOL HCL 20 MG TABS Take 1 Tablet (20 mg) by mouth 2 times daily. AM and at bedtime. 11/27 propranolol 78445396651 QIEUSER QIEUSER LEVOTHYROXINE SODIUM 150 MCG TABS Take 1 Tablet (150 mcg) by mouth before breakfast. 07/29 levothyroxine 20610571352 QIEUSER QIEUSER DIVALPROEX SODIUM ER 500 MG [id number] Take 2 Tablets (1,000 mg) by mouth at bedtime. 02/02 divalproex 57214041458 QIEUSER QIEUSER CLONAZEPAM 0.5 MG TABS Take 1 Tablet (0.5 mg) by mouth once daily if needed for Anxiety. 11/27 clonazepam 04509119825 QIEUSER QIEUSER TAMSULOSIN HCL 0.4 MG CAPS 02/02 tamsulosin 23882797253 Jose Eduardo Corcoran MD NICOTINE 7 MG/24HR PT24 07/29 nicotine 54742177334 Jose Eduardo Corcoran MD ASPIRIN EC 81 MG TBEC 10/23 aspirin 78944259793 Jose Eduardo Corcoran MD PROPRANOLOL HCL 20 MG TABS 11/27 propranolol 47243874388 Jose Eduardo Corcoran MD CLONAZEPAM 0.5 MG TABS 02/02 clonazepam 39115627868 Jose Eduardo Corcoran MD ACETAMINOPHEN 325 MG TABS acetaminophen 34335511522 Jose Eduardo Corcoran MD ALBUTEROL SULFATE HFA 108 (90 Base) MCG/ACT AERS albuterol sulfate 46180288767 Jose Eduardo Corcoran MD DIVALPROEX SODIUM ER 500 MG [id number] divalproex 57676473823 Jose Eduardo Corcoran MD AMLODIPINE BESYLATE 10 MG TABS 11/27 amlodipine 49749111684 Jose Eduardo Corcoran MD QUETIAPINE FUMARATE 300 MG TABS 07/29 quetiapine 08549601849 Jose Eduardo Corcoran MD SENEXON-S 8.6-50 MG TABS 07/29 sennosides-docu sate sodium 68339469708 Jose Eduardo Corcoran MD GAVILAX 17 GM/SCOOP POWD 07/29 polyethylene glycol 3350 44965895774 Jose Eduardo Corcoran MD SYMBICORT 80-4.5 MCG/ACT AERO 02/02 budesonide-form oterol 53537495387 Jose Eduardo Corcoran MD HALOPERIDOL DECANOATE 50 MG/ML SOLN 02/02 haloperidol decanoate 99257961406 Jose Eduardo Corcoran MD MAGNESIUM CITRATE 1.745 GM/30ML SOLN 02/02 magnesium citrate 98798385071 Jose Eduardo Corcoran MD LEVOTHYROXINE SODIUM 150 MCG TABS 02/02 levothyroxine 23676481536 Jose Eduardo Corcoran MD Medications Administered No [...] Yes Consent To Release information to the [employer] ([employer]) Office Visit: Office Visit f ax MEDS [...] with Neurologist or [facility] ORDERS [facility] Scan [facility]-[id number] Documentation of current medicatio ns ORDERS Follow up RISSA after testing [id number] Other Radiology Vital Signs Date Name Value [...]
[2025-03-22 21:26] LABS: Hematocrit* 30.7 % (37.0-53.0); Hemoglobin* 9.6 gm/dL (13.5-17.5); Immature Granulocytes Pct Auto 0.3 %; Lymphocytes Absolute Auto 0.90 K/uL (0.90-2.90); Mean Corpuscular HGB Conc 31 gm/dL (32-36); Mean Corpuscular Hemoglobin 30 pg (26-34); Mean Corpuscular Volume 95 fL (80-100); RDW Coefficient of Variation % 14.1 % (11.5-15.5); Red Blood Count* 3.22 m/uL (4.30-5.90); White Blood Count* 3.76 K/uL (4.50-11.00)
[2025-03-22 21:29] LABS: Immature Granulocytes Abs Auto 0.00 K/uL (0.00-0.30); Slide Review Reflex No
[2025-03-22 21:35] LABS: Chloride* 106 mmol/L (96-114)
[2025-03-22 21:36] LABS: Albumin* 3.1 g/dL (3.3-5.0); Potassium* 4.5 mmol/L (3.6-5.1); Sodium* 134 mmol/L (135-149)
[2025-03-22 21:38] LABS: Blood Urea Nitrogen* 21 mg/dL (7-30); Creatinine* 1.3 mg/dL (0.5-1.5); Est. Creatinine Clearance* 55.37; Estimated Glomerular Filt Rate 59 ml/min
[2025-03-22 21:39] LABS: Alanine Aminotransferase* 6 U/L (4-50); Alkaline Phosphatase* 80 U/L (40-150); Anion Gap 3 mEq/L (7-15); Aspartate Amino Transferase* 32 U/L (12-35); Bilirubin Total* 0.3 mg/dL (0.1-1.5); Calcium* 8.8 mg/dL (8.4-10.6); Carbon Dioxide* 25 mmol/L (20-32); Glucose* 90 mg/dL (60-115); Total Protein* 5.8 g/dL (6.0-8.3)
[2025-03-22 22:28] LABS: Ethanol* < 0.01 % (0.01-0.03)
[2025-03-22 22:44] LABS: Appearance Urine Clear (Clear)
[2025-03-22 22:52] LABS: Cannabinoid Screen Urine Negative (Negative); Methamphetamines Screen Urine Negative (Negative); Tricyclic Antidepressant Urine POSITIVE (Negative)
--- NOTE | 2025-03-22 23:58 | P.EN_ITS ---
Chart Event Note Chart Event Note: ED requesting admission. Patient recently admitted on 03/06 and 03/18 for similar recurrent episodes. Returns to ED [facility] with left-sided weakness, unresponsive during the evening hours. Patient was admitted on 03/18 with findings of left facial droop and left upper extremity and left lower extremity weakness during the evening hours as well. Prior to that admitted on 03/06 with right facial droop slurring of speech and right upper extremity and right lower extremity weakness. Prior to this patient was seen in the ED on 01/12 and transferred to [place] with unresponsive episode slurring of speech also in the evening hours. Neurology has been involved with previous 2 admissions. Reviewed most recent neurology note documenting symptoms most consistent with presyncope possibly due to his vascular disease and focal cerebral hypoperfusion, additionally Parkinson's Sinemet both posing risk factors for orthostatic hypotension. Orthostatics during that admission did show a > 20 mmHg systolic drop, rebounding within 3-5 minutes. Orthostatics in the ED tonight without positive systolic or diastolic drops. 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 Recommendations at discharge: --Orthostatic vitals were reportedly positive for orthostatic hypotension at most recent hospitalization; if not, would perform orthostatic vitals now --Consider: use of thigh high compression stocking, sleep with head at 10-20 degree angle, stay well hydrated, get up slowly from seated position, slightly increase salt intake. If conservative management does not help, midodrine tablets may be considered. --Teleneurology will sign off, but please feel free to contact our service with any questions or concerns. Discussed with ED provider. These recommendations could be carried out upon returning to his facility at [facility]. If admission warranted, would consider transfer where Neurology or other appropriate services are available for further workup, medication management including adjustments, and recommendations given recurrent ED visits and previous 2 local admissions in just over past 2 weeks.
--- NOTE | 2025-03-23 00:43 | ED.NURSE ---
Pt ortho static BPs obtained. Pt amble to ambulate with assist. Pt given sandwich and drink. Pt able to eat and drink without difficulty.
== END 2025-03-23 01:57 | disposition home or self-care (01) ==
PROVIDERS: Emergency Provider Family Medicine; PCP Family Medicine
DX: D75.9 Disease of blood and blood-forming organs, unspecified (principal); G20.A1 Parkinson's disease without dyskinesia, without mention of fluctuations; R46.2 Strange and inexplicable behavior; Z86.73 Personal history of transient ischemic attack (TIA), and cerebral infarction without residual deficits
CPT/HCPCS: 36415; 70450; 70496; 70498; 71045; 80053; 80306; 81001; 82077; 85025; 94761; 99284; 99285; Q9967

== ENCOUNTER 2025-03-23 01:44 | Outpatient (CLI) | payer MEDICARE, MEDICAID, SELFPAY | END 2025-03-23 01:45 | disposition home or self-care (01) | LOC: AMB 04-08 18:33 | PROVIDERS: PCP Family Medicine; Visit Provider Student in an Organized Health Care Education/Training Program | DX: G45.9 Transient cerebral ischemic attack, unspecified (principal); I67.1 Cerebral aneurysm, nonruptured; G20.C Parkinsonism, unspecified | CPT/HCPCS: A0425; A0428 ==